=== PATIENT | male | born 1985 | race Caucasian/White ===

== ENCOUNTER 2018-12-04 15:42 | Emergency (ER) | payer SELFPAY ==
[2018-12-04] MEDS ORDERED: HYDROCODONE/APAP 10/325 TAB ONE (16:33)
[2018-12-04] MEDS ORDERED: IBUPROFEN 400 MG TAB ONE (16:33)
[2018-12-04] MEDS ORDERED: cloNIDine HCl 0.1 MG TAB ONE (17:12)
--- NOTE | 2018-12-04 17:20 | EDPHYS ---
Physician Documentation [facility] Name: Justino Barr Age: 33 yrs Sex: Male : 1985 Arrival Date: 12/04/2018 Time: 15:46 Bed 28 Private MD: ED Physician Rajesh Gallego HPI: 12/04 16:16 This 33 yrs old Male presents to ER via Ambulatory with complaints of rn Toothache, Chest Pain. 16:16 The patient presents with pain. Onset: The symptoms/episode began/occurred at an rn unknown time. Duration: The symptoms are intermittent. Associated signs and symptoms: Pertinent positives: pain. Severity of symptoms: At their worst the symptoms were mild, in the emergency department the symptoms are unchanged. The patient has experienced a previous episode. REports began recently with tooth pain, progressed to cause headache and chest pain, chest pain feels "burning", intermittent, concerned because father and other family had "heart problems", but at an older age. Denies chronic hypertension. Denies drug use.. Historical: - Allergies: 15:54 No Known Allergies; jl7 - Home Meds: 15:54 None [Active]; jl7 - PMHx: 15:54 None; jl7 - PSHx: 15:54 None; jl7 - Immunization history:: Adult Immunizations up to date. - Social history:: Smoking status: Patient uses tobacco products, smokes one pack cigarettes per day. Patient uses street drugs, marijuana. - Ebola Screening: : No symptoms or risks identified at this time. - Family history:: not pertinent. - Hospitalizations: : No recent hospitalization is reported. ROS: 16:16 Constitutional: Negative for fever, chills, and weight loss, Eyes: Negative for injury, rn pain, redness, and discharge, Neck: Negative for injury, pain, and swelling, Cardiovascular: Negative for palpitations, and edema, Respiratory: Negative for shortness of breath, cough, wheezing, and pleuritic chest pain, Abdomen/GI: Negative for abdominal pain, nausea, vomiting, diarrhea, and constipation, MS/Extremity: Negative for injury and deformity, Skin: Negative for injury, rash, and discoloration, Neuro: Negative for weakness, numbness, tingling, and seizure. Exam: 16:21 Constitutional: This is a well developed, well nourished patient who is awake, alert, rn and in no acute distress. Walked to room on own. Head/Face: Normocephalic, atraumatic. Eyes: Pupils equal round and reactive to light, extra-ocular motions intact. Lids and lashes normal. Conjunctiva and sclera are non-icteric and not injected. Cornea within normal limits. Periorbital areas with no swelling, redness, or edema. ENT: Poor dentition, no abscess Cardiovascular: tachycardic, regular, no murmur Respiratory: Lungs have equal breath sounds bilaterally, clear to auscultation, No increased work of breathing, no retractions or nasal flaring. Skin: Warm, dry with normal turgor. Normal color with no rashes, no lesions, and no evidence of cellulitis. MS/ Extremity: Pulses equal, no cyanosis. Neurovascular intact. Full, normal range of motion. Equal circumference. Neuro: Awake and alert, GCS 15, oriented to person, place, time, and situation. Cranial nerves II-XII grossly intact. Motor strength 5/5 in all extremities. Sensory grossly intact. Cerebellar exam normal. Normal gait. Vital Signs: 15:54 BP 224 / 154; Pulse 119; Resp 16 S; Temp 100(O); Pulse Ox 100% on R/A; Weight 73.48 kg jl7 (R); Height 5 ft. 11 in. (180.34 cm) (R); Pain 9/10; 17:20 BP 228 / 146; Pulse 96; Resp 18; Pulse Ox 98% on R/A; Pain 5/10; mg2 17:28 BP 218 / 150; Pulse 95; Resp 18; Pulse Ox 98% on R/A; mg2 18:02 BP 223 / 161; Pulse 94; Resp 18; Pulse Ox 98% on R/A; Pain 4/10; mg2 18:19 BP 220 / 150; Pulse 93; Resp 18; Pulse Ox 100% on R/A; Pain 4/10; mg2 15:54 Body Mass Index 22.59 (73.48 kg, 180.34 cm) jl7 MDM: 15:59 Patient medically screened. rn 17:11 Differential diagnosis: dental caries, hypertension. Data reviewed: vital signs, nurses rn notes, EKG, and as a result, I will discharge patient. Counseling: I had a detailed discussion with the patient and/or guardian regarding: the historical points, exam findings, and any diagnostic results supporting the discharge/admit diagnosis, the need for outpatient follow up, to return to the emergency department if symptoms worsen or persist or if there are any questions or concerns that arise at home. Counseling: I had a detailed discussion with the patient and/or guardian regarding: the presence of at least one elevated blood pressure reading (>120/80) during this emergency department visit. Response to treatment: the patient's symptoms have mildly improved after treatment, and as a result, I will discharge patient. Special discussion: I have referred the patient to see his PCP for further evaluation of high blood pressure. I discussed with the patient/guardian in detail that at this point there is no indication for admission to the hospital. It is understood, however, that if the symptoms persist or worsen the patient needs to return immediately for re-evaluation. ED course: ECG without acute ischemia, + high BP, will start on antihypertensive given strong family history and 2 visits with extremely high BP. Normal neuro exam, no indication for emergent neuro imaging.. 12/04 16:13 Order name: EKG; Complete Time: 16:14 rn 12/04 16:13 Order name: EKG - Nurse/Tech; Complete Time: 16:15 rn Administered Medications: 16:25 Drug: [place] 10 mg-325 mg 1 tabs Route: PO; mg2 17:32 Follow up: Response: No adverse reaction; Marked relief of symptoms mg2 16:25 Drug: Motrin 800 mg Route: PO; mg2 17:32 Follow up: Response: No adverse reaction; Marked relief of symptoms mg2 17:05 Drug: cloNIDine 0.2 mg Route: PO; mg2 17:39 Follow up: Response: No adverse reaction; Blood pressure is unchanged mg2 17:39 Drug: Lisinopril 20 mg Route: PO; mg2 18:17 Follow up: Response: No adverse reaction; Blood pressure is unchanged mg2 Disposition: 12/04/18 17:20 Discharged to Home. Impression: Dental caries, Hypertension, Chest pain, unspecified. - Condition is Stable. - Discharge Instructions: Nonspecific Chest Pain, Dental Pain, Hypertension. - Prescriptions for Clindamycin HCl 300 mg Oral Capsule - take 1 capsule by ORAL route every 6 hours for 10 days; 40 capsule. Lisinopril 10 mg Oral Tablet - take 1 tablet by ORAL route once daily; 60 tablet. - Medication Reconciliation Form, Thank You Letter, Antibiotic Education, Prescription Opioid Use form. - Follow up: Private Physician; When: As needed; Reason: Recheck today's complaints, Re-evaluation by your physician. - Problem is new. - Symptoms have improved. Signatures: Rajesh Gallego MD MD rn Atif Galaviz RN RN jl7 Max Beverly RN RN mg2 Corrections: (The following items were deleted from the chart) 18:20 17:20 12/04/2018 17:20 Discharged to Home. Impression: Dental caries; Hypertension; mg2 Chest pain, unspecified. Condition is Stable. Forms are Medication Reconciliation Form, Thank You Letter, Antibiotic Education, Prescription Opioid Use. Follow up: Private Physician; When: As needed; Reason: Recheck today's complaints, Re-evaluation by your physician. Problem is new. Symptoms have improved. rn
--- NOTE | 2018-12-04 17:20 | ER ---
Nurse's Notes [facility] Name: Justino Barr Age: 33 yrs Sex: Male : 1985 Arrival Date: 12/04/2018 Time: 15:46 Bed 28 Private MD: Diagnosis: Dental caries;Hypertension;Chest pain, unspecified Presentation: 12/04 15:51 Presenting complaint: Patient states: "I got a toothache 2 days ago in the bottom right jl7 and it progressed to a CHOWDHURY and now my chest started hurting today." Left sided chest pain radiates to the back, rated 5/10. Toothache rated 9/10. CHOWDHURY rated 6/10. Transition of care: patient was not received from another setting of care. Onset of symptoms was December 02, 2018. Risk Assessment: Do you want to hurt yourself or someone else? Patient reports no desire to harm self or others. Initial Sepsis Screen: Does the patient meet any 2 criteria? No. Patient's initial sepsis screen is negative. Does the patient have a suspected source of infection? No. Patient's initial sepsis screen is negative. Care prior to arrival: None. 15:51 Method Of Arrival: Ambulatory [facility] 15:51 Acuity: VAHID 2 jl7 Triage Assessment: 15:54 General: Appears in no apparent distress. uncomfortable, Behavior is calm, cooperative. jl7 Pain: Complains of pain in CHOWDHURY, toothache, chest pain. EENT: Reports pain in lower right second bicuspid. Neuro: Level of Consciousness is awake, alert, obeys commands, Oriented to person, place, time, situation. Cardiovascular: Patient's skin is warm and dry. Respiratory: Airway is patent Respiratory effort is even, unlabored, Respiratory pattern is regular, symmetrical, Denies shortness of breath. GI: Reports nausea, Patient currently denies diarrhea, vomiting. Derm: Skin is pink, warm \\T\\ dry. Historical: - Allergies: 15:54 No Known Allergies; jl7 - Home Meds: 15:54 None [Active]; jl7 - PMHx: 15:54 None; jl7 - PSHx: 15:54 None; jl7 - Immunization history:: Adult Immunizations up to date. - Social history:: Smoking status: Patient uses tobacco products, smokes one pack cigarettes per day. Patient uses street drugs, marijuana. - Ebola Screening: : No symptoms or risks identified at this time. - Family history:: not pertinent. - Hospitalizations: : No recent hospitalization is reported. Screenin:43 Abuse screen: Denies threats or abuse. Denies injuries from another. Nutritional mg2 screening: No deficits noted. Tuberculosis screening: No symptoms or risk factors identified. Fall Risk None identified. Assessment: 16:39 General: Appears in no apparent distress. comfortable, Behavior is calm, cooperative. mg2 Pain: Complains of pain in tooth, head, left sided-chest Pain does not radiate. Pain currently is 9 out of 10 on a pain scale. Quality of pain is described as aching, Pain began gradually, Is intermittent. Neuro: Level of Consciousness is awake, alert, obeys commands, Oriented to person, place, time, situation. Cardiovascular: Capillary refill < 3 seconds Patient's skin is warm and dry. Cardiovascular: Chest pain quality is sharp, is located in left. Respiratory: Airway is patent Respiratory effort is even, unlabored, Respiratory pattern is regular, symmetrical. GI: No signs and/or symptoms were reported involving the gastrointestinal system. : No signs and/or symptoms were reported regarding the genitourinary system. EENT: Poor dentition noted. Derm: Skin is intact, is healthy with good turgor, Skin is pink, warm \\T\\ dry. normal. Musculoskeletal: No signs and/or symptoms reported regarding the musculoskeletal system. 16:39 Neuro: Reports headache. mg2 17:20 Reassessment: Patient appears in no apparent distress at this time. Patient and/or mg2 family updated on plan of care and expected duration. Pain level reassessed. Patient is alert, oriented x 3, equal unlabored respirations, skin warm/dry/pink. 17:40 Reassessment: blood pressure still high. for discharge once blood pressure lowered down.mg2 18:18 Reassessment: dr gallego advised to discharge the patient and let him rest at home. mg2 Vital Signs: 15:54 BP 224 / 154; Pulse 119; Resp 16 S; Temp 100(O); Pulse Ox 100% on R/A; Weight 73.48 kg jl7 (R); Height 5 ft. 11 in. (180.34 cm) (R); Pain 9/10; 17:20 BP 228 / 146; Pulse 96; Resp 18; Pulse Ox 98% on R/A; Pain 5/10; mg2 17:28 BP 218 / 150; Pulse 95; Resp 18; Pulse Ox 98% on R/A; mg2 18:02 BP 223 / 161; Pulse 94; Resp 18; Pulse Ox 98% on R/A; Pain 4/10; mg2 18:19 BP 220 / 150; Pulse 93; Resp 18; Pulse Ox 100% on R/A; Pain 4/10; mg2 15:54 Body Mass Index 22.59 (73.48 kg, 180.34 cm) 7 ED Course: 15:46 Patient arrived in ED. mr 15:54 Triage completed. jl7 15:54 Arm band placed on right wrist. jl7 15:59 Rajesh Gallego MD is Attending Physician. rn 16:05 Max Beverly, MANSOOR is Primary Nurse. mg2 16:20 EKG done, by biomedical repair technician. reviewed by Rajesh Gallego MD. 3 16:43 Call light in reach. Pulse ox on. NIBP on. mg2 16:43 No provider procedures requiring assistance completed. mg2 18:19 IV discontinued, intact, bleeding controlled, No redness/swelling at site. Pressure mg2 dressing applied. Administered Medications: 16:25 Drug: [place] 10 mg-325 mg 1 tabs Route: PO; mg2 17:32 Follow up: Response: No adverse reaction; Marked relief of symptoms mg2 16:25 Drug: Motrin 800 mg Route: PO; mg2 17:32 Follow up: Response: No adverse reaction; Marked relief of symptoms mg2 17:05 Drug: cloNIDine 0.2 mg Route: PO; mg2 17:39 Follow up: Response: No adverse reaction; Blood pressure is unchanged mg2 17:39 Drug: Lisinopril 20 mg Route: PO; mg2 18:17 Follow up: Response: No adverse reaction; Blood pressure is unchanged mg2 Outcome: 17:20 Discharge ordered by . rn 18:19 Discharged to home ambulatory. mg2 18:19 Condition: stable 18:19 Discharge instructions given to patient, Instructed on discharge instructions, follow up and referral plans. medication usage, Demonstrated understanding of instructions, follow-up care, medications, Prescriptions given X 2. 18:20 Patient left the ED. mg2 Signatures: Marilynn Calderon mr Rajesh Gallego MD MD rn Leal, Jahala, RN RN [facility] Max Beverly RN RN [facility] Sarai Cardenas 3 Corrections: (The following items were deleted from the chart) 15:58 15:51 Acuity: VAHID 3 jl7 jl7
[2018-12-04] MEDS ORDERED: LISINOPRIL 10 MG TAB ONE (17:47)
--- NOTE | 2018-12-05 06:59 | EKG ---
Test Date: 2018-12-04 Test Time: 16:09:20 Factory Supervisor: MARQUISE MEASUREMENT RESULTS: Intervals: Rate: 96 IL: 140 QRSD: 78 QT: 338 QTc: 427 [place]: P: 80 IL: 140 QRS: 80 T: 61 INTERPRETIVE STATEMENTS: Normal sinus rhythm Minimal voltage criteria for LVH, may be normal variant cannot rule out septal infarct, age undetermined Abnormal ECG Compared to ECG 05/17/2016 04:25:02 Left ventricular hypertrophy now present questionable myocardial infarct finding still present Electronically Signed On 12-05-18 06:59:09 PROGRAMMER ANALYST by Feliz Rivas
== END 2018-12-04 18:20 | disposition home or self-care (01) ==
LOC: ER 15:42
DX: I10 Essential (primary) hypertension (principal); K02.9 Dental caries, unspecified; F17.210 Nicotine dependence, cigarettes, uncomplicated
CPT/HCPCS: 93005; 99284

== ENCOUNTER 2022-04-03 06:18 | Inpatient (IN) | payer SELFPAY ==
[2022-04-03] MEDS ORDERED: FAMOTIDINE 20 MG/2 ML VIAL IV ONE (07:27)
[2022-04-03] MEDS ORDERED: ONDANSETRON 4 MG/2 ML VIAL ONE (07:27)
[2022-04-03] MEDS ORDERED: NA CHLORIDE 0.9% 1,000 ML ONE ×2 (07:27→08:12)
[2022-04-03 07:44] LABS: Absolute Lymphocytes (CBC) 1.9 K/uL (0.7-4.9); Hematocrit 38.4 % (39.6-49.0); Lymphocytes % 15.5 % (15.3-44.8); MPV 8.2 fL (7.6-11.3); RBC Red Blood Cell Count 4.46 M/uL (4.33-5.43)
[2022-04-03 08:11] LABS: Albumin 2.7 g/dL (3.4-5.0); Protein, Total 6.8 g/dL (6.4-8.2)
[2022-04-03] MEDS ORDERED: NA CHLORIDE 0.9% 500 ML ONE (08:12)
[2022-04-03 08:14] LABS: Potassium 2.7 mmol/L (3.5-5.1)
[2022-04-03] MEDS ORDERED: KCL 20 MEQ/100 mL IVPB 100 ML IV ONE ×2 (08:42→08:59)
--- NOTE | 2022-04-03 08:47 | RAD REPORT ---
EXAM DESCRIPTION: CTAbdomen Pelvis Wo Contrast - 04/03/2022 8:32 am CLINICAL HISTORY: Abdominal pain, acute, nonlocalized COMPARISON: <Comparisons> TECHNIQUE: CT of the abdomen and pelvis was performed. All CT scans are performed using dose optimization technique as appropriate and may include automated exposure control or mA/KV adjustment according to patient size. FINDINGS: Lower chest: Interlobular septal thickening at the right lung base. Small pleural effusion s. Cardiomegaly suspected. Liver: Low-density lesion along segment 4 is almost certainly benign. Biliary: No biliary ductal dilatation. Contracted gallbladder. Stomach: No significant focal abnormality. Duodenum: No significant focal abnormality. Pancreas: No significant abnormality. Spleen: No significant abnormality. Adrenal: No suspicious lesions. Kidney/ureter: No hydronephrosis. No renal calculi. Retroperitoneum: No retroperitoneal adenopathy. Vascular: No aneurysm. Bowel: No significant focal abnormality. Normal appendix. Peritoneum: No ascites or free air. Bladder: Grossly unremarkable. Reproductive: No adnexal masses. Bones: No acute fracture. Sclerotic lesion in the posterior half of the L2 vertebral body is unchange d and chronic. Disc bulges present at L4-5 and L5-S1. Other: n/a IMPRESSION: No acute intra-abdominal or pelvic finding. Normal appendix. No urinary tract calculi. Small pleural effusions with interlobular septal thickening could reflect edema.
[2022-04-03] MEDS ORDERED: MORPHINE 4 MG/ML SYR ONE (08:59)
--- NOTE | 2022-04-03 09:01 | EDPHYS ---
Physician Documentation [facility] Name: Justino Barr Age: 36 yrs Sex: Male : 1985 Arrival Date: 04/03/2022 Time: 06:22 Bed 6 Private MD: STEPHEN Physician Keo John HPI: 04/03 08:52 This 36 yrs old Male presents to ER via Ambulatory with complaints of ciera Nausea/Vomiting, Abdominal Pain. 08:52 The patient presents to the emergency department with nausea, vomiting, that is ciera continuous. Onset: The symptoms/episode began/occurred 5 day(s) ago. Possible causes: unknown. The symptoms are aggravated by nothing. The symptoms are alleviated by nothing. Associated signs and symptoms: Pertinent positives: abdominal pain, vomiting. Severity of symptoms: At their worst the symptoms were moderate severe in the emergency department the symptoms are unchanged. The patient has not experienced similar symptoms in the past. Historical: - Allergies: 06:42 No Known Allergies; bb - Home Meds: 06:42 None [Active]; bb - PMHx: 06:42 None; bb - PSHx: 06:42 None; bb - Immunization history:: Client reports having NOT received the Covid vaccine. - Social history:: Smoking status: Patient reports the use of cigarette tobacco products, Patient/guardian denies using street drugs, but used to use street drugs. ROS: 08:54 Eyes: Negative for injury, pain, redness, and discharge, ENT: Negative for injury, ciera pain, and discharge, Neck: Negative for injury, pain, and swelling, Cardiovascular: Negative for chest pain, palpitations, and edema, Back: Negative for injury and pain, : Negative for injury, bleeding, discharge, and swelling, MS/Extremity: Negative for injury and deformity, Neuro: Negative for headache, weakness, numbness, tingling, and seizure, Psych: Negative for depression, anxiety, suicide ideation, homicidal ideation, and hallucinations, Allergy/Immunology: Negative for hives, rash, and allergies, Endocrine: Negative for neck swelling, polydipsia, polyuria, polyphagia, and marked weight changes, Hematologic/Lymphatic: Negative for swollen nodes, abnormal bleeding, and unusual bruising. 08:54 Respiratory: Positive for shortness of breath. 08:54 Abdomen/GI: Positive for nausea and vomiting. Exam: 08:54 Constitutional: This is a well developed, well nourished patient who is awake, alert, ciera and in no acute distress. Head/Face: Normocephalic, atraumatic. Eyes: Pupils equal round and reactive to light, extra-ocular motions intact. Lids and lashes normal. Conjunctiva and sclera are non-icteric and not injected. Cornea within normal limits. Periorbital areas with no swelling, redness, or edema. ENT: Nares patent. No nasal discharge, no septal abnormalities noted. Tympanic membranes are normal and external auditory canals are clear. Oropharynx with no redness, swelling, or masses, exudates, or evidence of obstruction, uvula midline. Mucous membranes moist. Neck: Trachea midline, no thyromegaly or masses palpated, and no cervical lymphadenopathy. Supple, full range of motion without nuchal rigidity, or vertebral point tenderness. No Meningismus. Chest/axilla: Normal chest wall appearance and motion. Nontender with no deformity. No lesions are appreciated. Cardiovascular: Regular rate and rhythm with a normal S1 and S2. No gallops, murmurs, or rubs. Normal PMI, no JVD. No pulse deficits. Respiratory: Lungs have equal breath sounds bilaterally, clear to auscultation and percussion. No rales, rhonchi or wheezes noted. No increased work of breathing, no retractions or nasal flaring. Back: No spinal tenderness. No costovertebral tenderness. Full range of motion. Male : Normal genitalia with no discharge or lesions. MS/ Extremity: Pulses equal, no cyanosis. Neurovascular intact. Full, normal range of motion. Neuro: Awake and alert, GCS 15, oriented to person, place, time, and situation. Cranial nerves II-XII grossly intact. Motor strength 5/5 in all extremities. Sensory grossly intact. Cerebellar exam normal. Normal gait. Psych: Awake, alert, with orientation to person, place and time. Behavior, mood, and affect are within normal limits. 08:54 Abdomen/GI: Inspection: distension, that is mild, Bowel sounds: active, Palpation: mild abdominal tenderness, in all quadrants, Liver: no appreciated palpable abnormalities, Hernia: not appreciated. 11:04 ECG was reviewed by the Attending Physician. [facility] Vital Signs: 06:41 BP 218 / 159; Pulse 108; Resp 18 S; Temp 97.4(O); Pulse Ox 98% on R/A; Weight 74.84 kg bb (R); Height 5 ft. 11 in. (180.34 cm) (R); Pain 6/10; 09:31 BP 204 / 158; Pulse 101; Resp 22; Pulse Ox 96% on 2 lpm NC; guillen 10:58 BP 196 / 147; Pulse 102; Resp 20; Pulse Ox 96% on 2 lpm NC; guillen 11:10 BP 172 / 120; Pulse 105; Resp 20; Pulse Ox 97% on 2 lpm NC; guillen 11:19 BP 158 / 107; Pulse 105; Resp 19; Pulse Ox 94% on 2 lpm NC; guillen 11:24 BP 137 / 101; Pulse 104; Resp 19; Pulse Ox 92% on 2 lpm NC; guillen 12:05 BP 139 / 90; Pulse 101; Resp 19; Pulse Ox 100% on 4 lpm NC; guillen 13:00 BP 137 / 84; Pulse 102; Resp 17; Pulse Ox 99% on 2 lpm NC; guillen 13:41 BP 137 / 93; Pulse 99; Resp 19; Pulse Ox 99% on 2 lpm NC; guillen 16:04 BP 149 / 92; Pulse 101; Resp 17; Pulse Ox 96% on 4 lpm NC; guillen 17:00 BP 138 / 86; Pulse 101; Resp 17; Pulse Ox 100% on 4 lpm NC; guillen 18:00 BP 127 / 75; Pulse 102; Resp 17; Pulse Ox 90% on 4 lpm NC; guillen 06:41 Body Mass Index 23.01 (74.84 kg, 180.34 cm) bb MDM: 07:11 Patient medically screened. ciera 09:03 Differential diagnosis: Nonspecific abd pain, gastritis, cholecystitis, pancreatitis, ciera diverticulitis, viral gastroenteritis, gastroenteritis, bowel obstruction. Data reviewed: vital signs, nurses notes, lab test result(s), EKG, radiologic studies, CT scan, plain films. 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 Test interpretation: by ED physician or midlevel provider: ECG, plain radiologic studies. Counseling: I had a detailed discussion with the patient and/or guardian regarding: the historical points, exam findings, and any diagnostic results supporting the discharge/admit diagnosis, lab results, radiology results, the need for further work-up and treatment in the hospital. 04/03 07:02 Order name: CBC with Diff; Complete Time: 08:40 7 04/03 07:02 Order name: CMP; Complete Time: 08:40 [facility] 04/03 07:02 Order name: Lipase; Complete Time: 08:40 [facility] 04/03 08:14 Order name: Phosphorus; Complete Time: 10:52 [facility] 04/03 08:43 Order name: SARS-COV-2 RT PCR (Document "Date of Onset" if Symptomatic); Complete Time: [facility] 10:52 04/03 08:57 Order name: Basic Metabolic Panel; Complete Time: 10:52 [facility] 04/03 08:57 Order name: Magnesium; Complete Time: 10:52 [facility] 04/03 08:57 Order name: NT PRO-BNP; Complete Time: 10:52 [facility] 04/03 08:57 Order name: PT-INR; Complete Time: 10:52 [facility] 04/03 08:57 Order name: Troponin HS; Complete Time: 10:52 [facility] 04/03 10:41 Order name: Urine Dipstick-Ancillary; Complete Time: 10:52 [facility] 04/04 00:36 Order name: Urine Drug Screen EDMS 04/04 03:51 Order name: Comprehensive Metabolic Panel EDUT 04/04 03:51 Order name: Phosphorus EDUT 04/03 08:18 Order name: Abdomen ; Complete Time: 08:51 [facility] 04/03 08:43 Order name: US Abdomen Limited; Complete Time: 10:52 [facility] 04/03 08:57 Order name: XRAY Chest (1 view); Complete Time: 10:52 [facility] 04/03 11:32 Order name: Cholangiogram; Complete Time: 20:14 EDMS 04/04 03:51 Order name: Magnesium EDMS 04/04 14:56 Order name: Potassium EDMS 04/04 14:56 Order name: Troponin High Sensitivity EDMS 04/03 07:02 Order name: IV Saline Lock; Complete Time: 07:33 7 04/03 07:02 Order name: Labs collected and sent; Complete Time: 07:33 [facility] 04/03 07:02 Order name: Urine Dipstick-Ancillary (obtain specimen); Complete Time: 11:59 [facility] 04/03 08:43 Order name: Cortez; Complete Time: 09:29 [facility] 04/03 08:57 Order name: EKG; Complete Time: 08:58 [facility] 04/03 08:57 Order name: Cardiac monitoring; Complete Time: 09:28 [facility] 04/03 08:57 Order name: EKG - Nurse/Tech; Complete Time: 10:58 [facility] 04/03 08:57 Order name: O2 Per Protocol; Complete Time: 09: [facility] 04/03 08:57 Order name: O2 Sat Monitoring; Complete Time: 09: [facility] 04/03 10:12 Order name: CONS Physician Consult EDMS 04/03 10:28 Order name: NPO; Complete Time: 10:58 EDMS EC:04 Rate is 103 beats/min. Rhythm is regular. QRS [place] is Normal. IN interval is normal. ciera QRS interval is normal. QT interval is normal. No Q waves. T waves are Normal. No ST changes noted. Clinical impression: Sinus tachycardia and No evidence of ischemia. Interpreted by me. Reviewed by me. Administered Medications: 07:32 Drug: NS 0.9% 1000 ml Route: IV; Rate: 1 bolus; Site: right antecubital; guillen 07:32 Drug: Pepcid (famotidine) 20 mg Route: IVP; Site: right antecubital; guillen 07:33 Follow up: Response: No adverse reaction guillen 07:33 Drug: Zofran (Ondansetron) 4 mg Route: IVP; Site: right antecubital; guillen 07:43 Follow up: Response: No adverse reaction guillen 08:49 Drug: Potassium Chloride 20 mEq Route: IV; Rate: per protocol; Site: right antecubital; guillen 11:58 Follow up: Response: No adverse reaction; IV Status: Completed infusion guillen 09:28 Drug: morphine 4 mg Route: IVP; Site: right antecubital; guillen 09:28 Follow up: Response: No adverse reaction guillen 09:29 Drug: NS 0.9% 1000 ml Route: IV; Rate: 125 ml/hr; Site: right antecubital; guillen 09:29 Drug: Potassium Chloride 20 mEq Route: IV; Rate: per protocol; Site: left antecubital; guillen 11:59 Follow up: Response: No adverse reaction; IV Status: Completed infusion guillen 09:56 Drug: niCARdipine 5 mg/hr Route: IV; Rate: per protocol; Site: left antecubital; guillen 13:05 Follow up: IV Status: Completed infusion guillen 11:59 Drug: NS 0.9% 500 ml Route: IV; Rate: bolus; Site: right antecubital; guillen 11:59 Follow up: Response: No adverse reaction; IV Status: Completed infusion guillen Disposition Summary: 04/03/22 09:01 Hospitalization Ordered Hospitalization Status: Inpatient Admission ciera Provider: Moiz Quintana cha Condition: Serious ciera Problem: new ciera Symptoms: have improved ciera Bed/Room Type: Standard ciera Location: Intensive Care Unit(04/05/22 02:32) Room Assignment: 7-(04/05/22 02:32) Diagnosis - Acute kidney failure, unspecified ciera - Vomiting ciera - Abdominal pain, Generalized ciera - Hypertensive emergency ciera - Hypokalemia ciera Forms: - Medication Reconciliation Form ciera - SBAR form ciera Signatures: Dispatcher [employer] EDMS Vijaya Hernandez RN RN mw Woody, Diana, RN RN dw Anderson, Corey, MD MD cha Ballard, Brenda, RN RN Anupam Chapman, CLINICAL INFORMATICS MANAGER-C CLINICAL INFORMATICS MANAGER-Cla1 Bello Patel MD MD [id number] Iona Guerin RN RN guileln Corrections: (The following items were deleted from the chart) 07:33 07:02 LIPASE+C.LAB.BRZ ordered. EDMS EDMS 08:18 07:20 Abdomen Pelvis W Con+CT.RAD.BRZ ordered. EDMS EDMS 19:38 09:01 Intensive Care Unit counts include 234 beds at the [facility] 19:38 09:01 counts include 234 beds at the [facility] 04/05 02:32 09 19:38 BR ER HOLD [facility] 04/05 02:32 04/03 19:38 ERHOLD- [facility]
--- NOTE | 2022-04-03 09:01 | ER ---
Nurse's Notes [facility] Name: Justino Barr Age: 36 yrs Sex: Male : 1985 Arrival Date: 04/03/2022 Time: 06:22 Bed 6 Private MD: Diagnosis: Acute kidney failure, unspecified;Vomiting;Abdominal pain, Generalized;Hypertensive emergency;Hypokalemia Presentation: 04/03 06:41 Chief complaint: Patient states: he has been having abdominal pain x 5 days, started bb vomiting yesterday and the pain is getting worse denies diarrhea, fever. Coronavirus screen: At this time, the client does not indicate any symptoms associated with coronavirus-19. Ebola Screen: No symptoms or risks identified at this time. Initial Sepsis Screen: Does the patient meet any 2 criteria? No. Patient's initial sepsis screen is negative. Does the patient have a suspected source of infection? No. Patient's initial sepsis screen is negative. Risk Assessment: Do you want to hurt yourself or someone else? Patient reports no desire to harm self or others. Onset of symptoms was March 29, 2022. 06:41 Method Of Arrival: Ambulatory bb 06:41 Acuity: VAHID 2 bb Triage Assessment: 06:42 General: Appears uncomfortable, ill, Behavior is cooperative. Pain: Complains of pain bb in abdomen Pain currently is 6 out of 10 on a pain scale. Neuro: Level of Consciousness is awake, alert, obeys commands, Oriented to person, place, time, situation. Cardiovascular: Capillary refill < 3 seconds Patient's skin is warm and dry. Respiratory: Respiratory effort is unlabored, Respiratory pattern is tachypnea. GI: Reports lower abdominal pain, vomiting. Derm: Skin is pink, warm \\T\\ dry. Musculoskeletal: Circulation, motion, and sensation intact. Historical: - Allergies: 06:42 No Known Allergies; bb - Home Meds: 06:42 None [Active]; bb - PMHx: 06:42 None; bb - PSHx: 06:42 None; bb - Immunization history:: Client reports having NOT received the Covid vaccine. - Social history:: Smoking status: Patient reports the use of cigarette tobacco products, Patient/guardian denies using street drugs, but used to use street drugs. Screenin:00 Abuse screen: Denies threats or abuse. Denies injuries from another. Nutritional kd3 screening: No deficits noted. Tuberculosis screening: No symptoms or risk factors identified. Fall Risk None identified. Assessment: 07:19 General: Appears in no apparent distress. Behavior is calm, cooperative. Pain: guillen Complains of pain in abdomen. GI: Abd is soft and non tender Reports nausea, Pain is 8 out of 10 on a pain scale. vomiting. Vital Signs: 06:41 BP 218 / 159; Pulse 108; Resp 18 S; Temp 97.4(O); Pulse Ox 98% on R/A; Weight 74.84 kg bb (R); Height 5 ft. 11 in. (180.34 cm) (R); Pain 6/10; 09:31 BP 204 / 158; Pulse 101; Resp 22; Pulse Ox 96% on 2 lpm NC; guillen 10:58 BP 196 / 147; Pulse 102; Resp 20; Pulse Ox 96% on 2 lpm NC; guillen 11:10 BP 172 / 120; Pulse 105; Resp 20; Pulse Ox 97% on 2 lpm NC; guillen 11:19 BP 158 / 107; Pulse 105; Resp 19; Pulse Ox 94% on 2 lpm NC; guillen 11:24 BP 137 / 101; Pulse 104; Resp 19; Pulse Ox 92% on 2 lpm NC; guillen 12:05 BP 139 / 90; Pulse 101; Resp 19; Pulse Ox 100% on 4 lpm NC; guillen 13:00 BP 137 / 84; Pulse 102; Resp 17; Pulse Ox 99% on 2 lpm NC; guillen 13:41 BP 137 / 93; Pulse 99; Resp 19; Pulse Ox 99% on 2 lpm NC; guillen 16:04 BP 149 / 92; Pulse 101; Resp 17; Pulse Ox 96% on 4 lpm NC; guillen 17:00 BP 138 / 86; Pulse 101; Resp 17; Pulse Ox 100% on 4 lpm NC; guillen 18:00 BP 127 / 75; Pulse 102; Resp 17; Pulse Ox 90% on 4 lpm NC; guillen 06:41 Body Mass Index 23.01 (74.84 kg, 180.34 cm) arthur ED Course: 06:22 Patient arrived in ED. lele 06:42 Triage completed. bb 06:42 Arm band placed on Patient placed in waiting room, Patient notified of wait time. bb 07:00 Emelia Smith RN is Primary Nurse. kd3 07:00 Patient has correct armband on for positive identification. kd3 07:11 Keo John MD is Attending Physician. ciera 07:19 No provider procedures requiring assistance completed. guillen 07:33 CBC with Diff Sent. guillen 07:43 Primary Nurse role handed off by Emelia Smith RN bd 08:34 Abdomen In Process Unspecified. EDMS 08:34 Iona Guerin, MANSOOR is Primary Nurse. guillen 08:58 Moiz Quintana MD is Hospitalizing Provider. ciera 09:10 US Abdomen Limited In Process Unspecified. EDMS 09:28 SARS-COV-2 RT PCR (Document "Date of Onset" if Symptomatic) Sent. guillen 10:12 XRAY Chest (1 view) In Process Unspecified. EDMS 15:40 Cholangiogram In Process Unspecified. EDMS 05 03:08 Patient admitted, IV remains in place. ll3 Administered Medications: 04/03 07:32 Drug: NS 0.9% 1000 ml Route: IV; Rate: 1 bolus; Site: right antecubital; guillen 07:32 Drug: Pepcid (famotidine) 20 mg Route: IVP; Site: right antecubital; guillen 07:33 Follow up: Response: No adverse reaction guillen 07:33 Drug: Zofran (Ondansetron) 4 mg Route: IVP; Site: right antecubital; guillen 07:43 Follow up: Response: No adverse reaction guillen 08:49 Drug: Potassium Chloride 20 mEq Route: IV; Rate: per protocol; Site: right antecubital; guillen 11:58 Follow up: Response: No adverse reaction; IV Status: Completed infusion guillen 09:28 Drug: morphine 4 mg Route: IVP; Site: right antecubital; guillen 09:28 Follow up: Response: No adverse reaction guillen 09:29 Drug: NS 0.9% 1000 ml Route: IV; Rate: 125 ml/hr; Site: right antecubital; guillen 09:29 Drug: Potassium Chloride 20 mEq Route: IV; Rate: per protocol; Site: left antecubital; guillen 11:59 Follow up: Response: No adverse reaction; IV Status: Completed infusion guillen 09:56 Drug: niCARdipine 5 mg/hr Route: IV; Rate: per protocol; Site: left antecubital; guillen 13:05 Follow up: IV Status: Completed infusion 11:59 Drug: NS 0.9% 500 ml Route: IV; Rate: bolus; Site: right antecubital; 11:59 Follow up: Response: No adverse reaction; IV Status: Completed infusion Outcome: 09:01 Decision to Hospitalize by Provider. [facility] 04/05 03:08 Admitted to ICU accompanied by nurse, accompanied by tech, via stretcher, room 7, on ll3 monitor, with chart, Report called to Receiving RN Condition: stable Instructed on the need for admit, Demonstrated understanding of instructions. 03:13 Patient left the ED. ll3 Signatures: Dispatcher [employer] EDMS Amara Michael Corey, MD MD cha Ballard, Brenda, RN RN Marie Quintana RN RN [facility] Emelia Smith RN RN 3 Iona Guerin RN RN ha Zapata, Kelly kz Corrections: (The following items were deleted from the chart) 04/03 07:33 07:33 LIPASE+C.LAB.RAFAL drawn and sent. EDRI
[2022-04-03] MEDS ORDERED: LIDOCAINE VISCOUS 2% SOLN 15 ML UDC ONE (09:02)
--- NOTE | 2022-04-03 09:17 | RAD REPORT ---
EXAM DESCRIPTION: US - Abdomen Exam Limited - 04/03/2022 9:08 am CLINICAL HISTORY: ABD PAIN COMPARISON: Abdomen Pelvis Wo Contrast dated 04/03/2022 FINDINGS: The gallbladder wall is thickened. Gallstones are present. The common bile duct is normal in caliber. Gallbladder is severely contracted. No sonographic Antonio's sign was reported. Probable h emangioma along the gallbladder fossa. IMPRESSION: Cholelithiasis with gallbladder wall thickening but no reported sonographic Antonio's sig n. The exam is equivocal for acute cholecystitis.
[2022-04-03 09:40] LABS: Protime INR 1.22
[2022-04-03] MEDS: Ringers Lactate 1,000 ML IV SCH ×2 (10:00→20:00)
[2022-04-03] MEDS ORDERED: KCL 20 MEQ/100 mL IVPB 20 MEQ/100 ML BAG IV ONE (10:00)
[2022-04-03 10:15] LABS: Magnesium 2.2 mg/dL (1.8-2.4)
[2022-04-03 10:19] LABS: Potassium 2.7 mmol/L (3.5-5.1); Troponin High Sensitivity 530.2 pg/mL (<58.9)
[2022-04-03] MEDS ORDERED: ACETAMINOPHEN 500 MG TAB PO PRN (10:23)
[2022-04-03] MEDS ORDERED: ONDANSETRON 4 MG/2 ML VIAL IV PRN (10:23)
[2022-04-03] MEDS ORDERED: HYDROMORPHONE HCL 0.5 MG/0.5 ML INJ IV PRN (10:30)
[2022-04-03 10:40] LABS: Urine Blood 2+ (Negative); Urine Glucose Trace (Negative); Urine Protein 3+ (Negative); Urine Specific Gravity 1.025 (1.005-1.030); Urine pH 6.5 (5.0-7.0)
--- NOTE | 2022-04-03 10:45 | RAD REPORT ---
EXAM DESCRIPTION: RAD - Chest Single View - 04/03/2022 10:10 am CLINICAL HISTORY: Cough COMPARISON: Chest Single View dated 05/17/2016 FINDINGS: Lines: None. Lungs: No evidence of edema or pneumonia. Pleural: No significant pleural effusions or pneumothorax. Cardiac: The heart size is within normal limits. Bones: No acute fractures. Other: IMPRESSION: No acute cardiopulmonary disease.
--- NOTE | 2022-04-03 11:43 | P.HP ---
Certification for Inpatient Patient admitted to: Inpatient With expected LOS: >2 Midnights Patient will require the following post-hospital care: None Practitioner: I am a practitioner with admitting privileges, knowledge of patient current condition, hospital course, and medical plan of care. Services: Services provided to patient in accordance with Admission requirements found in Title 42 Section 412.3 of the Code of Federal Regulations Patient History Date of Service: 04/03/22 Reason for admission: Sepsis, mart, cholelithiasis/cholecystitis. History of Present Illness: 36-year-old male patient with coming to the ER with complaint of abdominal pain with associated nausea and vomiting. This has been happening a couple of days prior to evaluation in the ER. He was worked up and found to have significant abnormality which include cholecystitis with gallstones and ultrasound imaging of the gallbladder. He also had significant kidney function abnormality with low sodium of 131, low potassium of 2.7 and creatinine of 4. He was admitted for inpatient care after IV therapy was started. He did have significant blood pressure elevation with systolic over 200 and he was deemed to be having hypertensive urgency. IV nicardipine drip was started for blood pressure management. At the time of encounter he denied any episodes of chest pain, shortness of breath, cough episode. Allergies No Known Allergies Allergy (Unverified 05/17/16 08:03) Review of Systems General: Unremarkable Eyes: Unremarkable ENT: Unremarkable Respiratory: Unremarkable Cardiovascular: Unremarkable Gastrointestinal: Abdominal Pain Genitourinary: Unremarkable Musculoskeletal: Unremarkable Integumentary: Unremarkable Neurological: Unremarkable Physical Examination - Physical Exam General: Alert, Oriented x3 HEENT: Atraumatic, Normocephalic Neck: Supple Respiratory: Normal air movement Cardiovascular: Regular rate/rhythm, Normal S1 S2 Gastrointestinal: Soft and benign Musculoskeletal: No swelling Neurological: Normal speech, Normal strength at 5/5 x4 extr - Studies Laboratory Data (last 24 hrs) 04/03/22 09:15: PT 13.5 H, INR 1.22 04/03/22 09:15: Sodium 131 L, Potassium 2.7 L*, BUN 30 H, Creatinine 3.94 H, Glucose 139 H, Magnesium 2.2 04/03/22 08:14: Phosphorus 4.5 04/03/22 07:31: Sodium 131 L, Potassium 2.7 L*, BUN 32 H, Creatinine 4.09 H, Glucose 134 H, Total Bilirubin 1.0, AST 133 H, ALT 229 H, Alkaline Phosphatase 168 H, Lipase 186 04/03/22 07:31: WBC 12.4 H, Hgb 12.7 L, Hct 38.4 L, Plt Count 367 Assessment and Plan - Plan 1. Sepsis: Present on admission. Significant elevation of white cell and acute kidney injury with suspicion for gallbladder as a source of pathology. Empiric antibiotic with cefepime started. Will follow closely. Will monitor lactic acid reflexively and follow vitals closely. 2. Cholecystitis/cholelithiasis: Elevated liver enzymes noted. MRCP ordered for evaluation of possibility dislodged gallstones. Surgeon to be reconsulted for management recommendation. 3. Hypertensive urgency: Systolic blood pressure over 200 noted on routine vital sign monitoring. IV nicardipine drip started for management. Will follow closely. 4. Hypokalemia: Very low potassium of 2.7 noted on lab. Repletion started. Will follow closely. Deemed secondary to volume loss from vomiting episodes. Prophylaxis: Heparin for DVT prophylaxis. CODE STATUS: Full code. Disposition: Pending surgeon evaluation - Advance Directives Does patient have a Living Will: No Does patient have a Durable POA for Healthcare: No
[2022-04-03] MEDS: CEFEPIME 1 GM in NA CHLORIDE 0.9% 100 ML IV SCH (14:00)
[2022-04-03] MEDS ORDERED: Ringers Lactate 1,000 ML IV ONE ×2 (14:26→23:57)
--- NOTE | 2022-04-03 15:55 | RAD REPORT ---
EXAM DESCRIPTION: MRI - Cholangiogram - 04/03/2022 3:38 pm CLINICAL HISTORY: pt with cholelithiasis and suspected duct stones Abdominal pain COMPARISON: Abdomen Pelvis Wo Contrast dated 04/03/2022; Abdomen Exam Limited dated 04/03/2022 FINDINGS: Three-dimensional MRCP was performed using maximum intensity projection reconstruction on the same work station. No intrahepatic biliary tree dilatation is seen. The common bile duct is normal caliber without evide nce of retained stone, stricture or mass. The pancreatic duct is not pathologically dilated. Pericholecystic fluid/gallbladder wall thickening is present. Small bilateral pleural effusions are suspected. IMPRESSION: There is evidence of pericholecystic fluid/gallbladder wall thickening. No common bile duct dilatation is seen.
[2022-04-03] MEDS: HEPARIN 5000 UNIT/ML 1 ML VIAL SQ SCH (17:00)
[2022-04-03] MEDS: NICARDIPINE HCL 25 MG in NA CHLORIDE 0.9% 240 ML IV PRN (18:28)
[2022-04-03] MEDS ORDERED: HEPARIN 5000 UNIT/ML 1 ML VIAL ONE (18:38)
[2022-04-03] MEDS ORDERED: CEFEPIME 1 GM/VIAL ONE (18:38)
[2022-04-03] MEDS ORDERED: NA CHLORIDE 0.9% 100 ML IV ONE (18:38)
[2022-04-03] MEDS ORDERED: Nicardipine/NS 25 MG/250 ML KIT IV ONE ×2 (19:25→23:57)
[2022-04-04 00:36] LABS: Barbiturates NEGATIVE (NEGATIVE); Benzodiazepines NEGATIVE (NEGATIVE); Cocaine NEGATIVE (NEGATIVE); METHAMPHETAM POSITIVE (NEGATIVE); Methadone NEGATIVE (NEGATIVE); Opiates NEGATIVE (NEGATIVE); Phencyclidine NEGATIVE (NEGATIVE); THC Cannibis NEGATIVE (NEGATIVE)
[2022-04-04] MEDS: HEPARIN 5000 UNIT/ML 1 ML VIAL SQ SCH ×3 (00:51→17:00)
[2022-04-04] MEDS ORDERED: HEPARIN 5000 UNIT/ML 1 ML VIAL ONE ×2 (00:58→09:17)
[2022-04-04 03:51] LABS: Albumin 2.4 g/dL (3.4-5.0); Bilirubin Total 0.9 mg/dL (0.2-1.0); Magnesium 1.8 mg/dL (1.8-2.4); Protein, Total 6.1 g/dL (6.4-8.2)
[2022-04-04] MEDS ORDERED: Nicardipine/NS 25 MG/250 ML KIT IV ONE ×2 (04:28→21:35)
[2022-04-04] MEDS: KCL 20 MEQ/100 mL IVPB 20 MEQ/100 ML BAG IV SCH ×2 (04:48→06:23)
[2022-04-04] MEDS ORDERED: KCL 20 MEQ/100 mL IVPB 100 ML IV ONE ×2 (04:54→05:25)
[2022-04-04] MEDS: NICARDIPINE HCL 25 MG in NA CHLORIDE 0.9% 240 ML IV PRN ×4 (05:06→11:55)
[2022-04-04] MEDS: Ringers Lactate 1,000 ML IV SCH ×2 (06:00→15:22)
[2022-04-04] MEDS ORDERED: Ringers Lactate 1,000 ML IV ONE ×2 (09:17→19:30)
--- NOTE | 2022-04-04 10:21 | EKG ---
Test Date: 2022-04-03 Test Time: 10:51:20 [employer] Clerk: ANTONIO MEASUREMENT RESULTS: Intervals: Rate: 103 CO: 162 QRSD: 88 QT: 390 QTc: 510 [place]: P: 63 CO: 162 QRS: -8 T: 15 INTERPRETIVE STATEMENTS: Sinus tachycardia Possible Left atrial enlargement Anteroseptal infarct, age undetermined Abnormal ECG Compared to ECG 12/04/2018 16:09:20 Sinus rhythm no longer present Left ventricular hypertrophy no longer present Myocardial infarct finding still present Electronically Signed On 04-04-22 10:17:45 CDT by Sanchez Rea
[2022-04-04] MEDS ORDERED: HYDROMORPHONE HCL 0.5 MG/0.5 ML INJ ONE (12:44)
[2022-04-04] MEDS ORDERED: ONDANSETRON 4 MG/2 ML VIAL ONE (12:44)
--- NOTE | 2022-04-04 13:15 | P.PN ---
Subjective Date of Service: 04/04/22 Chief Complaint: Sepsis, mart, cholelithiasis/cholecystitis. Subjective: No new changes Physical Examination - Vital Signs Temperature: 98.0 F Blood Pressure: 138/73 Pulse: 106 Respirations: 17 Pulse Ox (%): 97 - Physical Exam General: Delirious HEENT: Atraumatic, Normocephalic Neck: Supple Respiratory: Normal air movement Cardiovascular: Normal pulses, Regular rate/rhythm Gastrointestinal: Soft and benign Assessment And Plan - Plan 1. Sepsis: Present on admission. Deemed due to cholecystitis episode. Empiric antibiotic with cefepime to be continued. Will follow closely. surgeon following for cholecystectomy. 2. Cholecystitis/cholelithiasis: Elevated liver enzymes noted. MRCP revealed no stones in duct or enlarged ducts/masses. Surgeon consulted for management recommendation. 3. Hypertensive urgency: Blood pressure control is better. We will continue to monitor vitals closely. Will follow closely. 4. Hypokalemia: Very low potassium of 3.0 noted again on lab. Repletion to be continued. Will follow closely. Prophylaxis: Heparin for DVT prophylaxis. CODE STATUS: Full code. Disposition: Pending surgeon evaluation
[2022-04-04] MEDS: CEFEPIME 1 GM in NA CHLORIDE 0.9% 100 ML IV SCH (14:00)
[2022-04-04 14:43] LABS: Potassium 3.5 mmol/L (3.5-5.1)
[2022-04-04 14:56] LABS: Troponin High Sensitivity 911.2 pg/mL (<58.9)
[2022-04-04] MEDS ORDERED: NA CHLORIDE 0.9% 100 ML IV ONE (15:21)
[2022-04-04] MEDS ORDERED: CEFEPIME 1 GM/VIAL ONE (15:21)
[2022-04-05] MEDS ORDERED: LORazepam 2 MG/ML VIAL IV ONE (00:04)
[2022-04-05] MEDS ORDERED: LORazepam 2 MG/ML VIAL ONE (00:20)
[2022-04-05] MEDS ORDERED: NICOTINE 21 MG/PAT TD ONE (00:20)
[2022-04-05] MEDS: NICOTINE 21 MG/PAT TD SCH ×2 (00:23→09:25)
[2022-04-05] MEDS: HEPARIN 5000 UNIT/ML 1 ML VIAL SQ SCH ×3 (01:00→16:37)
[2022-04-05] MEDS: Ringers Lactate 1,000 ML IV SCH ×3 (02:00→17:10)
[2022-04-05 03:47] LABS: Absolute Lymphocytes (CBC) 1.3 K/uL (0.7-4.9); Hematocrit 32.7 % (39.6-49.0); MPV 8.2 fL (7.6-11.3); RBC Red Blood Cell Count 3.71 M/uL (4.33-5.43)
[2022-04-05 04:02] LABS: Potassium 3.2 mmol/L (3.5-5.1)
[2022-04-05 06:01] VITALS: O2SAT 97; BMI 28.8
[2022-04-05] MEDS: HYDRALAZINE HCL 20 MG/ML VIAL IV PRN ×2 (06:09→12:22)
[2022-04-05] MEDS ORDERED: LABETALOL 20 MG/4ML SYRINGE IV PRN (07:57)
[2022-04-05] MEDS ORDERED: NICOTINE 21 MG/PAT TD SCH (09:00)
[2022-04-05] MEDS ORDERED: AMLODIPINE 5 MG TAB PO SCH (09:00)
[2022-04-05] MEDS ORDERED: KCL 20 MEQ/100 mL IVPB 20 MEQ/100 ML BAG IV ONE (09:00)
[2022-04-05 10:12] LABS: CKMB Creatine Kinase MB 4.7 ng/mL (1.0-3.6); Thyroid Stimulating Hormone 1.18 uIU/mL (0.360-3.740)
--- NOTE | 2022-04-05 10:12 | RAD REPORT ---
EXAM DESCRIPTION: US - Abdomen Pelvis Scan US - 04/05/2022 9:43 am CLINICAL HISTORY: High blood pressure OZZY COMPARISON: No comparisons FINDINGS: Both kidneys have an echogenic appearance. The right kidney measures 11.7 x 5.9 x 3.2 cm. The left kidney measures 9.8 x 5.8 x 5.4 cm. No hydronephrosis. Aortic velocity: 79 cm/second Right proximal renal artery: 154 cm/second Right mid renal artery: 130 cm/second Right distal renal artery: 107 cm/second Right renal arcuate artery resistive index: 0.7 Right renal artery / aorta ratio: 2.0 Left proximal renal artery: 285 cm/second Left mid renal artery: 69 cm/second Left distal renal artery: 52 cm/second Left renal arcuate artery resistive index: 0.7 Left renal artery/aorta ratio: 3.6 IMPRESSION: Left proximal renal artery demonstrates finding compatible with renal artery stenosis.
[2022-04-05] MEDS ORDERED: AMLODIPINE 5 MG TAB PO ONE (10:24)
[2022-04-05] MEDS: carvediloL 12.5 MG TAB PO SCH ×2 (10:53→16:59)
[2022-04-05] MEDS: CEFEPIME 1 GM in NA CHLORIDE 0.9% 100 ML IV SCH (13:41)
--- NOTE | 2022-04-05 13:56 | P.PN ---
Date of Service: 04/05/22 S: Patient has no specific complaints. Says his abdomen is not hurting him at the current time. O: Abdomen soft no guarding rebound no Antonio sign A: His biliary symptoms appear to have resolved somewhat with antibiotics P: In view of the patient's elevated troponins, and altered renal function, will defer his surgery. The patient at the current time appears to have resolved his acute cholecystitis issues. He can follow-up with me on discharge and we can try and reschedule this as outpatient however I do not want to do his surgery during this hospitalization. I have explained this to the patient and his . The risks involved of doing this surgery versus waiting. They appear to be content with this plan.
--- NOTE | 2022-04-05 15:02 | CON ---
Date of Consultation: 04/05/2022 Reason For Consultation: Elevated BUN and creatinine, hypertension, electrolyte imbalance. History Of Present Illness: This is an unfortunate young gentleman, 36, with significant past medica l history of hypertension, drug use. The patient was in his regular state of health, came to the [facility] complaining from abdominal pain, found to have cholecystitis with multiple gallstones. Also fo und to have severe hyponatremia, hypokalemia, and elevation in creatinine up to 4 with uncontrolled b lood pressure above 200. For that reason, we have been consulted. The patient admits that he has be en taking drug use including amphetamine, according to him last use 2 weeks ago. The patient denied using any cracks or cocaine. The patient also admits using ibuprofen 2 tablets every other days. No current exposure to contrast. Allergies: NO KNOWN DRUGS ALLERGY. Past Medical History: Includes hypertension. Social History: Drug use, alcohol use, and smoker. Family History: Positive for hypertension. Review of Systems: Head and Neck: No red eye. No ear pain. GI: Has abdominal pain. Has nausea. : No polyuria. No dysuria. No hematuria. Sterilization Technician: Not applicable. Respiratory: No shortness of breath. Cardiovascular: No chest pain. Endocrine: No polydipsia. Skin: No rash. Neuro: Mild headache. Physical Examination: Vital Signs: When I saw the patient; blood pressure 162/92, pulse of 101. Chest: Clear to auscultation. Heart: S1, S2. Regular. Abdomen: Soft. Tenderness on the right upper quadrant. No guarding or rebound. Extremities: No edema. Neurological: Alert, oriented x3. No focal. Laboratory Data: Upon presentation to the hospital; WBC 12.4, H and H 12.7/38.4. Sodium 131, potass ium 2.7, bicarb 27, BUN 30, creatinine 3.9, GFR of 19, calcium 8.6. BNP 47,000. Latest lab data; so dium 135, potassium 3.2, bicarb 23, BUN 42, creatinine 4.6, GFR of 16, calcium 9.1. Troponin continu ed to rise at 805. Albumin 2.4, corrected calcium is 10.3. Urinalysis; specific gravity 1.025, +3 p rotein. Urine drug screen positive for amphetamine. The patient had CT abdomen and pelvis on the 9t h without contrast, did not show any obstruction, no hydronephrosis, normal size kidney. Ultrasound shows cholelithiasis, no Antonio sign, positive cholecystitis. Reviewing the record for the patient back in 2015; creatinine 1.3, GFR above 60. Current Medications: The patient on cefepime, nicotine, labetalol p.r.n., LR. Assessment And Plan: Acute kidney injury normal-sized kidney with significant proteinuria. Our diff erential diagnosis is; 1.Urgent hypertension, drug-induced FSGS supported with significant proteinuria. 2.ATN secondary to infection. The patient is nonoliguric. Obstructive uropathy has been ruled out. No hyperkalemia. No significant acidosis or uremic symptoms. If kidney function continued to decl ine, the patient may need to initiate renal replacement therapy. I discussed that option with the brielle de dios. The patient on agreement if needed. I am going to go ahead and send for full serology with t he patient. We will send with ultrasound and we will do Doppler to rule out any renal artery stenosi s. The patient not stable enough to do any MRA currently. We will try to control the blood pressure in a better way. We will start the patient on Norvasc and carvedilol and we will follow up. 3.Hypertension with emergent hypertension. We will send for secondary hypertension workup and we wi ll follow up with the patient. The patient not for surgery anymore. We will start the patient on am lodipine and carvedilol. We will continue p.r.n. medication as by primary. We will follow up. We w ill avoid any GREGORY inhibitor and ARB given the presence of acute kidney injury. 4.Hypokalemia with marginal low magnesium. I am going to repeat the magnesium and we will follow up the patient. We will supplement cautiously. The patient was started on LR and started on supplemen t. 5.Secondary hypertension/drug-induced as above. We will send for full workup. 6.Possible chronic kidney disease secondary to drug use with nephrotic range of proteinuria. We deborah l evaluate the chronicity of the disease with PTH and the renal ultrasound. 7.Cholecystitis as by Surgery. The patient was started on antibiotic. We will follow up with Fernandez ry. 8.Hyponatremia, depletional/renal failure, corrected. Continue hydration. Time spent examining the patient [id number], reviewing the data lab and radiology, discussing the c ase with the patient, discussing the case with team staff of the ICU, and discussing the case with te am member including hospitalist 65 minutes. ABRIL Voice ID: [id number] Report ID: [id number]
--- NOTE | 2022-04-05 17:14 | P.PN ---
Subjective Date of Service: 04/05/22 Chief Complaint: Sepsis, mart, cholelithiasis/cholecystitis. Subjective: No new changes, Improving Physical Examination - Vital Signs Temperature: 97.7 F Blood Pressure: 137/90 Pulse: 84 Respirations: 16 Pulse Ox (%): 90 - Physical Exam General: Alert HEENT: Atraumatic, Normocephalic Neck: Supple Respiratory: Normal air movement Cardiovascular: Regular rate/rhythm, Normal S1 S2 Gastrointestinal: Soft and benign Musculoskeletal: No swelling Neurological: Normal speech, Normal strength at 5/5 x4 extr Assessment And Plan - Plan 1. Sepsis: Present on admission. Deemed due to cholecystitis episode. Empiric antibiotic with cefepime to be continued. Will follow closely. surgeon following for possible cholecystectomy. 2. Cholecystitis/cholelithiasis: Surgical service following. Recommendations noted. 3. Hypertensive urgency: Blood pressure control is better. We will continue to monitor vitals closely. Will follow closely. 4. Hypokalemia: Serum potassium is within normal limit. We will follow daily labs. 5. Acute kidney injury versus CKD stage IV: Creatinine continues to worsen. So also is his BUN. Nephrology consulted for management recommendation. Prophylaxis: Heparin for DVT prophylaxis. CODE STATUS: Full code. Disposition: Pending surgeon evaluation
[2022-04-06] MEDS: HEPARIN 5000 UNIT/ML 1 ML VIAL SQ SCH ×3 (01:56→16:02)
[2022-04-06] MEDS: HYDRALAZINE HCL 20 MG/ML VIAL IV PRN (04:30)
[2022-04-06] MEDS: Ringers Lactate 1,000 ML IV SCH (04:30)
[2022-04-06 06:28] LABS: RBC Red Blood Cell Count 3.67 M/uL (4.33-5.43)
[2022-04-06] MEDS: carvediloL 12.5 MG TAB PO SCH (06:39)
[2022-04-06 07:11] LABS: Albumin 2.2 g/dL (3.4-5.0); Ferritin 74.5 ng/mL (26-388); Folic Acid, (Folate) 6.6 ng/mL (3.1-17.5); Magnesium 2.1 mg/dL (1.8-2.4); Phosphorus 2.9 mg/dL (2.5-4.9)
[2022-04-06] MEDS: NICOTINE 21 MG/PAT TD SCH (08:34)
[2022-04-06 08:43] LABS: Rheumatoid Factor NEG (NEG)
[2022-04-06] MEDS ORDERED: AMLODIPINE 10 MG TAB PO SCH (09:00)
[2022-04-06] MEDS ORDERED: CALCITROL 0.25 MCG CAP PO SCH (12:00)
[2022-04-06 13:27] LABS: UR PROTEIN 234.1 mg/dL (<11.9); UR SODIUM < 15 mmol/L (27-287); Urine Protein/Creatinine Ratio 1.05 ratio (<0.15)
[2022-04-06] MEDS ORDERED: FERROUS SULFATE 325 MG TAB PO SCH (14:00)
[2022-04-06] MEDS: CEFEPIME 1 GM in NA CHLORIDE 0.9% 100 ML IV SCH (14:07)
[2022-04-06] MEDS ORDERED: POTASSIUM CL SA 10 MEQ TAB PO ONE (14:15)
[2022-04-06 14:39] LABS: Urine Appearance Clear (Clear); Urine Bilirubin Negative (Negative); Urine Blood Negative (Negative); Urine Color Yellow (Yellow); Urine Glucose Negative (Negative); Urine Protein 3+ (Negative); Urine Specific Gravity 1.025 (1.005-1.030)
[2022-04-06 15:03] LABS: Urine Microscopic Reflex ORDER UMIC
[2022-04-06 15:18] LABS: Urine RBC NONE SEEN /HPF (NONE SEEN)
[2022-04-06 15:19] LABS: Urine Bacteria <20 /HPF (NONE SEEN)
[2022-04-06] MEDS ORDERED: LABETALOL HCL 100 MG/20 ML IV PRN (16:00)
[2022-04-06 16:26] VITALS: TEMP 97.8
--- NOTE | 2022-04-06 16:49 | P.PN ---
Subjective Date of Service: 04/06/22 Chief Complaint: Sepsis, mart, cholelithiasis/cholecystitis. Subjective: No new changes, Improving Physical Examination - Vital Signs Temperature: 97.8 F Blood Pressure: 176/111 Pulse: 93 Respirations: 18 Pulse Ox (%): 99 - Physical Exam General: Alert, Oriented x3 HEENT: Atraumatic, Normocephalic Neck: Supple Respiratory: Normal air movement Cardiovascular: Regular rate/rhythm, Normal S1 S2 Gastrointestinal: Soft and benign Musculoskeletal: No swelling Assessment And Plan - Plan 1. Sepsis: Present on admission. Mostly resolved symptoms however surgeon has opted for outpatient management of gallbladder pathology. Will continue empiric antibiotic pending for review. 2. Cholecystitis/cholelithiasis: Surgical service following. Recommendations noted. No urgent indication for surgical intervention at this time. 3. Hypertensive urgency: Resolved on present antihypertensive regimen. Nephrology following for recommendations and medication adjustment. We will continue to monitor vitals closely. Will follow closely. 4. Hypokalemia: Serum potassium is within normal limit presently. Nephrology following We will follow daily labs. 5. Acute kidney injury versus CKD stage IV: Creatinine is trending down. Work-up as per nephrology recommendations noted Nephrology following for further management. Prophylaxis: Heparin for DVT prophylaxis.
--- NOTE | 2022-04-06 17:21 | PN ---
Date of Progress Note: 04/06/2022 Subjective: The patient was admitted with acute kidney injury, urgent hypertension. The patient was started on IV hydration. Kidney function has been improved. Workup is still pending. Physical Examination: Vital Signs: Blood pressure 152/93, pulse of 83, afebrile. The patient had good urine output of 1500. Chest: Clear to auscultation. Heart: S1, S2. Regular. Abdomen: Soft, nontender. Extremities: +2 edema. Neurologic: Alert. No focality. Laboratory Data: WBC 10.8, H and H 10.8/32.7. Sodium 134, potassium 3, bicarb 26, BUN 37, creatinine 3.8, GFR of 20. Iron saturation 5, ferritin 74, albumin 2.2. Serum protein electrophoresis is still pending. PTH 244. Cortisol 31. Current Medications: The patient on include; 1. Cefepime. 2. Nicotine patch. 3. Amlodipine 10 mg daily. 4. Carvedilol 12.5. 5. Hydralazine p.r.n. 6. LR. Assessment And Plan: 1. Acute kidney injury, obstructive uropathy was ruled out secondary to his hypertension nephrosclerosis on advanced chronic kidney disease, supported with elevation in the PTH, proteinuric, close to nephrotic. Our differential diagnosis secondary to FSGS secondary to drug use, hypertension nephroscleroses. I am going to discontinue LR. We will continue to monitor the patient. We will follow up serum protein electrophoresis and the rest of the serology. I am going to send for quantification for the proteinuria. We will monitor the patient. 2. Hypertension with emergency hypertension, currently blood pressure better controlled. I am going to go ahead and increase carvedilol to 25 mg and we will monitor the patient. After stabilized the kidney function, we will consider starting the patient on GREGORY inhibitor or ARB and we will follow up. 3. Secondary hyperparathyroidism. We will start the patient on calcitriol. 4. Edema. We will resume diuresis as outpatient. 5. Cholecystitis as by primary. 6. Hyponatremia secondary to depletion/nephrotic, improved. 7. Hypokalemia, status supplement. We will follow up with the primary. 8. Iron deficiency anemia. H and H are stable. We will start the patient on oral iron. time spend exam the patient face to face , reviewing the data of lab and radiology , placing the order , discussing with the patient and the nursing staff , discussing with other steam drier operator including hospitalist 35 min ABRIL Voice ID: [id number] Report ID: [id number] MTDD
[2022-04-06 17:33] VITALS: BP 174/100
[2022-04-06] MEDS ORDERED: carvediloL 25 MG TAB PO SCH (18:00)
--- NOTE | 2022-04-07 01:15 | P.DS ---
Admission Date: 04/03/22 Discharge Date: 04/07/22 Disposition: AMA-LEFT AGAINST MEDICAL ADVIC Discharge Condition: FAIR Reason for Admission: Sepsis, mart, cholelithiasis/cholecystitis. Hospital Course: pt was not in exam room when nurses went to round, apparently eloped sometime earlier in the day. Vital Signs/Physical Exam: Temp Pulse Resp BP Pulse Ox 97.8 F 91 H 18 174/100 H 99 04/06/22 16:49 04/06/22 17:27 04/06/22 16:49 04/06/22 17:27 04/06/22 16:49 Laboratory Data at Discharge: WBC 10.8 K/uL (4.3-10.9) 04/05/22 02:58 Hgb 10.8 g/dL (13.6-17.9) L 04/05/22 02:58 Hct 32.7 % (39.6-49.0) L 04/05/22 02:58 Plt Count 361 K/uL (152-406) 04/05/22 02:58 PT 13.5 SECONDS (9.5-12.5) H 04/03/22 09:15 INR 1.22 04/03/22 09:15 Sodium 134 mmol/L (136-145) L 04/06/22 06:08 Potassium Cancelled 04/06/22 20:00 BUN 37 mg/dL (7-18) H 04/06/22 06:08 Creatinine 3.89 mg/dL (0.55-1.3) H 04/06/22 06:08 Glucose 141 mg/dL (74-106) H 04/06/22 06:08 Uric Acid 11.0 mg/dL (3.5-7.2) H 04/05/22 09:25 Phosphorus 2.9 mg/dL (2.5-4.9) 04/06/22 06:08 Magnesium 2.1 mg/dL (1.8-2.4) 04/06/22 06:08 Total Bilirubin 0.9 mg/dL (0.2-1.0) 04/04/22 03:04 AST 69 U/L (15-37) H 04/04/22 03:04 ALT 180 U/L (12-78) H 04/04/22 03:04 Alkaline Phosphatase 136 U/L (45-117) H 04/04/22 03:04 Lipase 186 U/L (73-393) 04/03/22 07:31 Home Medications: NK [No Home Meds] 04/03/22 Followup: NONE,NONE [Primary Care Provider] - Time spent managing pt's care (in minutes): 5
[2022-04-10 09:01] LABS: HIV AG/AB 4TH GEN Non-reactive (Non-reactive)
[2022-04-10 16:14] LABS: Albumin, (SPE) 2.6 g/dL (3.8-4.8); Alpha-1-Globulins 0.7 g/dL (0.2-0.3); Alpha-2-Globulins 0.9 g/dL (0.5-0.9); Gamma Globulins 0.6 g/dL (0.8-1.7); INTERPRETATION REPORT
[2022-04-11 12:44] LABS: Vitamin D 1,25-Dihydroxy Total 14 pg/mL (18-72); Vitamin D,1,25-OH2, D2 <8 pg/mL
== END 2022-04-06 18:00 | disposition left against medical advice (07) | DRG 871 ==
LOC: ER 06:18 → ERHOLD 16:14 → 3RD-ICU 04-05 02:42 → 2ND 04-05 14:25
PROVIDERS: ADMIT Internal Medicine Nephrology; ATTEND Internal Medicine Nephrology
DX: A41.9 Sepsis, unspecified organism (principal); N17.0 Acute kidney failure with tubular necrosis; K80.00 Calculus of gallbladder with acute cholecystitis without obstruction; N25.81 Secondary hyperparathyroidism of renal origin; E87.1 Hypo-osmolality and hyponatremia; N18.4 Chronic kidney disease, stage 4 (severe); I16.0 Hypertensive urgency; R65.20 Severe sepsis without septic shock; I12.9 Hypertensive chronic kidney disease with stage 1 through stage 4 chronic kidney disease, or unspecified chronic kidney disease; E87.6 Hypokalemia; F15.90 Other stimulant use, unspecified, uncomplicated; Z20.822 Contact with and (suspected) exposure to COVID-19
CPT/HCPCS: 36415; 71045; 74176; 74181; 76705; 80048; 80053; 80069; 80307; 81003; 81015; 82088; 82435; 82533; 82553; 82565; 82570; 82607; 82652; 82728; 82746; 82947; 83519; 83520; 83540; 83690; 83735; 83880; 83970; 84100; 84132; 84156; 84165; 84244; 84300; 84443; 84466; 84484; 84550; 85025; 85044; 85302; 85610; 86021; 86038; 86160; 86225; 86430; 86704; 86706; 86803; 87340; 87389; 87522; 88377; 93005; 93975; 99285; J0360; J0692; J1170; J1644; J2405; J3480; J3490; J7030; J7040; J7050; J7120; U0003

== ENCOUNTER 2022-04-13 00:35 | Inpatient (IN) | payer SELFPAY ==
[2022-04-13] MEDS ORDERED: ONDANSETRON 4 MG/2 ML VIAL ONE ×3 (01:25→20:10)
[2022-04-13] MEDS ORDERED: FAMOTIDINE 20 MG/2 ML VIAL IV ONE (01:26)
[2022-04-13 01:50] LABS: Absolute Lymphocytes (CBC) 2.1 K/uL (0.7-4.9); Hematocrit 37.6 % (39.6-49.0); Lymphocytes % 18.4 % (15.3-44.8); MPV 8.2 fL (7.6-11.3); RBC Red Blood Cell Count 4.34 M/uL (4.33-5.43)
[2022-04-13] MEDS ORDERED: HYDRALAZINE HCL 20 MG/ML VIAL ONE ×2 (02:06→03:02)
[2022-04-13 02:21] LABS: Albumin 2.5 g/dL (3.4-5.0); Bilirubin Total 0.5 mg/dL (0.2-1.0); Potassium 3.5 mmol/L (3.5-5.1); Protein, Total 6.8 g/dL (6.4-8.2)
[2022-04-13] MEDS ORDERED: MORPHINE 4 MG/ML SYR ONE (03:02)
[2022-04-13] MEDS ORDERED: PIPERACIL/TAZO 3.375 GM VIAL IV ONE ×3 (03:02→18:21)
[2022-04-13] MEDS ORDERED: NA CHLORIDE 0.9% 100 ML ONE (03:05)
--- NOTE | 2022-04-13 04:01 | ER ---
Nurse's Notes [facility] Name: Justino Barr Age: 36 yrs Sex: Male : 1985 Arrival Date: 04/13/2022 Time: 00:38 Bed 14 Private MD: Diagnosis: Other acute pancreatitis without necrosis or infection;Acute kidney failure, unspecified;Pleural effusion, not elsewhere classified;Edema, unspecified;Malignant Hypertension Presentation: 04/13 00:46 Chief complaint: Patient states: "I am having really bad abdominal pain and both of my vc1 legs are swollen.". Coronavirus screen: Vaccine status: Patient reports being unvaccinated. Ebola Screen: No symptoms or risks identified at this time. Initial Sepsis Screen: Does the patient meet any 2 criteria? RR > 20 per min. HR > 90 bpm. Yes Does the patient have a suspected source of infection? Yes: Acute abdominal pain. Risk Assessment: Do you want to hurt yourself or someone else? Patient reports no desire to harm self or others. Onset of symptoms was April 12, 2022 at 08:30. 00:46 Method Of Arrival: Ambulatory vc1 00:46 Acuity: VAHID 3 vc1 Triage Assessment: 00:52 General: Appears in no apparent distress. uncomfortable, ill, Behavior is calm, vc1 cooperative, appropriate for age. Pain: Complains of pain in abdomen Pain radiates to chest Pain currently is 8 out of 10 on a pain scale. at worst was 10 out of 10 on a pain scale. Quality of pain is described as burning, sharp, Alleviated by nothing. Aggravated by eating, drinking. Neuro: No deficits noted. Cardiovascular: Reports chest pain. Respiratory: Airway is patent Respiratory effort is even, unlabored, Respiratory pattern is regular, symmetrical. GI: Abdomen is round non-distended, Reports lower abdominal pain, upper abdominal pain, constipation, epigastric pain, nausea, vomiting. : No deficits noted. Derm: No deficits noted. Musculoskeletal: No deficits noted. Historical: - Allergies: 00:52 No Known Allergies; vc1 - Home Meds: 00:52 None [Active]; vc1 - PMHx: 00:52 Hypertensive disorder; vc1 - PSHx: 00:52 None; vc1 - Immunization history:: Adult Immunizations up to date, Client reports having NOT received the Covid vaccine. Flu vaccine is not up to date. It has been more than one year since last vaccine. - Social history:: Smoking status: Patient reports the use of cigarette tobacco products, smokes one-half pack cigarettes per day. - Family history:: not pertinent. - Hospitalizations: : The patient was recently seen at [facility]. Screenin:55 Abuse screen: Denies threats or abuse. Nutritional screening: No deficits noted. vc1 Tuberculosis screening: No symptoms or risk factors identified. Fall Risk None identified. Assessment: 00:55 GI: Abd is soft Abdomen is tender to palpation. vc1 02:06 General: Appears uncomfortable, Behavior is cooperative. Pain: Complains of pain in sm5 abdomen. Neuro: No deficits noted. Youssef Agitation-Sedation Scale (RASS): +1 Restless Level of Consciousness is awake, alert, obeys commands, Oriented to person, place, time, situation. Cardiovascular: No deficits noted. Capillary refill < 3 seconds Patient's skin is warm and dry. Edema is 3+ to left midcalf, left ankle, left foot, right midcalf, right ankle and right foot bilateral lower extremities. Respiratory: Airway is patent Trachea midline Respiratory effort is even, labored. GI: Abdomen is flat, non-distended, Bowel sounds present X 4 quads. Abd is soft Abdomen is tender to palpation. 03:14 Reassessment: No changes from previously documented assessment. sm5 04:35 Reassessment: pt asleep in bed. sm5 19:00 Reassessment: No changes from previously documented assessment. Patient and/or family ag7 updated on plan of care and expected duration. Pain level reassessed. Patient is alert, oriented x 3, equal unlabored respirations, skin warm/dry/pink. Vital Signs: 00:46 BP 198 / 144; Pulse 94; Resp 35; Temp 98.6; Pulse Ox 100% ; Weight 74.84 kg; Height 5 vc1 ft. 11 in. (180.34 cm); Pain 8/10; 02:05 BP 196 / 168; Pulse 92; Resp 32; Pulse Ox 100% ; sm5 02:50 BP 206 / 154; Pulse 94; Resp 27; Pulse Ox 100% on R/A; sm5 03:15 BP 176 / 124; Pulse 91; Resp 21; Pulse Ox 96% on R/A; sm5 04:05 BP 191 / 125; Pulse 95; Resp 20; Pulse Ox 97% on R/A; sm5 00:46 Body Mass Index 23.01 (74.84 kg, 180.34 cm) vc1 ED Course: 00:38 Patient arrived in ED. bp1 00:38 Rajesh Gallego MD is Attending Physician. rn 00:51 Triage completed. vc1 00:55 Patient has correct armband on for positive identification. vc1 00:55 Arm band placed on right wrist. vc1 01:06 Glendy Ríos, RN is Primary Nurse. sm5 01:13 Inserted saline lock: 20 gauge in right antecubital area, using aseptic technique. sm5 Blood collected. 01:14 XRAY Chest (1 view) In Process Unspecified. EDMS 01:28 Blood Culture Adult (2) Sent. sm5 01:28 CK Sent. sm5 01:28 BNP Sent. sm5 01:29 Lactate Sent. sm5 01:29 CBC with Diff Sent. sm5 01:29 CMP Sent. sm5 01:29 Lipase Sent. sm5 03:05 Abdomen In Process Unspecified. EDMS 04:00 Chris Campbell MD is Hospitalizing Provider. rn 04:35 COVID-19 SARS RT PCR (Document "Date of Onset" if Symptomatic) Sent. sm5 07:00 Primary Nurse role handed off by Glendy Ríos, MANSOOR bp 07:00 Ruperto Rubio, MANSOOR is Primary Nurse. bp 19:23 Initiated call for transfer, talked to Shellsia Friend. 04/14 00:35 Pt accepted at [facility]. The Dr. accepting is Dr. German Heredia. -[id number]. 02:19 No provider procedures requiring assistance completed. Patient transferred, IV remains ag7 in place. Administered Medications: 04/13 01:28 Drug: Pepcid (famotidine) 20 mg Route: IVP; Site: right antecubital; sm5 02:50 Follow up: Response: No adverse reaction sm5 01:28 Drug: Zofran (Ondansetron) 4 mg Route: IVP; Site: right antecubital; sm5 02:50 Follow up: Response: No adverse reaction 5 02:05 Drug: hydrALAZINE 10 mg Route: IVP; Site: right antecubital; sm5 03:01 Follow up: Response: Blood pressure is elevated sm5 03:12 Drug: hydrALAZINE 10 mg Route: IVP; Site: right antecubital; sm5 04:07 Follow up: Response: No adverse reaction sm5 03:13 Drug: Zosyn (piperacillin-tazobactam) 3.375 grams Route: IVPB; Infused Over: 60 mins; 5 Site: right antecubital; 03:13 Drug: morphine 4 mg Route: IVP; Site: right antecubital; sm5 04:07 Follow up: Response: Pain is decreased sm5 04:18 Drug: Lasix (furosemide) 40 mg Route: IVP; Site: right antecubital; sm5 05:34 Follow up: Response: No adverse reaction 5 Medication: 02:06 VIS not applicable for this client. 5 Outcome: 04:01 Decision to Hospitalize by Provider. mansoor 04/14 02:19 Admitted to ICU via stretcher, room 206, with oxygen, with chart. ag7 Condition: stable 02:21 Patient left the ED. ag7 Signatures: Dispatcher [employer] EDMS Rajesh Gallego MD MD rn Peltier, Brian, RN RN Angella Lovell [facility] Ashlee Hobson Glendy Ríos RN RN 5 Corina Beck RN RN 1 Kourtney Henao RN RN ag7 Corrections: (The following items were deleted from the chart) 04/13 00:53 00:52 Allergies: Aspirin; vc1 vc1 00:56 00:46 Chief complaint: Patient states: "I am having really bad abdominal pain and both vc1 of my legs are swollen." vc1 02:08 02:06 Cardiovascular: No deficits noted. Capillary refill < 3 seconds Patient's skin is sm5 warm and dry. sm5 02:09 02:06 Cardiovascular: No deficits noted. Capillary refill < 3 seconds Patient's skin is sm5 warm and dry. Edema bilateral lower extremities sm5 04/14 06:04 06:00 Initiated call for transfer, talked to Shellsia Friend [facility]
--- NOTE | 2022-04-13 04:02 | EDPHYS ---
Physician Documentation [facility] Name: Justino Barr Age: 36 yrs Sex: Male : 1985 Arrival Date: 04/13/2022 Time: 00:38 Bed 14 Private MD: ED Physician Rajesh Gallego HPI: 04/13 00:59 This 36 yrs old Unknown Male presents to ER via Ambulatory with complaints of Abdominal rn Pain, swelling. 01:00 The patient presents with abdominal pain that is diffuse. Onset: The symptoms/episode rn began/occurred 1 week(s) ago. The symptoms do not radiate. Associated signs and symptoms: Pertinent positives: nausea, Pertinent negatives: blood in stools, chest pain, constipation, diarrhea, dysuria, fever, testicular pain. The symptoms are described as achy, crampy. Modifying factors: The symptoms are alleviated by nothing, the symptoms are aggravated by touching the area. Severity of pain: At its worst the pain was moderate in the emergency department the pain is unchanged. The patient has experienced a previous episode. The patient has been recently seen at the [facility] Emergency Department. Pt reports abd pain, diffuse, for 1 week, was admitted for this abd pain after presenting to ER last week, found to be in acute renal failure, given a lot of fluids. States initially told needed gallbladder removed but then told didn't need it removed. No fever. No chills. + nausea. . Historical: - Allergies: 00:52 No Known Allergies; vc1 - Home Meds: 00:52 None [Active]; vc1 - PMHx: 00:52 Hypertensive disorder; vc1 - PSHx: 00:52 None; vc1 - Immunization history:: Adult Immunizations up to date, Client reports having NOT received the Covid vaccine. Flu vaccine is not up to date. It has been more than one year since last vaccine. - Social history:: Smoking status: Patient reports the use of cigarette tobacco products, smokes one-half pack cigarettes per day. - Family history:: not pertinent. - Hospitalizations: : The patient was recently seen at [facility]. ROS: 01:00 Constitutional: Negative for fever, chills, and weight loss, Eyes: Negative for injury, rn pain, redness, and discharge, Neck: Negative for injury, pain, and swelling, Cardiovascular: Negative for chest pain, palpitations, and edema, Respiratory: Negative for shortness of breath, cough, wheezing, and pleuritic chest pain, Abdomen/GI: + abd pain Back: Negative for injury and pain, : Negative for injury, bleeding, discharge, and swelling, MS/Extremity: + swelling bilateral lower ext Skin: Negative for injury, rash, and discoloration, Neuro: Negative for headache, numbness, tingling, and seizure. Exam: 01:00 Constitutional: This is a well developed, well nourished patient who is awake, alert rn Head/Face: Normocephalic, atraumatic. Eyes: Periorbital areas with no swelling, redness, or edema. Cardiovascular: Regular rate and rhythm. No pulse deficits. Respiratory: + tachypnea, no retractions Abdomen/GI: soft, + mild tenderness in all 4 quadrants, no masses Skin: Warm, dry with normal turgor. Normal color with no rashes, no lesions, and no evidence of cellulitis. MS/ Extremity: Pulses equal, no cyanosis. 3+ pitting edema bilateral lower ext Neuro: Awake and alert, GCS 15 Vital Signs: 00:46 BP 198 / 144; Pulse 94; Resp 35; Temp 98.6; Pulse Ox 100% ; Weight 74.84 kg; Height 5 vc1 ft. 11 in. (180.34 cm); Pain 8/10; 02:05 BP 196 / 168; Pulse 92; Resp 32; Pulse Ox 100% ; sm5 02:50 BP 206 / 154; Pulse 94; Resp 27; Pulse Ox 100% on R/A; sm5 03:15 BP 176 / 124; Pulse 91; Resp 21; Pulse Ox 96% on R/A; sm5 04:05 BP 191 / 125; Pulse 95; Resp 20; Pulse Ox 97% on R/A; sm5 00:46 Body Mass Index 23.01 (74.84 kg, 180.34 cm) vc1 MDM: 00:38 Patient medically screened. rn 02:54 ED course: Lactate normal, given abx for possible abdominal infection. Pending Ct rn abdomen. No fluids given at this point given clinically volume overloaded, extreme HTN, and acute kidney failure similar to recent admission during which he eloped prior to discharge. . 03:59 Differential diagnosis: cholecystitis, Cholelithiasis, gastritis, gastroesophageal rn reflux disease, non-specific abd pain, pancreatitis, Peptic Ulcer Disease, acute kidney failure, volume overload, pancreatitis. Data reviewed: vital signs, nurses notes, lab test result(s), radiologic studies, CT scan, and as a result, I will admit patient. Counseling: I had a detailed discussion with the patient and/or guardian regarding: the historical points, exam findings, and any diagnostic results supporting the discharge/admit diagnosis, lab results, radiology results, the need for further work-up and treatment in the hospital. Response to treatment: the patient's symptoms have mildly improved after treatment, and as a result, I will admit patient. Admission orders: after a detailed discussion of the patient's condition and case, the admit orders are written by me. 04:05 ED course: Pt recently admitted here for basically same thing, nothing done at that rn time about gallbladder, no stones visualized today, LFTs with slight improvement, now with pancreatitis. Abx given, BP improving, admitted to hospitalist service for further care. . 04/13 00:58 Order name: CBC with Diff; Complete Time: 02:07 rn 04/13 00:58 Order name: CMP; Complete Time: 02:28 rn 04/13 00:58 Order name: Lipase; Complete Time: 02:28 04/13 00:58 Order name: CK; Complete Time: 02:28 rn 04/13 00:58 Order name: Blood Culture Adult (2) rn 04/13 00:58 Order name: Lactate; Complete Time: 02:28 04/13 00:58 Order name: BNP; Complete Time: 02:28 04/13 04:05 Order name: COVID-19 SARS RT PCR (Document "Date of Onset" if Symptomatic); Complete sm5 Time: 05:04/13 04:46 Order name: Glucose, Ancillary Testing; Complete Time: 05:23 EDOH 04/13 06:33 Order name: Urinalysis; Complete Time: 18:54 EDOH 04/13 09:03 Order name: Troponin High Sensitivity; Complete Time: 18:54 EDOH 04/13 09:03 Order name: Triglycerides Level; Complete Time: 18:54 EDOH 04/14 02:15 Order name: CBC with Automated Diff EDOH 04/13 00:58 Order name: IV Saline Lock; Complete Time: 01:28 rn 04/13 00:58 Order name: Labs collected and sent; Complete Time: 01:59 rn 04/13 00:58 Order name: XRAY Chest (1 view); Complete Time: 18:54 rn 04/13 00:58 Order name: Cardiac monitoring; Complete Time: 01:28 rn 04/13 00:58 Order name: O2 Sat Monitoring; Complete Time: 01:28 rn 04/13 02:37 Order name: Abdomen ; Complete Time: 18:54 EDMS Administered Medications: 01:28 Drug: Pepcid (famotidine) 20 mg Route: IVP; Site: right antecubital; sm5 02:50 Follow up: Response: No adverse reaction sm5 01:28 Drug: Zofran (Ondansetron) 4 mg Route: IVP; Site: right antecubital; sm5 02:50 Follow up: Response: No adverse reaction sm5 02:05 Drug: hydrALAZINE 10 mg Route: IVP; Site: right antecubital; sm5 03:01 Follow up: Response: Blood pressure is elevated sm5 03:12 Drug: hydrALAZINE 10 mg Route: IVP; Site: right antecubital; sm5 04:07 Follow up: Response: No adverse reaction sm5 03:13 Drug: Zosyn (piperacillin-tazobactam) 3.375 grams Route: IVPB; Infused Over: 60 mins; sm5 Site: right antecubital; 03:13 Drug: morphine 4 mg Route: IVP; Site: right antecubital; sm5 04:07 Follow up: Response: Pain is decreased sm5 04:18 Drug: Lasix (furosemide) 40 mg Route: IVP; Site: right antecubital; sm5 05:34 Follow up: Response: No adverse reaction sm5 Disposition Summary: 04/13/22 04:01 Hospitalization Ordered Hospitalization Status: Inpatient Admission rn Provider: Chris Capmbell rn Condition: Stable rn Problem: an ongoing problem rn Symptoms: have improved rn Bed/Room Type: Standard rn Location: [facility] ER HOLD(04/13/22 04:02) cg Room Assignment: ERHOLD-(04/13/22 04:02) cg Diagnosis - Other acute pancreatitis without necrosis or infection rn - Acute kidney failure, unspecified rn - Pleural effusion, not elsewhere classified rn - Edema, unspecified rn - Malignant Hypertension rn Forms: - Medication Reconciliation Form rn - SBAR form rn Signatures: Dispatcher [employer] EDMS Rajesh Gallego MD MD rn Garcia, Cindy, RN RN cg Mazur, Sarah, RN RN [email or web address] Corina Beck, RN RN vc1 Zhane Dodge, KATHRIN PA sb3 Corrections: (The following items were deleted from the chart) 00:53 00:52 Allergies: Aspirin; vc1 vc1 02:37 00:59 Abdomen Pelvis W Con+CT.RAD.BRZ ordered. EDOH EDMS 04:02 04:01 Telemetry/MedSurg (Inpatient) jai rodriguez 04:02 04:01 jai rodriguez
[2022-04-13] MEDS ORDERED: FUROSEMIDE 40 MG/4 ML VIAL ONE ×2 (04:18→10:23)
--- NOTE | 2022-04-13 04:36 | P.HP ---
Certification for Inpatient Patient admitted to: Inpatient With expected LOS: >2 Midnights Patient will require the following post-hospital care: None Practitioner: I am a practitioner with admitting privileges, knowledge of patient current condition, hospital course, and medical plan of care. Services: Services provided to patient in accordance with Admission requirements found in Title 42 Section 412.3 of the Code of Federal Regulations Patient History Date of Service: 04/13/22 Reason for admission: Pancreatitis, ARF, HTN Urgency History of Present Illness: Patient is a 36-year-old male who presented to the ED with complaints of abdominal pain and bilateral lower extremity swelling. Patient was admitted here about a week and a half ago for acute renal failure, cholecystitis, and malignant hypertension but eloped 4 days later. He returns to the ED today with worsening of symptoms. Labs significant for WBC 11.6, platelets 545, creatinine 3.31, BUN 36, AST 48, ALT 111, alk phos 163, BNP 54,000, lipase 1210. CT showed acute pancreatitis, cholecystitis, small amount of free fluid in the abdomen, and a small right pleural effusion. He was also severely hypertensive sustaining 190s systolic despite several doses of IV hydralazine. During last admission, patient's cholecystitis was worked up with ultrasound and MRCP and showed cholelithiasis with cholecystitis without bile duct dilation. General surgery, Dr. Alba, decided he would prefer to operate on an outpatient basis. Patient also had full renal work-up and required nicardipine drip for hypertension. Upon my assessment, patient is sleepy but arousable. He is uncooperative and not wanting to answer many questions (had just received morphine). He reports that he eloped during last visit because he was not going to be getting surgery. He reports abdominal pain and 3+ pitting edema is noted on bilateral extremities. Will admit patient for further evaluation and treatment with nephrology consulting. Allergies No Known Allergies Allergy (Verified 04/03/22 21:58) Home Medications: NK [No Home Meds] 04/03/22 - Past Medical/Surgical History Diabetic: No -: HTN -: drug abuse Past Surgical History: Patient denies surgical history Psychosocial/ Personal History: Patient lives at home with his brother. - Family History Father Notes: brother states there are heart problems and kidney problems in their family - Social History Smoking Status: Current every day smoker Alcohol use: No CD- Drugs: Yes Caffeine use: No Place of Residence: Home Review of Systems is unable to be obtained Physical Examination - Physical Exam General: In no apparent distress, Other (sleepy, uncooperative) HEENT: Atraumatic, PERRLA, EOMI, Sclerae nonicteric Neck: Supple, 2+ carotid pulse no bruit, No LAD, Without JVD or thyroid abnormal ity Respiratory: Normal air movement Cardiovascular: Regular rate/rhythm, Normal S1 S2, Edema (3+ pitting edema BLE) Gastrointestinal: Normal bowel sounds, Soft and benign, Non-distended, No guarding, Tenderness Musculoskeletal: No tenderness Integumentary: No rashes Neurological: Normal speech, Normal strength at 5/5 x4 extr, Normal tone, Sensation intact - Studies Laboratory Data (last 24 hrs) 04/13/22 01:14: Lactic Acid 1.3 04/13/22 01:14: Sodium 136, Potassium 3.5, Chloride 100, Carbon Dioxide 27, Anion Gap 12.5, BUN 36 H, Creatinine 3.31 H, Est GFR (CKD-EPI) 24 L, Glucose 120 H, Calcium 8.7, Total Bilirubin 0.5, AST 48 H, ALT 111 H, Alkaline Phosphatase 163 H, Creatine Kinase 44, NT-Pro-B Natriuret Pep 45574 H, Serum Total Protein 6.8, Albumin 2.5 L, Globulin 4.3 H, Albumin/Globulin Ratio 0.6 L, Lipase 1210 H 04/13/22 01:14: WBC 11.6 H, Hgb 11.8 L, Hct 37.6 L, Plt Count 545 H D Assessment and Plan - Problems (Diagnosis) (1) Acute pancreatitis Current Visit: Yes Status: Acute Qualifiers: Pancreatitis type: biliary Acute pancreatitis complication: no infection or necrosis Qualified Code(s): K85.10 - Biliary acute pancreatitis without necrosis or infection (2) Cholecystitis Current Visit: Yes Status: Acute (3) Acute renal failure Current Visit: Yes Status: Acute Qualifiers: Acute renal failure type: unspecified Qualified Code(s): N17.9 - Acute ki dney failure, unspecified (4) Hypertensive urgency Current Visit: Yes Status: Acute (5) Methamphetamine abuse Current Visit: Yes Status: Acute - Plan Pancreatitis: Likely biliary related. Liver enzymes elevated. Triglycerides ordered. NPO. Cont IVF, pain control, and antiemetics. Lipase daily. Cholecystitis: work up during previous visit revealed cholelithiasis with cholecystitis without bile duct dilation. Continue zosyn and manage medically as Dr. Alba did not wish to operate with patient's renal failure. Lactic acid WNL. WBC 11.6. Acute renal failure: Secondary to infection and/or methamphetamine abuse. Cr elevated at 3.3. BNP 61122. Nephrology consulted. Monitor kidney function. Hold nephrotoxic drugs. Hypertensive Urgency: patient required nicardipine during previous visit. Will initiate as patient did not respond to several doses of IV hydralazine in ED. Renal US on previous admission did not reveal renal artery stenosis. Monitor and replete electrolytes as necessary Troponin, UDS pending Heparin for VTE ppx Discharge Plan: Home Plan to discharge in: Greater than 2 days - Advance Directives Does patient have a Living Will: No Does patient have a Durable POA for Healthcare: No - Code Status/Comfort Care Code Status Assessed: Yes (Full) Critical Care: No Time Spent Managing Pts Care (In Minutes): 70
[2022-04-13] MEDS ORDERED: NA CHLORIDE 0.9% 1,000 ML IV SCH (05:24)
[2022-04-13] MEDS ORDERED: Nicardipine in Saline, Iso-Osm 20 MG/200 ML IV.SOLN. IV SCH (05:24)
[2022-04-13] MEDS ORDERED: Nicardipine/NS 25 MG/250 ML KIT IV ONE ×5 (05:34→23:33)
[2022-04-13] MEDS ORDERED: HEPARIN 5000 UNIT/ML 1 ML VIAL ONE ×2 (05:34→18:20)
[2022-04-13] MEDS: HEPARIN 5000 UNIT/ML 1 ML VIAL SQ SCH ×2 (05:40→17:00)
[2022-04-13 05:49] VITALS: BMI 23.0
[2022-04-13 06:32] LABS: Urine Appearance Clear (Clear); Urine Bilirubin Negative (Negative); Urine Blood Negative (Negative); Urine Color Yellow (Yellow); Urine Glucose Negative (Negative); Urine Protein 2+ (Negative); Urine Specific Gravity 1.015 (1.005-1.030); Urine Urobilinogen 0.2 mg/dL (0.2-1.0)
[2022-04-13 06:46] LABS: Urine Microscopic Reflex ORDER UMIC
[2022-04-13 06:47] LABS: Urine Bacteria NONE SEEN /HPF (NONE SEEN); Urine RBC NONE SEEN /HPF (NONE SEEN)
[2022-04-13] MEDS ORDERED: NICOTINE 14 MG/PAT TD SCH (09:00)
[2022-04-13] MEDS: PIPER TAZO 3.375 GM in NA CHLORIDE 0.9% 100 ML IV SCH ×2 (09:00→17:00)
[2022-04-13] MEDS ORDERED: FUROSEMIDE 20 MG/ 2ML VIAL IV SCH (09:00)
[2022-04-13 09:02] LABS: Troponin High Sensitivity 91.4 pg/mL (<58.9)
[2022-04-13] MEDS ORDERED: AMLODIPINE 10 MG TAB PO SCH (09:07)
[2022-04-13] MEDS ORDERED: NA CHLORIDE 0.9% 100 ML IV ONE ×2 (09:29→18:21)
[2022-04-13] MEDS ORDERED: FUROSEMIDE 20 MG/ 2ML VIAL ONE (09:29)
[2022-04-13] MEDS ORDERED: NA CHLORIDE 0.9% 1,000 ML ONE (09:29)
[2022-04-13] MEDS ORDERED: NICOTINE 21 MG/PAT TD ONE (09:29)
[2022-04-13] MEDS: MORPHINE 2 MG/ML SYR IV PRN ×3 (10:30→20:13)
[2022-04-13] MEDS ORDERED: AMLODIPINE 10 MG TAB ONE (10:47)
[2022-04-13] MEDS ORDERED: MORPHINE 2 MG/ML SYR ONE ×3 (10:47→20:10)
[2022-04-13] MEDS ORDERED: carvediloL 6.25 MG TAB PO SCH (11:00)
--- NOTE | 2022-04-13 11:17 | RAD REPORT ---
EXAM DESCRIPTION: RAD - Chest Single View - 04/13/2022 1:12 am CLINICAL HISTORY: The patient is 36 years old and is Male; DYSPNEA TECHNIQUE: Frontal view of the chest. COMPARISON: No relevant prior studies available. FINDINGS: Lungs: Unremarkable. No consolidation. Pleural space: Unremarkable. No pneumothorax. Heart: Unremarkable. Mediastinum: Unremarkable. Bones/joints: Unremarkable. IMPRESSION: No acute findings in the chest. Electronically signed by: Igor Schwartz MD 04/13/2022 1:25 AM CDT Due to temporary technical issues with the PACS/Fluency reporting system, reports are being signed by the in house radiologist without review as a courtesy to ensure prompt reporting. The interpreting r adiologist is fully responsible for the content of the report.
--- NOTE | 2022-04-13 11:19 | RAD REPORT ---
EXAM DESCRIPTION: CT - Abdomen Pelvis Wo Contrast - 04/13/2022 4:22 am CLINICAL HISTORY: Abdominal pain, acute, nonlocalized COMPARISON: 04/03/2022 TECHNIQUE: CT of the abdomen and pelvis without IV contrast. Evaluation of the solid organs and vasc ulature is suboptimal due to lack of IV contrast. This exam was performed according to our department al dose-optimization program, which includes automated exposure control, adjustment of the mA and/or kV according to patient size and/or use of iterative reconstruction technique. FINDINGS: Lung Bases: Small right pleural effusion. Bones: No destructive bone lesions identified. Abdomen: Liver: The liver has normal size and density. Gallbladder: Gallbladder wall thickening of the gallbladder without calcified gallstone identified. Spleen, Pancreas, and Adrenal Glands: Peripancreatic fat stranding. No well-circumscribed fluid col lection identified. Kidneys: The kidneys have normal size without evidence of hydronephrosis. No obstructing ureteral harjit culi. Vasculature: The aorta and IVC have normal caliber and position. Stomach: The stomach and duodenum have normal course. Other: No free intraperitoneal air. Small amount of free fluid. Mild body wall anasarca. Pelvis: Bladder: Urinary bladder is unremarkable. Bowel: No dilated loops of large or small bowel. Appendix: Normal appendix. Pelvis: Prostate is not enlarged. IMPRESSION: 1. Peripancreatic fat stranding. These findings could be seen with acute pancreatitis. Correlation with serum lipase recommended. 2. Gallbladder wall thickening without calcified gallstone identified. This could be seen with chol ecystitis. Right upper quadrant ultrasound may provide additional characterization. 3. Small amount of free fluid in the abdomen. 4. Small right pleural effusion. Electronically signed by: Adalberto Friedman 04/13/2022 3:33 AM CDT Due to temporary technical issues with the PACS/Fluency reporting system, reports are being signed by the in house radiologist without review as a courtesy to ensure prompt reporting. The interpreting r adiologist is fully responsible for the content of the report.
[2022-04-13] MEDS ORDERED: CALCITROL 0.25 MCG CAP PO SCH (12:00)
[2022-04-13] MEDS: ONDANSETRON 4 MG/2 ML VIAL IV PRN ×2 (14:30→20:13)
--- NOTE | 2022-04-13 14:52 | CON ---
Date of Consultation: 04/13/2022 Reason For Consultation: Anasarca, elevated BUN and creatinine. History Of Present Illness: This is a pleasant 36-year-old gentleman with significant past medical h istory of hypertension, chronic kidney disease status post acute kidney injury, recently admitted to the hospital, discharged on the . 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 Normal size kidney, complicat ed with secondary hyperparathyroidism and anasarca. The patient had previous admission, had difficul ty with blood pressure. The patient was started on diuresis and carvedilol, did not start any GREGORY in hibitor or ARB with the presence of acute kidney injury. Apparently, the patient went home. The pat ient did not take any diuresis. Came back to the hospital complaining from increased leg swelling an d abdominal pain, nausea without any vomiting with severe elevation in the blood pressure. When we w ere questioning the patient, the patient did not start any of the medications that he was started in the hospital. The patient complaining again from increase in leg swelling. Past Medical History: Includes; 1.Hypertension. 2.Chronic kidney disease, stage IV, normal size kidney, proteinuric, nonnephrotic with disproportion in proteinuria and dipstick. Social History: Drug use, active alcohol use, and smoking. Family History: Positive for hypertension. Allergies: NO KNOWN DRUG ALLERGIES. Past Surgical History: Negative. Review of Systems: Head and Neck: No red eye. No ear pain. GI: Has nausea. Has abdominal pain. : No polyuria. No dysuria. No hematuria. Lunchroom Monitor: Not applicable. Respiratory: Has shortness of breath. Cardiovascular: Has leg swelling. Endocrine: No polydipsia. Skin: No rash. Neuro: Has neuropathy, mild headache. Musculoskeletal: No joint pain. Physical Examination: Vital Signs: When I saw the patient; blood pressure was 207/143, currently 169/112, pulse of 95, afe brile. Chest: Crackles bilateral. Heart: S1, S2. Systolic murmur. Abdomen: Positive for ascites. Tenderness on the right upper quadrant. Extremities: +3 edema. Neuro: Alert. No focality. No tremor with congestion bilaterally. Laboratory Data: Urinalysis negative for infection. Sodium 136, potassium 3.5, bicarb 27, BUN 36, c reatinine 3.3, GFR of 24, calcium 8.7. Troponin 91. WBC 11.6, H and H 11.8/37.6, platelet 545. Rev iewing the lab data from the previous admission; H and H 10.8/32.7. Sodium 134, potassium 3, bicarb 26, BUN 37, creatinine 3.8, GFR of 20. Iron saturation of 5, ferritin of 74. Serum protein electrop horesis, acute inflammation. Serology was negative. Current Medications: The patient on include Zosyn, nicotine, heparin, amlodipine, Nicardipine, Lasix . Assessment And Plan: 1.Chronic kidney disease, over volume. I am going to go ahead and increase the Lasix to 40 mg b.i.d . and I am going to start the patient on GREGORY inhibitor given the presence of the proteinuria and bloo d pressure and the improvement in the kidney function. I agree with calcium channel lacy. We deborah l add also carvedilol as nonselective beta-lacy and we will follow up. 2.Hypertension with emergent hypertension. As above, I will start beta-lacy, continue amlodipine , and we will start GREGORY inhibitor. We will increase Lasix. 3.Anasarca. Full workup has been done before it is secondary to renal failure. We will try to opti juan diuresis. 4.Secondary hyperparathyroidism. We will start on calcitriol. 5.Anemia of chronic kidney disease, hemoglobin with iron deficiency anemia. Hemoglobin on the right level. No need for CHLOE or IV iron. 6.Cholecystitis as by primary. Dose appropriate. 7.Hyponatremia, dilutional. We will diurese the patient. 8.Hypokalemia. We will supplement. We will start later on spironolactone. Thank you, Dr. Chong for allowing us to participate in the care of your patient. XENA/ARDEN Voice ID: [id number] Report ID: [id number]
[2022-04-13] MEDS ORDERED: 9 IV SCH (17:00)
--- NOTE | 2022-04-13 18:49 | P.PN ---
Date of Service: 04/13/22 Patient seen and examined. Blood pressure is still elevated on the nicardipine drip. Patient also complaining of epigastric pain. Troponin is elevated. Diagnosis Malignant hypertension Elevated troponin Acute pancreatitis. Plan: Patient started on amlodipine. Wean off nicardipine drip as tolerated Supportive measures for acute pancreatitis with IV fluid, antiemetics and pain management. Monitor and optimize electrolytes. Elevated troponin likely secondary to demand ischemia from malignant hypertension. Continue to trend troponin. Continue management in the ICU.
[2022-04-13 23:00] VITALS: BP 159/104
[2022-04-14] MEDS ORDERED: ONDANSETRON 4 MG/2 ML VIAL ONE (02:13)
[2022-04-14] MEDS ORDERED: MORPHINE 2 MG/ML SYR ONE (02:13)
[2022-04-14 02:14] LABS: Absolute Lymphocytes (CBC) 1.1 K/uL (0.7-4.9); Hematocrit 37.1 % (39.6-49.0); Lymphocytes % 7.2 % (15.3-44.8); MPV 7.5 fL (7.6-11.3); RBC Red Blood Cell Count 4.36 M/uL (4.33-5.43)
[2022-04-14] MEDS: MORPHINE 2 MG/ML SYR IV PRN (02:19)
[2022-04-14] MEDS: ONDANSETRON 4 MG/2 ML VIAL IV PRN (02:20)
[2022-04-14 02:32] LABS: Albumin 2.5 g/dL (3.4-5.0); Bilirubin Total 0.7 mg/dL (0.2-1.0); Magnesium 1.8 mg/dL (1.8-2.4); Phosphorus 3.8 mg/dL (2.5-4.9); Protein, Total 6.8 g/dL (6.4-8.2)
[2022-04-14 02:36] LABS: Potassium 2.9 mmol/L (3.5-5.1)
[2022-04-14 02:41] VITALS: TEMP 98.6
[2022-04-14 02:46] VITALS: O2SAT 97
[2022-04-14] MEDS ORDERED: lisinopriL 10 MG TAB PO SCH (09:00)
[2022-04-14] MEDS ORDERED: POTASSIUM 25 MEQ EFFERV TAB PO SCH (09:00)
--- NOTE | 2022-04-14 19:37 | P.DS ---
Admission Date: 04/13/22 Discharge Date: 04/13/22 Disposition: TRANSFER TO [facility] Discharge Condition: FAIR Reason for Admission: Pancreatitis, ARF, HTN Urgency - Problems (1) Acute pancreatitis Status: Acute Qualifiers: Pancreatitis type: biliary Acute pancreatitis complication: no infection or necrosis Qualified Code(s): K85.10 - Biliary acute pancreatitis without necrosis or infection (2) Acute renal failure Status: Acute Qualifiers: Acute renal failure type: unspecified Qualified Code(s): N17.9 - Acute kidney failure, unspecified (3) Malignant hypertension Status: Acute Brief History of Present Illness: Patient is a 36-year-old male who presented to the ED with complaints of abdominal pain and bilateral lower extremity swelling. Patient was admitted here about a week and a half ago for acute renal failure, cholecystitis, and malignant hypertension but eloped 4 days later. He returns to the ED today with worsening of symptoms. Labs significant for WBC 11.6, platelets 545, creatinine 3.31, BUN 36, AST 48, ALT 111, alk phos 163, BNP 54,000, lipase 1210. CT showed acute pancreatitis, small amount of free fluid in the abdomen, and a small right pleural effusion. He was also severely hypertensive sustaining 190s systolic despite several doses of IV hydralazine. During last admission, patient's cholecystitis was worked up with ultrasound and MRCP and showed cholelithiasis with cholecystitis without bile duct dilation. General surgery, Dr. Alba, decided he would prefer to operate on an outpatient basis. Patient also had full renal work-up and required nicardipine drip for hypertension. Patient admitted for further management. Hospital Course: Patient admitted to the ICU on nicardipine drip. He was also started on oral amlodipine for blood pressure control. Also treated with supportive measures for acute pancreatitis. He tolerated clear liquid diet. His blood pressure was resistant to the nicardipine drip and amlodipine. No ICU bed available patient kept in the ED hold. I was informed ICU bed is available in [facility]. Transfer to [facility] was initiated and patient accepted for transfer. Vitals stable for transfer. Vital Signs/Physical Exam: Temp Pulse Resp BP Pulse Ox 98.6 F 101 H 17 159/104 H 93 04/13/22 00:46 04/13/22 22:59 04/13/22 22:59 04/13/22 22:59 04/13/22 22:59 General: Alert, In no apparent distress, Oriented x3 HEENT: Mucous membr. moist/pink Neck: JVD not distended Respiratory: Clear to auscultation bilaterally, Normal air movement Cardiovascular: Regular rate/rhythm, Normal S1 S2, Edema (Bilateral lower extremities) Gastrointestinal: Soft and benign, Non-distended Integumentary: No rashes Laboratory Data at Discharge: WBC 14.7 K/uL (4.3-10.9) H D 04/14/22 02:00 Hgb 11.8 g/dL (13.6-17.9) L 04/14/22 02:00 Hct 37.1 % (39.6-49.0) L 04/14/22 02:00 Plt Count 531 K/uL (152-406) H 04/14/22 02:00 Sodium 134 mmol/L (136-145) L 04/14/22 02:00 Potassium 2.9 mmol/L (3.5-5.1) L* 04/14/22 02:00 BUN 32 mg/dL (7-18) H 04/14/22 02:00 Creatinine 3.30 mg/dL (0.55-1.3) H 04/14/22 02:00 Glucose 201 mg/dL (74-106) H 04/14/22 02:00 Phosphorus 3.8 mg/dL (2.5-4.9) 04/14/22 02:00 Magnesium 1.8 mg/dL (1.8-2.4) 04/14/22 02:00 Total Bilirubin 0.7 mg/dL (0.2-1.0) 04/14/22 02:00 AST 27 U/L (15-37) 04/14/22 02:00 ALT 86 U/L (12-78) H 04/14/22 02:00 Alkaline Phosphatase 145 U/L (45-117) H 04/14/22 02:00 Triglycerides 143 mg/dL (<150) 04/13/22 08:04 Lipase 1210 U/L (73-393) H 04/13/22 01:14 Home Medications: NK [No Home Meds] 04/03/22 Followup: NONE,NONE [Primary Care Provider] - Time spent managing pt's care (in minutes): 35
== END 2022-04-14 02:20 | disposition short-term general hospital (02) | DRG 439 ==
LOC: ER 00:35 → ERHOLD 04:31
PROVIDERS: ADMIT Internal Medicine; ATTEND Internal Medicine
DX: K85.10 Biliary acute pancreatitis without necrosis or infection (principal); I24.8 Other forms of acute ischemic heart disease; K81.0 Acute cholecystitis; N17.9 Acute kidney failure, unspecified; E87.1 Hypo-osmolality and hyponatremia; N18.4 Chronic kidney disease, stage 4 (severe); R77.8 Other specified abnormalities of plasma proteins; I16.0 Hypertensive urgency; F15.10 Other stimulant abuse, uncomplicated; E87.6 Hypokalemia; I12.9 Hypertensive chronic kidney disease with stage 1 through stage 4 chronic kidney disease, or unspecified chronic kidney disease; F17.210 Nicotine dependence, cigarettes, uncomplicated; Z20.822 Contact with and (suspected) exposure to COVID-19
CPT/HCPCS: 36415; 71045; 74176; 80053; 81003; 81015; 82550; 82947; 83605; 83690; 83735; 83880; 84100; 84478; 84484; 85025; 87040; 96374; 96375; 99285; J0360; J1644; J1940; J2270; J2405; J2543; J3490; J7030; U0003

== ENCOUNTER 2022-04-18 20:46 | Emergency (ER) | payer SELFPAY ==
--- NOTE | 2022-04-18 21:44 | ER ---
Nurse's Notes [facility] Name: Justino Barr Age: 36 yrs Sex: Male : 1985 Arrival Date: 04/18/2022 Time: 20:47 Bed Waiting Private MD: Diagnosis: ED Course: 04/18 20:47 Patient arrived in ED. bp1 21:38 Patient's name was called from ER lobby. No response. Unable to locate patient. Will lp1 disposition as left without being seen by a provider. Administered Medications: No medications were administered Outcome: 21:43 Patient left the ED. lp1 Signatures: Vero Wilson RN RN lp1 Angella Lovell bp1
== END 2022-04-18 21:43 | disposition left against medical advice (07) ==
LOC: ER 20:46
DX: Z02.9 Encounter for administrative examinations, unspecified (principal)

== ENCOUNTER 2022-05-02 06:48 | Emergency (ER) | payer SELFPAY ==
[2022-05-02] MEDS ORDERED: ONDANSETRON 4 MG/2 ML VIAL ONE (07:20)
[2022-05-02] MEDS ORDERED: NA CHLORIDE 0.9% 1,000 ML ONE (07:20)
[2022-05-02] MEDS ORDERED: MEPERIDINE HCL 50 MG/ML ONE ×2 (07:20→09:00)
[2022-05-02] MEDS ORDERED: PANTOPRAZOLE 40 MG INJ ONE (07:21)
[2022-05-02 07:39] LABS: Absolute Lymphocytes (CBC) 1.4 K/uL (0.7-4.9); Hematocrit 30.8 % (39.6-49.0); Lymphocytes % 14.3 % (15.3-44.8); MPV 8.2 fL (7.6-11.3); RBC Red Blood Cell Count 3.85 M/uL (4.33-5.43)
[2022-05-02 08:04] LABS: Albumin 2.4 g/dL (3.4-5.0); Bilirubin Total 1.2 mg/dL (0.2-1.0); Potassium 3.6 mmol/L (3.5-5.1); Protein, Total 6.8 g/dL (6.4-8.2)
--- NOTE | 2022-05-02 08:24 | RAD REPORT ---
EXAM DESCRIPTION: US - Abdomen Exam Limited - 05/02/2022 7:50 am CLINICAL HISTORY: ABD PAIN COMPARISON: Abdomen Pelvis Wo Contrast dated 04/13/2022 FINDINGS: No sludge or stones identified and normal size gallbladder. Gallbladder wall is slightly t hickened and there is a small amount of pericholecystic fluid present. The CT study demonstrated a mi nimal to mild ascites pattern. The pericholecystic fluid may not be specific to the gallbladder. No common duct stone or biliary tree dilatation identified. IMPRESSION: Gallbladder wall is slightly thickened but there are no stones or sludge identifiable. Small amount of pericholecystic fluid is present in the patient that has a mild overall ascites patte rn. Gallbladder changes are likely secondary to a more systemic process. Acalculous cholecystitis is not excluded if there are supporting clinical findings.
--- NOTE | 2022-05-02 08:38 | RAD REPORT ---
EXAM DESCRIPTION: CT - Abdomen Pelvis Wo Contrast - 05/02/2022 8:24 am CLINICAL HISTORY: Abdominal pain, acute, nonlocalized COMPARISON: Abdomen Pelvis Wo Contrast dated 04/13/2022; Abdomen Pelvis Wo Contrast dated 2; Abdomen Exam Limited dated 05/02/2022 TECHNIQUE: Axial [address] imaging of the abdomen and pelvis was performed without IV contrast. No IV contrast was given because of allergy, abnormal renal function, patient refusal or physician re quest. No oral contrast administered. All CT scans are performed using dose optimization technique as appropriate and may include automated exposure control or mA/KV adjustment according to patient size. FINDINGS: Minimal right pleural effusion. Heart size is upper normal without pericardial thickening or effusion. The liver and spleen show no suspicious findings. Gallbladder size is normal. Gallbladder wall appear s slightly thickened and there is a small amount of pericholecystic fluid. No biliary tree dilatation . Stones and sludge can be occult on CT imaging. Pancreas is grossly abnormal. The uncinate process and head of the pancreas are grossly normal. In th e body and tail portions the pancreas is thickened and edematous. Peripancreatic fluid and fat strand ing are present. Along the anterior margin of the pancreas there is a 4.8 x 1.7 centimeter low-densit y or fluid collection new from the most recent study. Abscess is possible. This is most likely a deve loping pancreatic pseudocyst. No hydronephrosis or suspicious renal mass. No significant adrenal finding. Isodense renal masses an d pyelonephritis cannot be excluded in the absence of IV contrast. The urinary bladder is without sig nificant finding. Gastric aguilar and duodenum do not appear to be secondarily involved by the pancreatitis. No acute sto mach or small bowel finding. No acute colon process seen. Minimal amount of ascites is present in the peritoneal cavity. No free air or pneumatosis. No other area of edematous/ inflammatory stranding. No hernia, mass or bulky lymphadenopathy. No suspicious bony findings. IMPRESSION: Acute pancreatitis findings are present with pancreatic parenchymal thickening and edema with peripancreatic fat stranding. Chronic pancreatitis changes are likely present as well. A 4.8 x 1.7 low density or fluid collection has developed along the anterior margin of the pancreas. This could be an abscess but is probably a d eveloping pseudocyst. Gallbladder wall thickening with pericholecystic fluid. This is probably a secondary response to the pancreatitis. Gallbladder is further detailed in separate ultrasound report. Full assessment is limited is the absence of IV contrast.
--- NOTE | 2022-05-02 09:12 | ER ---
Nurse's Notes [facility] Name: Justino Barr Age: 36 yrs Sex: Male : 1985 Arrival Date: 05/02/2022 Time: 06:50 Bed 19 Private MD: Diagnosis: Biliary acute pancreatitis without necrosis or infection;Chronic kidney disease, unspecified Presentation: 05/02 07:07 Chief complaint: Patient states: Upper abdominal pain with nausea and vomiting that has ww been going on for a few months but getting worse. Patient states he was admitted here and in [facility] for possible gallbladder issues and pancreatitis. Coronavirus screen: Client denies travel out of the [place] in the last 14 days. Ebola Screen: Patient denies travel to an Ebola-affected area in the 21 days before illness onset. Initial Sepsis Screen: Does the patient meet any 2 criteria? No. Patient's initial sepsis screen is negative. Does the patient have a suspected source of infection? No. Patient's initial sepsis screen is negative. Risk Assessment: Do you want to hurt yourself or someone else? Patient reports no desire to harm self or others. Onset of symptoms is unknown. 07:07 Method Of Arrival: Ambulatory ww 07:07 Acuity: VAHID 3 ww Triage Assessment: 07:09 General: Appears uncomfortable, Behavior is cooperative. Pain: Complains of pain in ww epigastric area, right upper quadrant and left upper quadrant. Neuro: Level of Consciousness is awake, alert, obeys commands, Oriented to person, place, time, situation, Moves all extremities. Speech is normal. Cardiovascular: Capillary refill < 3 seconds Patient's skin is warm and dry. Respiratory: Airway is patent Respiratory effort is even, unlabored, Respiratory pattern is regular, symmetrical. GI: Abdomen is non-distended, Abdomen is tender to palpation in right upper quadrant and left upper quadrant. : Urine is clear. Derm: Skin is intact, is healthy with good turgor. Historical: - Allergies: 07: No Known Allergies; ww - Home Meds: 07: amlodipine 10 mg tab 1 tab once daily [Active]; aspirin 81 mg Oral chew 1 tab once ww daily [Active]; atorvastatin 40 mg oral tab 1 tab once daily [Active]; Coreg 25 mg Oral tab 1 tab 2 times per day [Active]; hydralazine 100 mg Oral tab 1 tab 2 times per day [Active]; - PMHx: 07:09 Hypertensive disorder; ww - Immunization history:: Adult Immunizations not up to date. - Social history:: Smoking status: Patient reports the use of cigarette tobacco products, smokes one-half pack cigarettes per day. - Family history:: not pertinent. - Hospitalizations: : Patient was recently seen at. Screenin:11 Abuse screen: Denies threats or abuse. Denies injuries from another. Nutritional ww screening: No deficits noted. Tuberculosis screening: No symptoms or risk factors identified. Fall Risk None identified. Assessment: 07:11 Reassessment: Patient appears in no apparent distress at this time. No changes from ww previously documented assessment. Patient and/or family updated on plan of care and expected duration. Pain level reassessed. Patient is alert, oriented x 3, equal unlabored respirations, skin warm/dry/pink. see triage assessment. 08:13 Reassessment: Patient appears in no apparent distress at this time. No changes from ww previously documented assessment. Patient and/or family updated on plan of care and expected duration. Pain level reassessed. Patient is alert, oriented x 3, equal unlabored respirations, skin warm/dry/pink. 09:30 Reassessment: Patient appears in no apparent distress at this time. No changes from ww previously documented assessment. Patient and/or family updated on plan of care and expected duration. Pain level reassessed. patient sleeping in bed, respirations even and unlabored. 10:25 Reassessment: Patient appears in no apparent distress at this time. No changes from ww previously documented assessment. Patient and/or family updated on plan of care and expected duration. Pain level reassessed. patient sleeping in bed, respirations even and unlabored in no apparent distress. 11:16 Reassessment: Patient appears in no apparent distress at this time. Patient and/or ww family updated on plan of care and expected duration. Pain level reassessed. Patient is alert, oriented x 3, equal unlabored respirations, skin warm/dry/pink. Patient states feeling better. pain is improving. 12:23 Reassessment: Patient appears in no apparent distress at this time. No changes from ww previously documented assessment. Patient and/or family updated on plan of care and expected duration. Pain level reassessed. Patient is alert, oriented x 3, equal unlabored respirations, skin warm/dry/pink. report given to MANSOOR Lay at [facility]. Transferring to room a-[address]. Patient states feeling better. 13:02 Reassessment: report given to EMS. ww Vital Signs: 07:07 BP 200 / 136; Pulse 87; Resp 18; Temp 97.1; Pulse Ox 100% ; Weight 70.31 kg; Height 5 ww ft. 11 in. (180.34 cm); Pain 9/10; 08:13 BP 161 / 122; Pulse 82; Resp 22; ww 09:15 BP 155 / 118; Pulse 71; Resp 18; ww 10:17 BP 153 / 115; Pulse 81; Resp 18; Pulse Ox 94% on R/A; ww 10:30 BP 161 / 123; Pulse 80; Resp 16; Pulse Ox 94% ; ww 10:45 BP 152 / 113; Pulse 81; Resp 20; Pulse Ox 95% on R/A; ww 11:15 BP 163 / 117; Pulse 82; Resp 18; Pulse Ox 98% on R/A; ww 12:23 BP 144 / 104; Pulse 82; Resp 18; Pulse Ox 95% on R/A; ww 07:07 Body Mass Index 21.62 (70.31 kg, 180.34 cm) ww 08:13 Dr. Gallego aware of blood pressure ww 10:45 Dr. Gallego notified. Clonidine 0.2 PO once ordered ww ED Course: 06:50 Patient arrived in ED. bp1 06:59 Rajesh Gallego MD is Attending Physician. rn 07:07 Ana Osman RN is Primary Nurse. ww 07:09 Triage completed. ww 07:09 Arm band placed on. ww 07:10 Inserted saline lock: 20 gauge in right antecubital area, using aseptic technique. ww Blood collected. 07:11 Patient has correct armband on for positive identification. Placed in gown. Bed in low ww position. Call light in reach. Side rails up X 1. Client placed on continuous cardiac and pulse oximetry monitoring. NIBP monitoring applied. 07:52 Abdomen Limited US In Process Unspecified. EDMS 08:26 Abdomen In Process Unspecified. EDMS 10:24 initiated transfer to [facility]. bd 12:24 No provider procedures requiring assistance completed. Patient transferred, IV remains ww in place. 12:56 pt accepted in transfer to [facility] by dr Hayes, admin approval given by jennifer Haji. Administered Medications: 07:10 Drug: NS 0.9% 1000 ml Route: IV; Rate: 1 bolus; Site: right antecubital; ww 11:18 Follow up: Response: No adverse reaction; IV Status: Completed infusion ww 07:11 Drug: Zofran (Ondansetron) 4 mg Route: IVP; Site: right antecubital; ww 11:18 Follow up: Response: No adverse reaction ww 07:14 Drug: Demerol (meperidine) 50 mg Route: IVP; Site: right antecubital; ww 11:19 Follow up: Response: No adverse reaction ww 07:16 Drug: ProTONIX (pantoprazole) 40 mg Route: IVP; Site: right antecubital; ww 11:18 Follow up: Response: No adverse reaction ww 07:33 Not Given (out of medicationi): Pepcid (famotidine) 20 mg IVP once; dilute with 10 mL ww 0.9% NaCl; give over 2 minutes 09:00 Drug: Demerol (meperidine) 50 mg Route: IVP; Site: right antecubital; ww 11:19 Follow up: Response: No adverse reaction ww 09:27 Drug: Zosyn (piperacillin-tazobactam) 3.375 grams Route: IVPB; Infused Over: 60 mins; ww Site: right antecubital; 11:19 Follow up: Response: No adverse reaction; IV Status: Completed infusion ww 10:38 Drug: hydrALAZINE 10 mg Route: IVP; Site: right antecubital; ww 11:19 Follow up: Response: No adverse reaction ww 11:14 Drug: Coreg (carvedilol) 25 mg Route: PO; ww 13:01 Drug: Dilaudid (HYDROmorphone) 1 mg Route: IVP; Site: right antecubital; ww Medication: 07:11 VIS not applicable for this client. ww Outcome: 09:11 ER care complete, transfer ordered by MD. vergara 12:24 Transferred by ground EMS to [facility], Transfer form completed. ww 12:24 Condition: stable 12:24 Instructed on the need for transfer. 13:02 Patient left the ED. ww Signatures: Dispatcher [employer] EDMS Dirrim, Amara bd Gallego, Rajesh, MD MD rn Paniauga, Angella bp1 Wood, Ana, RN RN ww Corrections: (The following items were deleted from the chart) 10:53 10:45 BP 152 / 113; Pulse 81bpm; Resp 20bpm; Pulse Ox 95% RA; ww ww
--- NOTE | 2022-05-02 09:12 | EDPHYS ---
Physician Documentation [facility] Name: Jutsino Barr Age: 36 yrs Sex: Male : 1985 Arrival Date: 05/02/2022 Time: 06:50 Bed 19 Private MD: ED Physician Rajesh Gallego HPI: 05/02 07:17 This 36 yrs old Unknown Male presents to ER via Ambulatory with complaints of Abdominal rn Pain, Vomiting. 07:17 The patient presents to the emergency department with nausea, vomiting, abdominal pain. rn Onset: The symptoms/episode began/occurred at an unknown time. Possible causes: unknown. The symptoms are aggravated by pressure, The symptoms are alleviated by nothing. Associated signs and symptoms: Pertinent positives: abdominal pain, nausea, vomiting, Pertinent negatives: fever, GI bleeding. Severity of symptoms: At their worst the symptoms were moderate in the emergency department the symptoms are unchanged. The patient has experienced similar episodes in the past. The patient has been recently seen by a physician:. Pt reports upper abd pain with unknown onset, states told either gallbladder or pancreas is the problem, still has gallbladder, plan was to get outpt surgery in next couple of weeks. No fever. No blood in emesis. Reports recent admission at [facility] for pancreatitis. . Historical: - Allergies: 07:09 No Known Allergies; ww - Home Meds: 07:09 amlodipine 10 mg tab 1 tab once daily [Active]; aspirin 81 mg Oral chew 1 tab once ww daily [Active]; atorvastatin 40 mg oral tab 1 tab once daily [Active]; Coreg 25 mg Oral tab 1 tab 2 times per day [Active]; hydralazine 100 mg Oral tab 1 tab 2 times per day [Active]; - PMHx: 07:09 Hypertensive disorder; ww - Immunization history:: Adult Immunizations not up to date. - Social history:: Smoking status: Patient reports the use of cigarette tobacco products, smokes one-half pack cigarettes per day. - Family history:: not pertinent. - Hospitalizations: : Patient was recently seen at. ROS: 07:17 Constitutional: Negative for fever, chills, and weight loss, Eyes: Negative for injury, rn pain, redness, and discharge, Neck: Negative for injury, pain, and swelling, Cardiovascular: Negative for chest pain, palpitations, and edema, Respiratory: Negative for shortness of breath, cough, wheezing, and pleuritic chest pain, Abdomen/GI: + abd pain and nausea/vomiting, neg for GI bleed Back: Negative for injury and pain, : Negative for injury, bleeding, discharge, and swelling, MS/Extremity: Negative for injury and deformity, Skin: Negative for injury, rash, and discoloration, Neuro: Negative for headache, weakness, numbness, tingling, and seizure. Exam: 07:17 Constitutional: Thin male, appears in pain Head/Face: Normocephalic, atraumatic. 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 No pulse deficits. Respiratory: No increased work of breathing, no retractions or nasal flaring. Abdomen/GI: soft, + epigastric tenderness, no rebound, no masses Skin: Warm, dry MS/ Extremity: Pulses equal, no cyanosis. Neuro: Awake and alert, GCS 15 Vital Signs: 07:07 BP 200 / 136; Pulse 87; Resp 18; Temp 97.1; Pulse Ox 100% ; Weight 70.31 kg; Height 5 ww ft. 11 in. (180.34 cm); Pain 9/10; 08:13 BP 161 / 122; Pulse 82; Resp 22; ww 09:15 BP 155 / 118; Pulse 71; Resp 18; ww 10:17 BP 153 / 115; Pulse 81; Resp 18; Pulse Ox 94% on R/A; ww 10:30 BP 161 / 123; Pulse 80; Resp 16; Pulse Ox 94% ; ww 10:45 BP 152 / 113; Pulse 81; Resp 20; Pulse Ox 95% on R/A; ww 11:15 BP 163 / 117; Pulse 82; Resp 18; Pulse Ox 98% on R/A; ww 12:23 BP 144 / 104; Pulse 82; Resp 18; Pulse Ox 95% on R/A; ww 07:07 Body Mass Index 21.62 (70.31 kg, 180.34 cm) ww 08:13 Dr. Gallego aware of blood pressure ww 10:45 Dr. Gallego notified. Clonidine 0.2 PO once ordered ww MDM: 07:00 Patient medically screened. rn 09:08 ED course: Consulted with Dr. Reardon, requests transfer due to elevation of alk phos rn and increase in bilirubin, believes still most likely gallstone pancreatitis. . 09:10 Differential diagnosis: Nonspecific abd pain, cholecystitis, pancreatitis, viral rn gastroenteritis, gastroenteritis. Data reviewed: vital signs, nurses notes, lab test result(s), radiologic studies, CT scan, ultrasound, and as a result, I will admit patient. Counseling: I had a detailed discussion with the patient and/or guardian regarding: the historical points, exam findings, and any diagnostic results supporting the discharge/admit diagnosis, lab results, radiology results, the need to transfer to another facility, for higher level of care. Response to treatment: the patient's symptoms have mildly improved after treatment, and as a result, I will admit patient. 10:14 ED course: Accepted for transfer to [facility]. . rn 05/02 07:07 Order name: CBC with Diff; Complete Time: 08:10 rn 05/02 07:07 Order name: CMP; Complete Time: 08:10 rn 05/02 07:07 Order name: Lipase; Complete Time: 08:10 rn 05/02 07:07 Order name: Abdomen Limited US; Complete Time: 08:39 rn 05/02 08:19 Order name: SARS-COV-2 RT PCR (Document "Date of Onset" if Symptomatic) rn 05/02 08:12 Order name: Abdomen ; Complete Time: 08:39 EDMS 05/02 07:07 Order name: IV Saline Lock; Complete Time: 07:32 rn 05/02 07:07 Order name: Labs collected and sent; Complete Time: 07:32 rn Administered Medications: 07:10 Drug: NS 0.9% 1000 ml Route: IV; Rate: 1 bolus; Site: right antecubital; ww 11:18 Follow up: Response: No adverse reaction; IV Status: Completed infusion ww 07:11 Drug: Zofran (Ondansetron) 4 mg Route: IVP; Site: right antecubital; ww 11:18 Follow up: Response: No adverse reaction ww 07:14 Drug: Demerol (meperidine) 50 mg Route: IVP; Site: right antecubital; ww 11:19 Follow up: Response: No adverse reaction ww 07:16 Drug: ProTONIX (pantoprazole) 40 mg Route: IVP; Site: right antecubital; ww 11:18 Follow up: Response: No adverse reaction ww 07:33 Not Given (out of medicationi): Pepcid (famotidine) 20 mg IVP once; dilute with 10 mL ww 0.9% NaCl; give over 2 minutes 09:00 Drug: Demerol (meperidine) 50 mg Route: IVP; Site: right antecubital; ww 11:19 Follow up: Response: No adverse reaction ww 09:27 Drug: Zosyn (piperacillin-tazobactam) 3.375 grams Route: IVPB; Infused Over: 60 mins; Site: right antecubital; 11:19 Follow up: Response: No adverse reaction; IV Status: Completed infusion ww 10:38 Drug: hydrALAZINE 10 mg Route: IVP; Site: right antecubital; ww 11:19 Follow up: Response: No adverse reaction ww 11:14 Drug: Coreg (carvedilol) 25 mg Route: PO; ww 13:01 Drug: Dilaudid (HYDROmorphone) 1 mg Route: IVP; Site: right antecubital; Disposition Summary: 05/02/22 09:11 Transfer Ordered Transfer Location: Other Acute Care Facility rn Reason: Higher level of care rn Condition: Stable rn Problem: an acute exacerbation rn Symptoms: have improved rn Accepting Physician: (05/02/22 13:02) leslie Diagnosis - Biliary acute pancreatitis without necrosis or infection rn - Chronic kidney disease, unspecified rn Forms: - Medication Reconciliation Form rn - SBAR form rn Signatures: Dispatcher [employer] Rajesh Basurto MD MD rn Wood, Whitney, RN RN ww Corrections: (The following items were deleted from the chart) 08:12 07:07 Abdomen Pelvis W Con+CT.RAD.BRZ ordered. [facility] 13:02 09:11 Dr. jai nelson
[2022-05-02] MEDS ORDERED: NA CHLORIDE 0.9% 100 ML ONE (09:25)
[2022-05-02] MEDS ORDERED: PIPERACIL/TAZO 3.375 GM VIAL IV ONE (09:26)
[2022-05-02] MEDS ORDERED: carvediloL 6.25 MG TAB ONE (11:10)
[2022-05-02] MEDS ORDERED: HYDROMORPHONE HCL 1 MG/ML INJ ONE (13:03)
[2022-05-02 13:22] VITALS: TEMP 97.1
[2022-05-02 13:32] VITALS: BP 144/104; O2SAT 95
== END 2022-05-02 13:02 ==
LOC: ER 06:48
DX: K85.10 Biliary acute pancreatitis without necrosis or infection (principal); I12.9 Hypertensive chronic kidney disease with stage 1 through stage 4 chronic kidney disease, or unspecified chronic kidney disease; N18.9 Chronic kidney disease, unspecified; F17.210 Nicotine dependence, cigarettes, uncomplicated; Z20.822 Contact with and (suspected) exposure to COVID-19; Z79.82 Long term (current) use of aspirin
CPT/HCPCS: 36415; 74176; 76705; 80053; 83690; 85025; 96361; 96365; 96366; 96375; 99285; C9113; J1170; J2175; J2405; J2543; J7030; U0003

== ENCOUNTER 2022-07-22 11:37 | Emergency (ER) | payer SELFPAY ==
[2022-07-22] MEDS ORDERED: NA CHLORIDE 0.9% 1,000 ML ONE ×3 (12:34→15:22)
[2022-07-22] MEDS ORDERED: FAMOTIDINE 20 MG/2 ML VIAL IV ONE (12:34)
[2022-07-22] MEDS ORDERED: ONDANSETRON 4 MG/2 ML VIAL ONE (12:34)
[2022-07-22] MEDS ORDERED: MORPHINE 4 MG/ML SYR ONE (12:34)
[2022-07-22 12:47] LABS: Absolute Lymphocytes (CBC) 1.6 K/uL (0.7-4.9); Hematocrit 39.7 % (39.6-49.0); Lymphocytes % 13.3 % (15.3-44.8); MCV 81.5 fL (80-100); MPV 6.8 fL (7.6-11.3); RBC Red Blood Cell Count 4.87 M/uL (4.33-5.43)
[2022-07-22] MEDS ORDERED: HYDRALAZINE HCL 20 MG/ML VIAL ONE (13:12)
[2022-07-22 13:41] LABS: Albumin 3.7 g/dL (3.4-5.0); Bilirubin Total 0.8 mg/dL (0.2-1.0); Magnesium 2.4 mg/dL (1.8-2.4); Protein, Total 8.9 g/dL (6.4-8.2)
[2022-07-22 13:42] LABS: Potassium 2.8 mmol/L (3.5-5.1)
[2022-07-22] MEDS ORDERED: cloNIDine HCL 0.1 MG TAB ONE (14:25)
--- NOTE | 2022-07-22 14:34 | RAD REPORT ---
EXAM DESCRIPTION: CTChest Abd Pelvis Wo Con - 07/22/2022 2:22 pm CLINICAL HISTORY: abdominal pain COMPARISON: Abdomen Pelvis Wo Contrast dated 05/02/2022 TECHNIQUE: CT of the chest, abdomen, and pelvis was performed. All CT scans are performed using dose optimization technique as appropriate and may include automated exposure control or mA/KV adjustment according to patient size. FINDINGS: Thorax: Chest Wall: No abnormal mass Lungs: No acute abnormality. Pleura: No effusions or pneumothorax. Ramandeep/Mediastinum: No lymphadenopathy. Aorta/Pulmonary Arteries: Unremarkable Heart: Normal size. Abdomen/Pelvis: Liver: No acute abnormality or suspicious lesions. Biliary: No biliary ductal dilatation. Stomach: No significant focal abnormality. Duodenum: No significant focal abnormality. Pancreas: Diffuse peripancreatic edema. At least 2 fluid collections are identified. At the pancreati c body, a collection measuring 6.8 x 5.1 cm is present. At the tail there is a 4 cm by 2.6 cm collect ion. Spleen: No significant abnormality. Adrenal: No suspicious lesions. Kidney/ureter: No hydronephrosis. No renal calculi. Retroperitoneum: No retroperitoneal adenopathy. Vascular: No aneurysm. Bowel: No significant focal abnormality. Peritoneum: No ascites or free air. Bladder: Grossly unremarkable. Reproductive: No adnexal masses. Bones: No acute fracture. Sclerosis in the posterior third of the L2 vertebral body is likely a bone island. Other: n/a IMPRESSION: Findings consistent with acute pancreatitis. Fluid collections at the pancreatic body an d tail likely represent pseudocysts. They have enlarged since 05/02/2022.
[2022-07-22] MEDS ORDERED: KCL 20 MEQ/100 mL IVPB 100 ML IV ONE (15:22)
[2022-07-22] MEDS ORDERED: NA CHLORIDE 0.9% 100 ML ONE (15:22)
[2022-07-22] MEDS ORDERED: PIPERACIL/TAZO 3.375 GM VIAL IV ONE (15:22)
[2022-07-22] MEDS ORDERED: HYDROMORPHONE HCL 1 MG/ML INJ ONE (15:22)
[2022-07-22 15:46] LABS: Anisocytosis 1+; Blood Morphology Comment NOTED (NOT SEEN); Platelet Estimate ADEQ; White Blood Cell Scan OK (OK)
--- NOTE | 2022-07-22 15:51 | EDPHYS ---
Physician Documentation [facility] Name: Justino Barr Age: 36 yrs Sex: Male : 1985 Arrival Date: 07/22/2022 Time: 11:40 Bed 14 Private MD: ED Physician Rajesh Gallego HPI: 07/22 16:07 This 36 yrs old Unknown Male presents to ER via Ambulatory with complaints of Abdominal cp Pain, Vomiting. 16:07 The patient presents with abdominal pain in the epigastric area, in the upper abdomen. cp The symptoms radiate to back. Associated signs and symptoms: Pertinent positives: nausea and vomiting times 5 days, Pertinent negatives: blood in stools, chest pain, constipation, diarrhea, shortness of breath, vomiting blood. Severity of pain: in the emergency department the pain is unchanged despite home interventions. 16:07 The patient has experienced similar episodes in the past, several times, today's cp symptoms are similar, to when the patient was apparently diagnosed with pancreatitis. Historical: - Allergies: 12:04 No Known Allergies; ss - Home Meds: 12:04 amlodipine 10 mg tab 1 tab once daily [Active]; aspirin 81 mg Oral chew 1 tab once ss daily [Active]; atorvastatin 40 mg Oral tab 1 tab once daily [Active]; Coreg 25 mg Oral tab 1 tab 2 times per day [Active]; hydralazine 100 mg Oral tab 1 tab 2 times per day [Active]; - PMHx: 12:04 Hypertensive disorder; ss - Immunization history:: Client reports having NOT received the Covid vaccine. - Social history:: Smoking status: Patient reports the use of cigarette tobacco products, smokes one pack cigarettes per day. ROS: 16:10 Constitutional: Positive for poor PO intake, Negative for body aches, chills, fever. cp 16:10 Eyes: Negative for injury, pain, redness, and discharge. cp 16:10 Cardiovascular: Negative for chest pain. 16:10 Respiratory: Negative for cough, shortness of breath, wheezing. 16:10 Abdomen/GI: Positive for abdominal pain, nausea and vomiting. 16:10 Back: Positive for radiated pain. Exam: 14:35 ECG was reviewed by the Attending Physician. cp 16:15 Constitutional: The patient appears in no acute distress, alert, awake, cp non-diaphoretic, non-toxic, well developed, well nourished, in obvious pain, uncomfortable. 16:15 Head/Face: Normocephalic, atraumatic. cp 16:15 Eyes: Periorbital structures: appear normal, Conjunctiva: normal, no exudate, no cp injection, Sclera: no appreciated abnormality, Lids and lashes: appear normal, bilaterally. 16:15 ENT: External ear(s): are unremarkable, Nose: is normal, Mouth: Lips: moist, Oral mucosa: pink and intact, moist, Posterior pharynx: Airway: no evidence of obstruction, patent. 16:15 Chest/axilla: Inspection: normal, Palpation: is normal, no crepitus, no tenderness. 16:15 Cardiovascular: Rate: tachycardic, Rhythm: regular, Edema: is not appreciated, JVD: is not appreciated. 16:15 Respiratory: the patient does not display signs of respiratory distress, Respirations: normal, no use of accessory muscles, no retractions, labored breathing, is not present, Breath sounds: are clear throughout, no decreased breath sounds, no stridor, no wheezing. 16:15 Abdomen/GI: Inspection: abdomen appears normal, Bowel sounds: active, all quadrants, Palpation: soft, in all quadrants, severe abdominal tenderness, in the epigastric area, right upper quadrant and left upper quadrant, rebound tenderness, is not appreciated, voluntary guarding, is elicited in the epigastric area, right upper quadrant and left upper quadrant. 16:15 Back: CVA tenderness, is absent. 16:15 Neuro: Orientation: to person, place \T\ time. Mentation: is normal, Motor: moves all fours, strength is normal, Sensation: is normal. Vital Signs: 12:02 BP 150 / 107; Pulse 117; Resp 20; Temp 98.7; Pulse Ox 100% on R/A; Weight 74.84 kg; ss Height 5 ft. 11 in. (180.34 cm); Pain 8/10; 12:30 BP 230 / 163; Pulse 108; Resp 18 S; Pulse Ox 98% on R/A; Pain 8/10; jg9 12:45 BP 242 / 164 LA; Pulse 99; Resp 16 S; Pulse Ox 98% on R/A; Pain 8/10; jg9 12:53 BP 235 / 168 LA; Pulse 110; Resp 17 S; Pulse Ox 99% on R/A; Pain 6/10; jg9 13:00 BP 234 / 157; Pulse 100; Resp 18 S; Pulse Ox 96% on R/A; Pain 5/10; jg9 13:15 BP 233 / 158 LA; Pulse 101; Resp 20 S; Pulse Ox 93% on R/A; Pain 5/10; jg9 13:30 BP 227 / 153 LA; Pulse 103; Resp 19 S; Pulse Ox 97% on R/A; Pain 5/10; jg9 13:45 BP 226 / 152 RA; Pulse 103; Resp 16 S; Pulse Ox 97% on R/A; Pain 5/10; jg9 14:30 BP 218 / 158; Pulse 106; Resp 18 S; Pulse Ox 100% on R/A; jg9 14:45 BP 224 / 159; Pulse 103; Resp 19 S; Pulse Ox 100% on R/A; jg9 15:30 BP 181 / 137; Pulse 107; Resp 17 S; Pulse Ox 98% on R/A; jg9 16:30 BP 173 / 129; Pulse 89; Resp 15 S; Pulse Ox 97% on R/A; jg9 17:15 BP 189 / 137; Pulse 87; Resp 17 S; Pulse Ox 98% on R/A; jg9 18:00 BP 188 / 133; Pulse 86; Resp 14 S; Pulse Ox 100% on R/A; jg9 12:02 Body Mass Index 23.01 (74.84 kg, 180.34 cm) ss MDM: 12:10 Patient medically screened. 16:15 Data reviewed: vital signs, nurses notes, lab test result(s), EKG, radiologic studies, cp CT scan, I have discussed the patient's presentation/case with the attending Emergency Department Physician;. 16:15 Test interpretation: by ED physician or midlevel provider: ECG. Response to treatment: cp improved. Physician consultation: was contacted at 16:10, regarding regarding transfer, to [facility]. accepting physician will be DR Jazzy Marcum. 07/22 12:17 Order name: CBC with Diff; Complete Time: 16:04 cp 07/22 12:17 Order name: CMP; Complete Time: 14:04 cp 07/22 14:37 Interpretation: Normal except: NA 129; K 2.8; CL 97; GLUC 131; BUN 31; CRE 3.95; GFR cp 19; ALK 134; TP 8.9; GLOB 5.2; A/G 0.7. 07/22 12:17 Order name: Lipase; Complete Time: 14:04 cp 07/22 12:17 Order name: Urine Microscopic Only; Complete Time: 17:55 cp 07/22 12:19 Order name: Magnesium; Complete Time: 14:04 cp 07/22 12:53 Order name: CBC Smear Scan; Complete Time: 16:04 EDMS 07/22 14:05 Order name: CT Chest Abdomen Pelvis W/O Contrast; Complete Time: 14:35 cp 07/22 14:11 Order name: SARS RAPID; Complete Time: 16:04 eb 07/22 14:50 Order name: UDS; Complete Time: 17:55 cp 07/22 14:50 Order name: CK; Complete Time: 16:04 cp 07/22 16:53 Order name: Urine Dipstick-Ancillary; Complete Time: 17:55 EDMS 07/22 17:55 Interpretation: Normal except: UBLD Trace-intact; UPROT 3+. cp 07/22 12:17 Order name: IV Saline Lock; Complete Time: 12:39 cp 07/22 12:17 Order name: Labs collected and sent; Complete Time: 12:39 cp 07/22 12:17 Order name: Urine Dipstick-Ancillary (obtain specimen); Complete Time: 16:55 cp 07/22 14:05 Order name: EKG; Complete Time: 14:06 cp 07/22 14:05 Order name: EKG - Nurse/Tech; Complete Time: 14:32 cp 07/22 15:04 Order name: NPO; Complete Time: 16:55 cp EC:35 Rate is 103 beats/min. Rhythm is regular. HI interval is normal. QRS interval is cp normal. QT interval is normal. T waves are Inverted in lead aVR. Interpreted by me. Reviewed by me. Administered Medications: 12:35 Drug: NS 0.9% 1000 ml Route: IV; Rate: 1 bolus; Site: right antecubital; jg9 13:30 Follow up: IV Status: Completed infusion; IV Intake: 1000ml jg9 12:36 Drug: Zofran (Ondansetron) 4 mg Route: IVP; Site: right antecubital; jg9 13:00 Follow up: Response: No adverse reaction jg9 12:37 Drug: Pepcid (famotidine) 20 mg Route: IVP; Site: right antecubital; jg9 13:00 Follow up: Response: No adverse reaction jg9 12:39 Drug: morphine 4 mg Route: IVP; Infused Over: 4 mins; Site: right antecubital; jg9 13:00 Follow up: Response: No adverse reaction jg9 13:04 Drug: hydrALAZINE 10 mg Route: IVP; Site: right antecubital; jg9 13:30 Follow up: Response: No adverse reaction; Blood pressure is unchanged j9 14:32 Drug: cloNIDine 0.2 mg Route: PO; jg9 15:00 Follow up: Response: No adverse reaction; Blood pressure is unchanged jg9 15:35 Follow up: Response: No adverse reaction; Blood pressure is lowered j9 14:53 Drug: NS 0.9% 1000 ml Route: IV; Rate: 1 bolus; Site: right antecubital; jg9 15:19 Drug: Potassium Chloride 20 mEq Route: IV; Rate: calculated rate; Site: right j9 antecubital; 18:00 Follow up: IV Status: Completed infusion; IV Intake: 100ml j9 15:35 Drug: Dilaudid (HYDROmorphone) 1 mg {Note: RASS-0 7/10 abdominal pain.} Route: IVP; jg9 Site: right wrist; 16:54 Follow up: Response: No adverse reaction; Pain is decreased j9 15:36 Drug: Zosyn (piperacillin-tazobactam) 3.375 grams Route: IVPB; Infused Over: 60 mins; jg9 Site: right wrist; 16:53 Follow up: IV Status: Completed infusion; IV Intake: 100ml j9 17:29 Drug: NS 0.9% 1000 ml Route: IV; Rate: 125 ml/hr; Site: right antecubital; jg9 Disposition: 18:47 Co-signature as Attending Physician, Rajesh Gallego MD I agree with the assessment and rn plan of care. Attestation: The patient's history, exam findings, diagnostics, and a summary of any interventions or procedures was reviewed in detail with Keo PINON. Disposition Summary: 07/22/22 15:50 Transfer Ordered Transfer Location: [facility] cp Reason: Higher level of care cp Condition: Fair cp Problem: new cp Symptoms: have improved cp Accepting Physician: DR Jazzy Marcum(07/22/22 18:28) jg9 Diagnosis - Acute pancreatitis without necrosis or infection, unspecified cp - Acute kidney failure, unspecified cp - Hypertensive emergency cp - Hypokalemia cp Forms: - Medication Reconciliation Form cp - SBAR form cp Signatures: Dispatcher [employer] EDMS Rajesh Gallego MD MD rn Smirch, Shelby, RN RN ss Page, Corey, PA PA cp Martina Santiago RN RN jg9 Corrections: (The following items were deleted from the chart) 12:19 12:18 UA MICROSCOPIC+U.LAB.BRZ ordered. EDMS EDMS 18:17 15:50 doctor cp cp 18:19 15:50 Other chronic pancreatitis cp cp 18:19 18:17 DR Jazzy Marcum cp cp 18:20 18:19 DR Jazzy Marcum cp cp 18:28 18:20 DR Jazzy Marcum cp jg9
--- NOTE | 2022-07-22 15:51 | ER ---
Nurse's Notes [facility] Name: Justino Barr Age: 36 yrs Sex: Male : 1985 Arrival Date: 07/22/2022 Time: 11:40 Bed 14 Private MD: Diagnosis: Acute pancreatitis without necrosis or infection, unspecified;Acute kidney failure, unspecified;Hypertensive emergency;Hypokalemia Presentation: 07/22 12:02 Chief complaint: RUQ pain and N/V x 3 days. Not tolerating fluids. Coronavirus screen: ss At this time, the client does not indicate any symptoms associated with coronavirus-19. Ebola Screen: No symptoms or risks identified at this time. Initial Sepsis Screen: Does the patient meet any 2 criteria? No. Patient's initial sepsis screen is negative. Does the patient have a suspected source of infection? No. Patient's initial sepsis screen is negative. Risk Assessment: Do you want to hurt yourself or someone else? Patient reports no desire to harm self or others. Onset of symptoms was July 19, 2022. 12:02 Method Of Arrival: Ambulatory ss 12:02 Acuity: VAHID 3 ss Triage Assessment: 12:15 General: Appears uncomfortable, Behavior is calm. Pain: Complains of pain in abdomen. jg9 GI: Abdomen is flat, non-distended, Bowel sounds present X 4 quads. Abd is soft and non tender X 4 quads. Reports lower abdominal pain, upper abdominal pain. Historical: - Allergies: 12:04 No Known Allergies; ss - Home Meds: 12:04 amlodipine 10 mg tab 1 tab once daily [Active]; aspirin 81 mg Oral chew 1 tab once ss daily [Active]; atorvastatin 40 mg Oral tab 1 tab once daily [Active]; Coreg 25 mg Oral tab 1 tab 2 times per day [Active]; hydralazine 100 mg Oral tab 1 tab 2 times per day [Active]; - PMHx: 12:04 Hypertensive disorder; ss - Immunization history:: Client reports having NOT received the Covid vaccine. - Social history:: Smoking status: Patient reports the use of cigarette tobacco products, smokes one pack cigarettes per day. Screenin:15 Abuse screen: Denies threats or abuse. Denies injuries from another. Nutritional jg9 screening: No deficits noted. Tuberculosis screening: No symptoms or risk factors identified. Fall Risk None identified. Assessment: 13:00 Reassessment: Patient blood pressures reading high, patient reports that he is on blood jg9 pressure medication but has not taking any in 4 days because he hasn't been able to eat-provider made aware of elevated BP. 13:43 Reassessment: Patient blood pressure remains elevated, patient reports no distress, jg9 pain in abdomen is improving, patient in bed now with eyes closed resting. 14:00 Reassessment: Patient and/or family updated on plan of care and expected duration. Pain jg9 level reassessed. Patient is alert, oriented x 3, equal unlabored respirations, skin warm/dry/pink. Patient abeominal pain has improved but blood pressure is unchaged-provider notified. Vital Signs: 12:02 BP 150 / 107; Pulse 117; Resp 20; Temp 98.7; Pulse Ox 100% on R/A; Weight 74.84 kg; ss Height 5 ft. 11 in. (180.34 cm); Pain 8/10; 12:30 BP 230 / 163; Pulse 108; Resp 18 S; Pulse Ox 98% on R/A; Pain 8/10; jg9 12:45 BP 242 / 164 LA; Pulse 99; Resp 16 S; Pulse Ox 98% on R/A; Pain 8/10; jg9 12:53 BP 235 / 168 LA; Pulse 110; Resp 17 S; Pulse Ox 99% on R/A; Pain 6/10; jg9 13:00 BP 234 / 157; Pulse 100; Resp 18 S; Pulse Ox 96% on R/A; Pain 5/10; jg9 13:15 BP 233 / 158 LA; Pulse 101; Resp 20 S; Pulse Ox 93% on R/A; Pain 5/10; jg9 13:30 BP 227 / 153 LA; Pulse 103; Resp 19 S; Pulse Ox 97% on R/A; Pain 5/10; jg9 13:45 BP 226 / 152 RA; Pulse 103; Resp 16 S; Pulse Ox 97% on R/A; Pain 5/10; jg9 14:30 BP 218 / 158; Pulse 106; Resp 18 S; Pulse Ox 100% on R/A; jg9 14:45 BP 224 / 159; Pulse 103; Resp 19 S; Pulse Ox 100% on R/A; jg9 15:30 BP 181 / 137; Pulse 107; Resp 17 S; Pulse Ox 98% on R/A; jg9 16:30 BP 173 / 129; Pulse 89; Resp 15 S; Pulse Ox 97% on R/A; jg9 17:15 BP 189 / 137; Pulse 87; Resp 17 S; Pulse Ox 98% on R/A; jg9 18:00 BP 188 / 133; Pulse 86; Resp 14 S; Pulse Ox 100% on R/A; jg9 12:02 Body Mass Index 23.01 (74.84 kg, 180.34 cm) ED Course: 11:40 Patient arrived in ED. rg4 11:42 Keo Armendariz PA is PHCP. cp 11:42 Rajesh Gallego MD is Attending Physician. cp 12:03 Triage completed. ss 12:04 Arm band placed on. ss 12:10 Inserted saline lock: 22 gauge 24 gauge antecubital area, using aseptic technique. jg9 Blood collected. 12:11 Martina Santiago, MANSOOR is Primary Nurse. jg9 12:16 Patient has correct armband on for positive identification. Bed in low position. Call jg9 light in reach. Side rails up X 1. 14:24 CT Chest Abdomen Pelvis W/O Contrast In Process Unspecified. EDMS 15:05 initiated a transfer with Honey Schulte from the [facility]. eb 15:25 Inserted saline lock: 22 gauge in right wrist, using aseptic technique. jg9 15:28 per Honey / GI applications manager at [facility] says the patient needs EUS and they eb don't do those/ so patient was declined due to being at capacity/ she will try [facility]. 15:[address] Garnica the GI applications manager for [facility] with Keo Navas for patient eb transfer consultation. 16:20 administrative approval given by Honey Schulte/ patient has been accepted to [facility] Bed 1646/ Dr. Jazzy Marcum has accepted the patient in transfer/ report to be called to [phone]. 18:27 No provider procedures requiring assistance completed. jg9 18:27 Patient transferred, IV remains in place. jg9 Administered Medications: 12:35 Drug: NS 0.9% 1000 ml Route: IV; Rate: 1 bolus; Site: right antecubital; j9 13:30 Follow up: IV Status: Completed infusion; IV Intake: 1000ml jg9 12:36 Drug: Zofran (Ondansetron) 4 mg Route: IVP; Site: right antecubital; j9 13:00 Follow up: Response: No adverse reaction j9 12:37 Drug: Pepcid (famotidine) 20 mg Route: IVP; Site: right antecubital; jg9 13:00 Follow up: Response: No adverse reaction j9 12:39 Drug: morphine 4 mg Route: IVP; Infused Over: 4 mins; Site: right antecubital; j9 13:00 Follow up: Response: No adverse reaction j9 13:04 Drug: hydrALAZINE 10 mg Route: IVP; Site: right antecubital; j9 13:30 Follow up: Response: No adverse reaction; Blood pressure is unchanged j9 14:32 Drug: cloNIDine 0.2 mg Route: PO; j9 15:00 Follow up: Response: No adverse reaction; Blood pressure is unchanged j9 15:35 Follow up: Response: No adverse reaction; Blood pressure is lowered j9 14:53 Drug: NS 0.9% 1000 ml Route: IV; Rate: 1 bolus; Site: right antecubital; jg9 15:19 Drug: Potassium Chloride 20 mEq Route: IV; Rate: calculated rate; Site: right 9 antecubital; 18:00 Follow up: IV Status: Completed infusion; IV Intake: 100ml j9 15:35 Drug: Dilaudid (HYDROmorphone) 1 mg {Note: RASS-0 7/10 abdominal pain.} Route: IVP; jg9 Site: right wrist; 16:54 Follow up: Response: No adverse reaction; Pain is decreased j9 15:36 Drug: Zosyn (piperacillin-tazobactam) 3.375 grams Route: IVPB; Infused Over: 60 mins; jg9 Site: right wrist; 16:53 Follow up: IV Status: Completed infusion; IV Intake: 100ml jg9 17:29 Drug: NS 0.9% 1000 ml Route: IV; Rate: 125 ml/hr; Site: right antecubital; jg9 Medication: 18:27 VIS not applicable for this client. jg9 Intake: 13:30 IV: 1000ml; Total: 1000ml. jg9 16:53 IV: 100ml; Total: 1100ml. jg9 18:00 IV: 100ml; Total: 1200ml. jg9 Outcome: 15:50 ER care complete, transfer ordered by . elieser 18:27 Transferred by ground EMS to [facility], Transfer form completed. jg9 18:27 Condition: stable 18:28 Patient left the ED. jg9 Signatures: Dispatcher [employer] EDMS Juliet Oneill RN RN Keo Bass PA PA cp Garcia, Rubi rg4 Honey Drake Jennifer, RN RN jg9 Corrections: (The following items were deleted from the chart) 13:00 12:45 BP 242 / 116; Pulse 99bpm; Resp 16bpm; Spontaneous; Pulse Ox 98% RA; Pain 8/10; jg9 jg9 13:49 13:30 BP 227 / 153 L Arm; Pulse 103bpm; Resp 19bpm; Spontaneous; Pulse Ox 97% RA; jg9 jg9
[2022-07-22 15:52] LABS: SARS-CoV-2 Antigen Rapid Res Negative (Negative)
[2022-07-22 16:53] LABS: Urine Blood Trace-intact (Negative); Urine Glucose Trace (Negative); Urine Protein 3+ (Negative)
[2022-07-22 17:27] LABS: Urine Bacteria <20 /HPF (<20); Urine RBC <5 /HPF (None Seen)
[2022-07-22 17:29] LABS: Barbiturates NEGATIVE (NEGATIVE); Benzodiazepines NEGATIVE (NEGATIVE); Cocaine NEGATIVE (NEGATIVE); METHAMPHETAM NEGATIVE (NEGATIVE); Methadone NEGATIVE (NEGATIVE); Opiates NEGATIVE (NEGATIVE); Phencyclidine NEGATIVE (NEGATIVE); THC Cannibis POSITIVE (NEGATIVE)
[2022-07-22 19:43] VITALS: TEMP 98.7
[2022-07-22 20:15] VITALS: BP 188/133; O2SAT 100
--- NOTE | 2022-07-23 12:50 | EKG ---
Test Date: 2022-07-22 Test Time: 14:29:37 Mail Sorter And Delivery: BOYD MEASUREMENT RESULTS: Intervals: Rate: 103 LA: 168 QRSD: 98 QT: 410 QTc: 537 Newberg: P: 75 LA: 168 QRS: 54 T: 12 INTERPRETIVE STATEMENTS: Sinus tachycardia Right atrial enlargement Left ventricular hypertrophy with repolarization abnormality Cannot rule out Septal infarct, age undetermined Abnormal ECG Compared to ECG 04/03/2022 10:51:20 Left ventricular hypertrophy now present Early repolarization now present Myocardial infarct finding still present Electronically Signed On 07-23-22 12:49:12 CDT by Juan Mathis
== END 2022-07-22 18:28 | disposition short-term general hospital (02) ==
LOC: ER 11:37
DX: K85.90 Acute pancreatitis without necrosis or infection, unspecified (principal); N17.9 Acute kidney failure, unspecified; I16.1 Hypertensive emergency; E87.6 Hypokalemia; F17.210 Nicotine dependence, cigarettes, uncomplicated; Z20.822 Contact with and (suspected) exposure to COVID-19; Z79.82 Long term (current) use of aspirin
CPT/HCPCS: 36415; 71250; 74176; 80053; 80307; 81003; 81015; 82550; 83690; 83735; 85025; 87811; 93005; 99285; J0360; J1170; J2405; J2543; J3480; J7030

== ENCOUNTER 2022-10-08 21:39 | Emergency (ER) | payer SELFPAY ==
[2022-10-08] MEDS ORDERED: ONDANSETRON 4 MG/2 ML VIAL ONE (22:26)
[2022-10-08] MEDS ORDERED: HYDRALAZINE HCL 20 MG/ML VIAL ONE (22:26)
[2022-10-08] MEDS ORDERED: FAMOTIDINE 20 MG/2 ML VIAL IV ONE (22:26)
[2022-10-08] MEDS ORDERED: NA CHLORIDE 0.9% 1,000 ML ONE (22:26)
[2022-10-08 23:01] LABS: Absolute Lymphocytes (CBC) 1.6 K/uL (0.7-4.9); Hematocrit 30.8 % (39.6-49.0); Lymphocytes % 13.4 % (15.3-44.8); MCV 86.6 fL (80-100); RBC Red Blood Cell Count 3.56 M/uL (4.33-5.43)
[2022-10-08 23:21] LABS: Albumin 2.7 g/dL (3.4-5.0); Bilirubin Total 0.8 mg/dL (0.2-1.0)
[2022-10-08 23:22] LABS: Potassium 2.8 mmol/L (3.5-5.1)
[2022-10-08 23:23] LABS: Troponin High Sensitivity 180.4 pg/mL (<58.9)
--- NOTE | 2022-10-08 23:44 | EDPHYS ---
Physician Documentation [facility] Name: Justino Barr Age: 36 yrs Sex: Male : 1985 Arrival Date: 10/08/2022 Time: 21:41 Bed 2 Private MD: ED Physician Dago Nelson HPI: 10/08 22:04 This 36 yrs old Male presents to ER via Ambulatory with complaints of Chest Pain, ms3 Abdominal Pain, Vomiting. 22:09 The patient or guardian reports chest pain that is located primarily in the epigastric ms3 area. The pain does not radiate. Associated signs and symptoms: Pertinent positives: abdominal pain, Pertinent negatives: nausea, vomiting. The chest pain is described as burning. Duration: The patient or guardian reports a single episode. Modifying factors: The symptoms are alleviated by nothing. the symptoms are aggravated by nothing. Severity of pain: At its worst the pain was severe in the emergency department the pain is unchanged. Historical: - Allergies: 22:01 No Known Allergies; kb3 - Home Meds: 22:01 amlodipine 10 mg tab 1 tab once daily [Active]; aspirin 81 mg Oral chew 1 tab once kb3 daily [Active]; atorvastatin 40 mg Oral tab 1 tab once daily [Active]; Coreg 25 mg Oral tab 1 tab 2 times per day [Active]; hydralazine 100 mg Oral tab 1 tab 2 times per day [Active]; - PMHx: 22:01 Hypertensive disorder; kb3 - PSHx: 22:01 None; kb3 - Immunization history:: Adult Immunizations not immunized, Client reports having NOT received the Covid vaccine. Last tetanus immunization: up to date. - Social history:: Smoking status: Patient reports the use of cigarette tobacco products. ROS: 22:09 Constitutional: Negative for fever, and chills. Neck: Negative for injury, pain, and ms3 swelling. 22:09 Respiratory: Negative for shortness of breath, cough, wheezing, and pleuritic chest pain. 22:09 MS/Extremity: Negative for injury and deformity, Skin: Negative for injury, rash, and discoloration. 22:09 Cardiovascular: Positive for chest pain. 22:09 Abdomen/GI: Positive for abdominal pain. 22:09 All other systems are negative. Exam: 22:09 Constitutional: This is a well developed, well nourished patient who is awake, alert, ms3 and in no acute distress. Head/Face: Normocephalic, atraumatic. Neck: Trachea midline, no cervical lymphadenopathy. Supple, full range of motion without nuchal rigidity, or vertebral point tenderness. No Meningismus. Chest/axilla: Normal chest wall appearance and motion. Nontender with no deformity. Cardiovascular: Regular rate and rhythm with a normal S1 and S2. No gallops, murmurs, or rubs. Normal PMI, no JVD. No pulse deficits. Respiratory: Lungs have equal breath sounds bilaterally, clear to auscultation and percussion. No rales, rhonchi or wheezes noted. No increased work of breathing, no retractions or nasal flaring. 22:09 Skin: Warm, dry with normal turgor. Normal color with no rashes, no lesions, and no evidence of cellulitis. MS/ Extremity: Pulses equal, no cyanosis. Neurovascular intact. Full, normal range of motion. 22:09 Abdomen/GI: Inspection: abdomen appears normal, Bowel sounds: normal, Palpation: moderate abdominal tenderness, in all quadrants. 22:19 ECG was reviewed by the Attending Physician. ms3 Vital Signs: 21:59 BP 244 / 177; Pulse 115; Resp 20; Temp 97.7; Pulse Ox 100% ; Weight 74.84 kg; Height 5 kb3 ft. 11 in. (180.34 cm); Pain 9/10; 23:00 BP 231 / 165; Pulse 106; Resp 12; Pulse Ox 100% ; vc1 23:30 BP 214 / 150; Pulse 105; Resp 14; Pulse Ox 100% ; vc1 23:43 BP 214 / 150; Pulse 105; vc1 11/14 00:30 BP 189 / 128; Pulse 111; Resp 18; Pulse Ox 97% ; pf1 01:00 BP 185 / 119; Pulse 112; Resp 15; Pulse Ox 99% ; pf1 02:15 BP 168 / 113; Pulse 111; Resp 15; Pulse Ox 96% ; pf1 02:30 BP 182 / 110; Pulse 113; Resp 15; Pulse Ox 96% on R/A; kl 03:00 BP 176 / 106; Pulse 113; Resp 16; Pulse Ox 95% on R/A; kl 03:30 BP 168 / 103; Pulse 111; Resp 15; Pulse Ox 97% on R/A; kl 04:00 BP 169 / 100; Pulse 105; Pulse Ox 94% on R/A; kl 04:30 BP 167 / 100; Pulse 110; Resp 18; Pulse Ox 97% ; pf1 07:33 BP 153 / 88; Pulse 107; Resp 18; Pulse Ox 95% on R/A; ph 08:16 BP 149 / 89; Pulse 104; Resp 18; Temp 98.0; Pulse Ox 95% on R/A; ph 10/08 21:59 Body Mass Index 23.01 (74.84 kg, 180.34 cm) kb3 00:30 MAP 145 pf1 01:00 MAP 134 pf1 02:15 MAP 127 pf1 04:30 MAP 117 pf1 MDM: 10/08 22:09 Patient medically screened. ms3 22:09 Differential diagnosis: abnormal EKG, acute myocardial infarction, pancreatitis. ms3 10/09 01:58 ED course: Discussed case with Dr Momin and she accepts patient.. ms3 02:08 ED course: Called by transfer center and since patient has been to [facility] prior ms3 different cardiology will need to admit. Discussed case with Dr Van and he accepts patient to [facility].. 07:40 HEART Score: History: Slightly Suspicious (0), ECG: Non specific repolarization ms3 disturbance / LBTB / PM (1), Age: < or = 45 years (0), Risk Factors: 1 or 2 risk factors (1), Troponin: > 1 and < 3 x normal limit (1), Total Score = 3. Data reviewed: vital signs, nurses notes, lab test result(s), EKG, radiologic studies, and as a result, I will transfer. Data interpreted: monitor technician: rate is 107 beats/min, rhythm is sinus tachycardia, with no ectopy, Interpretation: tachycardia. Counseling: I had a detailed discussion with the patient and/or guardian regarding: the historical points, exam findings, and any diagnostic results supporting the discharge/admit diagnosis, lab results, radiology results, the need to transfer to another facility. 10/08 22:08 Order name: CBC with Diff; Complete Time: 23:26 ms3 10/08 22:08 Order name: CMP; Complete Time: 23:26 ms3 10/08 22:08 Order name: Lipase; Complete Time: 23:26 ms3 10/08 22:48 Order name: Troponin High Sensitivity; Complete Time: 23:26 EDMS 10/09 00:22 Order name: SARS RAPID; Complete Time: 01:42 ds4 10/08 22:11 Order name: XRAY Chest (1 view) ms3 10/09 00:01 Order name: Abdomen EDMS 10/08 22:08 Order name: IV Saline Lock; Complete Time: 22:35 ms3 10/08 22:08 Order name: Labs collected and sent; Complete Time: 22:34 ms3 10/08 22:11 Order name: Cardiac monitoring; Complete Time: 22:33 ms3 10/08 22:11 Order name: EKG - Nurse/Tech; Complete Time: 22:33 ms3 10/08 22:11 Order name: O2 Per Protocol; Complete Time: 22:33 ms3 10/08 22:11 Order name: O2 Sat Monitoring; Complete Time: 22:33 ms3 10/08 23:38 Order name: Misc. Order: Cadene titration goal MAP 145-155; Complete Time: 00:07 ms3 EC/13 22:19 Rate is 109 beats/min. Rhythm is regular. Left axis deviation noted. AK interval is ms3 normal. Clinical impression: NSR w/ Non-specific ST/T Changes. Interpreted by me. Reviewed by me. Administered Medications: 22:25 Drug: hydrALAZINE 10 mg Route: IVP; Site: right antecubital; vc1 23:00 Follow up: BP 231 / 165; Pulse 106 bpm; Resp 12 bpm; Pulse Ox 100% ; Response: No vc1 adverse reaction; No change in condition; Blood pressure is unchanged 22:33 Drug: NS 0.9% 1000 ml Route: IV; Rate: 1 bolus; Site: right antecubital; vc1 22:33 Drug: Pepcid (famotidine) 20 mg Route: IVP; Site: right antecubital; vc1 23:10 Follow up: Response: No adverse reaction vc1 22:33 Drug: Zofran (Ondansetron) 4 mg Route: IVP; Site: right antecubital; vc1 23:10 Follow up: Response: No adverse reaction vc1 23:09 Drug: hydrALAZINE 10 mg Route: IVP; Site: right antecubital; vc1 23:43 Follow up: BP 214 / 150; Pulse 105 bpm; Response: No adverse reaction vc1 23:50 Drug: Potassium Chloride 20 mEq Route: IV; Rate: calculated rate; Site: left pf1 antecubital; 10/09 00:30 Follow up: Response: No adverse reaction pf1 08:16 Follow up: Response: No adverse reaction; IV Status: Completed infusion ph 10/08 23:51 Drug: niCARdipine 5 mg/hr Route: IV; Rate: calculated rate; Site: right antecubital; pf1 10/09 00:30 Follow up: Response: No adverse reaction; Blood pressure is lowered pf1 08:16 Follow up: Response: No adverse reaction; IV Status: Infusion continued upon transfer ph Disposition: 10/08 23:42 Critical Care:. ms3 Disposition Summary: 10/08/22 23:43 Transfer Ordered Transfer Location: [facility] ms3 Reason: Higher level of care ms3 Condition: Stable ms3 Problem: new ms3 Symptoms: are unchanged ms3 Accepting Physician: (10/09/22 08:17) Diagnosis - Hypertensive emergency ms3 - Abdominal pain, unspecified ms3 - Acute Renal Failure ms3 - Transaminitis ms3 Forms: - Medication Reconciliation Form ms3 - SBAR form ms3 Critical care time excluding procedures: 23:42 Critical care time: Bedside Care: 35 minutes, Consultation: 10 minutes. Total time: 45 ms3 minutes Signatures: Dispatcher [employer] EDPeyton Acevedo RN RN Dago Alicea DO DO ms3 Corina Beck RN RN vc1 Luly Kapoor RN RN kb3 Sasha obregon RN RN pf1 Corrections: (The following items were deleted from the chart) 22:48 22:12 Troponin High Sensitivity+C.LAB.BRZ ordered. EDMT EDMS 10/09 00:01 10/08 22:09 Abdomen Pelvis W Con+CT.RAD.BRZ ordered. EDMT EDMS 10/09 08:17 10/08 23:43 ms3 ph
--- NOTE | 2022-10-08 23:44 | ER ---
Nurse's Notes [facility] Name: Justino Barr Age: 36 yrs Sex: Male : 1985 Arrival Date: 10/08/2022 Time: 21:41 Bed 2 Private MD: Diagnosis: Hypertensive emergency;Abdominal pain, unspecified;Acute Renal Failure;Transaminitis Presentation: 10/08 21:59 Chief complaint: Patient states: Pt reports RUQ pain x1 week, vomiting x1 week, kb3 substernal CP since 0700 today. Coronavirus screen: Vaccine status: Patient reports being unvaccinated. Client denies travel out of the [place] in the last 14 days. Ebola Screen: Patient negative for fever greater than or equal to 101.5 degrees Fahrenheit, and additional compatible Ebola Virus Disease symptoms Patient denies exposure to infectious person. Patient denies travel to an Ebola-affected area in the 21 days before illness onset. Initial Sepsis Screen: Does the patient meet any 2 criteria? No. Patient's initial sepsis screen is negative. Does the patient have a suspected source of infection? No. Patient's initial sepsis screen is negative. Risk Assessment: Do you want to hurt yourself or someone else? Patient reports no desire to harm self or others. Onset of symptoms was October 01, 2022. 21:59 Method Of Arrival: Ambulatory 3 21:59 Acuity: VAHID 3 kb3 10/09 00:08 Note 2345 Cardene drip at 2.5/hr BP 214/150 MAP 166 pulse 131 0001 BP 211/153 MAP 169 kl Pulse 112 Cardene increase to 5mg/hr. 00:34 Note BP 189/128 MAP 145 Cardene remains at 5mg/hr. kl Triage Assessment: 10/08 22:01 General: Appears in no apparent distress. Behavior is calm, cooperative. Pain: kb3 Complains of pain in right upper quadrant Pain does not radiate. Pain currently is 9 out of 10 on a pain scale. Quality of pain is described as aching. Historical: - Allergies: 22: No Known Allergies; kb3 - Home Meds: 22:01 amlodipine 10 mg tab 1 tab once daily [Active]; aspirin 81 mg Oral chew 1 tab once kb3 daily [Active]; atorvastatin 40 mg Oral tab 1 tab once daily [Active]; Coreg 25 mg Oral tab 1 tab 2 times per day [Active]; hydralazine 100 mg Oral tab 1 tab 2 times per day [Active]; - PMHx: 22:01 Hypertensive disorder; kb3 - PSHx: 22:01 None; kb3 - Immunization history:: Adult Immunizations not immunized, Client reports having NOT received the Covid vaccine. Last tetanus immunization: up to date. - Social history:: Smoking status: Patient reports the use of cigarette tobacco products. Screenin:10 Abuse screen: Denies threats or abuse. Nutritional screening: No deficits noted. vc1 Tuberculosis screening: No symptoms or risk factors identified. Fall Risk None identified. Assessment: 22:49 Pain: Pain began suddenly. Cardiovascular: Reports chest pain, vomiting. vc1 23:43 Reassessment: No changes from previously documented assessment. Patient and/or family vc1 updated on plan of care and expected duration. Pain level reassessed. 10/09 03:00 Reassessment: Patient appears in no apparent distress at this time. Patient and/or pf1 family updated on plan of care and expected duration. Pain level reassessed. Patient is alert, oriented x 3, equal unlabored respirations, skin warm/dry/pink. Patient states feeling better. Provided patient with some ice chips. Continue monitoring patient. . 04:00 Cardiovascular: Cardiovascular: Denies chest pain, Patient C/O RUQ pain of 3 at this pf1 time. Continue monitoring patient. 05:00 Reassessment: Patient and/or family updated on plan of care and expected duration. Pain pf1 level reassessed. Patient is alert, oriented x 3, equal unlabored respirations, skin warm/dry/pink. Patient states symptoms have improved. Patient sleeping at this time. Patient pending transfer, awaiting for EMS transport at 0700. Patient connected to cardiac monitoring.. 08:14 Reassessment: Patient appears in no apparent distress at this time. Patient and/or ph family updated on plan of care and expected duration. Pain level reassessed. Pt asleep w/ equal and unlabored respirations, [facility] at bedside, report given to COMBAT SYSTEMS OPERATOR, pt transferred w/ cardene drip infusing at 5mg/hr, BP w/in ordered parameters. Vital Signs: 10/08 21:59 BP 244 / 177; Pulse 115; Resp 20; Temp 97.7; Pulse Ox 100% ; Weight 74.84 kg; Height 5 kb3 ft. 11 in. (180.34 cm); Pain 9/10; 23:00 BP 231 / 165; Pulse 106; Resp 12; Pulse Ox 100% ; vc1 23:30 BP 214 / 150; Pulse 105; Resp 14; Pulse Ox 100% ; vc1 23:43 BP 214 / 150; Pulse 105; vc1 11/14 00:30 BP 189 / 128; Pulse 111; Resp 18; Pulse Ox 97% ; pf1 01:00 BP 185 / 119; Pulse 112; Resp 15; Pulse Ox 99% ; pf1 02:15 BP 168 / 113; Pulse 111; Resp 15; Pulse Ox 96% ; pf1 02:30 BP 182 / 110; Pulse 113; Resp 15; Pulse Ox 96% on R/A; kl 03:00 BP 176 / 106; Pulse 113; Resp 16; Pulse Ox 95% on R/A; kl 03:30 BP 168 / 103; Pulse 111; Resp 15; Pulse Ox 97% on R/A; kl 04:00 BP 169 / 100; Pulse 105; Pulse Ox 94% on R/A; kl 04:30 BP 167 / 100; Pulse 110; Resp 18; Pulse Ox 97% ; pf1 07:33 BP 153 / 88; Pulse 107; Resp 18; Pulse Ox 95% on R/A; ph 08:16 BP 149 / 89; Pulse 104; Resp 18; Temp 98.0; Pulse Ox 95% on R/A; ph 11/13 21:59 Body Mass Index 23.01 (74.84 kg, 180.34 cm) kb3 00:30 MAP 145 pf1 01:00 MAP 134 pf1 02:15 MAP 127 pf1 04:30 MAP 117 pf1 ED Course: 10/08 21:41 Patient arrived in ED. bp1 21:42 Dago Nelson DO is Attending Physician. ms3 22:01 Triage completed. kb3 22:01 Arm band placed on right wrist. kb3 22:10 Patient has correct armband on for positive identification. Placed in gown. Bed in low vc1 position. Call light in reach. Side rails up X2. Client placed on continuous cardiac and pulse oximetry monitoring. NIBP monitoring applied. 22:10 Inserted saline lock: 20 gauge in right antecubital area, using aseptic technique. vc1 Blood collected. Patient maintains SpO2 saturation greater than 95% on room air. 22:48 XRAY Chest (1 view) In Process Unspecified. EDMS 10/09 00:01 Abdomen In Process Unspecified. EDMS 00:15 Inserted saline lock: 18 gauge in left antecubital area, using aseptic technique. pf1 00:16 Sasha obregon, RN is Primary Nurse. pf1 04:34 No provider procedures requiring assistance completed. pf1 04:34 Patient transferred, IV remains in place. pf1 04:57 transfer transportation to receiving facility. pf1 Administered Medications: 10/08 22:25 Drug: hydrALAZINE 10 mg Route: IVP; Site: right antecubital; vc1 23:00 Follow up: BP 231 / 165; Pulse 106 bpm; Resp 12 bpm; Pulse Ox 100% ; Response: No vc1 adverse reaction; No change in condition; Blood pressure is unchanged 22:33 Drug: NS 0.9% 1000 ml Route: IV; Rate: 1 bolus; Site: right antecubital; vc1 22:33 Drug: Pepcid (famotidine) 20 mg Route: IVP; Site: right antecubital; vc1 23:10 Follow up: Response: No adverse reaction vc1 22:33 Drug: Zofran (Ondansetron) 4 mg Route: IVP; Site: right antecubital; vc1 23:10 Follow up: Response: No adverse reaction vc1 23:09 Drug: hydrALAZINE 10 mg Route: IVP; Site: right antecubital; vc1 23:43 Follow up: BP 214 / 150; Pulse 105 bpm; Response: No adverse reaction vc1 23:50 Drug: Potassium Chloride 20 mEq Route: IV; Rate: calculated rate; Site: left pf1 antecubital; 10/09 00:30 Follow up: Response: No adverse reaction pf1 08:16 Follow up: Response: No adverse reaction; IV Status: Completed infusion ph 10/08 23:51 Drug: niCARdipine 5 mg/hr Route: IV; Rate: calculated rate; Site: right antecubital; pf1 10/09 00:30 Follow up: Response: No adverse reaction; Blood pressure is lowered pf1 08:16 Follow up: Response: No adverse reaction; IV Status: Infusion continued upon transfer ph Medication: 10/08 22:49 VIS not applicable for this client. vc1 Intake: 10/09 07:22 PO: 180ml; IV: 1350ml; Total: 1530ml. bb Output: 07:22 Urine: 1680ml (Voided); Total: 1680ml. bb Outcome: 10/08 23:43 ER care complete, transfer ordered by . ms3 10/09 04:13 Transferred by ground EMS to [facility]. pf1 04:13 Condition: stable pf1 04:13 Instructed on the need for transfer. 04:13 Transferred Note: Patient report given to Helen Polanco RN at [place] [id number] [facility] 08:17 Patient left the ED. ph Signatures: Dispatcher [employer] EDMS Lanette Hi RN RN kl Ballard, Brenda, RN RN bb Hall, Patricia, RN RN ph Sims, Marcus, DO DO ms3 Angella Lovell Vanessa, RN RN vc1 Luly Kapoor RN RN 3 Sasha obregon RN RN pf1 Corrections: (The following items were deleted from the chart) 10/08 22:44 22:33 hydrALAZINE 10 mg IVP in right antecubital vc1 vc1 10/09 06:08 01:00 BP 185 / 119; Pulse 112bpm; Resp 15bpm; Pulse Ox 99%; pf1 pf1 06:08 04:30 BP 167 / 100; Pulse 110bpm; Resp 18bpm; Pulse Ox 97%; pf1 pf1
[2022-10-08] MEDS ORDERED: Nicardipine/NS 25 MG/250 ML KIT IV ONE (23:45)
[2022-10-09] MEDS ORDERED: KCL 20 MEQ/100 mL IVPB 100 ML IV ONE (00:12)
[2022-10-09] MEDS ORDERED: NA CHLORIDE 0.9% 250 ML ONE (00:18)
[2022-10-09 01:01] LABS: SARS-CoV-2 Antigen Rapid Res Negative (Negative)
[2022-10-09] MEDS ORDERED: Nicardipine/NS 25 MG/250 ML KIT IV ONE (04:48)
--- NOTE | 2022-10-09 08:01 | RAD REPORT ---
EXAM DESCRIPTION: Mindi Single View10/08/2022 10:46 pm CLINICAL HISTORY: Chest pain COMPARISON: March 2022 FINDINGS: The lungs appear clear of acute infiltrate. The heart appears borderline enlarged
[2022-10-09 08:55] VITALS: O2SAT 95
[2022-10-09 08:57] VITALS: BP 149/89; TEMP 98
--- NOTE | 2022-10-09 14:18 | RAD REPORT ---
EXAM DESCRIPTION: CT - Abdomen Pelvis Wo Contrast - 10/09/2022 7:24 am CLINICAL HISTORY: 36 years, Male, upper abdominal pain. Stent in pancreas COMPARISON: 04/13/2022 TECHNIQUE: Multiple transaxial tomograms of the abdomen and pelvis were performed from the lung base s to the symphysis pubis utilizing 5 mm slice thickness at 5 mm interval reconstruction, without admi nistration of IV and oral contrast. Multiplanar reformats in the sagittal and coronal plane were generated and reviewed. This exam was performed according to our departmental dose-optimization protocol, which includes auto mated exposure control, adjustment of the mA and/or kV according to patient size and/or use of iterat freda reconstruction technique. FINDINGS: The lack of IV and oral contrast limits evaluation of solid organs, subtle lesions cannot be excluded. The lung bases demonstrate very minimal dependent atelectatic changes. Grossly the unopacified liver, gallbladder, spleen and adrenal glands demonstrate to be within normal limits, no significant focal lesions were identified. There is a pancreatic stent in place. There has been resolution previous visualized inflammatory stevenson ges within the pancreas. The kidneys demonstrate grossly unremarkable. There is no evidence for nephrolithiasis and/or hydro nephrosis. No focal masses were demonstrated. Grossly the unopacified stomach, small bowel and large bowel demonstrate to be within normal limits. There is no evidence for bowel dilatation/or free air. The appendix is normal. There is mild fecal st asis. The urinary bladder demonstrate to be within normal limits. The prostate gland is unremarkable. The a maira demonstrate to be within normal limits. There is no retroperitoneal lymphadenopathy. There i s no evidence for ascites. The rest of the soft tissue demonstrate to be grossly unremarkable. IMPRESSION: No evidence for nephrolithiasis and/or hydronephrosis. Pancreatic stent in good position with resolution previous visualized inflammatory changes within the pancreas. Mild fecal stasis. Electronically signed by: Nishant Valle MD 10/09/2022 12:14 AM TECHNOLOGY APPLICATIONS CONSULTANT Due to temporary technical issues with the PACS/Fluency reporting system, reports are being signed by the in house radiologists without review as a courtesy to insure prompt reporting. The interpreting radiologist is fully responsible for the content of the report.
--- NOTE | 2022-10-10 08:26 | EKG ---
Test Date: 2022-10-08 Test Time: 22:19:28 Ladle Liner Helper: GERMAN MEASUREMENT RESULTS: Intervals: Rate: 109 AZ: 164 QRSD: 96 QT: 374 QTc: 503 Oral: P: 79 AZ: 164 QRS: -5 T: 67 INTERPRETIVE STATEMENTS: Sinus tachycardia Possible Left atrial enlargement Left ventricular hypertrophy Anteroseptal infarct, age undetermined Abnormal ECG Compared to ECG 07/22/2022 14:29:37 Early repolarization no longer present Myocardial infarct finding still present Electronically Signed On 10-10-22 08:20:36 DIE MECHANIC by Sanchez Rea
== END 2022-10-09 08:17 | disposition short-term general hospital (02) ==
LOC: ER 21:39
DX: I16.1 Hypertensive emergency (principal); R74.01 Elevation of levels of liver transaminase levels; N17.9 Acute kidney failure, unspecified; I10 Essential (primary) hypertension; F17.210 Nicotine dependence, cigarettes, uncomplicated
CPT/HCPCS: 36415; 71045; 74176; 80053; 83690; 84484; 85025; 87811; 93005; 99285; J0360; J2405; J3480; J7030; J7050

== ENCOUNTER 2022-11-02 15:58 | Emergency (ER) | payer SELFPAY ==
[2022-11-02] MEDS ORDERED: MORPHINE 4 MG/ML SYR ONE ×2 (16:51→18:22)
[2022-11-02] MEDS ORDERED: ONDANSETRON 4 MG/2 ML VIAL ONE ×2 (16:51→18:23)
[2022-11-02] MEDS ORDERED: NA CHLORIDE 0.9% 1,000 ML ONE (16:51)
[2022-11-02] MEDS ORDERED: FAMOTIDINE 20 MG/2 ML VIAL IV ONE (16:51)
[2022-11-02 17:13] LABS: Absolute Lymphocytes (CBC) 1.8 K/uL (0.7-4.9); Hematocrit 37.4 % (39.6-49.0); Lymphocytes % 9.7 % (15.3-44.8); MCV 86.5 fL (80-100); MPV 7.3 fL (7.6-11.3); RBC Red Blood Cell Count 4.33 M/uL (4.33-5.43)
--- NOTE | 2022-11-02 17:15 | RAD REPORT ---
EXAM DESCRIPTION: RAD - Chest Single View - 11/02/2022 4:59 pm CLINICAL HISTORY: CHEST PAIN Chest pain. COMPARISON: Chest Single View dated 10/08/2022; Chest Single View dated 04/13/2022; Chest Single View dated 04/03/2022; Chest Single View dated 05/17/2016 FINDINGS: Portable technique limits examination quality. The lungs are grossly clear. The heart is normal in size. No displaced fractures. IMPRESSION: No acute intrathoracic process suspected.
[2022-11-02 17:30] LABS: Albumin 2.8 g/dL (3.4-5.0); Bilirubin Total 0.3 mg/dL (0.2-1.0); Potassium 3.9 mmol/L (3.5-5.1); Protein, Total 6.8 g/dL (6.4-8.2); Troponin High Sensitivity 44.9 pg/mL (<58.9)
[2022-11-02 17:51] LABS: SARS-COV-2 RT PCR NEGATIVE (NEGATIVE)
--- NOTE | 2022-11-02 18:06 | RAD REPORT ---
EXAM DESCRIPTION: CT - Abdomen Pelvis Wo Contrast - 11/02/2022 5:56 pm CLINICAL HISTORY: Abdominal pain. Abdominal pain, acute, nonlocalized COMPARISON: Abdomen Pelvis Wo Contrast dated 10/09/2022; Chest Single View dated 11/02/2022 TECHNIQUE: CT imaging of the abdomen and pelvis was performed without contrast. Solid organ and vasc ular assessment is limited due to lack of IV contrast. All CT scans are performed using dose optimization technique as appropriate and may include automated exposure control or mA/KV adjustment according to patient size. FINDINGS: Mild linear atelectasis is present in the right lung base. Mild free fluid is seen in the upper abdomen and pelvis.There is evidence of a pancreatic stent prese nt. Gallbladder is mildly distended. The liver, spleen, adrenal glands and kidneys are within normal limi ts. There is quite significant thickening of the cecum of as well as the terminal ileum and several additional ileal loops in the abdomen present. No free air or abscess. No lytic or blastic bone lesion. IMPRESSION: Significant thickening is seen of numerous small bowel loops as well as the cecum. This could be infectious or inflammatory enteritis. Inflammatory bowel disease is also possible. Mild free fluid in the upper abdomen noted. Pancreatic stent is in place. A limited non-contrast examination was performed as detailed.
[2022-11-02] MEDS ORDERED: NA CHLORIDE 0.9% 100 ML IV ONE (18:23)
[2022-11-02] MEDS ORDERED: PIPERACIL/TAZO 3.375 GM VIAL IV ONE (18:23)
[2022-11-02] MEDS ORDERED: HYDRALAZINE HCL 20 MG/ML VIAL ONE (18:24)
[2022-11-02] MEDS ORDERED: AMLODIPINE 10 MG TAB ONE (19:54)
[2022-11-02] MEDS ORDERED: LABETALOL 20 MG/4ML SYRINGE IV ONE ×2 (19:54→23:01)
--- NOTE | 2022-11-02 19:59 | RAD REPORT ---
EXAM DESCRIPTION: US - Abdomen Exam Complete - 11/02/2022 7:34 pm CLINICAL HISTORY: Abdominal pain. Abd pain COMPARISON: Abdomen Exam Limited dated 05/02/2022 FINDINGS: The liver is normal in size, shape and echotexture. No focal liver lesions or intrahepatic biliary dilatation is seen. Mild free fluid is seen surrounding the liver. Small gallbladder stones or a small gallbladder polyp is likely present. Common bile duct is mildly prominent measuring 7 mm. Both kidneys are highly echogenic compatible with underlying medical renal disease. No hydronephrosis . The spleen is normal in size measuring 11 cm. The pancreas and aorta are obscured by bowel gas. The visualized aspects of the IVC are grossly normal. IMPRESSION: Echogenic kidneys are noted bilaterally compatible with underlying medical renal disease . Small gallbladder stones or polyp suspected. Common bile duct is mildly prominent. Mild free fluid is seen surrounding the liver edge.
--- NOTE | 2022-11-02 21:07 | EDPHYS ---
Physician Documentation [facility] Name: Justino Barr Age: 36 yrs Sex: Male : 1985 Arrival Date: 11/02/2022 Time: 15:59 Bed 7 Private MD: ED Physician Keo John HPI: 11/02 16:46 This 36 yrs old Male presents to ER via Ambulatory with complaints of sb4 Vomiting/Diarrhea, Body Aches. 16:47 Patient reports that he started experiencing generalized abdominal pain, nausea, sb4 vomiting, and diarrhea last night. He has not been able to hold anything down. He does not know what brought this on. He has had several visits with hypertensive emergencies and pancreatitis. States he has a stent in his pancreas. Denies alcohol use.. Historical: - Allergies: 16:34 No Known Allergies; ap3 - PMHx: 16:34 Hypertensive disorder; ap3 - Immunization history:: Client reports having NOT received the Covid vaccine. Flu vaccine is not up to date. - Social history:: Smoking status: Patient reports the use of cigarette tobacco products, Patient uses street drugs, marijuana. ROS: 16:47 Constitutional: Negative for fever, chills, and weight loss. sb4 16:47 Eyes: Negative for injury, pain, redness, and discharge, ENT: Negative for injury, pain, and discharge, Respiratory: Negative for shortness of breath, cough, wheezing, and pleuritic chest pain, MS/Extremity: Negative for injury and deformity, Skin: Negative for injury, rash, and discoloration. 16:47 Cardiovascular: Negative for chest pain, palpitations, and edema. 16:47 Abdomen/GI: Positive for abdominal pain, nausea, vomiting, and diarrhea. Exam: 16:47 Head/Face: Normocephalic, atraumatic. Respiratory: Lungs have equal breath sounds sb4 bilaterally, clear to auscultation and percussion. No rales, rhonchi or wheezes noted. No increased work of breathing, no retractions or nasal flaring. Skin: Warm, dry with normal turgor. Normal color with no rashes, no lesions, and no evidence of cellulitis. MS/ Extremity: Pulses equal, no cyanosis. Neurovascular intact. Full, normal range of motion. 16:47 Constitutional: The patient appears in obvious distress, moderately distressed, uncomfortable. 16:47 Cardiovascular: Rate: tachycardic. 16:47 Abdomen/GI: Exam negative for discomfort, guarding, Inspection: abdomen appears normal, Bowel sounds: normal, Palpation: moderate abdominal tenderness. 18:45 ECG was reviewed by the Attending Physician. sb4 Vital Signs: 16:31 Pulse 110; Resp 19; Temp 97.9(O); Pulse Ox 100% ; Weight 74.84 kg; Height 5 ft. 11 in. ap3 (180.34 cm); 16:37 BP 193 / 151; ap3 17:10 BP 214 / 140; Pulse 103; Resp 14; Pulse Ox 100% on R/A; ph 18:15 BP 212 / 141; Pulse 101; Resp 18; Pulse Ox 99% on R/A; ph 18:56 BP 205 / 134; Pulse 109; ph 19:27 BP 197 / 130; Pulse 111; Resp 16 S; Pulse Ox 97% on R/A; as6 20:30 BP 155 / 101; Pulse 93; Resp 13 S; Pulse Ox 96% on R/A; as6 21:44 BP 198 / 131; Pulse 98; Resp 15 S; Pulse Ox 100% on R/A; as6 22:55 BP 172 / 124; Pulse 97; Resp 12 S; Pulse Ox 97% on R/A; as6 23:38 BP 155 / 111; Pulse 87; Resp 12 S; Pulse Ox 96% on R/A; as6 11/03 00:09 BP 150 / 109; Pulse 90; Resp 12 S; Temp 98.0(O); Pulse Ox 97% on R/A; as6 01:19 BP 148 / 102; Pulse 83; Resp 11 S; Pulse Ox 96% on R/A; as6 01:43 BP 121 / 86; Pulse 89; Resp 13 S; Pulse Ox 97% on R/A; as6 11/02 16:31 Body Mass Index 23.01 (74.84 kg, 180.34 cm) ap3 MDM: 11/02 16:41 Patient medically screened. sb4 11/03 00:30 Differential diagnosis: Nonspecific abd pain, gastritis, cholecystitis, pancreatitis, ciera diverticulitis, viral gastroenteritis, gastroenteritis. Data reviewed: vital signs, nurses notes, lab test result(s), EKG, radiologic studies, CT scan. 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 Test interpretation: by ED physician or midlevel provider: ECG, plain radiologic studies. Counseling: I had a detailed discussion with the patient and/or guardian regarding: the historical points, exam findings, and any diagnostic results supporting the discharge/admit diagnosis, lab results, radiology results, the need to transfer to another facility, for higher level of care, [facility] does not immediately have the required specialist. 11/02 16:44 Order name: CBC with Diff; Complete Time: 17:22 sb4 11/02 16:44 Order name: CMP; Complete Time: 17:33 sb4 11/02 16:44 Order name: Lipase; Complete Time: 17:33 sb4 11/02 16:44 Order name: Troponin HS; Complete Time: 17:33 sb4 11/02 16:46 Order name: COVID-19/FLU A+B; Complete Time: 17:52 sb4 11/02 21:28 Order name: Lactate w/ 2H reflex if indic.; Complete Time: 00:04 sb4 11/02 16:44 Order name: XRAY Chest (1 view); Complete Time: 17:22 sb4 11/02 17:36 Order name: CT Abd/Pelvis - Without Contrast; Complete Time: 18:08 sb4 11/02 17:36 Order name: US Abdomen Complete; Complete Time: 20:21 sb4 11/02 21:28 Order name: Blood Culture Adult (2) sb4 11/02 21:28 Order name: AMMONIA; Complete Time: 00:04 sb4 11/02 16:44 Order name: IV Saline Lock; Complete Time: 17:07 sb4 11/02 16:44 Order name: Labs collected and sent; Complete Time: 17:07 sb4 11/02 16:44 Order name: EKG; Complete Time: 16:45 sb4 11/02 16:44 Order name: Cardiac monitoring; Complete Time: 17:07 sb4 11/02 16:44 Order name: EKG - Nurse/Tech; Complete Time: 17:07 sb4 11/02 16:44 Order name: O2 Per Protocol; Complete Time: 17:07 sb4 11/02 16:44 Order name: O2 Sat Monitoring; Complete Time: 17:07 sb4 EC 18:45 Rate is 106 beats/min. Rhythm is regular, Sinus tachycardia. QRS interval is normal at sb4 92 msec. QT interval is normal at [address] changes noted. Administered Medications: 17:00 Drug: Zofran (Ondansetron) 4 mg Route: IVP; Site: left antecubital; ph 19:27 Follow up: Response: No adverse reaction ph 17:02 Drug: morphine 4 mg Route: IVP; Infused Over: 4 mins; Site: left antecubital; ph 17:15 Follow up: Response: No adverse reaction; Pain is decreased; RASS: Drowsy (-1) ph 17:07 Drug: NS 0.9% 1000 ml Route: IV; Rate: 1 bolus; Site: left antecubital; ph 18:15 Follow up: Response: No adverse reaction; IV Status: Completed infusion; IV Intake: ph 1000ml 17:08 Drug: Pepcid (famotidine) 20 mg Route: IVP; Site: left antecubital; ph 19:27 Follow up: Response: No adverse reaction ph 18:46 Drug: Zofran (Ondansetron) 4 mg Route: IVP; Site: left forearm; ph 19:28 Follow up: Response: No adverse reaction ph 18:48 Drug: morphine 4 mg Route: IVP; Infused Over: 4 mins; Site: left forearm; ph 19:27 Follow up: Response: No adverse reaction; Pain is decreased; RASS: Drowsy (-1) ph 18:49 Drug: hydrALAZINE 10 mg Route: IVP; Site: left forearm; ph 19:27 Follow up: Response: No adverse reaction; Blood pressure is unchanged ph 18:51 Drug: Zosyn (piperacillin-tazobactam) 3.375 grams Route: IVPB; Infused Over: 60 mins; ph Site: left forearm; 19:27 Follow up: Response: No adverse reaction; IV Status: Completed infusion ph 18:52 Not Given (Other Intervention Used): hydrALAZINE 10 mg PO once ph 19:58 Drug: Labetalol 20 mg Route: IV; Rate: bolus; Infused Over: 2 mins; Site: right forearm;as6 11/03 01:48 Follow up: Response: No adverse reaction; IV Status: Completed infusion; IV Intake: 4ml 11/02 19:58 Drug: Norvasc (amlodipine) 10 mg Route: PO; 11/03 01:48 Follow up: Response: No adverse reaction 11/02 22:17 Drug: Dilaudid (HYDROmorphone) 1 mg Route: IVP; Site: left forearm; 11/03 01:48 Follow up: Response: No adverse reaction 11/02 22:17 Drug: Reglan (metoCLOPramide) 10 mg Route: IVP; Site: left forearm; 11/03 01:48 Follow up: Response: No adverse reaction 11/02 23:06 Drug: Labetalol 20 mg Route: IV; Rate: bolus; Infused Over: 2 mins; Site: left forearm; 11/03 01:48 Follow up: Response: No adverse reaction; IV Status: Completed infusion; IV Intake: 4ml 00:29 Not Given (Physician Discretion): HydrALAZINE 50 mg PO once 00:29 Not Given (Physician Discretion): hydrALAZINE 10 mg IVP once as 01:00 Drug: Labetalol 20 mg Route: IV; Rate: bolus; Infused Over: 2 mins; Site: right as6 antecubital; 01:49 Follow up: Response: No adverse reaction; IV Status: Completed infusion; IV Intake: 4ml 6 01:00 Drug: hydrALAZINE 20 mg Route: IVP; Site: right antecubital; as6 01:49 Follow up: Response: No adverse reaction as6 01:53 Drug: Dilaudid (HYDROmorphone) 1 mg Route: IVP; Site: right antecubital; as6 01:53 Follow up: Response: No adverse reaction as6 01:53 Drug: Zofran (Ondansetron) 4 mg Route: IVP; Site: right antecubital; as6 01:53 Follow up: Response: No adverse reaction Disposition: 00:30 Co-signature as Attending Physician, Keo John MD I agree with the assessment and ciera plan of care. Disposition Summary: 11/02/22 21:06 Transfer Ordered Transfer Location: [facility] sb4 Reason: Higher level of care sb4 Condition: Serious sb4 Problem: an ongoing problem sb4 Symptoms: have worsened sb4 Accepting Physician: Dr. Thompson(11/03/22 01:55) as6 Diagnosis - Acute kidney failure, unspecified sb4 - Hypertensive heart disease without heart failure sb4 - Abdominal pain, Generalized sb4 - Elevated white blood cell count sb4 Forms: - Medication Reconciliation Form sb4 - SBAR form sb4 Signatures: Dispatcher [employer] EDCO Keo John MD MD cha Hall, Patricia RN RN Patti Monge RN RN ap3 Malick Franco RN RN as6 Zhane Dodge PAIrmaC PA-C sb4 Corrections: (The following items were deleted from the chart) 11/02 16:55 16:47 Patient reports that he started experiencing abdominal pain, nausea, vomiting, sb4 diarrhea last night. He has not been able to hold anything down. He does not know what brought this on. He has had several visits with hypertensive emergencies and pancreatitis. States he has a stent in his pancreas. Denies alcohol use.. sb4 17:48 16:45 Abdomen Pelvis W Con+CT.RAD.BRZ ordered. [facility] EDCO 11/03 01:29 11/02 21:06 . Mason Doc sb4 sb4 11/03 01:55 01:29 Dr. Thompson sb4 as6
--- NOTE | 2022-11-02 21:07 | ER ---
Nurse's Notes [facility] Name: Justino Barr Age: 36 yrs Sex: Male : 1985 Arrival Date: 11/02/2022 Time: 15:59 Bed 7 Private MD: Diagnosis: Acute kidney failure, unspecified;Hypertensive heart disease without heart failure;Abdominal pain, Generalized;Elevated white blood cell count Presentation: 11/02 16:31 Chief complaint: Patient states: he has had severe abdominal pain, nausea and vomiting ap3 since last night. patient reports pain is all over his abdomen not just in one area. Ebola Screen: Client presents with at least one sign or symptom that may indicate coronavirus-19. No symptoms or risks identified at this time. Risk Assessment: Do you want to hurt yourself or someone else? Patient reports no desire to harm self or others. Onset of symptoms was November 01, 2022. 16:31 Method Of Arrival: Ambulatory ap3 16:37 Coronavirus screen: Vaccine status: Patient reports being unvaccinated. Client presents ap3 with at least one sign or symptom that may indicate coronavirus-19. Initial Sepsis Screen: Does the patient meet any 2 criteria? HR > 90 bpm. Does the patient have a suspected source of infection? No. Patient's initial sepsis screen is negative. 16:37 Acuity: VAHID 2 ap3 Triage Assessment: 16:36 General: Appears uncomfortable, Behavior is anxious. Pain: Complains of pain in abdomen ap3 Pain currently is 10 out of 10 on a pain scale. Neuro: Level of Consciousness is awake, alert, obeys commands, Oriented to person, place, time, situation, Speech is normal. Cardiovascular: Patient's skin is warm and dry. Respiratory: Airway is patent Respiratory effort is even, unlabored, Respiratory pattern is regular, symmetrical. GI: Reports lower abdominal pain, upper abdominal pain, nausea, vomiting. Historical: - Allergies: 16:34 No Known Allergies; ap3 - PMHx: 16:34 Hypertensive disorder; ap3 - Immunization history:: Client reports having NOT received the Covid vaccine. Flu vaccine is not up to date. - Social history:: Smoking status: Patient reports the use of cigarette tobacco products, Patient uses street drugs, marijuana. Screenin:36 Abuse screen: Denies threats or abuse. Nutritional screening: No deficits noted. ap3 Tuberculosis screening: No symptoms or risk factors identified. 16:42 Fall Risk None identified. ph Assessment: 17:09 General: Appears in no apparent distress. uncomfortable, Behavior is calm, cooperative, ph appropriate for age, Denies fever. Pain: Complains of pain in epigastric area and left upper quadrant. Neuro: Level of Consciousness is awake, alert, obeys commands, Oriented to person, place, time, situation. Cardiovascular: Capillary refill < 3 seconds in bilateral fingers Patient's skin is warm and dry. Edema is 1+ to left ankle and right ankle. Respiratory: Airway is patent Respiratory effort is even, unlabored, Respiratory pattern is regular, symmetrical. GI: Abdomen is non-distended, Reports upper abdominal pain, nausea, vomiting. Derm: Skin is healthy with good turgor, Skin is pink, warm \T\ dry. Musculoskeletal: Circulation, motion, and sensation intact. Range of motion: intact in all extremities. 18:00 Reassessment: Patient appears in no apparent distress at this time. Patient and/or ph family updated on plan of care and expected duration. Pain level reassessed. Patient is alert, oriented x 3, equal unlabored respirations, skin warm/dry/pink. 18:52 Reassessment: Patient appears in no apparent distress at this time. Patient and/or ph family updated on plan of care and expected duration. Pain level reassessed. Patient is alert, oriented x 3, equal unlabored respirations, skin warm/dry/pink. 19:27 General: pt receiving ultrasound at this time . as6 11/03 01:21 General: attempted to called report x2. as6 01:21 Cardiovascular: Edema is 2+ to right upper arm, right elbow, right forearm, right as6 wrist, right hand, right fingers, left upper arm, left elbow, left forearm, left wrist, left hand and left fingers and right ankle and left ankle and left upper quadrant and epigastric area and abdomen. Vital Signs: 11/02 16:31 Pulse 110; Resp 19; Temp 97.9(O); Pulse Ox 100% ; Weight 74.84 kg; Height 5 ft. 11 in. ap3 (180.34 cm); 16:37 BP 193 / 151; ap3 17:10 BP 214 / 140; Pulse 103; Resp 14; Pulse Ox 100% on R/A; ph 18:15 BP 212 / 141; Pulse 101; Resp 18; Pulse Ox 99% on R/A; ph 18:56 BP 205 / 134; Pulse 109; ph 19:27 BP 197 / 130; Pulse 111; Resp 16 S; Pulse Ox 97% on R/A; as6 20:30 BP 155 / 101; Pulse 93; Resp 13 S; Pulse Ox 96% on R/A; as6 21:44 BP 198 / 131; Pulse 98; Resp 15 S; Pulse Ox 100% on R/A; as6 22:55 BP 172 / 124; Pulse 97; Resp 12 S; Pulse Ox 97% on R/A; as6 23:38 BP 155 / 111; Pulse 87; Resp 12 S; Pulse Ox 96% on R/A; as6 11/03 00:09 BP 150 / 109; Pulse 90; Resp 12 S; Temp 98.0(O); Pulse Ox 97% on R/A; as6 01:19 BP 148 / 102; Pulse 83; Resp 11 S; Pulse Ox 96% on R/A; as6 01:43 BP 121 / 86; Pulse 89; Resp 13 S; Pulse Ox 97% on R/A; as6 11/02 16:31 Body Mass Index 23.01 (74.84 kg, 180.34 cm) ap3 ED Course: 11/02 15:59 Patient arrived in ED. rg4 16:33 Zhane Dodge PA-C is PHCP. sb4 16:33 Rajesh Gallego MD is Attending Physician. sb4 16:36 Arm band placed on left wrist. ap3 16:37 Triage completed. ap3 16:42 Peyton Brock, RN is Primary Nurse. ph 16:42 Patient has correct armband on for positive identification. Bed in low position. Call ph light in reach. Side rails up X 1. Client placed on continuous cardiac and pulse oximetry monitoring. NIBP monitoring applied. 17:00 Inserted saline lock: 22 gauge in left forearm, using aseptic technique. Blood ph collected. 17:01 XRAY Chest (1 view) In Process Unspecified. EDMS 17:58 CT Abd/Pelvis - Without Contrast In Process Unspecified. EDMS 18:56 No provider procedures requiring assistance completed. ph 19:36 US Abdomen Complete In Process Unspecified. EDMS 20:57 Attending Physician role handed off by Rajesh Gallego MD ciera 20:57 Keo John MD is Attending Physician. ciera 23:39 Inserted saline lock: 18 gauge in right antecubital area, using aseptic technique. as6 Blood collected. 11/03 01:47 Patient transferred, IV remains in place. as6 Administered Medications: 11/02 17:00 Drug: Zofran (Ondansetron) 4 mg Route: IVP; Site: left antecubital; ph 19:27 Follow up: Response: No adverse reaction ph 17:02 Drug: morphine 4 mg Route: IVP; Infused Over: 4 mins; Site: left antecubital; ph 17:15 Follow up: Response: No adverse reaction; Pain is decreased; RASS: Drowsy (-1) ph 17:07 Drug: NS 0.9% 1000 ml Route: IV; Rate: 1 bolus; Site: left antecubital; ph 18:15 Follow up: Response: No adverse reaction; IV Status: Completed infusion; IV Intake: ph 1000ml 17:08 Drug: Pepcid (famotidine) 20 mg Route: IVP; Site: left antecubital; ph 19:27 Follow up: Response: No adverse reaction ph 18:46 Drug: Zofran (Ondansetron) 4 mg Route: IVP; Site: left forearm; ph 19:28 Follow up: Response: No adverse reaction ph 18:48 Drug: morphine 4 mg Route: IVP; Infused Over: 4 mins; Site: left forearm; ph 19:27 Follow up: Response: No adverse reaction; Pain is decreased; RASS: Drowsy (-1) ph 18:49 Drug: hydrALAZINE 10 mg Route: IVP; Site: left forearm; ph 19:27 Follow up: Response: No adverse reaction; Blood pressure is unchanged ph 18:51 Drug: Zosyn (piperacillin-tazobactam) 3.375 grams Route: IVPB; Infused Over: 60 mins; ph Site: left forearm; 19:27 Follow up: Response: No adverse reaction; IV Status: Completed infusion ph 18:52 Not Given (Other Intervention Used): hydrALAZINE 10 mg PO once ph 19:58 Drug: Labetalol 20 mg Route: IV; Rate: bolus; Infused Over: 2 mins; Site: right forearm;as6 11/03 01:48 Follow up: Response: No adverse reaction; IV Status: Completed infusion; IV Intake: 4ml 11/02 19:58 Drug: Norvasc (amlodipine) 10 mg Route: PO; 11/03 01:48 Follow up: Response: No adverse reaction 11/02 22:17 Drug: Dilaudid (HYDROmorphone) 1 mg Route: IVP; Site: left forearm; 11/03 01:48 Follow up: Response: No adverse reaction 11/02 22:17 Drug: Reglan (metoCLOPramide) 10 mg Route: IVP; Site: left forearm; 11/03 01:48 Follow up: Response: No adverse reaction 11/02 23:06 Drug: Labetalol 20 mg Route: IV; Rate: bolus; Infused Over: 2 mins; Site: left forearm; 11/03 01:48 Follow up: Response: No adverse reaction; IV Status: Completed infusion; IV Intake: 4ml 00:29 Not Given (Physician Discretion): HydrALAZINE 50 mg PO once 00:29 Not Given (Physician Discretion): hydrALAZINE 10 mg IVP once as6 01:00 Drug: Labetalol 20 mg Route: IV; Rate: bolus; Infused Over: 2 mins; Site: right as6 antecubital; 01:49 Follow up: Response: No adverse reaction; IV Status: Completed infusion; IV Intake: 4ml 01:00 Drug: hydrALAZINE 20 mg Route: IVP; Site: right antecubital; 6 01:49 Follow up: Response: No adverse reaction as 01:53 Drug: Dilaudid (HYDROmorphone) 1 mg Route: IVP; Site: right antecubital; as6 01:53 Follow up: Response: No adverse reaction as 01:53 Drug: Zofran (Ondansetron) 4 mg Route: IVP; Site: right antecubital; 01:53 Follow up: Response: No adverse reaction Medication: 11/02 16:42 VIS not applicable for this client. ph Intake: 18:15 IV: 1000ml; Total: 1000ml. ph 11/03 01:48 IV: 4ml; Total: 1004ml. as6 01:48 IV: 4ml; Total: 1008ml. as6 01:49 IV: 4ml; Total: 1012ml. as6 Outcome: 11/02 21:06 ER care complete, transfer ordered by MD. walker 11/03 01:22 Condition: stable as6 Instructed on the need for transfer. 01:47 Transferred by ground EMS to [facility], Transfer form completed. as6 X-rays sent w/ patient. 01:55 Patient left the ED. as6 Signatures: Dispatcher [employer] EDMS Keo John MD MD cha Hall, Patricia, RN RN Jenn Jones rg4 Patti Monge RN RN [id number] Malick Franco RN RN as6 Zhane Dodge, PAJose PAJose [email or web address]
[2022-11-02] MEDS ORDERED: METOCLOPRAMIDE 10 MG/2mL INJ ONE (21:55)
[2022-11-02] MEDS ORDERED: HYDROMORPHONE HCL 1 MG/ML INJ ONE (21:55)
[2022-11-03] MEDS ORDERED: HYDRALAZINE HCL 20 MG/ML VIAL ONE ×2 (00:02→00:54)
[2022-11-03] MEDS ORDERED: HYDRALAZINE HCL 25 MG TABLET ONE (00:03)
[2022-11-03] MEDS ORDERED: LABETALOL 20 MG/4ML SYRINGE IV ONE (00:54)
[2022-11-03] MEDS ORDERED: ONDANSETRON 4 MG/2 ML VIAL ONE (01:52)
[2022-11-03] MEDS ORDERED: HYDROMORPHONE HCL 1 MG/ML INJ ONE (01:52)
[2022-11-03 03:30] VITALS: TEMP 98
[2022-11-03 03:33] VITALS: BP 121/86; O2SAT 97
--- NOTE | 2022-11-03 17:39 | EKG ---
Test Date: 2022-11-02 Test Time: 17:03:01 Second Baker: HB MEASUREMENT RESULTS: Intervals: Rate: 109 MD: 198 QRSD: 90 QT: 386 QTc: 519 [place]: P: -22 MD: 198 QRS: 25 T: -16 INTERPRETIVE STATEMENTS: Sinus tachycardia with premature atrial complexes Voltage criteria for left ventricular hypertrophy Anteroseptal infarct, age undetermined ST & T wave abnormality, consider inferior ischemia Abnormal ECG Compared to ECG 10/08/2022 22:19:28 Atrial premature complex(es) now present ST (T wave) deviation now present Possible ischemia now present Myocardial infarct finding still present Electronically Signed On 11-03-22 17:37:27 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
== END 2022-11-03 01:55 | disposition short-term general hospital (02) ==
LOC: ER 15:58
DX: N17.9 Acute kidney failure, unspecified (principal); I11.9 Hypertensive heart disease without heart failure; D72.829 Elevated white blood cell count, unspecified; I10 Essential (primary) hypertension; F17.210 Nicotine dependence, cigarettes, uncomplicated; Z20.822 Contact with and (suspected) exposure to COVID-19
CPT/HCPCS: 0240U; 36415; 71045; 74176; 76700; 80053; 82140; 83605; 83690; 84484; 85025; 87040; 93005; 99285; J0360; J1170; J2405; J2543; J2765; J7030

== ENCOUNTER 2022-11-16 10:31 | Emergency (ER) | payer SELFPAY ==
[2022-11-16 10:58] LABS: Absolute Lymphocytes (CBC) 1.6 K/uL (0.7-4.9); Hematocrit 23.2 % (39.6-49.0); Lymphocytes % 17.3 % (15.3-44.8); MCV 88.6 fL (80-100); MPV 6.9 fL (7.6-11.3); RBC Red Blood Cell Count 2.62 M/uL (4.33-5.43)
[2022-11-16 11:14] LABS: Potassium 4.1 mmol/L (3.5-5.1)
--- NOTE | 2022-11-16 11:33 | RAD REPORT ---
EXAM DESCRIPTION: RAD - Chest Single View - 11/16/2022 11:19 am CLINICAL HISTORY: SOB Chest pain. COMPARISON: Chest Single View dated 11/02/2022; Chest Single View dated 10/08/2022; Chest Single View dated 04/13/2022; Chest Single View dated 04/03/2022 FINDINGS: Portable technique limits examination quality. The lungs are grossly clear. The heart is mildly prominent in size. No displaced fractures.Right-side d venous catheter has tip in the SVC. IMPRESSION: No acute intrathoracic process suspected.
--- NOTE | 2022-11-16 12:04 | ER ---
Nurse's Notes [facility] Name: Justino Barr Age: 37 yrs Sex: Male : 1985 Arrival Date: 11/16/2022 Time: 10:34 Bed 20 Private MD: Diagnosis: End Stage Renal Disease Presentation: 11/16 10:44 Chief complaint: Patient states: Pt reports that he was discharged 4 days ago from [facility] in the Medical center and was supposed to have dialysis set up in [place], but reports that nobody ever set anything up and he was told by their doctor to come to any ED. Coronavirus screen: Client denies travel out of the [place] in the last 14 days. Ebola Screen: Patient denies exposure to infectious person. Patient denies travel to an Ebola-affected area in the 21 days before illness onset. Initial Sepsis Screen: Does the patient meet any 2 criteria? No. Patient's initial sepsis screen is negative. Does the patient have a suspected source of infection? No. Patient's initial sepsis screen is negative. Risk Assessment: Do you want to hurt yourself or someone else? Patient reports no desire to harm self or others. 10:44 Method Of Arrival: Ambulatory 10:44 Acuity: VAHDI 2 10:56 Onset of symptoms was November 14, 2022. ll1 Historical: - Allergies: 10:37 No Known Allergies; ll1 - PMHx: 10:37 Hypertensive disorder; ll1 - Immunization history:: Client reports having NOT received the Covid vaccine. - Social history:: Smoking status: Patient reports the use of cigarette tobacco products, smokes one-half pack cigarettes per day. Screenin:54 [facility] ED Fall Risk Assessment (Adult) Impaired Gait Yes (1 pt) Mobility Assist ll1 Device Used Yes (1 pt) Score/Fall Risk Level 0 - 2 = Low Risk Oriented to surroundings, Maintained a safe environment, Educated pt \T\ family on fall prevention, incl call for assistance when getting out of bed, Hourly rounding (assess needs \T\ fall precautionary measures) done. Abuse screen: Denies threats or abuse. Nutritional screening: No deficits noted. Tuberculosis screening: No symptoms or risk factors identified. Assessment: 10:45 General: Appears in no apparent distress. Behavior is calm, cooperative, appropriate ll1 for age. Pain: Denies pain. : Reports needs dialysis. Last dialysis Sunday. Musculoskeletal: Circulation, motion, and sensation intact. Capillary refill < 3 seconds, Swelling present in right leg and left leg. 11:45 Reassessment: No changes from previously documented assessment. Patient and/or family ll1 updated on plan of care and expected duration. Pain level reassessed. Patient is alert, oriented x 3, equal unlabored respirations, skin warm/dry/pink. 12:13 Reassessment: Patient appears in no apparent distress at this time. No changes from ll1 previously documented assessment. Patient and/or family updated on plan of care and expected duration. Pain level reassessed. Patient is alert, oriented x 3, equal unlabored respirations, skin warm/dry/pink. Vital Signs: 10:44 BP 221 / 139; Pulse 112; Resp 20; Temp 98.6(O); Pulse Ox 97% on R/A; Weight 80.29 kg; ss Height 5 ft. 11 in. (180.34 cm); Pain 0/10; 10:56 BP 181 / 125; Pulse 106; Pulse Ox 100% on R/A; ll1 11:12 BP 177 / 119; Pulse 97; Pulse Ox 100% on R/A; ll1 12:13 BP 146 / 100; Pulse 88; Resp 18; Pulse Ox 100% on R/A; ll1 10:44 Body Mass Index 24.69 (80.29 kg, 180.34 cm) ED Course: 10:34 Patient arrived in ED. mr 10:36 Joni Tellez PA is PHCP. jmm 10:36 Roberto Lucio MD is Attending Physician. jmm 10:37 Emily Hi RN is Primary Nurse. ll1 10:37 Arm band placed on Patient placed in an exam room, on a stretcher. ll1 10:47 Triage completed. ss 10:48 Inserted saline lock: 22 gauge in right antecubital area, using aseptic technique. ll1 Blood collected. 10:54 Patient has correct armband on for positive identification. Bed in low position. Call ll1 light in reach. Side rails up X2. Client placed on continuous cardiac and pulse oximetry monitoring. NIBP monitoring applied. desk monitor on. 11:20 Notified Nurse Practitioner and/or Physician Director Oncology of a critical lab result(s), ll1 creatinine 10.50. 11:20 No provider procedures requiring assistance completed. ll1 11:21 Chest Single View XRAY In Process Unspecified. EDMS 12:13 IV discontinued, intact, bleeding controlled, No redness/swelling at site. Pressure ll1 dressing applied. Administered Medications: No medications were administered Medication: 10:54 VIS not applicable for this client. ll1 Outcome: 12:03 Discharge ordered by . mnidy 12:13 Patient left the ED. ll1 12:13 Discharged to home ambulatory. ll1 12:13 Condition: stable 12:13 Discharge instructions given to patient, Instructed on discharge instructions, follow up and referral plans. Demonstrated understanding of instructions, follow-up care. Signatures: Dispatcher [employer] EDMS Joni Tellez PA PA jmm Rivera, Mary mr Juliet Oneill, RN RN Emily Woodall RN RN ll1
--- NOTE | 2022-11-16 12:04 | EDPHYS ---
Physician Documentation [facility] Name: Justino Barr Age: 37 yrs Sex: Male : 1985 Arrival Date: 11/16/2022 Time: 10:34 Bed 20 Private MD: ED Physician Roberto Lucio HPI: 11/16 10:41 This 37 yrs old Male presents to ER via Unassigned with complaints of Dialysis. jmm 10:41 The patient has shortness of breath at rest. This is a 37 year old male with a history jmm of htn that presents to the ED with no complaints. Was told to go to the ER for dialysis. Denies vomiting, fever, chest pain. . Historical: - Allergies: 10:37 No Known Allergies; ll1 - PMHx: 10:37 Hypertensive disorder; ll1 - Immunization history:: Client reports having NOT received the Covid vaccine. - Social history:: Smoking status: Patient reports the use of cigarette tobacco products, smokes one-half pack cigarettes per day. ROS: 10:41 Constitutional: Negative for fever, chills, and weight loss, Cardiovascular: Negative jmm for chest pain, palpitations, and edema, Respiratory: Negative for shortness of breath, cough, wheezing, and pleuritic chest pain, Abdomen/GI: Negative for abdominal pain, nausea, vomiting, diarrhea, and constipation, Back: Negative for injury and pain. 10:41 All other systems are negative. Exam: 10:41 Constitutional: This is a well developed, well nourished patient who is awake, alert, jmm and in no acute distress. Head/Face: atraumatic. Eyes: EOMI, no conjunctival erythema appreciated ENT: Moist Mucus Membranes Neck: Trachea midline, Supple Chest/axilla: Normal chest wall appearance and motion. Cardiovascular: Regular rate and rhythm. No edema appreciated Respiratory: Normal respirations, no respiratory distress appreciated Abdomen/GI: Non distended Back: Normal ROM Skin: General appearance color normal 10:41 Musculoskeletal/extremity: ROM: intact in all extremities. 10:41 Skin: Appearance: Color: normal in color. 10:41 Neuro: Orientation: is normal, Mentation: is normal, Memory: is normal. 10:41 Psych: Behavior/mood is pleasant, cooperative. Vital Signs: 10:44 BP 221 / 139; Pulse 112; Resp 20; Temp 98.6(O); Pulse Ox 97% on R/A; Weight 80.29 kg; ss Height 5 ft. 11 in. (180.34 cm); Pain 0/10; 10:56 BP 181 / 125; Pulse 106; Pulse Ox 100% on R/A; ll1 11:12 BP 177 / 119; Pulse 97; Pulse Ox 100% on R/A; ll1 12:13 BP 146 / 100; Pulse 88; Resp 18; Pulse Ox 100% on R/A; ll1 10:44 Body Mass Index 24.69 (80.29 kg, 180.34 cm) ss MDM: 10:41 Patient medically screened. [facility] 12:01 Data reviewed: vital signs, nurses notes. [facility] 17:47 ED course: I discussed the patient with nephrology. Will follow up with the patient for [facility] dialysis tomorrow. Patient otherwise given strict return precautions. patient understood and agrees with the plan of care. . 11/16 10:42 Order name: CBC with Diff; Complete Time: 11:01 [facility] 11/16 10:42 Order name: BMP; Complete Time: 11:20 [facility] 11/16 10:42 Order name: Chest Single View XRAY; Complete Time: 11:37 [facility] Administered Medications: No medications were administered Disposition Summary: 11/16/22 12:03 Discharge Ordered Location: Home [facility] Condition: Stable [facility] Diagnosis - End Stage Renal Disease [facility] Followup: [facility] - With: Private Physician - When: 2 - 3 days - Reason: Recheck today's complaints, Continuance of care, Re-evaluation by your physician Discharge Instructions: - Discharge Summary Sheet [facility] - Dialysis [facility] Forms: - Medication Reconciliation Form [facility] - Thank You Letter [facility] - Antibiotic Education [facility] - Prescription Opioid Use [facility] Signatures: Dispatcher [employer] EDMS Joni Tellez PA PA jmm Smirch, Shelby, RN RN Emily Hi RN RN ll1
[2022-11-16 12:19] VITALS: TEMP 98.6
[2022-11-16 12:20] VITALS: O2SAT 100
[2022-11-16 12:21] VITALS: BP 177/119
== END 2022-11-16 12:13 | disposition home or self-care (01) ==
LOC: ER 10:31
DX: I12.0 Hypertensive chronic kidney disease with stage 5 chronic kidney disease or end stage renal disease (principal); N18.6 End stage renal disease
CPT/HCPCS: 36415; 71045; 80048; 85025; 99284

== ENCOUNTER 2022-12-03 16:40 | Emergency (ER) | payer SELFPAY ==
[2022-12-03 17:15] LABS: Absolute Lymphocytes (CBC) 1.2 K/uL (0.7-4.9); Hematocrit 20.1 % (39.6-49.0); Lymphocytes % 14.6 % (15.3-44.8); MCV 87.7 fL (80-100); MPV 6.9 fL (7.6-11.3); RBC Red Blood Cell Count 2.29 M/uL (4.33-5.43)
[2022-12-03 17:22] LABS: Protime INR 1.04
[2022-12-03 17:45] LABS: Albumin 3.2 g/dL (3.4-5.0); Bilirubin Direct 0.1 mg/dL (0-0.2); Bilirubin Total 0.3 mg/dL (0.2-1.0); Magnesium 2.4 mg/dL (1.6-2.4); Protein, Total 7.2 g/dL (6.4-8.2); Troponin High Sensitivity 20.8 pg/mL (<58.9)
--- NOTE | 2022-12-03 18:02 | RAD REPORT ---
EXAM DESCRIPTION: US - Extrem Venous W Compress Doron - 12/03/2022 5:52 pm CLINICAL HISTORY: SWELLING Bilateral leg edema and swelling. COMPARISON: No comparisons TECHNIQUE: Real-time sonographic interrogation of the left and right lower extremity deep venous sys tems was performed. FINDINGS: Normal compressibility, flow augmentation, phasic flow and spontaneous flow is identified in both the left and right lower extremity deep venous systems. IMPRESSION: No sonographic evidence of left or right lower extremity deep venous thrombosis.
--- NOTE | 2022-12-03 18:09 | RAD REPORT ---
EXAM DESCRIPTION: RAD - Chest Single View - 12/03/2022 6:01 pm CLINICAL HISTORY: SOB Chest pain. COMPARISON: Chest Single View dated 11/16/2022; Chest Single View dated 11/02/2022; Chest Single View dated 10/08/2022; Chest Single View dated 04/13/2022 FINDINGS: Portable technique limits examination quality. The lungs are grossly clear. The heart is mildly enlarged in size. No displaced fractures.Right-sided venous catheter its tip in the SVC. IMPRESSION: No acute intrathoracic process suspected.
--- NOTE | 2022-12-03 19:46 | EDPHYS ---
Physician Documentation [facility] Name: Justino Barr Age: 37 yrs Sex: Male : 1985 Arrival Date: 12/03/2022 Time: 16:41 Bed 20 Private MD: ED Physician Rajesh Gallego HPI: 12/03 16:54 This 37 yrs old Male presents to ER via Ambulatory with complaints of Leg Swelling, jmm change dialysis port. 16:54 Is a 37-year-old male with history of hypertension and end-stage renal disease the jmm presents emerged part with requesting a dressing change for his dialysis port. Patient also complains of swelling to both legs. Denies any shortness of breath or chest pain. Patient states he last received dialysis on November 16, 2022. Patient states he has been unable to establish himself at a dialysis clinic.. Historical: - Allergies: 16:50 No Known Allergies; hb - Home Meds: 16:50 amlodipine 10 mg tab 1 tab once daily [Active]; aspirin 81 mg Oral chew 1 tab once hb daily [Active]; atorvastatin 40 mg Oral tab 1 tab once daily [Active]; Coreg 25 mg Oral tab 1 tab 2 times per day [Active]; hydralazine 100 mg Oral tab 1 tab 2 times per day [Active]; - PMHx: 16:50 Hypertensive disorder; hb - Immunization history:: Adult Immunizations up to date. - Social history:: Smoking status: Patient reports the use of cigarette tobacco products. ROS: 16:54 Constitutional: Negative for fever, chills, and weight loss, Cardiovascular: Negative jmm for chest pain, palpitations, and edema, Respiratory: Negative for shortness of breath, cough, wheezing, and pleuritic chest pain. 16:54 MS/extremity: Positive for swelling. 16:54 All other systems are negative. Exam: 16:54 Constitutional: This is a well developed, well nourished patient who is awake, alert, jmm and in no acute distress. Head/Face: atraumatic. Eyes: EOMI, no conjunctival erythema appreciated ENT: Moist Mucus Membranes Neck: Trachea midline, Supple Chest/axilla: Normal chest wall appearance and motion. Cardiovascular: Regular rate and rhythm. No edema appreciated Respiratory: Normal respirations, no respiratory distress appreciated Abdomen/GI: Non distended Back: Normal ROM Skin: General appearance color normal 16:54 Musculoskeletal/extremity: Edema noted bilaterally, compartments are soft, full dorsalis pedis pulse bilaterally, neurovascular intact. 16:54 Skin: Appearance: Color: normal in color. 16:54 Neuro: Orientation: is normal, Mentation: is normal, Memory: is normal. 16:54 Psych: Behavior/mood is pleasant, cooperative. Vital Signs: 16:49 BP 158 / 100; Pulse 83; Resp 16; Temp 98.5; Pulse Ox 100% on R/A; Weight 80.29 kg; hb Height 5 ft. 11 in. (180.34 cm); Pain 8/10; 18:39 BP 149 / 102; Pulse 87; Resp 18; Pulse Ox 99% on R/A; kr3 19:40 BP 149 / 102; Pulse 94; Resp 20; Pulse Ox 100% on R/A; ha1 20:26 BP 151 / 108; Pulse 95; Resp 20; Pulse Ox 100% on R/A; ha1 16:49 Body Mass Index 24.69 (80.29 kg, 180.34 cm) hb MDM: 16:54 Patient medically screened. [facility] 19:40 Data reviewed: vital signs, nurses notes. Counseling: I had a detailed discussion with [facility] the patient and/or guardian regarding: the historical points, exam findings, and any diagnostic results supporting the discharge/admit diagnosis. 19:43 ED course: I discussed the patient with who recommended outpatient therapy [facility] which consists of Lasix and iron supplementation due to the patient's anemia. Patient has no complaints of dark stools or bleeding of any type. Patient is advised to return to the ED in 2 to 3 days if he develops shortness of breath or any worsening symptoms.. 12/03 16:55 Order name: Basic Metabolic Panel; Complete Time: 17:47 [facility] 12/03 16:55 Order name: CBC with Diff; Complete Time: 17:28 [facility] 12/03 16:55 Order name: LFT's; Complete Time: 17:47 [facility] 12/03 16:55 Order name: Magnesium; Complete Time: 17:47 [facility] 12/03 16:55 Order name: NT PRO-BNP; Complete Time: 17:47 [facility] 12/03 16:55 Order name: PT-INR; Complete Time: 17:28 [facility] 12/03 16:55 Order name: Troponin HS; Complete Time: 17:47 [facility] 12/03 16:55 Order name: XRAY Chest (1 view); Complete Time: 18:12 [facility] 12/03 16:55 Order name: EKG; Complete Time: 16:56 [facility] 12/03 16:55 Order name: Cardiac monitoring; Complete Time: 17:25 [facility] 12/03 16:55 Order name: EKG - Nurse/Tech; Complete Time: 17:25 [facility] 12/03 16:55 Order name: US Extremity Venous W Compression Doron; Complete Time: 18:04 [facility] 12/03 17:29 Order name: Type And Screen; Complete Time: 18:58 [facility] 12/03 16:55 Order name: IV Saline Lock; Complete Time: 17:10 [facility] 12/03 16:55 Order name: Labs collected and sent; Complete Time: 17:10 [facility] 12/03 16:55 Order name: O2 Per Protocol; Complete Time: 17:10 [facility] 12/03 16:55 Order name: O2 Sat Monitoring; Complete Time: 17:10 [facility] Administered Medications: 19:58 Drug: HYDROcodone-acetaminophen 5 mg-325 mg 1 tabs Route: PO; ha1 20:22 Follow up: Response: No adverse reaction; Pain is decreased; RASS: Alert and Calm (0) ha1 Disposition Summary: 12/03/22 19:45 Discharge Ordered Location: Home [facility] Condition: Stable [facility] Diagnosis - Peripheral edema [facility] - End-stage renal disease [facility] Followup: [facility] - With: Private Physician - When: 2 - 3 days - Reason: Recheck today's complaints, Continuance of care, Re-evaluation by your physician Discharge Instructions: - Discharge Summary Sheet [facility] - Peripheral Edema [facility] Forms: - Medication Reconciliation Form [facility] - Thank You Letter [facility] - Antibiotic Education [facility] - Prescription Opioid Use [facility] Prescriptions: - Ferrous Sulfate 325 mg (65 mg Iron) Oral Tablet - take 1 tablet by ORAL route every 8 hours; 90 tablet; Refills: 0, Product [facility] Selection Permitted - Lasix 20 mg Oral Tablet - take 1 tablet by ORAL route once daily; 20 tablet; Refills: 0, Product [facility] Selection Permitted Addendum: 12/06/2022 19:54 Co-signature as Attending Physician, Rajesh STOCK I reviewed the patient's care r n provided by the Advanced Practice Provider and agree with the diagnosis and treatment plan. Signatures: Dispatcher [employer] Joni Castillo PA PA jmm Nieto, Roman, MD MD rn Baxter, Heather, RN RN Chelly Dumont RN RN ha1
--- NOTE | 2022-12-03 19:46 | ER ---
Nurse's Notes [facility] Name: Justino Barr Age: 37 yrs Sex: Male : 1985 Arrival Date: 12/03/2022 Time: 16:41 Bed 20 Private MD: Diagnosis: Peripheral edema;End-stage renal disease Presentation: 12/03 16:49 Chief complaint: BLE swelling x 1 week, last HD was 11/16. Coronavirus screen: At this hb time, the client does not indicate any symptoms associated with coronavirus-19. Ebola Screen: No symptoms or risks identified at this time. Initial Sepsis Screen: Does the patient meet any 2 criteria? No. Patient's initial sepsis screen is negative. Does the patient have a suspected source of infection? No. Patient's initial sepsis screen is negative. Risk Assessment: Do you want to hurt yourself or someone else? Patient reports no desire to harm self or others. Onset of symptoms was November 26, 2022. 16:49 Method Of Arrival: Ambulatory hb 16:49 Acuity: VAHID 3 hb Historical: - Allergies: 16:50 No Known Allergies; hb - Home Meds: 16:50 amlodipine 10 mg tab 1 tab once daily [Active]; aspirin 81 mg Oral chew 1 tab once hb daily [Active]; atorvastatin 40 mg Oral tab 1 tab once daily [Active]; Coreg 25 mg Oral tab 1 tab 2 times per day [Active]; hydralazine 100 mg Oral tab 1 tab 2 times per day [Active]; - PMHx: 16:50 Hypertensive disorder; hb - Immunization history:: Adult Immunizations up to date. - Social history:: Smoking status: Patient reports the use of cigarette tobacco products. Screenin:40 Abuse screen: Denies threats or abuse. Denies injuries from another. ha1 19:40 Nutritional screening: No deficits noted. Tuberculosis screening: No symptoms or risk ha1 factors identified. Assessment: 18:35 Reassessment: Patient appears in no apparent distress at this time. Patient and/or kr3 family updated on plan of care and expected duration. Pain level reassessed. Patient is alert, oriented x 3, equal unlabored respirations, skin warm/dry/pink. Patient had dialysis shunt placed on 11-09-22 and has not had the dressing changed since. The current dressing was reinforced with a lot of tape. Replaced dressing using aseptic technic, insertion site had small amount of dried red crust. No redness noted at this time. 19:40 General: Appears uncomfortable, Behavior is calm, cooperative. Pain: Complains of pain ha1 in legs Pain does not radiate. Pain currently is 8 out of 10 on a pain scale. Quality of pain is described as pressure, tender. 19:40 Neuro: Level of Consciousness is awake, alert, obeys commands, Oriented to person, ha1 place, time, situation. Cardiovascular: Patient's skin is warm and dry. Cardiovascular: Respiratory: Airway is patent Respiratory effort is even, unlabored, Respiratory pattern is regular, symmetrical. GI: Abdomen is flat, non-distended. EENT: No deficits noted. No signs and/or symptoms were reported regarding the EENT system. Derm: Skin is pink, warm \T\ dry. Musculoskeletal: Circulation, motion, and sensation intact. Range of motion: intact in all extremities, Swelling present in right leg and left leg. 20:27 Reassessment: Patient and/or family updated on plan of care and expected duration. Pain ha1 level reassessed. Patient is alert, oriented x 3, equal unlabored respirations, skin warm/dry/pink. care provider notified of lab results. Vital Signs: 16:49 BP 158 / 100; Pulse 83; Resp 16; Temp 98.5; Pulse Ox 100% on R/A; Weight 80.29 kg; hb Height 5 ft. 11 in. (180.34 cm); Pain 8/10; 18:39 BP 149 / 102; Pulse 87; Resp 18; Pulse Ox 99% on R/A; kr3 19:40 BP 149 / 102; Pulse 94; Resp 20; Pulse Ox 100% on R/A; ha1 20:26 BP 151 / 108; Pulse 95; Resp 20; Pulse Ox 100% on R/A; ha1 16:49 Body Mass Index 24.69 (80.29 kg, 180.34 cm) ED Course: 16:41 Patient arrived in ED. am2 16:50 Triage completed. 16:50 Joni Tellez PA is PHCP. [facility] 16:50 Rajesh Gallego MD is Attending Physician. [facility] 16:50 Arm band placed on. 16:53 Leonid, Atiya, RN is Primary Nurse. kr3 17:54 US Extremity Venous W Compression Doron In Process Unspecified. EDMS 18:03 XRAY Chest (1 view) In Process Unspecified. EDMS 19:40 Patient has correct armband on for positive identification. Placed in gown. Bed in low ha1 position. Call light in reach. Side rails up X 1. 19:40 No provider procedures requiring assistance completed. ha1 20:30 IV discontinued, intact, bleeding controlled, No redness/swelling at site. Pressure ha1 dressing applied. Administered Medications: 19:58 Drug: HYDROcodone-acetaminophen 5 mg-325 mg 1 tabs Route: PO; ha1 20:22 Follow up: Response: No adverse reaction; Pain is decreased; RASS: Alert and Calm (0) ha1 Medication: 20:30 VIS not applicable for this client. ha1 Outcome: 19:45 Discharge ordered by . mindy 20:29 Discharged to home ambulatory. ha1 20:29 Condition: stable 20:29 Discharge instructions given to patient, Instructed on discharge instructions, follow up and referral plans. medication usage, Demonstrated understanding of instructions, follow-up care, medications, Prescriptions given X 2. 20:30 Patient left the ED. ha1 Signatures: Dispatcher [employer] EDMS Joni Tellez PA PA jmm Baxter, Heather, MANSOOR RN Patti Messina am2 Chelly Dumont, RN RN ha1 Atiya Jaquez, RN RN kr3
[2022-12-03] MEDS ORDERED: HYDROCODONE/APAP 5/325 MG TAB ONE (20:07)
[2022-12-03 20:52] VITALS: TEMP 98.5
[2022-12-03 20:54] VITALS: O2SAT 100
[2022-12-03 20:55] VITALS: BP 151/108
--- NOTE | 2022-12-04 16:27 | EKG ---
Test Date: 2022-12-03 Test Time: 17:19:12 [place] Registered Nurse Rn: JEREMIAH MEASUREMENT RESULTS: Intervals: Rate: 89 NM: 178 QRSD: 90 QT: 406 QTc: 493 [place]: P: 89 NM: 178 QRS: 28 T: 72 INTERPRETIVE STATEMENTS: Normal sinus rhythm Possible Left atrial enlargement Anterior infarct, age undetermined Abnormal ECG Compared to ECG 11/02/2022 17:03:01 Sinus tachycardia no longer present Atrial premature complex(es) no longer present Left ventricular hypertrophy no longer present ST (T wave) deviation no longer present Possible ischemia no longer present Myocardial infarct finding still present Electronically Signed On 12-04-22 16:26:37 DIRECTOR OF INTELLIGENCE by Juan Mathis
== END 2022-12-03 20:30 | disposition home or self-care (01) ==
LOC: ER 16:40
DX: R60.9 Edema, unspecified (principal); I12.0 Hypertensive chronic kidney disease with stage 5 chronic kidney disease or end stage renal disease; N18.6 End stage renal disease; Z99.2 Dependence on renal dialysis; Z72.0 Tobacco use; Z79.82 Long term (current) use of aspirin
CPT/HCPCS: 36415; 71045; 80048; 80076; 83735; 83880; 84484; 85025; 85610; 86850; 86900; 86901; 93005; 93970; 99283

== ENCOUNTER 2023-01-08 17:30 | Emergency (ER) | payer OTHER, SELFPAY ==
[2023-01-08 18:59] LABS: Absolute Lymphocytes (CBC) 0.9 K/uL (0.7-4.9); Lymphocytes % 6.9 % (15.3-44.8); MCV 88.8 fL (80-100); MPV 7.7 fL (7.6-11.3)
[2023-01-08] MEDS ORDERED: ONDANSETRON 4 MG/2 ML VIAL ONE ×2 (19:17→22:10)
[2023-01-08] MEDS ORDERED: FAMOTIDINE 20 MG/2 ML VIAL IV ONE (19:18)
[2023-01-08 19:55] LABS: Albumin 3.9 g/dL (3.4-5.0); Bilirubin Total 1.2 mg/dL (0.2-1.0); Protein, Total 8.4 g/dL (6.4-8.2)
[2023-01-08 19:58] LABS: SARS-COV-2 RT PCR NEGATIVE (NEGATIVE)
--- NOTE | 2023-01-08 20:00 | RAD REPORT ---
EXAM DESCRIPTION: [facility]01/08/2023 7:34 pm CLINICAL HISTORY: vomiting COMPARISON: Chest Single View dated 12/03/2022; Chest Single View dated 11/16/2022; Chest Single View dated 11/02/2022; Chest Single View dated 10/08/2022 TECHNIQUE: Portable AP views of the chest. FINDINGS: Right IJ dialysis catheter is unchanged in position. The lungs are clear. No pneumothorax or effusion. Stable mild cardiomegaly. Mediastinal contours are unchanged. IMPRESSION: No acute pulmonary process. Stable mild cardiomegaly.
[2023-01-08] MEDS ORDERED: HYDRALAZINE HCL 20 MG/ML VIAL ONE ×2 (20:37→23:16)
[2023-01-08] MEDS ORDERED: CALCIUM GLUCONATE 1 GM IVPB 1 GM/50 ML BAG IV ONE (20:59)
[2023-01-08] MEDS ORDERED: ALBUTEROL 2.5 MG/3 ML NEB SOL ONE (20:59)
[2023-01-08] MEDS ORDERED: NA CHLORIDE 0.9% 250 ML ONE (21:00)
[2023-01-08] MEDS ORDERED: D10W 250 ML IV ONE (21:04)
--- NOTE | 2023-01-08 21:04 | RAD REPORT ---
EXAM DESCRIPTION: US - Abdomen Exam Limited - 01/08/2023 8:52 pm CLINICAL HISTORY: Nausea/vomiting COMPARISON: 11/02/2022 FINDINGS: No gallstones, sludge, or other abnormalities identified within the gallbladder lumen. The re is no wall thickening or pericholecystic fluid. Common bile duct is dilated measuring up to 1.2 centimeter in diameter approximately. No echogenic co mmon bile duct stones are identified in the visualized segment. IMPRESSION: Common bile duct is dilated up to 1.2 centimeter in caliber. No choledocholithiasis is v isualized. Normal gallbladder ultrasound.
[2023-01-08] MEDS ORDERED: INSULIN -REGULAR HUMAN 50 UNIT/0.5 ML ML ONE ×2 (21:06→22:00)
--- NOTE | 2023-01-08 21:38 | RAD REPORT ---
EXAM DESCRIPTION: CT - Abdomen Pelvis Wo Contrast - 01/08/2023 9:07 pm CLINICAL HISTORY: Upper abdominal pain, vomiting. COMPARISON: 11/02/2022 CT abdomen pelvis. Right upper quadrant ultrasound of the same day TECHNIQUE: CT imaging of the abdomen and pelvis was performed without IV contrast. Sagittal and david nal reformats were generated and reviewed. All CT scans are performed using dose optimization technique as appropriate and may include automated exposure control or mA/KV adjustment according to patient size. FINDINGS: No suspicious findings in the lung bases. The liver, spleen, and pancreas show no suspicious findings. Subcapsular calcification near the hepat ic dome is stable, and likely chronic. Stent along the main pancreatic duct is stable in position. Ga llbladder and biliary tree are also without suspicious finding. No hydronephrosis or suspicious renal mass, within limits of noncontrast CT. Mild atrophy changes of the left kidney are stable. No significant adrenal finding. No dilated bowel loops or bowel wall thickening. No free air, free fluid or inflammatory stranding. N o hernia, mass or bulky lymphadenopathy. The urinary bladder is without significant finding. Trace free fluid is seen in the pelvis, nonspecific, improved since the prior CT. Sclerotic lesion within the posterior body of L2 is stable, nonspecific. No new suspicious bony findi ngs. IMPRESSION: Small volume layering free fluid in the pelvis, decreased in volume since the prior CT o f October 2022. No other acute findings in the abdomen and pelvis. Pancreatic stent again noted. Stable nonspecific s clerotic lesion along the posterior aspect of L2 vertebral body.
[2023-01-08] MEDS ORDERED: PIPERACIL/TAZO 3.375 GM VIAL IV ONE (21:41)
[2023-01-08] MEDS ORDERED: D5W 1,000 ML IV ONE (21:41)
[2023-01-08] MEDS ORDERED: NA CHLORIDE 0.9% 50 ML ONE (21:41)
[2023-01-08] MEDS ORDERED: FUROSEMIDE 100 MG/10 ML VIAL IV ONE (22:01)
--- NOTE | 2023-01-08 22:04 | ER ---
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 My blood pressure is real high, i took my medicine but i threw it up. Coronavirus screen: Vaccine status: Patient reports being unvaccinated. Client denies travel out of the [place] in the last 14 days. Ebola Screen: Patient negative for fever greater than or equal to 101.5 degrees Fahrenheit, and additional compatible Ebola Virus Disease symptoms Patient denies exposure to infectious person. Patient denies travel to an Ebola-affected area in the 21 days before illness onset. Initial Sepsis Screen: Does the patient meet any 2 criteria? No. Patient's initial sepsis screen is negative. Does the patient have a suspected source of infection? No. Patient's initial sepsis screen is negative. Risk Assessment: Do you want to hurt yourself or someone else? Patient reports no desire to harm self or others. Onset of symptoms was January 05, 2023. 18:10 Method Of Arrival: Wheelchair jh5 18:10 Acuity: VAHID 3 jh5 Triage Assessment: 18:13 General: Appears in no apparent distress. uncomfortable, unkempt, Behavior is calm, jh5 cooperative, appropriate for age. Pain: Complains of pain in abdomen. GI: Reports upper abdominal pain, nausea, vomiting. Historical: - PMHx: 18:13 Hypertensive disorder; jh5 - Immunization history:: Adult Immunizations up to date. - Social history:: Smoking status: Patient reports the use of cigarette tobacco products, smokes one pack cigarettes per day. Screenin:20 [facility] ED Fall Risk Assessment (Adult) History of falling in the last 3 months, lg3 including since admission No falls in past 3 months (0 pts). Abuse screen: Denies threats or abuse. Denies injuries from another. Nutritional screening: No deficits noted. Tuberculosis screening: No symptoms or risk factors identified. Assessment: 20:20 General: Appears in no apparent distress. comfortable, Behavior is calm, cooperative. lg3 Pain: Complains of pain in abdomen. Neuro: No deficits noted. Youssef Agitation-Sedation Scale (RASS): 0 - Alert and Calm Level of Consciousness is awake, alert, obeys commands, Oriented to person, place, time, situation. Cardiovascular: No deficits noted. Denies chest pain, shortness of breath, Capillary refill < 3 seconds Clubbing of nail beds is absent JVD is absent Patient's skin is warm and dry. Respiratory: No deficits noted. Airway is patent Trachea midline Respiratory effort is even, unlabored, Respiratory pattern is regular, symmetrical. GI: Abdomen is flat, non-distended, Bowel sounds present X 4 quads. Abd is soft X 4 quads Abd is non tender. : No deficits noted. No signs and/or symptoms were reported regarding the genitourinary system. EENT: No deficits noted. No signs and/or symptoms were reported regarding the EENT system. Derm: No deficits noted. No signs and/or symptoms reported regarding the dermatologic system. Skin is intact, is healthy with good turgor, Skin is dry, Skin is normal, Skin temperature is warm. Musculoskeletal: No deficits noted. Circulation, motion, and sensation intact. Range of motion: intact in all extremities. 21:26 Reassessment: Patient appears in no apparent distress at this time. No changes from lg3 previously documented assessment. Patient and/or family updated on plan of care and expected duration. Pain level reassessed. Patient is alert, oriented x 3, equal unlabored respirations, skin warm/dry/pink. 22:10 Pain: Complains of pain in abdomen Pain currently is 10 out of 10 on a pain scale. lg3 Noted to be grimacing, guarding, moaning, resistant to movement, Also complains of nausea. 01/09 00:35 Reassessment: Patient appears in no apparent distress at this time. No changes from lg3 previously documented assessment. Patient and/or family updated on plan of care and expected duration. Pain level reassessed. Patient is alert, oriented x 3, equal unlabored respirations, skin warm/dry/pink. Pain: Complains of pain in abdomen Pain currently is 5 out of 10 on a pain scale. 01:26 General: Appears in no apparent distress. comfortable, Behavior is calm, cooperative. lg3 Pain: Complains of pain in abdomen Pain currently is 8 out of 10 on a pain scale. Neuro: No deficits noted. Youssef Agitation-Sedation Scale (RASS): 0 - Alert and Calm Level of Consciousness is awake, alert, obeys commands, Oriented to person, place, time, situation. Respiratory: No deficits noted. Airway is patent Respiratory effort is even, unlabored, Respiratory pattern is regular, symmetrical. GI: Reports lower abdominal pain, upper abdominal pain, cramping, nausea. Vital Signs: 01/08 18:10 BP 208 / 152; Pulse 114; Resp 18; Temp 97.3; Pulse Ox 100% ; Weight 80.74 kg; Height 5 [facility] ft. 11 in. (180.34 cm); Pain 8/10; 20:20 BP 203 / 154; Pulse 109; Resp 17 S; Pulse Ox 100% on R/A; lg3 21:28 BP 216 / 153; Pulse 110; Resp 16; Pulse Ox 100% on R/A; lg3 22:11 BP 221 / 145; Pulse 118; Resp 17 S; Pulse Ox 100% on R/A; lg3 22:52 BP 205 / 147; Pulse 117; Resp 16 S; Pulse Ox 100% on R/A; lg3 01/09 00:35 BP 178 / 130; Pulse 116; Resp 17 S; Pulse Ox 100% on R/A; lg3 01:35 BP 177 / 127; Pulse 114; Resp 17; Pulse Ox 100% on R/A; lg3 01/08 18:10 Body Mass Index 24.83 (80.74 kg, 180.34 cm) [facility] ED Course: 01/08 17:35 Patient arrived in ED. am2 18:12 Triage completed. [facility] 18:13 Arm band placed on right wrist. [facility] 18:41 Keo Armendariz PA is PHCP. cp 18:41 Rajesh Gallego MD is Attending Physician. cp 18:53 Inserted saline lock: 22 gauge in right antecubital area, using aseptic technique. iw 19:13 COVID-19/FLU A+B Sent. iw 20:17 Halina Olivera, RN is Primary Nurse. lg3 20:20 Patient has correct armband on for positive identification. Placed in gown. Bed in low lg3 position. Call light in reach. Side rails up X 1. Client placed on continuous cardiac and pulse oximetry monitoring. NIBP monitoring applied. secured entrance monitor on. Door closed. Noise minimized. Warm blanket given. 20:20 CBC with Diff Sent. lg3 20:20 CMP Sent. lg3 20:20 Lipase Sent. lg3 21:10 Inserted saline lock: 20 gauge in left antecubital area, using aseptic technique. Blood rv1 collected. 21:11 Lactate w/ 2H reflex if indic. Sent. rv1 21:11 Procalcitonin Sent. rv1 22:08 initiated a transfer with Maureen Mauricio from [facility]. mw2 22:12 Blood Culture Adult (2) Sent. lg3 23:10 connected Keo PINON with Dr. Cobos from [facility]. mw2 23:18 administrative approval given by Maureen Mauricio/ patient has been accepted to [facility] mw2 to [address] [id number] bed 10/ Dr. Cobos accepted the patient in transfer/report to be called to [phone]. 23:33 Keo John MD is Attending Physician. cp 01/09 00:37 Ptt, Activated Sent. lg3 00:37 PT-INR Sent. lg3 00:37 Troponin High Sensitivity Sent. lg3 01:35 No provider procedures requiring assistance completed. Patient transferred, IV remains lg3 in place. intact, No redness/swelling at site. Administered Medications: 01/08 19:17 Drug: Zofran (Ondansetron) 4 mg Route: IVP; Site: right antecubital; iw 20:20 Follow up: Response: No adverse reaction; Marked relief of symptoms lg3 19:17 Drug: Pepcid (famotidine) 20 mg Route: IVP; Site: right antecubital; iw 20:20 Follow up: Response: No adverse reaction lg3 20:28 CANCELLED (Physician Discretion): hydrALAZINE 10 mg IVP once cp 20:40 CANCELLED (Physician Discretion): Lasix (furosemide) 60 mg IVP once; give over 2 minutescp 20:42 CANCELLED (Duplicate Order): hydrALAZINE 10 mg IVP once lg3 20:42 Drug: hydrALAZINE 10 mg Route: IVP; Site: left antecubital; 3 21:30 Follow up: Response: No change in condition; Blood pressure is unchanged lg3 21:23 Drug: Calcium Gluconate 1 grams Route: IVPB; Infused Over: 60 mins; Site: left [facility] antecubital; 01/09 01:37 Follow up: Response: No adverse reaction; IV Status: Completed infusion; IV Intake: lg3 100ml 01/08 21:23 Drug: Sodium Bicarbonate 1 amp Route: IVP; Site: left antecubital; 3 21:31 Follow up: Response: No adverse reaction lg3 21:24 Drug: Albuterol 2.5 mg Route: Inhalation; 3 21:24 Drug: D50W 50 ml Route: IVP; Site: left antecubital; 3 21:31 Follow up: Response: No adverse reaction lg3 21:25 Drug: Albuterol 2.5 mg Route: Inhalation; 3 21:25 Drug: Albuterol 2.5 mg Route: Inhalation; 3 21:26 Drug: NS 0.9% 250 ml Route: IV; Rate: bolus; Site: left antecubital; 3 01/09 01:37 Follow up: Response: No adverse reaction; IV Status: Completed infusion; IV Intake: lg3 250ml 01/08 21:30 Drug: Insulin Regular Human 5 units {Co-Signature: [email or web address] (Kyrie Oconnor RN).} Route: IVP; 3 Site: left antecubital; 21:31 Follow up: Response: No adverse reaction 3 21:48 Drug: D5W 1000 ml, Sodium Bicarbonate 150 mEq Route: IV; Rate: 50 ml/hr; Site: left [facility] antecubital; 01/09 01:37 Follow up: Response: No adverse reaction; IV Status: Infusion continued upon transfer [facility] 01/08 21:48 Drug: Zosyn (piperacillin-tazobactam) 3.375 grams Route: IVPB; Infused Over: 60 mins; 3 Site: left antecubital; 01/09 01:36 Follow up: Response: No adverse reaction; IV Status: Completed infusion; IV Intake: lg3 100ml 01/08 22:04 Drug: Insulin Regular Human 5 units {Co-Signature: [email or web address] (Marilynn Purdy RN).} Route: lg3 IVP; Site: left antecubital; 23:17 Follow up: Response: No adverse reaction lg3 22:04 Drug: Lasix (furosemide) 100 mg Route: IVP; Site: left antecubital; lg3 23:16 Follow up: Response: No adverse reaction lg3 22:10 Drug: Dilaudid (HYDROmorphone) 1 mg Route: IVP; Site: left antecubital; lg3 23:16 Follow up: Response: No adverse reaction; Pain is decreased lg3 22:10 Drug: Zofran (Ondansetron) 4 mg Route: IVP; Site: left antecubital; lg3 23:17 Follow up: Response: No adverse reaction; Marked relief of symptoms; Nausea is decreasedlg3 23:09 CANCELLED (Physician Discretion): HydrALAZINE 50 mg PO once cp 23:16 Drug: hydrALAZINE 10 mg Route: IVP; Site: left antecubital; lg3 01/09 00:37 Follow up: Response: No adverse reaction; No change in condition; Blood pressure is lg3 unchanged 00:36 Drug: hydrALAZINE 20 mg Route: IVP; Site: left antecubital; lg3 01:30 Follow up: Response: No adverse reaction; Blood pressure is lowered lg3 01:30 Drug: Dilaudid (HYDROmorphone) 1 mg Route: IVP; Site: left antecubital; lg3 01:30 Follow up: Response: No adverse reaction; Anxiety decreased; RASS: Alert and Calm (0) lg3 01:30 Drug: Zofran (Ondansetron) 4 mg Route: IVP; Site: left antecubital; lg3 01:31 Follow up: Response: No adverse reaction; Nausea is decreased lg3 Medication: 01:36 VIS not applicable for this client. lg3 Intake: 01:36 IV: 100ml; Total: 100ml. lg3 01:37 IV: 100ml; Total: 200ml. lg3 01:37 IV: 250ml; Total: 450ml. lg3 Outcome: 01/08 22:03 ER care complete, transfer ordered by MD. mon 01/09 01:35 Transferred by [facility] to [facility], Transfer form completed. lg3 Condition: stable Instructed on the need for transfer, Demonstrated understanding of instructions. 01:38 Patient left the ED. lg3 Signatures: Hedy Oconnell, RN RN iw Keo Armendariz PA PA cp Moreno, Amanda am2 Coleen Orellana mw2 Halina Olivera, RN RN lg3 Caitlin Goetz RN RN jh5 Rhonda Pierson rv1 Kyrie Oconnor RN jb4 Marilynn Purdy RN mb9
--- NOTE | 2023-01-08 22:04 | EDPHYS ---
Physician Documentation [facility] Name: Justino Barr Age: 37 yrs Sex: Male : 1985 Arrival Date: 01/08/2023 Time: 17:35 Bed 20 Private MD: ED Physician Keo John HPI: 01/08 18:20 This 37 yrs old Male presents to ER via Wheelchair with complaints of Abdominal Pain, cp Nausea/Vomiting. 18:20 The patient presents with abdominal pain in the upper abdomen. cp 18:20 Onset: The symptoms/episode began/occurred 2 day(s) ago. cp 18:20 The symptoms radiate to Associated signs and symptoms: Pertinent positives: nausea and cp vomiting, Pertinent negatives: constipation, diarrhea, vomiting blood. The symptoms are described as constant. 18:20 Patient reports missing dialysis this past Sunday and was last dialyzed last week on cp Sunday. Historical: - PMHx: 18:13 Hypertensive disorder; jh5 - Immunization history:: Adult Immunizations up to date. - Social history:: Smoking status: Patient reports the use of cigarette tobacco products, smokes one pack cigarettes per day. ROS: 18:25 Constitutional: Positive for poor PO intake, Negative for body aches, chills, fever. cp 18:25 Eyes: Negative for injury, pain, redness, and discharge. cp 18:25 Cardiovascular: Negative for chest pain, edema, palpitations. 18:25 Respiratory: Negative for cough, shortness of breath, wheezing. 18:25 Abdomen/GI: Positive for abdominal pain, nausea and vomiting, anorexia, Negative for hematemesis. 18:25 Neuro: Negative for altered mental status, headache, syncope. 18:25 All other systems are negative. Exam: 18:30 Constitutional: The patient appears in no acute distress, alert, awake, cp non-diaphoretic, non-toxic, well developed, well nourished, uncomfortable. 18:30 Head/Face: Normocephalic, atraumatic. cp 18:30 Eyes: Periorbital structures: appear normal, Conjunctiva: normal, no exudate, no injection, Sclera: no appreciated abnormality, Lids and lashes: appear normal, bilaterally. 18:30 ENT: External ear(s): are unremarkable, Nose: is normal, Mouth: Lips: moist, Oral mucosa: pink and intact, moist, Posterior pharynx: Airway: no evidence of obstruction, patent. 18:30 Chest/axilla: Inspection: normal, Palpation: is normal, no crepitus, no tenderness. 18:30 Cardiovascular: Rate: tachycardic, Rhythm: regular. 18:30 Respiratory: the patient does not display signs of respiratory distress, Respirations: normal, no use of accessory muscles, no retractions, labored breathing, is not present, Breath sounds: bronchial sounds, that are mild, are heard diffusely. 18:30 Abdomen/GI: Inspection: abdomen appears normal, Bowel sounds: active, all quadrants, Palpation: soft, in all quadrants, moderate abdominal tenderness, in the right upper quadrant and left upper quadrant, rebound tenderness, is not appreciated, involuntary guarding, is not appreciated. 18:30 Back: ROM is normal. 18:30 Neuro: Orientation: to person, place \T\ time. Mentation: is normal, Motor: moves all fours, strength is normal, Sensation: is normal. 19:40 ECG was reviewed by the Attending Physician. cp Vital Signs: 18:10 BP 208 / 152; Pulse 114; Resp 18; Temp 97.3; Pulse Ox 100% ; Weight 80.74 kg; Height 5 jh5 ft. 11 in. (180.34 cm); Pain 8/10; 20:20 BP 203 / 154; Pulse 109; Resp 17 S; Pulse Ox 100% on R/A; lg3 21:28 BP 216 / 153; Pulse 110; Resp 16; Pulse Ox 100% on R/A; lg3 22:11 BP 221 / 145; Pulse 118; Resp 17 S; Pulse Ox 100% on R/A; lg3 22:52 BP 205 / 147; Pulse 117; Resp 16 S; Pulse Ox 100% on R/A; lg3 01/09 00:35 BP 178 / 130; Pulse 116; Resp 17 S; Pulse Ox 100% on R/A; lg3 01:35 BP 177 / 127; Pulse 114; Resp 17; Pulse Ox 100% on R/A; lg3 01/08 18:10 Body Mass Index 24.83 (80.74 kg, 180.34 cm) [facility] MDM: 01/08 18:41 Patient medically screened. cp 21:50 ED course: patient qualifies for severe sepsis shock. A) source of infection is biliary cp pancreatitis. B) SIRS criteria: HR >90, WBC >12. C) lactate >4. 22:05 Data reviewed: vital signs, nurses notes, lab test result(s), EKG, radiologic studies, cp CT scan, plain films. 22:05 Consideration of Admission/Observation transfer for GI services. I considered the cp following discharge prescriptions or medication management in the emergency department Medications were administered in the Emergency Department. See MAR. Care significantly affected by the following chronic conditions: Hypertension, Chronic Kidney Disease. Counseling: I had a detailed discussion with the patient and/or guardian regarding: the historical points, exam findings, and any diagnostic results supporting the discharge/admit diagnosis, lab results, radiology results. Response to treatment: the patient's symptoms have mildly improved after treatment. 01/08 18:13 Order name: CBC with Diff rn 01/08 18:13 Order name: CMP rn 01/08 18:13 Order name: Lipase rn 01/08 18:13 Order name: COVID-19/FLU A+B rn 01/08 19:01 Order name: CBC with Automated Diff; Complete Time: 20:02 EDIN 01/08 20:03 Interpretation: Normal except: WBC 13.00; RBC 2.70; HGB 7.9; HCT 24.0; RDW 16.9; PRESLEY% cp 86.0; LYM% 6.9; NEUT A 11.2. 01/08 19:58 Order name: COVID-19/FLU A+B; Complete Time: 20:02 EDMS 01/08 19:59 Order name: Comprehensive Metabolic Panel; Complete Time: 20:02 EDIN 01/08 20:03 Interpretation: Normal except: NA 127; K 6.0; CL 94; CO2 13; ANION GAP 26.0; GLUC 126; cp BUN 104; CRE 14.70; GFR 4; AST 1449; ALT 848; BILIT 1.2; TP 8.4; GLOB 4.5; A/G 0.9. 01/08 19:59 Order name: Lipase; Complete Time: 20:02 EDMS 01/08 20:04 Interpretation: Abnormal: LIP 716. cp 01/08 20:26 Order name: Procalcitonin cp 01/08 20:26 Order name: Lactate w/ 2H reflex if indic. cp 01/08 20:26 Order name: Blood Culture Adult (2) cp 01/08 21:40 Order name: Lactate w/ 2H reflex if indic.; Complete Time: 21:44 EDMS 01/08 21:45 Interpretation: Abnormal: LAC 4.6. cp 01/08 21:48 Order name: Procalcitonin; Complete Time: 22:01 EDMS 01/08 22:02 Interpretation: Reviewed. cp 01/08 23:15 Order name: Troponin High Sensitivity cp 01/08 18:55 Order name: XRAY Chest (1 view) cp 01/08 20:01 Order name: RAD; Complete Time: 20:02 EDMS 01/08 20:05 Order name: US Abdomen Limited: gallbladder cp 01/08 20:10 Order name: CT Abd/Pelvis - Without Contrast cp 01/08 21:05 Order name: US; Complete Time: 21:26 EDMS 01/08 21:38 Order name: CT; Complete Time: 21:40 EDMS 01/08 23:15 Order name: PT-INR cp 01/08 23:15 Order name: Ptt, Activated cp 01/08 23:48 Order name: Troponin High Sensitivity; Complete Time: 01:26 EDMS 01/09 00:37 Order name: Protime (+INR); Complete Time: 01:26 EDMS 01/09 00:37 Order name: PTT, Activated Partial Thromb; Complete Time: 01:26 EDMS 01/09 00:45 Order name: Lactate Sepsis 2 HR Follow-up; Complete Time: 01:26 EDMS 01/09 01:26 Interpretation: Abnormal: LACTATE SEPSIS 3.1. cp 01/08 18:13 Order name: IV Saline Lock; Complete Time: 18:53 rn 01/08 18:13 Order name: Labs collected and sent; Complete Time: 18:53 rn 01/08 18:55 Order name: EKG; Complete Time: 18:55 cp 01/08 18:55 Order name: EKG - Nurse/Tech; Complete Time: 19:50 cp EC:40 Rate is 111 beats/min. Rhythm is regular. TX interval is normal. QRS interval is cp prolonged at 102 msec. QT interval is normal. T waves are Inverted in leads aVL, aVR. Interpreted by me. Reviewed by me. Administered Medications: 19:17 Drug: Zofran (Ondansetron) 4 mg Route: IVP; Site: right antecubital; iw 20:20 Follow up: Response: No adverse reaction; Marked relief of symptoms lg3 19:17 Drug: Pepcid (famotidine) 20 mg Route: IVP; Site: right antecubital; iw 20:20 Follow up: Response: No adverse reaction lg3 20:28 CANCELLED (Physician Discretion): hydrALAZINE 10 mg IVP once cp 20:40 CANCELLED (Physician Discretion): Lasix (furosemide) 60 mg IVP once; give over 2 minutescp 20:42 CANCELLED (Duplicate Order): hydrALAZINE 10 mg IVP once lg3 20:42 Drug: hydrALAZINE 10 mg Route: IVP; Site: left antecubital; lg3 21:30 Follow up: Response: No change in condition; Blood pressure is unchanged lg3 21:23 Drug: Calcium Gluconate 1 grams Route: IVPB; Infused Over: 60 mins; Site: left lg3 antecubital; 01/09 01:37 Follow up: Response: No adverse reaction; IV Status: Completed infusion; IV Intake: lg3 100ml 01/08 21:23 Drug: Sodium Bicarbonate 1 amp Route: IVP; Site: left antecubital; lg3 21:31 Follow up: Response: No adverse reaction lg3 21:24 Drug: Albuterol 2.5 mg Route: Inhalation; lg3 21:24 Drug: D50W 50 ml Route: IVP; Site: left antecubital; lg3 21:31 Follow up: Response: No adverse reaction lg3 21:25 Drug: Albuterol 2.5 mg Route: Inhalation; lg3 21:25 Drug: Albuterol 2.5 mg Route: Inhalation; lg3 21:26 Drug: NS 0.9% 250 ml Route: IV; Rate: bolus; Site: left antecubital; lg3 01/09 01:37 Follow up: Response: No adverse reaction; IV Status: Completed infusion; IV Intake: lg3 250ml 01/08 21:30 Drug: Insulin Regular Human 5 units {Co-Signature: [email or web address] (Kyrie Oconnor RN).} Route: IVP; lg3 Site: left antecubital; 21:31 Follow up: Response: No adverse reaction lg3 21:48 Drug: D5W 1000 ml, Sodium Bicarbonate 150 mEq Route: IV; Rate: 50 ml/hr; Site: left lg3 antecubital; 01/09 01:37 Follow up: Response: No adverse reaction; IV Status: Infusion continued upon transfer lg3 01/08 21:48 Drug: Zosyn (piperacillin-tazobactam) 3.375 grams Route: IVPB; Infused Over: 60 mins; lg3 Site: left antecubital; 01/09 01:36 Follow up: Response: No adverse reaction; IV Status: Completed infusion; IV Intake: lg3 100ml 01/08 22:04 Drug: Insulin Regular Human 5 units {Co-Signature: [email or web address] (Marilynn Purdy RN).} Route: lg3 IVP; Site: left antecubital; 23:17 Follow up: Response: No adverse reaction lg3 22:04 Drug: Lasix (furosemide) 100 mg Route: IVP; Site: left antecubital; lg3 23:16 Follow up: Response: No adverse reaction lg3 22:10 Drug: Dilaudid (HYDROmorphone) 1 mg Route: IVP; Site: left antecubital; lg3 23:16 Follow up: Response: No adverse reaction; Pain is decreased lg3 22:10 Drug: Zofran (Ondansetron) 4 mg Route: IVP; Site: left antecubital; lg3 23:17 Follow up: Response: No adverse reaction; Marked relief of symptoms; Nausea is decreasedlg3 23:09 CANCELLED (Physician Discretion): HydrALAZINE 50 mg PO once cp 23:16 Drug: hydrALAZINE 10 mg Route: IVP; Site: left antecubital; lg3 01/09 00:37 Follow up: Response: No adverse reaction; No change in condition; Blood pressure is lg3 unchanged 00:36 Drug: hydrALAZINE 20 mg Route: IVP; Site: left antecubital; lg3 01:30 Follow up: Response: No adverse reaction; Blood pressure is lowered lg3 01:30 Drug: Dilaudid (HYDROmorphone) 1 mg Route: IVP; Site: left antecubital; lg3 01:30 Follow up: Response: No adverse reaction; Anxiety decreased; RASS: Alert and Calm (0) lg3 01:30 Drug: Zofran (Ondansetron) 4 mg Route: IVP; Site: left antecubital; lg3 01:31 Follow up: Response: No adverse reaction; Nausea is decreased lg3 Disposition Summary: 01/08/23 22:03 Transfer Ordered Transfer Location: [facility] cp Reason: Higher level of care cp Condition: Stable cp Problem: new cp Symptoms: are unchanged cp Accepting Physician: DR Chaitanya Cobos(01/09/23 01:38) lg3 Diagnosis - Severe sepsis with septic shock cp - Biliary acute pancreatitis cp - Hyperkalemia cp - 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 cp cp 20:40 20:30 Lasix (furosemide) 60 mg IVP once; give over 2 minutes ordered. cp cp 20:42 20:39 hydrALAZINE 10 mg IVP once ordered. cp lg3 22:04 22:03 Doctor cp cp 23:09 23:09 HydrALAZINE 50 mg PO once ordered. cp cp 23:34 22:04 Doctor cp cp 23:34 23:34 DR Chaitanya Cobos cp cp 01/09 01:38 01/08 23:34 DR Chaitanya Cobos cp lg3
[2023-01-08] MEDS ORDERED: HYDROMORPHONE HCL 1 MG/ML INJ ONE (22:10)
[2023-01-09] MEDS ORDERED: HYDRALAZINE HCL 20 MG/ML VIAL ONE (00:34)
[2023-01-09 00:37] LABS: Protime INR 1.41
[2023-01-09] MEDS ORDERED: ONDANSETRON 4 MG/2 ML VIAL ONE (01:30)
[2023-01-09] MEDS ORDERED: HYDROMORPHONE HCL 1 MG/ML INJ ONE (01:30)
[2023-01-09 02:31] VITALS: TEMP 97.3; O2SAT 100
[2023-01-09 02:42] VITALS: BP 177/127
--- NOTE | 2023-01-09 17:11 | EKG ---
Test Date: 2023-01-08 Test Time: 19:37:21 Director Selection And Administration: CAREN MEASUREMENT RESULTS: Intervals: Rate: 111 SD: 152 QRSD: 102 QT: 376 QTc: 511 Browning: P: 80 SD: 152 QRS: 58 T: 73 INTERPRETIVE STATEMENTS: Sinus tachycardia Possible Left atrial enlargement Left ventricular hypertrophy Anteroseptal infarct, age undetermined Abnormal ECG Compared to ECG 12/03/2022 17:19:12 Left ventricular hypertrophy now present Sinus rhythm no longer present Myocardial infarct finding still present Electronically Signed On 01-09-23 17:08:51 CALL CENTER COORDINATOR by Juan Mathis
== END 2023-01-09 01:38 | disposition short-term general hospital (02) ==
LOC: ER 17:30
DX: A41.9 Sepsis, unspecified organism (principal); K85.10 Biliary acute pancreatitis without necrosis or infection; R65.21 Severe sepsis with septic shock; E87.5 Hyperkalemia; E11.22 Type 2 diabetes mellitus with diabetic chronic kidney disease; I13.2 Hypertensive heart and chronic kidney disease with heart failure and with stage 5 chronic kidney disease, or end stage renal disease; I50.9 Heart failure, unspecified; N18.6 End stage renal disease; Z99.2 Dependence on renal dialysis; Z20.822 Contact with and (suspected) exposure to COVID-19; F17.210 Nicotine dependence, cigarettes, uncomplicated
CPT/HCPCS: 93005; 87040 ×2; 85025; 36415; 85610; 83605 ×2; 85730; 84484; 83690; 80053; 84145; 0240U; 74176; 71045; 76705; J0360 ×3; J1815 ×2; J2543; J7613; J1170 ×2; J0610; J7050; J2405 ×3

== ENCOUNTER 2023-01-15 07:12 | Inpatient (IN) | payer OTHER ==
--- NOTE | 2023-01-15 08:20 | RAD REPORT ---
EXAM DESCRIPTION: Mindi Single View01/15/2023 8:03 am CLINICAL HISTORY: Congestion COMPARISON: January 08, 2023 FINDINGS: The lungs appear clear of acute infiltrate. The heart is mildly enlarged. Central venous catheter in place Upper lobe vessels prominent indicative of pulmonary venous hypertension
[2023-01-15 08:36] LABS: Absolute Lymphocytes (CBC) 1.3 K/uL (0.7-4.9); Hematocrit 28.9 % (39.6-49.0); Lymphocytes % 9.9 % (15.3-44.8); MCV 90.8 fL (80-100); MPV 7.8 fL (7.6-11.3); RBC Red Blood Cell Count 3.19 M/uL (4.33-5.43)
[2023-01-15 08:41] LABS: Protime INR 1.04
[2023-01-15] MEDS ORDERED: Nicardipine/NS 25 MG/250 ML KIT IV ONE (08:50)
[2023-01-15 08:58] LABS: Urine Blood Trace-intact (Negative); Urine Glucose Trace (Negative); Urine Protein 3+ (Negative)
[2023-01-15 09:14] LABS: Albumin 3.9 g/dL (3.4-5.0); Bilirubin Direct 0.3 mg/dL (0-0.2); Bilirubin Total 0.9 mg/dL (0.2-1.0); Magnesium 2.6 mg/dL (1.6-2.4); Protein, Total 8.2 g/dL (6.4-8.2); Troponin High Sensitivity 47.3 pg/mL (<58.9)
[2023-01-15 09:48] LABS: SARS-COV-2 RT PCR NEGATIVE (NEGATIVE)
--- NOTE | 2023-01-15 11:19 | ER ---
Nurse's Notes [facility] Name: Justino Barr Age: 37 yrs Sex: Male : 1985 Arrival Date: 01/15/2023 Time: 07:24 Bed 4 Private MD: Diagnosis: Hypertensive emergency;Dyspnea;Anemia in chronic kidney disease;End stage renal disease-on hd t,th, sat Presentation: 01/15 07:32 Chief complaint: Patient states: difficulty breathing that began last night. ss Coronavirus screen: Client denies travel out of the [place] in the last 14 days. Client presents with at least one sign or symptom that may indicate coronavirus-19. Ebola Screen: Patient denies exposure to infectious person. Patient denies travel to an Ebola-affected area in the 21 days before illness onset. Initial Sepsis Screen:. Risk Assessment: Do you want to hurt yourself or someone else? Patient reports no desire to harm self or others. Onset of symptoms was January 14, 2023. 07:32 Method Of Arrival: Ambulatory ss 07:32 Acuity: VAHID 2 ss Historical: - Allergies: 07:33 No Known Allergies; ss - Home Meds: 07:33 hydralazine 50 mg Oral tab 1 tab three times a day [Active]; ss - PMHx: 07:33 Hypertensive disorder; HD T Sat; ss - PSHx: 07:33 pancreatic stent; ss - Immunization history:: Adult Immunizations unknown. - Social history:: Smoking status: Patient reports the use of cigarette tobacco products, smokes one-half pack cigarettes per day. Screenin:10 [facility] ED Fall Risk Assessment (Adult) History of falling in the last 3 months, ld1 including since admission No falls in past 3 months (0 pts). Abuse screen: Denies threats or abuse. Denies injuries from another. Nutritional screening: No deficits noted. Tuberculosis screening: No symptoms or risk factors identified. Assessment: 08:10 General: Appears in no apparent distress. uncomfortable, Behavior is cooperative, ld1 anxious. Pain: Complains of pain in chest Pain does not radiate. Pain currently is 8 out of 10 on a pain scale. Quality of pain is described as throbbing, Pain began 1 day ago. Neuro: Level of Consciousness is awake, alert, obeys commands, Oriented to person, place, time, situation. Cardiovascular: Capillary refill < 3 seconds Patient's skin is warm and dry. Rhythm is sinus tachycardia. Cardiovascular: Reports chest pain. Respiratory: Airway is patent Respiratory effort is even, labored, Respiratory pattern is hyperventilation Breath sounds are clear bilaterally. Onset: The symptoms/episode began/occurred gradually, the patient has moderate shortness of breath. GI: Abdomen is flat, non-distended. : No signs and/or symptoms were reported regarding the genitourinary system. EENT: No signs and/or symptoms were reported regarding the EENT system. Derm: No signs and/or symptoms reported regarding the dermatologic system. Musculoskeletal: No signs and/or symptoms reported regarding the musculoskeletal system. 09:43 Reassessment: Patient appears in no apparent distress at this time. Patient and/or ld1 family updated on plan of care and expected duration. Pain level reassessed. Patient is alert, oriented x 3, equal unlabored respirations, skin warm/dry/pink. 10:16 Reassessment: Patient appears in no apparent distress at this time. No changes from ld1 previously documented assessment. Patient and/or family updated on plan of care and expected duration. Pain level reassessed. 11:30 Reassessment: Patient appears in no apparent distress at this time. No changes from ld1 previously documented assessment. Patient and/or family updated on plan of care and expected duration. Pain level reassessed. Patient is alert/active/playful, equal unlabored respirations, skin warm/dry/pink. 11:45 Reassessment: Patient appears in no apparent distress at this time. Patient and/or ld1 family updated on plan of care and expected duration. Pain level reassessed. RT at bedside. Pt placed on BIPAP at this time. Denies pain. RR 26. 12:36 Reassessment: No changes from previously documented assessment. Patient and/or family ld1 updated on plan of care and expected duration. Pain level reassessed. 13:16 Reassessment: Pt found to be walking towards [facility]. Pt states, "I gotta go home." ss Educated patient on need to stay in hospital. Pt states, "I gotta poop." Brought patient back to room and then to restroom. 13:37 Reassessment: PT SIGNED OUT AMA. ADVISED TO WAIT FOR MD BUT REFUSED. PT COUNSELED TO bp RETURN IF S/S RETURN OR WORSEN. LAST SEEN IN STABLE CONDITION. Vital Signs: 07:32 BP 250 / 144; Pulse 107; Resp 27; Temp 97.9(O); Pulse Ox 98% on R/A; Weight 84.37 kg; ss Height 5 ft. 11 in. (180.34 cm); 08:10 BP 249 / 148; Pulse 111; Resp 28; Pulse Ox 99% on R/A; Pain 8/10; ld1 08:50 BP 245 / 147; Pulse 108; Resp 20; Pulse Ox 100% ; bp 08:59 BP 233 / 129; Pulse 112; Resp 22; Pulse Ox 100% on 2 lpm NC; ld1 09:06 BP 190 / 118; Pulse 105; Resp 26; Pulse Ox 100% on 2 lpm NC; ld1 09:43 BP 176 / 105; Pulse 111; Resp 26; Pulse Ox 98% on 2 lpm NC; ld1 09:44 BP 176 / 105; Pulse 115; Resp 26; Pulse Ox 98% on 2 lpm NC; ld1 10:14 BP 194 / 115; Pulse 116; Resp 25; Pulse Ox 96% on 2 lpm NC; ld1 10:14 BP 194 / 115; Pulse 115; Resp 25; Pulse Ox 97% on 2 lpm NC; ld1 10:40 BP 165 / 85; Pulse 116; Resp 27; Pulse Ox 97% on 2 lpm NC; ld1 11:00 BP 181 / 101; Pulse 115; Resp 23; Pulse Ox 99% on 2 lpm NC; ld1 12:22 BP 199 / 130; Pulse 117; Resp 18; Pulse Ox 98% on BiPAP; ld1 12:35 BP 181 / 123; Pulse 121; Resp 23; Pulse Ox 96% on Mask: BiPAP; ld1 12:36 BP 172 / 114; Pulse 121; Resp 24; Pulse Ox 100% on BiPAP; ld1 13:14 BP 152 / 78; Pulse 85; Resp 25; Pulse Ox 99% on Mask: BiPAP; ld1 07:32 Body Mass Index 25.94 (84.37 kg, 180.34 cm) ED Course: 07:24 Patient arrived in ED. mr 07:31 Keo John MD is Attending Physician. [facility] 07:33 Triage completed. ss 07:33 Arm band placed on left wrist. ss 08:00 Tessy Paiz, RN is Primary Nurse. ld1 08:10 Patient has correct armband on for positive identification. Placed in gown. Bed in low ld1 position. Call light in reach. Side rails up X2. monitoring engineer on. Pulse ox on. NIBP on. Door closed. Noise minimized. Warm blanket given. 08:10 Missed attempt(s): 20 gauge in left antecubital area. ld1 08:10 No provider procedures requiring assistance completed. ld1 08:19 Inserted saline lock: 22 gauge in left forearm, using aseptic technique. Blood bp collected. 08:29 COVID-19/FLU A+B Sent. rv1 08:29 Blood Culture Adult (2) Sent. rv1 11:17 Rajesh Gallego MD is Hospitalizing Provider. ciera 11:17 Hospitalizing Provider role handed off by Rajesh Gallego MD ciera 11:17 Will Gallego MD is Hospitalizing Provider. ciera 13:39 IV discontinued, intact, bleeding controlled, No redness/swelling at site. Pressure bp dressing applied. Administered Medications: 08:50 Drug: niCARdipine 5 mg/hr Route: IV; Rate: per protocol; Site: left forearm; bp 09:06 Follow up: BP 190 / 118; Pulse 105 bpm; Resp 26 bpm; Pulse Ox 100% 2 lpm Nasal Cannula; ld1 Response: Blood pressure is lowered; IV Status: Infusion continued 09:44 Follow up: BP 176 / 105; Pulse 115 bpm; Resp 26 bpm; Pulse Ox 98% 2 lpm Nasal Cannula; ld1 Response: Blood pressure is lowered; IV Status: Infusion continued 10:14 Follow up: BP 194 / 115; Pulse 115 bpm; Resp 25 bpm; Pulse Ox 97% 2 lpm Nasal Cannula; ld1 Response: Blood pressure is elevated; RASS: Alert and Calm (0); Rate change 7.5 mg/hr; IV Status: Infusion continued 10:40 Follow up: BP 165 / 85; Pulse 116 bpm; Resp 27 bpm; Pulse Ox 97% 2 lpm Nasal Cannula; ld1 Response: Blood pressure is lowered; IV Status: Infusion continued 12:35 Follow up: BP 181 / 123; Pulse 121 bpm; Resp 23 bpm; Pulse Ox 96% Mask: BiPAP; IV ld1 Status: Infusion continued 12:35 Follow up: Response: Blood pressure is elevated; Rate change 10 mg/hr ld1 13:14 Follow up: BP 152 / 78; Pulse 85 bpm; Resp 25 bpm; Pulse Ox 99% Mask: BiPAP; Response: ld1 No adverse reaction; Blood pressure is lowered; IV Status: Infusion continued 13:38 Not Given (Patient Refused): Zosyn (piperacillin-tazobactam) 3.375 grams IVPB once over bp 60 mins; (mix in NS 100 mL) 13:39 Not Given (Patient Refused): Pepcid (famotidine) 20 mg IVP once; dilute with 10 mL 0.9% bp NaCl; give over 2 minutes Medication: 08:10 VIS not applicable for this client. ld1 Outcome: 11:19 Decision to Hospitalize by Provider. [facility] 13:37 AMA AMA form signed bp 13:37 Condition: stable 13:53 Patient left the ED. bp Signatures: Keo John MD MD cha Rivera, Marilynn mr Juliet Oneill RN RN ss Ruperto Rubio RN RN bp Tessy Paiz RN RN ld1 Rhonda Pierson rv1 Corrections: (The following items were deleted from the chart) 07:41 07:32 BP 250 / 144; Pulse 107bpm; Resp 23bpm; Pulse Ox 98% RA; Temp 97.9F Oral; 84.37 ss kg; Height 5 ft. 11 in.; BMI: 25.9; ss
--- NOTE | 2023-01-15 11:19 | EDPHYS ---
Physician Documentation [facility] Name: Justino Barr Age: 37 yrs Sex: Male : 1985 Arrival Date: 01/15/2023 Time: 07:24 Bed 4 Private MD: ED Physician Keo John HPI: 01/15 11:08 This 37 yrs old Male presents to ER via Ambulatory with complaints of ciera Breathing Difficulty, Cough, Congestion. Historical: - Allergies: :33 No Known Allergies; ss - Home Meds: : hydralazine 50 mg Oral tab 1 tab three times a day [Active]; ss - PMHx: : Hypertensive disorder; HD T TH Sat; ss - PSHx: : pancreatic stent; ss - Immunization history:: Adult Immunizations unknown. - Social history:: Smoking status: Patient reports the use of cigarette tobacco products, smokes one-half pack cigarettes per day. ROS: 11:13 Constitutional: Negative for fever, chills, and weight loss, Eyes: Negative for injury, ciera pain, redness, and discharge, ENT: Negative for injury, pain, and discharge, Neck: Negative for injury, pain, and swelling, Back: Negative for injury and pain, : Negative for injury, bleeding, discharge, and swelling, MS/Extremity: Negative for injury and deformity, Skin: Negative for injury, rash, and discoloration, Neuro: Negative for headache, weakness, numbness, tingling, and seizure. 11:13 Cardiovascular: Positive for chest pain, orthopnea, palpitations, paroxysmal nocturnal dyspnea. 11:13 Respiratory: Positive for cough, shortness of breath, at rest. 11:13 Respiratory: Positive for orthopnea. 11:13 Abdomen/GI: Positive for abdominal pain, of the right upper quadrant and left upper quadrant. Exam: 11:14 Head/Face: Normocephalic, atraumatic. Eyes: Pupils equal round and reactive to light, ciera extra-ocular motions intact. Lids and lashes normal. Conjunctiva and sclera are non-icteric and not injected. Cornea within normal limits. Periorbital areas with no swelling, redness, or edema. Cardiovascular: Regular rate and rhythm with a normal S1 and S2. No gallops, murmurs, or rubs. Normal PMI, no JVD. No pulse deficits. Back: No spinal tenderness. No costovertebral tenderness. Full range of motion. Male : Normal genitalia with no discharge or lesions. Skin: Warm, dry with normal turgor. Normal color with no rashes, no lesions, and no evidence of cellulitis. MS/ Extremity: Pulses equal, no cyanosis. Neurovascular intact. Full, normal range of motion. Neuro: Awake and alert, GCS 15, oriented to person, place, time, and situation. Cranial nerves II-XII grossly intact. Motor strength 5/5 in all extremities. Sensory grossly intact. Cerebellar exam normal. Normal gait. Psych: Awake, alert, with orientation to person, place and time. Behavior, mood, and affect are within normal limits. 11:14 Constitutional: The patient appears in obvious distress, moderately distressed. 11:14 ECG was reviewed by the Attending Physician. Vital Signs: 07:32 BP 250 / 144; Pulse 107; Resp 27; Temp 97.9(O); Pulse Ox 98% on R/A; Weight 84.37 kg; ss Height 5 ft. 11 in. (180.34 cm); 08:10 BP 249 / 148; Pulse 111; Resp 28; Pulse Ox 99% on R/A; Pain 8/10; ld1 08:50 BP 245 / 147; Pulse 108; Resp 20; Pulse Ox 100% ; bp 08:59 BP 233 / 129; Pulse 112; Resp 22; Pulse Ox 100% on 2 lpm NC; ld1 09:06 BP 190 / 118; Pulse 105; Resp 26; Pulse Ox 100% on 2 lpm NC; ld1 09:43 BP 176 / 105; Pulse 111; Resp 26; Pulse Ox 98% on 2 lpm NC; ld1 09:44 BP 176 / 105; Pulse 115; Resp 26; Pulse Ox 98% on 2 lpm NC; ld1 10:14 BP 194 / 115; Pulse 116; Resp 25; Pulse Ox 96% on 2 lpm NC; ld1 10:14 BP 194 / 115; Pulse 115; Resp 25; Pulse Ox 97% on 2 lpm NC; ld1 10:40 BP 165 / 85; Pulse 116; Resp 27; Pulse Ox 97% on 2 lpm NC; ld1 11:00 BP 181 / 101; Pulse 115; Resp 23; Pulse Ox 99% on 2 lpm NC; ld1 12:22 BP 199 / 130; Pulse 117; Resp 18; Pulse Ox 98% on BiPAP; ld1 12:35 BP 181 / 123; Pulse 121; Resp 23; Pulse Ox 96% on Mask: BiPAP; ld1 12:36 BP 172 / 114; Pulse 121; Resp 24; Pulse Ox 100% on BiPAP; ld1 13:14 BP 152 / 78; Pulse 85; Resp 25; Pulse Ox 99% on Mask: BiPAP; ld1 07:32 Body Mass Index 25.94 (84.37 kg, 180.34 cm) ss MDM: 07:31 Patient medically screened. [facility] 11:15 Differential diagnosis: Anemia Bronchitis CHF exacerbation, Chronic Obstructive ciera Pulmonary Disease pneumonia, Pneumothorax pulmonary edema. Antibiotic administration: zosyn. Immunization status:. Data reviewed: vital signs, nurses notes, EMS record, lab test result(s), EKG, radiologic studies, CT scan, plain films. Consideration of Admission/Observation Patient was admitted/placed on observation. Escalation of care including admission/observation considered. 01/15 07:34 Order name: Basic Metabolic Panel [facility] 01/15 07:34 Order name: CBC with Diff [facility] 01/15 07:34 Order name: LFT's ciera 01/15 07:34 Order name: Magnesium [facility] 01/15 07:34 Order name: NT PRO-BNP [facility] 01/15 07:34 Order name: PT-INR [facility] 01/15 07:34 Order name: Troponin HS [facility] 01/15 07:34 Order name: Lipase [facility] 01/15 07:34 Order name: COVID-19/FLU A+B [facility] 01/15 07:34 Order name: Blood Culture Adult (2) [facility] 01/15 07:34 Order name: Lactate w/ 2H reflex if indic. [facility] 01/15 08:38 Order name: CBC with Automated Diff; Complete Time: 11:06 EDCT 01/15 08:41 Order name: Protime (+INR); Complete Time: 11:06 EDCT 01/15 08:57 Order name: Lactate w/ 2H reflex if indic.; Complete Time: 11:06 EDCT 01/15 07:34 Order name: XRAY Chest (1 view) [facility] 01/15 08:21 Order name: RAD; Complete Time: 11:06 EDCT 01/15 08:58 Order name: Urine Dipstick-Ancillary; Complete Time: 11:06 [facility] 01/15 09:16 Order name: Basic Metabolic Panel; Complete Time: 11:06 [facility] 01/15 09:16 Order name: Liver (Hepatic) Function; Complete Time: 11:06 [facility] 01/15 09:16 Order name: Troponin High Sensitivity; Complete Time: 11:06 [facility] 01/15 09:16 Order name: NT PRO-BNP; Complete Time: 11:06 [facility] 01/15 09:16 Order name: Magnesium; Complete Time: 11:06 [facility] 01/15 09:16 Order name: Lipase; Complete Time: 11:06 [facility] 01/15 09:48 Order name: COVID-19/FLU A+B; Complete Time: 11:06 [facility] 01/15 11:08 Order name: CT Chest Abdomen Pelvis W/O Contrast [facility] 01/15 11:08 Order name: US Abdomen Limited [facility] 01/15 11:21 Order name: BIPAP [facility] 01/15 12:12 Order name: US [facility] 01/15 12:21 Order name: CT [facility] 01/15 07:34 Order name: EKG; Complete Time: 07:35 [facility] 01/15 07:34 Order name: Cardiac monitoring; Complete Time: 08:00 [facility] 01/15 07:34 Order name: EKG - Nurse/Tech; Complete Time: 10:14 [facility] 01/15 07:34 Order name: IV Saline Lock; Complete Time: 08:21 [facility] 01/15 07:34 Order name: Labs collected and sent; Complete Time: 08:21 [facility] 01/15 07:34 Order name: O2 Per Protocol; Complete Time: 08:00 [facility] 01/15 07:34 Order name: O2 Sat Monitoring; Complete Time: 08:00 [facility] 01/15 07:34 Order name: Urine Dipstick-Ancillary (obtain specimen); Complete Time: 08:59 [facility] EC:14 Rate is 119 beats/min. Rhythm is regular. QRS [place] is Normal. [place] interval is normal. [facility] QRS interval is normal. No Q waves. T waves are Normal. No ST changes noted. Clinical impression: Sinus tachycardia. Interpreted by me. Reviewed by me. Administered Medications: 08:50 Drug: niCARdipine 5 mg/hr Route: IV; Rate: per protocol; Site: left forearm; bp 09:06 Follow up: BP 190 / 118; Pulse 105 bpm; Resp 26 bpm; Pulse Ox 100% 2 lpm Nasal Cannula; ld1 Response: Blood pressure is lowered; IV Status: Infusion continued 09:44 Follow up: BP 176 / 105; Pulse 115 bpm; Resp 26 bpm; Pulse Ox 98% 2 lpm Nasal Cannula; ld1 Response: Blood pressure is lowered; IV Status: Infusion continued 10:14 Follow up: BP 194 / 115; Pulse 115 bpm; Resp 25 bpm; Pulse Ox 97% 2 lpm Nasal Cannula; ld1 Response: Blood pressure is elevated; RASS: Alert and Calm (0); Rate change 7.5 mg/hr; IV Status: Infusion continued 10:40 Follow up: BP 165 / 85; Pulse 116 bpm; Resp 27 bpm; Pulse Ox 97% 2 lpm Nasal Cannula; ld1 Response: Blood pressure is lowered; IV Status: Infusion continued 12:35 Follow up: BP 181 / 123; Pulse 121 bpm; Resp 23 bpm; Pulse Ox 96% Mask: BiPAP; IV ld1 Status: Infusion continued 12:35 Follow up: Response: Blood pressure is elevated; Rate change 10 mg/hr ld1 13:14 Follow up: BP 152 / 78; Pulse 85 bpm; Resp 25 bpm; Pulse Ox 99% Mask: BiPAP; Response: ld1 No adverse reaction; Blood pressure is lowered; IV Status: Infusion continued 13:38 Not Given (Patient Refused): Zosyn (piperacillin-tazobactam) 3.375 grams IVPB once over bp 60 mins; (mix in NS 100 mL) 13:39 Not Given (Patient Refused): Pepcid (famotidine) 20 mg IVP once; dilute with 10 mL 0.9% bp NaCl; give over 2 minutes Disposition Summary: 01/15/23 11:19 Hospitalization Ordered Hospitalization Status: Inpatient Admission ciera Provider: Will Gallego ciera Condition: Fair ciera Problem: new ciera Symptoms: have improved ciera Bed/Room Type: Standard ciera Location: [facility] ER HOLD(01/15/23 12:48) ja1 Room Assignment: ERHOLD-(01/15/23 12:48) ja1 Diagnosis - Hypertensive emergency ciera - Dyspnea ciera - Anemia in chronic kidney disease ciera - End stage renal disease - on hd t,, sat ciera Forms: - Medication Reconciliation Form ciera - SBAR form ciera Signatures: Dispatcher [employer] Keo Barros MD MD cha Smirch, Shelby, RN RN ss Roberto Hernandez RN RN ja1 Ruperto Rubio RN RN Tessy Zamudio RN ld1 Corrections: (The following items were deleted from the chart) :48 11:19 Intensive Care Unit [place] [id number]: ciera walker
--- NOTE | 2023-01-15 12:12 | RAD REPORT ---
EXAM DESCRIPTION: US - Abdomen Exam Limited - 01/15/2023 11:52 am CLINICAL HISTORY: Abdominal pain. COMPARISON: None. FINDINGS: A gallstone is not seen. Gallbladder wall measures 4 millimeters. The biliary tree is normal caliber. IMPRESSION: Mild gallbladder wall thickening. This may be secondary to hypoalbuminemia or chronic ch olecystitis.
--- NOTE | 2023-01-15 12:20 | RAD REPORT ---
EXAM DESCRIPTION: CT - Chest Abd Pelvis Wo Con - 01/15/2023 11:43 am CLINICAL HISTORY: Shortness of breath. Abdominal pain COMPARISON: January 08, 2023 CT abdomen TECHNIQUE: Computed axial tomography of the chest, abdomen and pelvis was obtained. Oral contrast wa s given. IV contrast was not requested. All CT scans are performed using dose optimization technique as appropriate and may include automated exposure control or mA/KV adjustment according to patient size. FINDINGS: The evaluation of mediastinum, bhaskar, vessels and solid organs is limited secondary to the lack of IV contrast administration Mild scattered ground-glass opacities probably right lung No mediastinal or hilar lymphadenopathy is seen. Small left and tiny right pleural effusions. Pancreatic stent has partially migrated into the duodenum. About half of the stent still lies within the pancreas. 2.3 centimeter pancreatic pseudocyst slightly diminished in size. Mild peripancreatic s tranding. Liver, spleen, adrenals and kidneys grossly normal. No evidence of diverticulitis. Stable sclerotic lumbar vertebra lesion. IMPRESSION: Pancreatic stent has migrated more into the duodenum. About half of the stent still lies within the pancreatic duct. 2.3 centimeter pancreatic pseudocyst slightly diminished in size Mild peripancreatic stranding. Mild prominently right lung ground-glass opacities indicative of a mild alveolitis
[2023-01-15] MEDS ORDERED: HYDROCODONE/APAP 10/325 TAB PO PRN (12:57)
[2023-01-15] MEDS ORDERED: ACETAMINOPHEN 325 MG TABLET PO PRN (12:58)
[2023-01-15] MEDS ORDERED: ONDANSETRON 4 MG/2 ML VIAL IV PRN (13:02)
[2023-01-15] MEDS ORDERED: LABETALOL 20 MG/4ML SYRINGE IV PRN (13:05)
[2023-01-15 14:18] VITALS: TEMP 97.9
[2023-01-15 14:55] VITALS: BP 152/78; O2SAT 99
--- NOTE | 2023-01-15 16:19 | P.HP ---
Certification for Inpatient Patient admitted to: Inpatient With expected LOS: >2 Midnights Patient will require the following post-hospital care: None Practitioner: I am a practitioner with admitting privileges, knowledge of patient current condition, hospital course, and medical plan of care. Services: Services provided to patient in accordance with Admission requirements found in Title 42 Section 412.3 of the Code of Federal Regulations Patient History Date of Service: 01/15/23 Reason for admission: Generalized edema and shortness of breath History of Present Illness: Patient is a 37-year-old male with a past medical history significant for ESRD, hypertension, nicotine dependence who presents with complaint of shortness of breath and generalized edema onset yesterday. Patient reported that he is on TTHSAT dialysis schedule but indicated that his last dialysis was on Sunday. Patient also reported generalized abdominal pain rated as 5/10 in severity and described as aching in quality. Patient reported associated signs and symptoms of cough, headache, dizziness and chest tightness. Patient reported that edema is worse on the lower extremities. Patient denies any other signs and symptoms. Symptoms are aggravated or relieved by nothing. Patient decided to present to the hospital due to worsening symptoms. Allergies No Known Allergies Allergy (Verified 04/03/22 21:58) Home Medications: NK [No Home Meds] 04/03/22 - Past Medical/Surgical History Diabetic: No -: HTN -: drug abuse Past Surgical History: Reviewed- Non-Contributory Psychosocial/ Personal History: Patient lives at home with his brother. - Family History Father Notes: brother states there are heart problems and kidney problems in their family - Social History Smoking Status: Current every day smoker Counseled patient to stop smoking for: less than 10 minutes Smoking therapy provided: Yes Patient receptive to therapy: Yes Alcohol use: No CD- Drugs: Yes Caffeine use: No Place of Residence: Home Review of Systems General: Unremarkable Eyes: Unremarkable ENT: Unremarkable Respiratory: Cough, Shortness of Breath Cardiovascular: Other (Chest tighness ) Gastrointestinal: Abdominal Pain Genitourinary: Unremarkable Musculoskeletal: Pedal edema, Other (Generalized edema) Integumentary: Unremarkable Neurological: Other (headache, dizziness) Lymphatics: Unremarkable Physical Examination - Vital Signs Temperature: 97.9 F Blood Pressure: 152/78 Pulse: 85 Respirations: 25 - Physical Exam General: Alert, In no apparent distress, Oriented x3, Cooperative HEENT: Atraumatic, PERRLA, Mucous membr. moist/pink, EOMI, Sclerae nonicteric Neck: Supple, 2+ carotid pulse no bruit, No LAD, Without JVD or thyroid abnormality Respiratory: Clear to auscultation bilaterally, Normal air movement Cardiovascular: Regular rate/rhythm, Normal S1 S2, Edema Capillary refill: <2 Seconds Gastrointestinal: Normal bowel sounds, Soft and benign, No tenderness Musculoskeletal: No clubbing, No tenderness, Swelling Integumentary: No rashes, No breakdown, No significant lesion Neurological: Normal gait, Normal speech, Normal strength at 5/5 x4 extr, Normal tone, Normal affect Lymphatics: No axilla or inguinal lymphadenopathy - Studies Laboratory Data (last 24 hrs) 01/15/23 08:12: PT 11.4, INR 1.04 01/15/23 08:12: WBC 13.20 H, Hgb 9.4 L, Hct 28.9 L, Plt Count 162 01/15/23 08:12: Sodium 135 L, Potassium 4.0, BUN 39 H, Creatinine 10.60 H*, Glucose 111 H, Magnesium 2.6 H, Total Bilirubin 0.9, AST 154 H, ALT 1248 H*, Alkaline Phosphatase 134 H, Lipase 721 H Assessment and Plan - Plan --Volume overload. Nephrology consulted. Patient's last dialysis was on Sunday per patient report. Patient currently on BiPAP therapy due to difficulty breathing and hypoxia. Will await further recommendation from tapper supervisor. -- ESRD. Dialysis schedule per tapper supervisor. --Hypertensive urgency. Patient placed on Cardene drip in the ER. We will continue to monitor blood pressure levels. --Nicotine dependence. Patient counseled on tobacco cessation. Patient placed on nicotine patch. --Elevated LFTs. Elevated liver functions noted on previous admission. Patient to follow-up with an outpatient GI MD. Continue supportive care. --Anemia of chronic disease. H&H stable. We will continue to monitor hemoglobin and transfuse if less than 7.0. -- Abdominal pain. Patient has history of cholecystitis and acute pancreatitis. Patient was seen in the last admission for cholecystitis by his surgeon. Patient was supposed to follow-up with an outpatient surgeon and rn family practice for management of his disease processes. Continue supportive care. --DVT prophylaxis with SCDs. Discharge Plan: Home Plan to discharge in: Greater than 2 days - Advance Directives Does patient have a Living Will: No Does patient have a Durable POA for Healthcare: No - Code Status/Comfort Care Code Status Assessed: Yes Physician Review: Patient Assessed, Agree with Above Assessment and Plan Critical Care: No
--- NOTE | 2023-01-15 16:37 | EKG ---
Test Date: 2023-01-15 Test Time: 10:11:40 Manager Storage: LISA MEASUREMENT RESULTS: Intervals: Rate: 121 ND: 128 QRSD: 84 QT: 350 QTc: 497 [place]: P: 86 ND: 128 QRS: 70 T: 92 INTERPRETIVE STATEMENTS: Sinus tachycardia Nonspecific ST and T wave abnormality Abnormal ECG Compared to ECG 01/08/2023 19:37:21 ST (T wave) deviation now present Left ventricular hypertrophy no longer present Myocardial infarct finding no longer present Electronically Signed On 01-15-23 16:36:16 RIPSAW GRADER by Juan Mathis
[2023-01-15] MEDS ORDERED: HEPARIN 5000 UNIT/ML 1 ML VIAL SQ SCH (21:00)
[2023-01-16] MEDS ORDERED: ASPIRIN 81 MG CHEWABLE TABLET PO SCH (09:00)
== END 2023-01-15 13:53 | disposition left against medical advice (07) | DRG 640 ==
LOC: ER 07:12 → ERHOLD 12:53
PROVIDERS: ADMIT Hospitalist; ATTEND Hospitalist
PROC: 5A09357 Assistance with Respiratory Ventilation, Less than 24 Consecutive Hours, Continuous Positive Airway Pressure (ICD-10-PCS; principal; 2023-01-15)
DX: E87.70 Fluid overload, unspecified (principal); N18.6 End stage renal disease; I12.0 Hypertensive chronic kidney disease with stage 5 chronic kidney disease or end stage renal disease; Z53.29 Procedure and treatment not carried out because of patient's decision for other reasons; Z99.2 Dependence on renal dialysis; I16.0 Hypertensive urgency; R09.02 Hypoxemia; K81.9 Cholecystitis, unspecified; D63.1 Anemia in chronic kidney disease; R05.9 Cough, unspecified; R79.89 Other specified abnormal findings of blood chemistry; F17.210 Nicotine dependence, cigarettes, uncomplicated; Z71.6 Tobacco abuse counseling; Z20.822 Contact with and (suspected) exposure to COVID-19
CPT/HCPCS: 0240U; 36415; 71045; 71250; 74176; 76705; 80048; 80076; 81003; 83605; 83690; 83735; 83880; 84484; 85025; 85610; 87040; 93005; 94660; 96365; 99284

== ENCOUNTER 2023-01-15 16:53 | Emergency (ER) | payer OTHER ==
--- NOTE | 2023-01-15 17:38 | RAD REPORT ---
EXAM DESCRIPTION: RAD - Chest Single View - 01/15/2023 5:16 pm CLINICAL HISTORY: Abdominal distention Chest pain. COMPARISON: Chest Single View dated 01/15/2023; Chest Single View dated 01/08/2023; Chest Single View dated 12/03/2022; Chest Single View dated 11/16/2022; Chest Abd Pelvis Wo Con dated 01/15/2023 FINDINGS: Portable technique limits examination quality. Mild interstitial pulmonary edema. The heart is mildly prominent. No displaced fractures. IMPRESSION: Mild volume overload may be present.
[2023-01-15] MEDS ORDERED: FUROSEMIDE 100 MG/10 ML VIAL IV ONE (17:45)
[2023-01-15] MEDS ORDERED: HYDRALAZINE HCL 25 MG TABLET ONE (17:46)
[2023-01-15] MEDS ORDERED: FENTANYL CITR 100 MCG/2 ML ONE ×2 (17:46→22:01)
[2023-01-15] MEDS ORDERED: HYDRALAZINE HCL 20 MG/ML VIAL ONE (17:46)
[2023-01-15] MEDS ORDERED: ONDANSETRON 4 MG/2 ML VIAL ONE (17:47)
[2023-01-15] MEDS ORDERED: AMLODIPINE 10 MG TAB ONE (17:47)
[2023-01-15] MEDS ORDERED: FAMOTIDINE 20 MG/2 ML VIAL IV ONE (17:47)
[2023-01-15] MEDS ORDERED: LABETALOL HCL 100 MG TAB ONE (18:15)
[2023-01-15] MEDS ORDERED: LABETALOL 20 MG/4ML SYRINGE IV ONE ×2 (18:15→19:34)
--- NOTE | 2023-01-15 18:19 | EDPHYS ---
Physician Documentation [facility] Name: Justino Barr Age: 37 yrs Sex: Male : 1985 Arrival Date: 01/15/2023 Time: 16:55 Bed 3 Private MD: STEPHEN Physician Keo John HPI: 01/15 18:04 This 37 yrs old Male presents to ER via Ambulatory with complaints of Problem ciera with Stent. 18:04 The patient has shortness of breath at rest, with light activity. Onset: The ciera symptoms/episode began/occurred 2 day(s) ago. Duration: The symptoms are continuous, and are steadily getting worse. The patient's shortness of breath has no apparent modifying factors. The patient presents with abdominal pain in the upper abdomen, abdominal distention in the upper abdomen. Onset: The symptoms/episode began/occurred 2 day(s) ago. The patient has elevated blood pressure and discovered this at home. Modifying factors: The symptoms are aggravated by activity, The symptoms are alleviated by remaining still. Historical: - Allergies: 17:32 No Known Allergies; ss - Home Meds: 17:32 hydralazine 50 mg Oral tab 1 tab three times a day [Active]; ss - PMHx: 17:32 HD T Sat; Hypertensive disorder; ss - PSHx: 17:32 pancreatic stent; ss - Immunization history:: Adult Immunizations not up to date. - Social history:: Smoking status: Patient reports the use of cigarette tobacco products. - Family history:: not pertinent. - Hospitalizations: : No recent hospitalization is reported. ROS: 18:04 Constitutional: Negative for fever, chills, and weight loss, Eyes: Negative for injury, ciera pain, redness, and discharge, ENT: Negative for injury, pain, and discharge, Neck: Negative for injury, pain, and swelling, Cardiovascular: Negative for chest pain, palpitations, and edema, Back: Negative for injury and pain, : Negative for injury, bleeding, discharge, and swelling, MS/Extremity: Negative for injury and deformity, Skin: Negative for injury, rash, and discoloration, Neuro: Negative for headache, weakness, numbness, tingling, and seizure, Psych: Negative for depression, anxiety, suicide ideation, homicidal ideation, and hallucinations, Allergy/Immunology: Negative for hives, rash, and allergies, Endocrine: Negative for neck swelling, polydipsia, polyuria, polyphagia, and marked weight changes, Hematologic/Lymphatic: Negative for swollen nodes, abnormal bleeding, and unusual bruising. 18:04 Cardiovascular: Positive for orthopnea, palpitations. 18:04 Respiratory: Positive for cough, dyspnea on exertion, orthopnea, shortness of breath, at rest. 18:04 Abdomen/GI: Positive for abdominal pain, nausea and vomiting, of the epigastric area, right upper quadrant and left upper quadrant. Exam: 18:04 Constitutional: This is a well developed, well nourished patient who is awake, alert, ciera and in no acute distress. Head/Face: Normocephalic, atraumatic. Eyes: Pupils equal round and reactive to light, extra-ocular motions intact. Lids and lashes normal. Conjunctiva and sclera are non-icteric and not injected. Cornea within normal limits. Periorbital areas with no swelling, redness, or edema. ENT: Nares patent. No nasal discharge, no septal abnormalities noted. Tympanic membranes are normal and external auditory canals are clear. Oropharynx with no redness, swelling, or masses, exudates, or evidence of obstruction, uvula midline. Mucous membranes moist. Neck: Trachea midline, no thyromegaly or masses palpated, and no cervical lymphadenopathy. Supple, full range of motion without nuchal rigidity, or vertebral point tenderness. No Meningismus. Chest/axilla: Normal chest wall appearance and motion. Nontender with no deformity. No lesions are appreciated. Abdomen/GI: Soft, non-tender, with normal bowel sounds. No distension or tympany. No guarding or rebound. No evidence of tenderness throughout. Back: No spinal tenderness. No costovertebral tenderness. Full range of motion. Male : Normal genitalia with no discharge or lesions. Skin: Warm, dry with normal turgor. Normal color with no rashes, no lesions, and no evidence of cellulitis. MS/ Extremity: Pulses equal, no cyanosis. Neurovascular intact. Full, normal range of motion. Neuro: Awake and alert, GCS 15, oriented to person, place, time, and situation. Cranial nerves II-XII grossly intact. Motor strength 5/5 in all extremities. Sensory grossly intact. Cerebellar exam normal. Normal gait. Psych: Awake, alert, with orientation to person, place and time. Behavior, mood, and affect are within normal limits. 18:04 Cardiovascular: Rate: tachycardic, actual rate is 107 bpm, Rhythm: regular, Pulses: Pulses are 4+ in bilateral radial, brachial, femoral, popliteal, posterior tibial and and dorsalis pedis arteries.. Heart sounds: normal, Edema: 1+ edema to level of left midcalf and right midcalf, JVD: is noted bilaterally, to 2 cm. 18:04 ECG was reviewed by the Attending Physician. Vital Signs: 17:31 Pulse 111; Resp 24; Temp 98.5(O); Pulse Ox 99% on R/A; Weight 84.82 kg; Height 5 ft. 11 ss in. (180.34 cm); 17:32 BP 213 / 136; ss 17:33 BP 213 / 136; Pulse 105; Resp 26; Pulse Ox 100% on R/A; ld1 17:37 BP 205 / 133; Pulse 105; Resp 23; Pulse Ox 100% on R/A; ss 18:05 BP 194 / 124; Pulse 107; Resp 20; Pulse Ox 98% on R/A; Pain 0/10; ld1 18:17 BP 183 / 112; Pulse 94; Resp 14; Pulse Ox 98% on R/A; ld1 18:27 BP 183 / 112; Pulse 94; Resp 20; Temp 98.6(O); Pulse Ox 98% on R/A; Pain 0/10; ld1 20:00 BP 154 / 97; Pulse 90; Resp 16; Pulse Ox 91% on R/A; kl 20:28 BP 154 / 97; Pulse 89 LA; kl 17:31 Body Mass Index 26.08 (84.82 kg, 180.34 cm) MDM: 16:58 Patient medically screened. ciera 18:11 Differential diagnosis: CHF exacerbation, hypertensive crisis, Malignant HTN, ciera Myocardial Infarction pulmonary edema, reactive airway disease, Unstable Angina cholecystitis, Cholelithiasis, diverticulitis, gastritis, gastroesophageal reflux disease, Hepatitis, non-specific abd pain, pancreatitis, Peptic Ulcer Disease, Ureterolithiasis, urinary tract infection. Antibiotic administration: zosyn. Immunization status:. Data reviewed: vital signs, nurses notes, lab test result(s), EKG, radiologic studies, CT scan, plain films. Consideration of Admission/Observation Patient was admitted/placed on observation. Escalation of care including admission/observation considered. Management of patient was discussed with the following: Hospitalist: bernard. I considered the following discharge prescriptions or medication management in the emergency department Medications were administered in the Emergency Department. See MAR. Independent interpretation of the following test(s) in the Emergency Department CT Scan: My interpretation is cbd dilated, stent disloged. Historians other than the Patient: Parent: mom. 01/15 16:59 Order name: Basic Metabolic Panel [facility] 01/15 16:59 Order name: CBC with Diff [facility] 01/15 16:59 Order name: LFT's [facility] 01/15 16:59 Order name: Magnesium [facility] 01/15 16:59 Order name: NT PRO-BNP [facility] 01/15 16:59 Order name: PT-INR [facility] 01/15 16:59 Order name: Troponin HS [facility] 01/15 16:59 Order name: Lipase [facility] 01/15 18:34 Order name: Protime (+INR); Complete Time: 19:37 EDAR 01/15 18:37 Order name: Basic Metabolic Panel; Complete Time: 19:37 EDAR 01/15 18:37 Order name: Liver (Hepatic) Function; Complete Time: 19:37 EDAR 01/15 18:37 Order name: Troponin High Sensitivity; Complete Time: 19:37 EDAR 01/15 18:37 Order name: Magnesium; Complete Time: 19:37 EDAR 01/15 18:37 Order name: Lipase; Complete Time: 19:37 EDAR 01/15 16:59 Order name: XRAY Chest (1 view) [facility] 01/15 17:39 Order name: RAD; Complete Time: 18:02 EDAR 01/15 18:38 Order name: CBC with Automated Diff; Complete Time: 19:37 EDAR 01/15 18:54 Order name: NT PRO-BNP; Complete Time: 19:37 EDAR 01/15 16:59 Order name: EKG; Complete Time: 16:59 [facility] 01/15 16:59 Order name: Cardiac monitoring; Complete Time: 18:05 [facility] 01/15 16:59 Order name: EKG - Nurse/Tech; Complete Time: 18:05 [facility] 01/15 16:59 Order name: IV Saline Lock; Complete Time: 18:04 [facility] 01/15 16:59 Order name: Labs collected and sent; Complete Time: 18:04 [facility] 01/15 16:59 Order name: O2 Per Protocol; Complete Time: 17:35 [facility] 01/15 16:59 Order name: O2 Sat Monitoring; Complete Time: 17:35 [facility] EC: Rate is 102 beats/min. Rhythm is regular. QRS [place] is Normal. QRS interval is normal. ciera QT interval is normal. No Q waves. T waves are Normal. No ST changes noted. Clinical impression: Sinus tachycardia. Administered Medications: 18:04 Drug: Pepcid (famotidine) 20 mg Route: IVP; Site: left forearm; ld1 18:14 Follow up: Response: No adverse reaction ld1 18:04 Drug: fentaNYL (PF) 50 mcg Route: IVP; Site: left forearm; ld1 18:14 Follow up: Response: No adverse reaction ld1 18:04 Drug: Zofran (Ondansetron) 4 mg Route: IVP; Site: left forearm; ld1 18:14 Follow up: Response: No adverse reaction ld1 18:04 Drug: HydrALAZINE 50 mg Route: PO; ld1 18:16 Follow up: Response: No adverse reaction; Blood pressure is lowered ld1 18:04 Drug: Lasix (furosemide) 100 mg Route: IVP; Site: left forearm; ld1 18:14 Follow up: Response: No adverse reaction ld1 18:04 Drug: hydrALAZINE 20 mg Route: IVP; Site: left forearm; ld1 18:16 Follow up: Response: No adverse reaction; Blood pressure is lowered ld1 18:04 Drug: Norvasc (amlodipine) 10 mg Route: PO; ld1 18:16 Follow up: Response: No adverse reaction; Blood pressure is lowered ld1 18:14 Drug: Labetalol 100 mg Route: PO; ld1 18:29 Follow up: Response: No adverse reaction ld1 18:14 Drug: Labetalol 10 mg Route: IV; Rate: per protocol; Site: left forearm; ld1 18:29 Follow up: Response: No adverse reaction ld1 19:33 Drug: Labetalol 20 mg {Note: BP 175/118.} Route: IV; Rate: per protocol; Site: left kl forearm; 20:28 Follow up: BP 154 / 97; Pulse 89 bpm Left Arm kl 20:27 Not Given (Hemodynamic Parameters): hydrALAZINE 20 mg IVP once kl 21:54 Not Given (Duplicate Order): Labetalol 40 mg IV at per protocol once over 2 mins jb4 22:00 Drug: fentaNYL (PF) 50 mcg Route: IVP; Site: left forearm; jb4 Disposition Summary: 01/15/23 18:19 Transfer Ordered Transfer Location: [facility] ciera Reason: Higher level of care ciera Condition: Fair ciera Problem: new ciera Symptoms: have improved ciera Accepting Physician: to [facility](01/15/23 22:00) mw2 Diagnosis - Disease of biliary tract, unspecified ciera - Abnormal findings on diagnostic imaging of liver and biliary tract ciera - Biliary acute pancreatitis - CBD STENT , DISLODGED , PARTIALLY ciera - Essential (primary) hypertension ciera - End stage renal disease - ON T,, SUN ciera - Systolic (congestive) heart failure - VOLUME OVERLOAD ciera - Anemia, unspecified ciera Forms: - Medication Reconciliation Form ciera - SBAR form ciera Signatures: Dispatcher [employer] EDLanette Lea RN RN kl Anderson, Corey, MD MD cha Smirch, Shelby, RN RN ss Bryson, James, RN RN jb4 Coleen Orellana mw2 Tessy Paiz RN RN ld1 Zac Roland MD MD rt Corrections: (The following items were deleted from the chart) 19:38 18:19 to [facility] 22:00 19:38 to [facility] mw2
--- NOTE | 2023-01-15 18:19 | ER ---
Nurse's Notes [facility] Name: Justino Barr Age: 37 yrs Sex: Male : 1985 Arrival Date: 01/15/2023 Time: 16:55 Bed 3 Private MD: Diagnosis: Disease of biliary tract, unspecified;Abnormal findings on diagnostic imaging of liver and biliary tract;Biliary acute pancreatitis-CBD STENT , DISLODGED , PARTIALLY;Essential (primary) hypertension;End stage renal disease-ON T,TH, SAT;Systolic (congestive) heart failure-VOLUME OVERLOAD;Anemia, unspecified Presentation: 01/15 17:31 Chief complaint: Patient states: Left AMA today shortly after being admitted. Pt c/o ss abd pain and shortness of breath that has been ongoing since last night. Coronavirus screen: Client denies travel out of the [place] in the last 14 days. Ebola Screen: Patient denies exposure to infectious person. Patient denies travel to an Ebola-affected area in the 21 days before illness onset. Initial Sepsis Screen: Does the patient meet any 2 criteria? No. Patient's initial sepsis screen is negative. Does the patient have a suspected source of infection? No. Patient's initial sepsis screen is negative. Risk Assessment: Do you want to hurt yourself or someone else? Patient reports no desire to harm self or others. Onset of symptoms was January 14, 2023. 17:31 Method Of Arrival: Ambulatory ss 17:31 Acuity: VAHID 2 ss Historical: - Allergies: 17:32 No Known Allergies; ss - Home Meds: 17:32 hydralazine 50 mg Oral tab 1 tab three times a day [Active]; ss - PMHx: 17:32 HD T TH Sat; Hypertensive disorder; ss - PSHx: 17:32 pancreatic stent; ss - Immunization history:: Adult Immunizations not up to date. - Social history:: Smoking status: Patient reports the use of cigarette tobacco products. - Family history:: not pertinent. - Hospitalizations: : No recent hospitalization is reported. Screenin:[facility] ED Fall Risk Assessment (Adult) History of falling in the last 3 months, ld1 including since admission No falls in past 3 months (0 pts). Abuse screen: Denies threats or abuse. Denies injuries from another. Nutritional screening: No deficits noted. Tuberculosis screening: No symptoms or risk factors identified. Assessment: 18:05 General: Appears in no apparent distress. comfortable, Behavior is calm, cooperative, ld1 appropriate for age. Pain: Denies pain. Neuro: Level of Consciousness is awake, alert, obeys commands, Oriented to person, place, time, situation. Cardiovascular: Capillary refill < 3 seconds Patient's skin is warm and dry. Rhythm is sinus tachycardia. Respiratory: Airway is patent Respiratory effort is even, labored. Respiratory: Reports shortness of breath at rest on exertion. GI: Abdomen is flat, non-distended. : No signs and/or symptoms were reported regarding the genitourinary system. EENT: No signs and/or symptoms were reported regarding the EENT system. Derm: No signs and/or symptoms reported regarding the dermatologic system. Musculoskeletal: No signs and/or symptoms reported regarding the musculoskeletal system. 18:27 Reassessment: Patient appears in no apparent distress at this time. Patient and/or ld1 family updated on plan of care and expected duration. Pain level reassessed. Pt resting in bed with mother at bedside. RR 19 Patient denies pain at this time. 19:30 Reassessment: Patient appears in no apparent distress at this time. Patient and/or kl family updated on plan of care and expected duration. Pain level reassessed. Patient denies pain at this time. Patient states symptoms have improved. 21:21 Reassessment: report called to Rosa MAX at receiving facility. bb Vital Signs: 17:31 Pulse 111; Resp 24; Temp 98.5(O); Pulse Ox 99% on R/A; Weight 84.82 kg; Height 5 ft. 11 ss in. (180.34 cm); 17:32 BP 213 / 136; ss 17:33 BP 213 / 136; Pulse 105; Resp 26; Pulse Ox 100% on R/A; ld1 17:37 BP 205 / 133; Pulse 105; Resp 23; Pulse Ox 100% on R/A; ss 18:05 BP 194 / 124; Pulse 107; Resp 20; Pulse Ox 98% on R/A; Pain 0/10; ld1 18:17 BP 183 / 112; Pulse 94; Resp 14; Pulse Ox 98% on R/A; ld1 18:27 BP 183 / 112; Pulse 94; Resp 20; Temp 98.6(O); Pulse Ox 98% on R/A; Pain 0/10; ld1 20:00 BP 154 / 97; Pulse 90; Resp 16; Pulse Ox 91% on R/A; kl 20:28 BP 154 / 97; Pulse 89 LA; kl 17:31 Body Mass Index 26.08 (84.82 kg, 180.34 cm) ED Course: 16:55 Patient arrived in ED. rg4 16:58 Keo John MD is Attending Physician. ciera 17:32 Triage completed. ss 17:32 Arm band placed on right wrist. ss 18:04 Tessy Paiz, MANSOOR is Primary Nurse. ld1 18:05 Patient has correct armband on for positive identification. Placed in gown. Bed in low ld1 position. Call light in reach. Side rails up X2. traffic monitor specialist on. Pulse ox on. NIBP on. Door closed. Noise minimized. Warm blanket given. 18:05 No provider procedures requiring assistance completed. Inserted saline lock: 20 gauge ld1 in left forearm, using aseptic technique. Blood collected. Administered Medications: 18:04 Drug: Pepcid (famotidine) 20 mg Route: IVP; Site: left forearm; ld1 18:14 Follow up: Response: No adverse reaction ld1 18:04 Drug: fentaNYL (PF) 50 mcg Route: IVP; Site: left forearm; ld1 18:14 Follow up: Response: No adverse reaction ld1 18:04 Drug: Zofran (Ondansetron) 4 mg Route: IVP; Site: left forearm; ld1 18:14 Follow up: Response: No adverse reaction ld1 18:04 Drug: HydrALAZINE 50 mg Route: PO; ld1 18:16 Follow up: Response: No adverse reaction; Blood pressure is lowered ld1 18:04 Drug: Lasix (furosemide) 100 mg Route: IVP; Site: left forearm; ld1 18:14 Follow up: Response: No adverse reaction ld1 18:04 Drug: hydrALAZINE 20 mg Route: IVP; Site: left forearm; ld1 18:16 Follow up: Response: No adverse reaction; Blood pressure is lowered ld1 18:04 Drug: Norvasc (amlodipine) 10 mg Route: PO; ld1 18:16 Follow up: Response: No adverse reaction; Blood pressure is lowered ld1 18:14 Drug: Labetalol 100 mg Route: PO; ld1 18:29 Follow up: Response: No adverse reaction ld1 18:14 Drug: Labetalol 10 mg Route: IV; Rate: per protocol; Site: left forearm; ld1 18:29 Follow up: Response: No adverse reaction ld1 19:33 Drug: Labetalol 20 mg {Note: BP 175/118.} Route: IV; Rate: per protocol; Site: left kl forearm; 20:28 Follow up: BP 154 / 97; Pulse 89 bpm Left Arm kl 20:27 Not Given (Hemodynamic Parameters): hydrALAZINE 20 mg IVP once 21:54 Not Given (Duplicate Order): Labetalol 40 mg IV at per protocol once over 2 mins [facility] 22:00 Drug: fentaNYL (PF) 50 mcg Route: IVP; Site: left forearm; jb4 Medication: 18:05 VIS not applicable for this client. ld1 Outcome: 18:19 ER care complete, transfer ordered by . [facility] 22:00 Patient left the ED. mw2 Signatures: Lanette Hi RN Keo Seymour MD MD cha Ballard, Brenda RN RN Juliet Correa RN RN ss Garcia, Rubi Kyrie Jain RN RN jb4 Coleen Orellana mw2 Tessy Paiz RN RN ld1
[2023-01-15 18:33] LABS: Albumin 3.2 g/dL (3.4-5.0); Bilirubin Direct 0.4 mg/dL (0-0.2); Bilirubin Total 1.1 mg/dL (0.2-1.0); Magnesium 2.4 mg/dL (1.6-2.4); Potassium 3.9 mmol/L (3.5-5.1); Protein, Total 7.1 g/dL (6.4-8.2)
[2023-01-15 18:34] LABS: Protime INR 1.1
[2023-01-15 18:37] LABS: Troponin High Sensitivity 73.4 pg/mL (<58.9)
[2023-01-15 18:38] LABS: Absolute Lymphocytes (CBC) 0.8 K/uL (0.7-4.9); Hematocrit 24.3 % (39.6-49.0); Lymphocytes % 7.8 % (15.3-44.8); MCV 89.8 fL (80-100); MPV 7.8 fL (7.6-11.3)
[2023-01-15 22:51] VITALS: TEMP 98.6
[2023-01-15 22:52] VITALS: BP 154/97; O2SAT 91
--- NOTE | 2023-01-16 16:19 | EKG ---
Test Date: 2023-01-15 Test Time: 10:13:03 Entry Analyst: LISA MEASUREMENT RESULTS: Intervals: Rate: 119 ND: 170 QRSD: 86 QT: 354 QTc: 497 [place]: P: 93 ND: 170 QRS: 75 T: 91 INTERPRETIVE STATEMENTS: Sinus tachycardia Septal infarct, age undetermined Abnormal ECG Compared to ECG 01/15/2023 10:11:40 Myocardial infarct finding now present ST (T wave) deviation no longer present Electronically Signed On 01-16-23 16:18:17 CATALYST CONCENTRATION OPERATOR by Juan Mathis
--- NOTE | 2023-01-17 15:25 | EKG ---
Test Date: 2023-01-15 Test Time: 17:45:43 County Director: LISA MEASUREMENT RESULTS: Intervals: Rate: 102 WI: 166 QRSD: 86 QT: 394 QTc: 513 [place]: P: 67 WI: 166 QRS: 78 T: 23 INTERPRETIVE STATEMENTS: Sinus tachycardia Septal infarct, age undetermined Abnormal ECG Compared to ECG 01/15/2023 10:13:03 No significant changes Electronically Signed On 01-17-23 15:21:09 STORE CLERK CHECKER by Juan Mathis
== END 2023-01-15 22:00 | disposition short-term general hospital (02) ==
LOC: ER 16:53
DX: I50.20 Unspecified systolic (congestive) heart failure (principal); K85.10 Biliary acute pancreatitis without necrosis or infection; D64.9 Anemia, unspecified; I13.2 Hypertensive heart and chronic kidney disease with heart failure and with stage 5 chronic kidney disease, or end stage renal disease; N18.6 End stage renal disease; Z99.2 Dependence on renal dialysis; R93.2 Abnormal findings on diagnostic imaging of liver and biliary tract; Z96.89 Presence of other specified functional implants; Z72.0 Tobacco use
CPT/HCPCS: 93005; 85025; 80048; 36415; 83735; 85610; 80076; 84484; 83690; 83880; 71045; 96375; 96374; 99284; J0360; J3010 ×2; J2405

== ENCOUNTER 2023-04-17 07:08 | Inpatient (IN) | payer OTHER ==
[2023-04-17] MEDS ORDERED: HYDRALAZINE HCL 20 MG/ML VIAL ONE (07:26)
[2023-04-17 07:27] LABS: Absolute Lymphocytes (CBC) 1.7 K/uL (0.7-4.9); Hematocrit 38.2 % (39.6-49.0); Lymphocytes % 17.2 % (15.3-44.8); MCV 92.4 fL (80-100); MPV 7.1 fL (7.6-11.3); RBC Red Blood Cell Count 4.14 M/uL (4.33-5.43)
[2023-04-17] MEDS ORDERED: HYDRALAZINE HCL 25 MG TABLET ONE ×2 (07:27→08:20)
[2023-04-17] MEDS ORDERED: LABETALOL HCL 100 MG TAB ONE (07:27)
[2023-04-17] MEDS ORDERED: LABETALOL 20 MG/4ML SYRINGE IV ONE ×2 (07:27→09:02)
[2023-04-17 07:34] LABS: Protime INR 0.91
[2023-04-17] MEDS ORDERED: FENTANYL CITR 100 MCG/2 ML ONE (07:44)
[2023-04-17] MEDS ORDERED: ONDANSETRON 4 MG/2 ML VIAL ONE (07:44)
[2023-04-17 08:00] LABS: Albumin 3.5 g/dL (3.4-5.0); Bilirubin Direct 0.1 mg/dL (0-0.2); Bilirubin Indirect, Calculated 0.3 mg/dL (0.2-0.8); Bilirubin Total 0.4 mg/dL (0.2-1.0); Potassium 4.6 mEq/L (3.5-5.1); Protein, Total 7.2 g/dL (6.4-8.2)
[2023-04-17 08:01] LABS: Troponin High Sensitivity 130.2 pg/mL (<58.9)
--- NOTE | 2023-04-17 08:02 | EDPHYS ---
Physician Documentation [facility] Name: Justino Barr Age: 37 yrs Sex: Male : 1985 Arrival Date: 04/17/2023 Time: 07:08 Bed 8 Private MD: ED Physician Keo John HPI: 04/17 07:54 This 37 yrs old Male presents to ER via EMS with complaints of High Blood ciera Pressure. 07:54 The patient has elevated blood pressure and discovered this at home, at hospital. ciera Onset: The symptoms/episode began/occurred today, yesterday. Modifying factors: The symptoms are aggravated by activity, The symptoms are alleviated by remaining still. Associated signs and symptoms: The patient has no apparent associated signs or symptoms. Severity of symptoms: At its worst the blood pressure was moderate, in the emergency department the blood pressure is unchanged. The patient has experienced similar episodes in the past, several times. Historical: - Allergies: 07:12 No Known Allergies; ll1 - PMHx: 07:12 HD T Sat; Hypertensive disorder; ll1 - PSHx: 07:12 pancreatic stent; ll1 - Immunization history:: Adult Immunizations up to date, Client reports having NOT received the Covid vaccine. - Social history:: Smoking status: Patient reports the use of cigarette tobacco products, smokes one-half pack cigarettes per day. ROS: 07:55 Constitutional: Negative for fever, chills, and weight loss, Eyes: Negative for injury, ciera pain, redness, and discharge, ENT: Negative for injury, pain, and discharge, Neck: Negative for injury, pain, and swelling, Cardiovascular: Negative for chest pain, palpitations, and edema, Abdomen/GI: Negative for abdominal pain, nausea, vomiting, diarrhea, and constipation, Back: Negative for injury and pain, : Negative for injury, bleeding, discharge, and swelling, MS/Extremity: Negative for injury and deformity, Skin: Negative for injury, rash, and discoloration, Neuro: Negative for headache, weakness, numbness, tingling, and seizure, Psych: Negative for depression, anxiety, suicide ideation, homicidal ideation, and hallucinations, Allergy/Immunology: Negative for hives, rash, and allergies, Endocrine: Negative for neck swelling, polydipsia, polyuria, polyphagia, and marked weight changes, Hematologic/Lymphatic: Negative for swollen nodes, abnormal bleeding, and unusual bruising. 07:55 Respiratory: Positive for shortness of breath, at rest. Exam: 07:55 Constitutional: This is a well developed, well nourished patient who is awake, alert, ciera and in no acute distress. Head/Face: Normocephalic, atraumatic. Eyes: Pupils equal round and reactive to light, extra-ocular motions intact. Lids and lashes normal. Conjunctiva and sclera are non-icteric and not injected. Cornea within normal limits. Periorbital areas with no swelling, redness, or edema. ENT: Nares patent. No nasal discharge, no septal abnormalities noted. Tympanic membranes are normal and external auditory canals are clear. Oropharynx with no redness, swelling, or masses, exudates, or evidence of obstruction, uvula midline. Mucous membranes moist. Neck: Trachea midline, no thyromegaly or masses palpated, and no cervical lymphadenopathy. Supple, full range of motion without nuchal rigidity, or vertebral point tenderness. No Meningismus. Chest/axilla: Normal chest wall appearance and motion. Nontender with no deformity. No lesions are appreciated. Cardiovascular: Regular rate and rhythm with a normal S1 and S2. No gallops, murmurs, or rubs. Normal PMI, no JVD. No pulse deficits. Respiratory: Lungs have equal breath sounds bilaterally, clear to auscultation and percussion. No rales, rhonchi or wheezes noted. No increased work of breathing, no retractions or nasal flaring. Abdomen/GI: Soft, non-tender, with normal bowel sounds. No distension or tympany. No guarding or rebound. No evidence of tenderness throughout. Back: No spinal tenderness. No costovertebral tenderness. Full range of motion. Male : Normal genitalia with no discharge or lesions. Skin: Warm, dry with normal turgor. Normal color with no rashes, no lesions, and no evidence of cellulitis. MS/ Extremity: Pulses equal, no cyanosis. Neurovascular intact. Full, normal range of motion. Neuro: Awake and alert, GCS 15, oriented to person, place, time, and situation. Cranial nerves II-XII grossly intact. Motor strength 5/5 in all extremities. Sensory grossly intact. Cerebellar exam normal. Normal gait. Psych: Awake, alert, with orientation to person, place and time. Behavior, mood, and affect are within normal limits. 07:55 ECG was reviewed by the Attending Physician. Vital Signs: 07:10 BP 224 / 145; Pulse 92; Resp 18; Pulse Ox 99% ; Weight 81.65 kg; Height 5 ft. 11 in. ; ll1 Pain 7/10; 07:44 BP 213 / 142; Pulse 100; Resp 16; Temp 97.8; Pulse Ox 98% on R/A; bp 08:16 BP 174 / 122; Pulse 98; Resp 16; Pulse Ox 96% ; bp 08:47 BP 181 / 121; Pulse 95; Resp 16; Pulse Ox 97% ; bp 09:09 BP 152 / 103; Pulse 93; Pulse Ox 97% on R/A; ll1 10:04 BP 156 / 113; Pulse 99; Resp 16; Pulse Ox 95% ; bp 07:10 Body Mass Index 25.10 (81.65 kg, 180.34 cm) ll1 07:10 Pain Scale: Adult ll1 MDM: 07:10 Patient medically screened. [facility] 07:57 Differential diagnosis: hypertensive crisis, Malignant HTN. Data reviewed: vital signs, [facility] nurses notes, lab test result(s), EKG, radiologic studies, plain films. Consideration of Admission/Observation Patient was admitted/placed on observation. Escalation of care including admission/observation considered. I considered the following discharge prescriptions or medication management in the emergency department Medications were administered in the Emergency Department. See MAR. Test considered but Not performed: CT: no ct head. Care significantly affected by the following chronic conditions: Hypertension, Chronic Kidney Disease, on hd T,TH, SAT. 04/17 07:16 Order name: Basic Metabolic Panel; Complete Time: 08:04 [facility] 04/17 07:16 Order name: CBC with Diff 04/17 07:16 Order name: LFT's; Complete Time: 08:04 [facility] 04/17 07:16 Order name: Magnesium; Complete Time: 08:04 04/17 07:16 Order name: NT PRO-BNP; Complete Time: 08:04 04/17 07:16 Order name: PT-INR; Complete Time: 08:04 04/17 07:16 Order name: Troponin HS; Complete Time: 08:04 04/17 07:16 Order name: Urinalysis w/ reflexes 04/17 07:30 Order name: CBC Smear Scan [facility] 04/17 08:38 Order name: Troponin High Sensitivity [facility] 04/17 08:38 Order name: Troponin High Sensitivity [facility] 04/17 08:38 Order name: Troponin High Sensitivity [facility] 04/17 08:40 Order name: Magnesium [facility] 04/17 08:40 Order name: Phosphorus [facility] 04/17 08:41 Order name: T4 Free [facility] 04/17 08:41 Order name: Thyroid Stimulating Hormone [facility] 04/17 08:41 Order name: Urinalysis w/ reflexes [facility] 04/17 08:41 Order name: CBC with Automated Diff [facility] 04/17 08:41 Order name: CBC with Automated Diff [facility] 04/17 08:41 Order name: Comprehensive Metabolic Panel [facility] 04/17 08:42 Order name: Comprehensive Metabolic Panel [facility] 04/17 08:42 Order name: Lipid Profile [facility] 04/17 08:42 Order name: Lipid Profile [facility] 04/17 07:16 Order name: XRAY Chest (1 view) [facility] 04/17 07:22 Order name: CT Chest Abdomen Pelvis W/O Contrast [facility] 04/17 07:16 Order name: EKG; Complete Time: 07:17 [facility] 04/17 08:40 Order name: CONS Physician Consult [facility] 04/17 08:41 Order name: Renal [facility] 04/17 07:16 Order name: Cardiac monitoring; Complete Time: 07:25 [facility] 04/17 07:16 Order name: EKG - Nurse/Tech; Complete Time: 07:25 [facility] 04/17 07:16 Order name: IV Saline Lock; Complete Time: 07:18 [facility] 04/17 07:16 Order name: Labs collected and sent; Complete Time: 07:18 [facility] 04/17 07:16 Order name: O2 Per Protocol; Complete Time: 07:18 [facility] 04/17 07:16 Order name: O2 Sat Monitoring; Complete Time: 07:18 [facility] EC:55 Rate is 88 beats/min. Rhythm is regular. IL interval is normal. QRS interval is normal. [facility] QT interval is normal. No Q waves. T waves are Normal. No ST changes noted. Clinical impression: NSR w/ Non-specific ST/T Changes, LVH, and No evidence of ischemia. Administered Medications: 07:25 Drug: hydrALAZINE IVP 20 mg Route: IVP; Site: right wrist; bp 08:15 Follow up: Response: No adverse reaction bp 07:25 Drug: HydrALAZINE PO 25 mg Route: PO; bp 08:15 Follow up: Response: No adverse reaction bp 07:25 Drug: Labetalol IV 20 mg Route: IV; Rate: per protocol; Infused Over: 2 mins; Site: bp right wrist; 10:06 Follow up: IV Status: Completed infusion bp 07:25 Drug: Labetalol PO 100 mg Route: PO; bp 08:15 Follow up: Response: No adverse reaction bp 07:44 Drug: fentaNYL (PF) IVP 50 mcg Route: IVP; Site: right wrist; ll1 08:15 Follow up: Response: No adverse reaction bp 07:44 Drug: Ondansetron IVP 4 mg Route: IVP; Site: right wrist; ll1 08:15 Follow up: Response: No adverse reaction bp 08:15 Drug: HydrALAZINE PO 25 mg Route: PO; bp 08:15 Follow up: Response: No adverse reaction bp 08:59 Drug: Labetalol IV 20 mg Route: IV; Rate: per protocol; Infused Over: 2 mins; Site: bp right wrist; 10:06 Follow up: IV Status: Completed infusion bp Disposition Summary: 04/17/23 08:02 Hospitalization Ordered Hospitalization Status: Observation ciera [facility] ciera Condition: Fair ciera Problem: new ciera Symptoms: have improved ciera Bed/Room Type: Standard ciera Provider: Will Gallego(04/17/23 08:06) ciera Room Assignment: [facility](04/17/23 09:53) bd Diagnosis - Essential (primary) hypertension ciera - Hypertensive heart disease without heart failure ciera - End stage renal disease - ON HD ciera Forms: - Medication Reconciliation Form ciera - SBAR form ciera Signatures: Dispatcher [employer] EDAmara Layton Corey, MD MD cha Peltier, Brian RN RN bp Emily Hi RN RN ll1 Corrections: (The following items were deleted from the chart) 08:06 08:02 Moiz Quintana ciera ciera 09:53 08:02 ciera bd
--- NOTE | 2023-04-17 08:02 | ER ---
Nurse's Notes [facility] Name: Justino Barr Age: 37 yrs Sex: Male : 1985 Arrival Date: 04/17/2023 Time: 07:08 Bed 8 Private MD: Diagnosis: Essential (primary) hypertension;Hypertensive heart disease without heart failure;End stage renal disease-ON HD Presentation: 04/17 07:10 Chief complaint: Patient states: HTN at dialysis, so they sent him here. Abd. pain and ll1 nausea for a few days. No fever. Coronavirus screen: Vaccine status: Patient reports being unvaccinated. Client denies travel out of the [place] in the last 14 days. At this time, the client does not indicate any symptoms associated with coronavirus-19. Ebola Screen: Patient denies travel to an Ebola-affected area in the 21 days before illness onset. Initial Sepsis Screen: Does the patient meet any 2 criteria? No. Patient's initial sepsis screen is negative. Does the patient have a suspected source of infection? Yes: Acute abdominal pain. Risk Assessment: Do you want to hurt yourself or someone else? Patient reports no desire to harm self or others. Onset of symptoms was April 14, 2023. 07:10 Method Of Arrival: EMS ll1 07:10 Acuity: VAHID 3 ll1 07:11 Chief complaint: EMS states: 20 R wrist. BP 238/155. Given Zofran 4 mg IV. Did not have ll1 dialysis today, only had 1/2 session Sunday. Triage Assessment: 07:13 General: Appears uncomfortable, ill, Behavior is calm, cooperative, appropriate for ll1 age. Pain: Complains of pain in abdomen Pain currently is 7 out of 10 on a pain scale. Quality of pain is described as aching. Neuro: Reports high BP. GI: Reports lower abdominal pain, upper abdominal pain, cramping, nausea. Historical: - Allergies: 07:12 No Known Allergies; ll1 - PMHx: 07:12 HD T Sat; Hypertensive disorder; ll1 - PSHx: 07:12 pancreatic stent; ll1 - Immunization history:: Adult Immunizations up to date, Client reports having NOT received the Covid vaccine. - Social history:: Smoking status: Patient reports the use of cigarette tobacco products, smokes one-half pack cigarettes per day. Screenin:34 [facility] ED Fall Risk Assessment (Adult) Score/Fall Risk Level 0 - 2 = Low Risk ll1 Oriented to surroundings, Maintained a safe environment, Educated pt \T\ family on fall prevention, incl call for assistance when getting out of bed, Hourly rounding (assess needs \T\ fall precautionary measures) done. Abuse screen: Denies threats or abuse. Nutritional screening: No deficits noted. Tuberculosis screening: No symptoms or risk factors identified. Assessment: 07:15 General: SEE TRIAGE NOTE. bp 07:44 Reassessment: No changes from previously documented assessment. Patient and/or family ll1 updated on plan of care and expected duration. Pain level reassessed. Patient is alert, oriented x 3, equal unlabored respirations, skin warm/dry/pink. 08:16 Reassessment: ADMIT INITIATED. bp 09:10 Reassessment: No changes from previously documented assessment. Breakfast tray to BS. ll1 10:05 Reassessment: ADMIT COMPLETE FOR RM 208. bp Vital Signs: 07:10 BP 224 / 145; Pulse 92; Resp 18; Pulse Ox 99% ; Weight 81.65 kg; Height 5 ft. 11 in. ; ll1 Pain 7/10; 07:44 BP 213 / 142; Pulse 100; Resp 16; Temp 97.8; Pulse Ox 98% on R/A; bp 08:16 BP 174 / 122; Pulse 98; Resp 16; Pulse Ox 96% ; bp 08:47 BP 181 / 121; Pulse 95; Resp 16; Pulse Ox 97% ; bp 09:09 BP 152 / 103; Pulse 93; Pulse Ox 97% on R/A; ll1 10:04 BP 156 / 113; Pulse 99; Resp 16; Pulse Ox 95% ; bp 07:10 Body Mass Index 25.10 (81.65 kg, 180.34 cm) ll1 07:10 Pain Scale: Adult ll1 ED Course: 07:10 Patient arrived in ED. ll1 07:10 Keo John MD is Attending Physician. ciera 07:12 Triage completed. ll1 07:12 Arm band placed on Patient placed in an exam room, on a stretcher. ll1 07:12 Maintain EMS IV. Dressing intact. Good blood return noted. Site clean \T\ dry. Gauge \T\ ll 1 site: 20 G R wrist. 07:17 Emily Hi, RN is Primary Nurse. ll1 07:32 CT Chest Abdomen Pelvis W/O Contrast In Process Unspecified. EDMS 07:34 Patient has correct armband on for positive identification. Call light in reach. Side ll1 rails up X 1. Client placed on continuous cardiac and pulse oximetry monitoring. NIBP monitoring applied. poolroom table attendant on. 07:36 XRAY Chest (1 view) In Process Unspecified. EDMS 07:59 Moiz Quintana MD is Hospitalizing Provider. ciera 08:06 Will Gallego MD is Hospitalizing Provider. ciera 10:05 No provider procedures requiring assistance completed. Patient admitted, IV remains in bp place. Administered Medications: 07:25 Drug: hydrALAZINE IVP 20 mg Route: IVP; Site: right wrist; bp 08:15 Follow up: Response: No adverse reaction bp 07:25 Drug: HydrALAZINE PO 25 mg Route: PO; bp 08:15 Follow up: Response: No adverse reaction bp 07:25 Drug: Labetalol IV 20 mg Route: IV; Rate: per protocol; Infused Over: 2 mins; Site: bp right wrist; 10:06 Follow up: IV Status: Completed infusion bp 07:25 Drug: Labetalol PO 100 mg Route: PO; bp 08:15 Follow up: Response: No adverse reaction bp 07:44 Drug: fentaNYL (PF) IVP 50 mcg Route: IVP; Site: right wrist; ll1 08:15 Follow up: Response: No adverse reaction bp 07:44 Drug: Ondansetron IVP 4 mg Route: IVP; Site: right wrist; ll1 08:15 Follow up: Response: No adverse reaction bp 08:15 Drug: HydrALAZINE PO 25 mg Route: PO; bp 08:15 Follow up: Response: No adverse reaction bp 08:59 Drug: Labetalol IV 20 mg Route: IV; Rate: per protocol; Infused Over: 2 mins; Site: bp right wrist; 10:06 Follow up: IV Status: Completed infusion bp Medication: 07:34 VIS not applicable for this client. ll1 Outcome: 08:02 Decision to Hospitalize by Provider. ciera 10:05 Admitted to Med/surg accompanied by tech, via wheelchair, room 208, with chart, Report bp called to GRACIE MAX 10:05 Condition: stable 10:05 Instructed on the need for admit. 10:34 Patient left the ED. aa5 Signatures: Dispatcher [employer] EDKeo Sanchez MD MD cha Calderon, Audri RN RN aa5 Ruperto Rubio RN RN bp Emily Hi RN RN ll1 Corrections: (The following items were deleted from the chart) 08:16 07:44 BP 213 / 142; Pulse 100bpm; Pulse Ox 98% RA; ll1 bp
[2023-04-17 08:12] LABS: White Blood Cell Scan OK (OK)
[2023-04-17 08:13] LABS: Blood Morphology Comment NOT SEEN (NOT SEEN); Platelet Estimate ADEQ
--- NOTE | 2023-04-17 08:23 | RAD REPORT ---
EXAM DESCRIPTION: CT - Chest Abd Pelvis Wo Con - 04/17/2023 7:30 am CLINICAL HISTORY: Chest and abdomen pain. ABDOMINAL DISTENTION COMPARISON: Chest Abd Pelvis Wo Con dated 01/15/2023 TECHNIQUE: Limited noncontrast study was performed. All CT scans are performed using dose optimization technique as appropriate and may include automated exposure control or mA/KV adjustment according to patient size. FINDINGS: The lungs are clear.No pleural or pericardial effusion.No intrathoracic adenopathy. The liver, spleen, pancreas, adrenal glands and kidneys are within normal limits. Pancreatic stent in place. No bowel obstruction, free air, free fluid or abscess. Normal appendix. No pathologic lymphadenopath y in the abdomen or pelvis. No worrisome osseous finding. IMPRESSION: No acute finding evident.
--- NOTE | 2023-04-17 08:29 | RAD REPORT ---
EXAM DESCRIPTION: RAD - Chest Single View - 04/17/2023 7:34 am CLINICAL HISTORY: COUGH Chest pain. COMPARISON: Chest Single View dated 01/15/2023; Chest Single View dated 01/15/2023; Chest Single View dated 01/08/2023; Chest Single View dated 12/03/2022 FINDINGS: Portable technique limits examination quality. The lungs are grossly clear. The heart is normal in size. No displaced fractures.Right-sided venous c atheter tip in the SVC. IMPRESSION: No acute intrathoracic process suspected.
[2023-04-17] MEDS ORDERED: ACETAMINOPHEN 325 MG TABLET PO PRN (08:34)
[2023-04-17] MEDS ORDERED: ONDANSETRON 4 MG/2 ML VIAL IV PRN (08:38)
--- NOTE | 2023-04-17 08:46 | P.HP ---
Certification for Inpatient Patient admitted to: Observation With expected LOS: <2 Midnights Patient will require the following post-hospital care: None Practitioner: I am a practitioner with admitting privileges, knowledge of patient current condition, hospital course, and medical plan of care. Services: Services provided to patient in accordance with Admission requirements found in Title 42 Section 412.3 of the Code of Federal Regulations Patient History Date of Service: 04/17/23 Reason for admission: Hypertensive urgency History of Present Illness: Patient is a 37-year-old male with a past medical history significant for ESRD, hypertension, drug use who presents with complaint of elevated blood pressure. Patient reported that yesterday he started having episodes of headache and dizziness. Patient reported that he has not been monitoring his blood pressure but has been compliant with his home medications. Patient went to dialysis today and his blood pressure was very elevated. Patient is a poor historian and unable to provide accurate history. Patient also reports chronic right upper quadrant pain rated as 7/10 in severity and described as sharp in quality. Patient denies any other signs and symptoms. Symptoms are aggravated or relieved by nothing. Patient decided to present to the hospital for medical evaluation. Allergies No Known Allergies Allergy (Verified 04/03/22 21:58) Home Medications: NK [No Home Meds] 04/03/22 - Past Medical/Surgical History Diabetic: No -: HTN -: drug abuse Psychosocial/ Personal History: Patient lives at home with his brother. - Family History Father Notes: brother states there are heart problems and kidney problems in their family - Social History Smoking Status: Heavy Tobacco smoker (>10 cigarettes/day) Counseled patient to stop smoking for: less than 10 minutes Smoking therapy provided: Yes Patient receptive to therapy: Yes Alcohol use: No CD- Drugs: Yes Caffeine use: No Place of Residence: Home Review of Systems General: Unremarkable Eyes: Unremarkable ENT: Unremarkable Respiratory: Unremarkable Cardiovascular: Unremarkable Gastrointestinal: Abdominal Pain Genitourinary: Unremarkable Musculoskeletal: Unremarkable Integumentary: Unremarkable Neurological: Other (Headache, dizziness) Lymphatics: Unremarkable Physical Examination - Physical Exam General: Alert, In no apparent distress, Oriented x3, Cooperative HEENT: Atraumatic, PERRLA, Mucous membr. moist/pink, EOMI, Sclerae nonicteric Neck: Supple, 2+ carotid pulse no bruit, No LAD, Without JVD or thyroid abnormality Respiratory: Clear to auscultation bilaterally, Normal air movement Cardiovascular: No edema, Regular rate/rhythm, Normal S1 S2 Capillary refill: <2 Seconds Gastrointestinal: Normal bowel sounds, Soft and benign, Non-distended, No tenderness Musculoskeletal: No clubbing, No swelling, No tenderness Integumentary: No rashes, No breakdown, No significant lesion Neurological: Normal gait, Normal speech, Normal strength at 5/5 x4 extr, Normal tone, Normal affect Lymphatics: No axilla or inguinal lymphadenopathy - Studies Laboratory Data (last 24 hrs) 04/17/23 07:15: PT 10.0, INR 0.91 04/17/23 07:15: WBC 9.90, Hgb 12.3 L, Hct 38.2 L, Plt Count 210 04/17/23 07:15: Sodium 135 L, Potassium 4.6, BUN 70 H, Creatinine 11.70 H, Glucose 156 H, Magnesium 3.0 H, Total Bilirubin 0.4, AST 9 L, ALT 15 L, Alkaline Phosphatase 70 Assessment and Plan - Plan -- Hypertensive urgency. Patient placed on amlodipine, clonidine, coreg and labetalol as needed. Cardiology consulted. Echocardiogram pending to assess cardiac structures and function. We will await further recommendations from controls operator molded goods. -- Elevated troponin. Troponin level at 130.2. Metal Hanger on board. Echocardiogram pending to assess LV\valvular function and wall motion. Telemetry to monitor for any malignant arrhythmia. We will await further recommendation from controls operator molded goods. --ESRD. Patient on TThS schedule. Nephrology consulted. Dialysis schedule per officer lieutenant. Continue supportive care. -- Anemia of chronic disease. H&H stable. We will continue to monitor hemoglobin and transfuse if less than 7.0. --Chronic abdominal pain. CT abdomen does not indicate any acute abnormality. Gallbladder done on January 15, 2023 indicates Mild gallbladder wall thickening. This may be secondary to hypoalbuminemia or chronic cholecystitis. We will manage pain with current pain medication regimen. --Headache. Tylenol as needed. --Nicotine dependence. Patient counseled on tobacco cessation. Placed on nicotine patch. --Polysubstance abuse. Patient currently denies any drug use. Patient counseled on drug cessation. Continue supportive care. --DVT prophylaxis with heparin subQ. Discharge Plan: Home Plan to discharge in: 48 Hours - Advance Directives Does patient have a Living Will: No Does patient have a Durable POA for Healthcare: No - Code Status/Comfort Care Code Status Assessed: Yes Physician Review: Patient Assessed, Agree with Above Assessment and Plan Critical Care: No
[2023-04-17] MEDS: HEPARIN 5000 UNIT/ML 1 ML VIAL SQ SCH ×2 (09:00→21:00)
[2023-04-17] MEDS: AMLODIPINE 10 MG TAB PO SCH (09:00)
[2023-04-17] MEDS: ASPIRIN 81 MG CHEWABLE TABLET PO SCH (09:00)
[2023-04-17] MEDS ORDERED: POTASSIUM CL SA 10 MEQ TAB PO ONE (10:46)
[2023-04-17] MEDS ORDERED: CLONIDINE 0.2 MG/PATCH TD SCH (11:00)
--- NOTE | 2023-04-17 11:40 | RAD REPORT ---
EXAM DESCRIPTION: US - Abdomen Exam Complete - 04/17/2023 11:09 am CLINICAL HISTORY: Abdominal pain. Abd pain COMPARISON: Abdomen Exam Limited dated 01/15/2023 FINDINGS: The liver is normal in size, shape and echotexture. No focal liver lesions or intrahepatic biliary dilatation is seen. The gallbladder demonstrates no gallstones, pericholecystic fluid or gallbladder wall thickening. Co mmon bile duct is normal in caliber measuring 4 mm. Both kidneys are echogenic suggesting underlying medical renal disease. Kidney size is also small. No hydronephrosis, focal lesion of concern or perinephric fluid. The spleen is upper limit of normal measuring 12 cm. The pancreas and aorta are obscured by bowel gas. The visualized aspects of the IVC are grossly normal. IMPRESSION: Echogenic appearance of the kidneys is nonspecific but can indicate underlying medical r enal disease.
--- NOTE | 2023-04-17 11:50 | CON ---
Date of Consultation: 04/17/2023 Reason For Consultation: Elevated BUN and creatinine, hypertension. History Of Present Illness: This is a 37-year-old gentleman with significant past medical history of hypertension, drug use, end-stage renal disease, recently started on dialysis. Patient went to dial ysis, found to have elevated blood pressure more than 200. For that reason, patient was directed to the ER. Patient denied taking any steroid. Patient had dialysis on Sunday without any event. Past Medical History: Include: 1.Hypertension. 2.End-stage renal disease. 3.Drug use. Social History: Drug use. Occasional alcohol. Active smoker. Family History: Positive for hypertension. Allergies: NO KNOWN DRUGS ALLERGY. Review of Systems: Head and Neck: No red eye. No ear pain. GI: No nausea, no vomiting. : No polyuria, no dysuria, no hematuria. GRAVEL WHEELER: Not applicable. Respiratory: Has shortness of breath. Cardiovascular: No chest pain. Endocrine: No polydipsia. Skin: No rash. Physical Examination: Vital Signs: When I saw the patient, blood pressure 220/87, pulse of 104, afebrile. Chest: Crackles bilateral. Heart: S1, S2. Systolic murmur. Abdomen: Soft, nontender. Extremities: Trace edema. Neurologic: Alert. No focality. Laboratory Data: Chest x-ray: Cardiomegaly with congestion. PermCath in place. CT abdomen and pel vis: Negative for any dissection or any abnormality. WBC 9.9, H and H 12.3/38.2. Sodium 135, potas sium 4.6, bicarb 20, BUN 70, creatinine 11.7, calcium 8.9. Current Medications: The patient on include aspirin, heparin, amlodipine 10 mg, Tylenol, Zofran. Assessment And Plan: 1.End-stage renal disease, overvolume with uncontrolled blood pressure. I am going to go ahead and take the patient for urgent dialysis. We will dialyze the patient without any heparin given uncontro lled blood pressure and we will challenge the patient. 2.Hypertension, not controlled, secondary to poor compliance, questionable drug use. I am going to send for urine drug screen. 3.Start the patient on hydralazine and clonidine patch. We will follow up blood pressure after dial ysis. 4.Overvolume. We will challenge the patient. Resume Lasix and we will follow up response. 5.Hyponatremia, dilutional, secondary to renal failure, going to be corrected with dialysis. 6.Anemia of chronic kidney disease. No need for CHLOE. 7.Secondary hyperparathyroidism. We will follow up phosphorus. Resume binder. Time spent examining the patient [id number], reviewing data, lab and radiology, placing order, disc ussing the case with the patient, discussing the case with the teamcenter consultant including dialysis nurse, ER nurse, and ER physician more than 75 minutes. ABRIL Voice ID: [id number] Report ID: [id number]
[2023-04-17 11:54] LABS: Magnesium 2.9 mg/dL (1.6-2.4); Thyroid Stimulating Hormone 0.556 uIU/mL (0.358-3.740)
[2023-04-17 11:56] LABS: Phosphorus 9.4 mg/dL (2.5-4.9)
[2023-04-17] MEDS: SEVELAMER CARBONATE 800 MG TABLET PO SCH ×2 (12:00→17:23)
[2023-04-17] MEDS: HYDRALAZINE HCL 25 MG TABLET PO SCH ×2 (14:00→22:09)
[2023-04-17 14:34] LABS: Hepatitis B Core Ab, Total Nonreactive (Nonreactive); Hepatitis B Surface Ab - Quant < 3.10 mIU/mL (<8.0)
[2023-04-17] MEDS: HYDROCODONE/APAP 5/325 MG TAB PO PRN ×2 (15:33→22:07)
[2023-04-17 15:47] VITALS: BMI 25.1
[2023-04-17] MEDS: carvediloL 12.5 MG TAB PO SCH (17:23)
[2023-04-18] MEDS: LABETALOL 20 MG/4ML SYRINGE IV PRN ×3 (00:02→18:14)
[2023-04-18] MEDS ORDERED: LABETALOL 20 MG/4ML SYRINGE IV ONE (00:57)
[2023-04-18 03:29] VITALS: O2SAT 96
[2023-04-18 03:38] LABS: Absolute Lymphocytes (CBC) 1.8 K/uL (0.7-4.9); Hematocrit 39.8 % (39.6-49.0); Lymphocytes % 19.6 % (15.3-44.8); MCV 92.5 fL (80-100); MPV 7.4 fL (7.6-11.3); RBC Red Blood Cell Count 4.31 M/uL (4.33-5.43)
[2023-04-18 04:23] LABS: Albumin 3.6 g/dL (3.4-5.0); Bilirubin Total 0.3 mg/dL (0.2-1.0); Phosphorus 8.9 mg/dL (2.5-4.9); Potassium 4.1 mEq/L (3.5-5.1); Protein, Total 7.5 g/dL (6.4-8.2)
[2023-04-18 04:25] LABS: Troponin High Sensitivity 168.8 pg/mL (<58.9)
--- NOTE | 2023-04-18 04:57 | EKG ---
Test Date: 2023-04-17 Test Time: 07:25:41 Global Director [employer]: LML MEASUREMENT RESULTS: Intervals: Rate: 88 [place]: 170 QRSD: 88 QT: 366 QTc: 442 [place]: P: 83 [place]: 170 QRS: 18 T: 74 INTERPRETIVE STATEMENTS: Normal sinus rhythm Anteroseptal infarct, age undetermined Abnormal ECG Compared to ECG 01/15/2023 17:45:43 Sinus tachycardia no longer present Myocardial infarct finding still present Electronically Signed On 04-18-23 04:54:14 CDT by Sanchez Rea
[2023-04-18] MEDS: carvediloL 12.5 MG TAB PO SCH (05:44)
--- NOTE | 2023-04-18 07:03 | P.PN ---
Date of Service: 04/18/23 Subjective: "doing alright" this morning no headache / numbness / vision changes BP in low 200s today denies chest pain ROS: 10 point ROS as noted above, otherwise negative Physical Exam: GEN: Alert, oriented, NAD HEENT: Normal conjunctiva, sclera anicteric CV: Regular rate and rhythm, no edema Pulm: Nonlabored respirations on room air ABD: Soft, mild epigastric tenderness, nondistended Neuro: Normal speech, normal affect vitals reviewed Problem List: Hypertensive urgency NSTEMI, demand ischemia ESRD Anemia of chronic disease Chronic abdominal pain, h/o pancreatic stent Nicotine dependence Polysubstance abuse Hypertensive urgency NSTEMI Patient placed on amlodipine, clonidine, coreg and PRN labetalol h/o resistant HTN, ?noncompliance / drug use nephrology and cardiology consulted uptitration of meds asymptomatic from BP may need to transfer to ICU for drip Echocardiogram pending to assess cardiac structures and function cardiology suspect demand ischemia, patient denies chest pain/pressure monitor on telemetry CT ordered by Dr. Webster to eval pain, r/o NIKKY ESRD on HD Patient on TThS schedule HD done 04/17 in hospital to be done today after IV contrast f0r CT Nephrology consulted Anemia of chronic disease H&H stable. Chronic abdominal pain CT abd: no acute process Gallbladder U/S: 12/28/22: Mild gallbladder wall thickening. This may be secondary to hypoalbuminemia or chronic cholecystitis. continue current pain medication Tylenol as needed for headache Nicotine dependence Patient counseled on tobacco cessation. Placed on nicotine patch. Polysubstance abuse Patient currently denies any drug use. Patient counseled on drug cessation. Continue supportive care. UDS ordered VTE: Heparin subQ Code: Full Dispo: Home 1-2 days
[2023-04-18] MEDS ORDERED: HYDRALAZINE HCL 25 MG TABLET PO SCH ×2 (09:00→14:00)
[2023-04-18] MEDS: HEPARIN 5000 UNIT/ML 1 ML VIAL SQ SCH (09:00)
[2023-04-18] MEDS: HYDROCODONE/APAP 5/325 MG TAB PO PRN ×2 (09:22→18:46)
[2023-04-18] MEDS: AMLODIPINE 10 MG TAB PO SCH (09:22)
[2023-04-18] MEDS: SEVELAMER CARBONATE 800 MG TABLET PO SCH ×3 (09:22→16:45)
[2023-04-18] MEDS: ASPIRIN 81 MG CHEWABLE TABLET PO SCH (09:23)
--- NOTE | 2023-04-18 11:25 | CON ---
Date of Consultation: 04/17/2023 Reason For Consultation: Hypertensive crisis and elevated troponin. History Of Present Illness: Mr. Barr is 37. He is a patient of Dr. Webster. He has a history of hy pertension, end-stage renal disease. He is on hemodialysis, comes in with severe hypertension. No c ardiac symptoms. Denied chest pain, shortness of breath, nausea, vomiting, diaphoresis. Denied PND or orthopnea. Has had some mild pedal edema. Troponin was elevated. BNP was 97,000, creatinine is 11. Chest x-ray is negative. EKG showed LVH. Patient is asymptomatic, cardiac-bates. Allergies: NONE. Review of Systems: Negative. Social History: Negative. Family History: Negative. Medications: Listed by Dr. Gallego. Physical Examination: Vital Signs: Stable. Afebrile. HEENT: Negative. Neck: Supple with no bruit. Chest: Clear. Cardiac: Revealed a regular rhythm and rate. No murmurs, gallops, or rubs. Abdomen: Benign. Extremities: Revealed no clubbing, cyanosis, or edema. Diagnostic Data: As stated earlier. Impression And Plan: 1.Elevated troponin secondary to renal failure and demand ischemia and hypertension. 2.BNP elevation secondary to probably chronic diastolic congestive heart failure from hypertension a nd end-stage renal disease. Echocardiogram is pending. We will see what that shows. I think patien t needs to have an outpatient MPI down the road. Otherwise, he can go home whenever it is okay with Dr. Gallego. NB/MODL Voice ID: [id number] Report ID: [id number]
[2023-04-18] MEDS ORDERED: CLONIDINE 0.3 MG/PATCH TD SCH (12:00)
--- NOTE | 2023-04-18 12:48 | RAD REPORT ---
EXAM DESCRIPTION: CT - Angio Aorta For Dissection - 04/18/2023 12:05 pm CLINICAL HISTORY: . Chest and abd pain . Severe hypertension COMPARISON: February and March 2023 TECHNIQUE: Computed tomography angiography of the chest, abdomen pelvis were obtained. 100 cc Isovue 370 was administered intravenously. Coronal and sagittal reconstruction were performed. MIP 3D reconstruction was performed All CT scans are performed using dose optimization technique as appropriate and may include automated exposure control or mA/KV adjustment according to patient size. FINDINGS: An aortic dissection is not seen. An aortic aneurysm is not displayed. The celiac, SMA and KALLI are patent . Renal artery is patent A lung consolidation is not present. A pericardial effusion is not seen. A pleural effusion is not [place]. The liver,spleen, pancreas,adrenals and kidneys demonstrate no significant abnormality. Pancreatic stent in place There no evidence diverticulitis. Normal appendix Chronic sclerosis L2 vertebral body IMPRESSION: Negative for an aortic dissection.
--- NOTE | 2023-04-18 13:22 | PN ---
Date of Progress Note: 04/18/2023 Subjective: The patient was admitted with urgent hypertension, missed dialysis. The patient was dialyzed yesterday, tolerated the dialysis, we managed to remove 2800. The patient denied any headache. No chest pain. Physical Examination: Vital Signs: When I saw the patient; blood pressure 122/137, pulse of 75, afebrile. Chest: Clear to auscultation. Heart: S1, S2. Regular. Abdomen: Soft, nontender. Extremity: No edema. Neurologic: Alert. No focality. Laboratory Data: Hemoglobin 12.9. Sodium 136, potassium 4.1, bicarb 22, BUN 51, creatinine 8.7, calcium 8.7, phosphorus 8.9, magnesium 2.9. The patient's chest x-ray did not show any over volume. Current Medications: The patient on include clonidine 0.2, carvedilol 12.5, hydralazine 50 t.i.d., amlodipine 10 mg, Renvela 2400 with each meal, Tylenol, hydrocodone, and KCl. Assessment And Plan: 1. End-stage renal disease with over volume, status post dialysis yesterday, currently the patient on room air. The patient planned for CT angio today. We will arrange for extra session of dialysis today for fluid removal and contrast clearance and we will monitor. 2. Hypertension, not controlled. We will go ahead and increase further clonidine and hydralazine and carvedilol. We will monitor the patient. If the blood pressure continued to be elevated, the patient is going to need to be transferred to the ICU and placed on a drip. We will go ahead and get CT angio to evaluate for renal artery stenosis. We will monitor the patient. 3. Anemia of chronic kidney disease. No need for CHLOE. 4. Secondary hyperparathyroidism. Continue Renvela. 5. Hyponatremia secondary to renal failure, resolved. time spend exam the patient face to face reviewing data lab and radiology placing order , discussing with patient and nursing staff discussing with hospitalisit >35min XENA/ARDEN Voice ID: [id number] Report ID: [id number] PAUL
[2023-04-18 14:57] VITALS: TEMP 98.2
[2023-04-18] MEDS ORDERED: carvediloL 25 MG TAB PO SCH (18:00)
[2023-04-18 18:14] VITALS: BP 189/123
--- NOTE | 2023-04-18 23:26 | P.PN ---
Date of Service: 04/18/23 I was notified that patient eloped, he was unable to be found when nurse went to check on him and he was not in the room. Nursing staff was able to get ahold of patients mother and the patient was at home. He did not plan on coming back. Patient eloped.
--- NOTE | 2023-04-20 08:44 | P.DS ---
Admission Date: 04/17/23 Discharge Date: 04/18/23 Disposition: ELOPED Reason for Admission: Hypertensive urgency Consultations: Cardiology - Dr. Rea Nephrology - Dr. Yuan Brief History of Present Illness: 37yo M, PMH: ESRD, hypertension, drug use Patient presents with complaint of elevated blood pressure. Patient reported that yesterday he started having episodes of headache and dizziness. Patient reported that he has not been monitoring his blood pressure but has been compliant with his home medications. Patient went to dialysis today and his blood pressure was very elevated. Patient is a poor historian and unable to provide accurate history. Patient also reports chronic right upper quadrant pain rated as 7/10 in severity and described as sharp in quality. Patient denies any other signs and symptoms. Symptoms are aggravated or relieved by nothing. Patient decided to present to the hospital for medical evaluation. Hospital Course: Problem List: Hypertensive urgency NSTEMI, demand ischemia ESRD Anemia of chronic disease Chronic abdominal pain, h/o pancreatic stent Nicotine dependence Polysubstance abuse please refer to progress note from same day as discharge. In summary, patient was admitted and treated for HTN urgency. He had slight improvement and underwent dialysis. CT dissection ordered by nephrology, and noted normal flow of renal arteries. Adjustments were being made to his blood pressure medications with nephrology. Patient apparently eloped on the evening of 04/18. He was nowhere to be found. His phone number was dialed and he answered, stating he was at home and not planing to return. Physical Exam: GEN: Alert, oriented, NAD HEENT: Normal conjunctiva, sclera anicteric CV: Regular rate and rhythm, no edema Pulm: Nonlabored respirations on room air ABD: Soft, mild epigastric tenderness, nondistended Neuro: Normal speech, normal affect Vital Signs/Physical Exam: Temp Pulse Resp BP Pulse Ox 98.2 F 122 H 20 189/123 H 96 04/18/23 12:00 04/18/23 18:44 04/18/23 18:46 04/18/23 18:44 04/18/23 18:46 Laboratory Data at Discharge: WBC 9.20 thou/uL (4.3-10.9) 04/18/23 03:09 Hgb 12.9 g/dL (13.6-17.9) L 04/18/23 03:09 Hct 39.8 % (39.6-49.0) 04/18/23 03:09 Plt Count 218 thou/uL (152-406) 04/18/23 03:09 PT 10.0 SECONDS (9.5-12.5) 04/17/23 07:15 INR 0.91 04/17/23 07:15 Sodium Cancelled 04/18/23 21:43 Potassium Cancelled 04/18/23 21:43 BUN Cancelled 04/18/23 21:43 Creatinine Cancelled 04/18/23 21:43 Glucose Cancelled 04/18/23 21:43 Phosphorus 8.9 mg/dL (2.5-4.9) H 04/18/23 03:09 Magnesium 2.9 mg/dL (1.6-2.4) H 04/17/23 10:42 Total Bilirubin 0.3 mg/dL (0.2-1.0) 04/18/23 03:09 AST 10 U/L (15-37) L 04/18/23 03:09 ALT 14 U/L (16-61) L 04/18/23 03:09 Alkaline Phosphatase 68 U/L (45-117) 04/18/23 03:09 Triglycerides 175 mg/dL (<150) H 04/18/23 03:09 Cholesterol 189 mg/dL (<200) 04/18/23 03:09 HDL Cholesterol 35 mg/dL (40-60) L 04/18/23 03:09 Cholesterol/HDL Ratio 5.40 04/18/23 03:09 Home Medications: Amlodipine [Norvasc] 10 mg PO DAILY 04/17/23 Atorvastatin Calcium 40 mg PO DAILY 04/17/23 Bumetanide 2 mg PO DAILY 04/17/23 Buspirone HCl [Buspar] 10 mg PO BID 04/17/23 Carvedilol [Coreg] 25 mg PO BID 04/17/23 Ferric Citrate [Auryxia] 210 mg PO TIDWM 04/17/23 Hydralazine HCl 50 mg PO QID 04/17/23 Losartan Potassium 100 mg PO DAILY 04/17/23 Terazosin HCl 2 mg PO BID 04/17/23 hydrOXYzine HCL [Atarax] 50 mg PO TID 04/17/23 metOLazone [Metolazone] 5 mg PO DAILY 04/17/23 Followup: NONE,NONE [Primary Care Provider] - Time spent managing pt's care (in minutes): 45
--- NOTE | 2023-04-20 15:02 | PN ---
Patient came in with atypical chest pain. WA is ruled out. EKG is normal. Chest x-ray is normal. No further cardiac symptoms. Telemetry showed no arrhythmias. Echocardiogram is normal. No symptom s today. Patient can go home whenever it is okay with Dr. Gallego. He may wait till after the dialysi s before he goes home. His chest pain was atypical. I think it would be reasonable to do an outpati ent stress test on him and I will plan that as an outpatient. LAQUITA/ARDEN Voice ID: [id number] Report ID: [id number]
== END 2023-04-18 22:49 | disposition left against medical advice (07) | DRG 304 ==
LOC: ER 07:08 → ERHOLD 08:34 → 2ND 10:31 → OBSVTOIN 04-18 15:23
PROVIDERS: ADMIT Hospitalist; ATTEND Hospitalist
DX: I16.0 Hypertensive urgency (principal); N18.6 End stage renal disease; E87.1 Hypo-osmolality and hyponatremia; N25.81 Secondary hyperparathyroidism of renal origin; I50.32 Chronic diastolic (congestive) heart failure; I24.8 Other forms of acute ischemic heart disease; I13.2 Hypertensive heart and chronic kidney disease with heart failure and with stage 5 chronic kidney disease, or end stage renal disease; D63.1 Anemia in chronic kidney disease; F19.10 Other psychoactive substance abuse, uncomplicated; F17.210 Nicotine dependence, cigarettes, uncomplicated; R77.8 Other specified abnormalities of plasma proteins; Z71.51 Drug abuse counseling and surveillance of drug abuser; Z71.6 Tobacco abuse counseling; Z99.2 Dependence on renal dialysis; Z53.29 Procedure and treatment not carried out because of patient's decision for other reasons; Z28.310 Unvaccinated for COVID-19; Z91.158 Patient's noncompliance with renal dialysis for other reason
CPT/HCPCS: 36415; 71045; 71250; 71275; 74175; 74176; 76700; 80048; 80053; 80061; 80069; 80076; 83036; 83735; 83880; 84100; 84439; 84443; 84484; 85025; 85610; 86704; 86706; 90935; 93005; 96365; 96366; 96375; 99285; G0378; J0360; J1644; J2405; J3010; Q9967

== ENCOUNTER 2023-08-18 07:08 | Emergency (ER) | payer OTHER ==
[2023-08-18 07:56] LABS: Absolute Lymphocytes (CBC) 1.3 K/uL (0.7-4.9); Hematocrit 33.2 % (39.6-49.0); Lymphocytes % 13.4 % (15.3-44.8); MCV 94.8 fL (80-100); MPV 7.3 fL (7.6-11.3); Platelets 148 thou/uL (152-406)
[2023-08-18 08:15] LABS: Potassium 4.5 mEq/L (3.5-5.1); Troponin High Sensitivity 17.6 pg/mL (<58.9)
--- NOTE | 2023-08-18 09:10 | RAD REPORT ---
EXAM DESCRIPTION: RAD - Chest Single View - 08/18/2023 7:48 am CLINICAL HISTORY: hypotension Chest pain. COMPARISON: <Comparisons> FINDINGS: Portable technique limits examination quality. The lungs are grossly clear. The heart is normal in size. No displaced fractures.Right-sided venous c atheter tip in the SVC. IMPRESSION: No acute intrathoracic process suspected.
--- NOTE | 2023-08-18 10:23 | ER ---
Nurse's Notes [facility] Name: Justino Barr Age: 37 yrs Sex: Male : 1985 Arrival Date: 08/18/2023 Time: 07:08 Bed 7 Private MD: Diagnosis: End stage renal disease;Hypotension due to drugs-Accidental overdose of hypertensive medication Presentation: 08/18 07:16 Chief complaint: EMS states: Was lethargic and dizzy when he went to dialysis this ph morning, systolic BP 71, pt reports that he took 50 mg of hydralazine this morning, states, " My doctor lowered my dose to 10 mg but I haven't picked up that prescription yet.". Coronavirus screen: Vaccine status: Patient reports receiving the 2nd dose of the covid vaccine. Ebola Screen: No symptoms or risks identified at this time. Initial Sepsis Screen: Does the patient meet any 2 criteria? No. Patient's initial sepsis screen is negative. Does the patient have a suspected source of infection? No. Patient's initial sepsis screen is negative. Risk Assessment: Do you want to hurt yourself or someone else? Patient reports no desire to harm self or others. Onset of symptoms was August 18, 2023. 07:16 Method Of Arrival: EMS: [facility] 07:16 Acuity: VAHID 2 ph Triage Assessment: 07:27 General: Appears in no apparent distress. Behavior is calm, cooperative. Pain: Denies ph pain. Neuro: Level of Consciousness is awake, alert, obeys commands, Oriented to person, place, time, situation, Reports dizziness, weakness. Cardiovascular: Capillary refill < 3 seconds in bilateral fingers Patient's skin is warm and dry. Cardiovascular: Dialysis shunt: in the anterior aspect of right upper chest. Respiratory: Airway is patent Respiratory effort is even, unlabored. Musculoskeletal: Circulation, motion, and sensation intact. Range of motion: intact in all extremities. Historical: - Allergies: 07:26 No Known Allergies; ph - PMHx: 07:26 HD T TH Sat; Hypertensive disorder; ph - PSHx: 07:26 pancreatic stent; ph - Immunization history:: Adult Immunizations unknown. - Social history:: Smoking status: Patient reports the use of cigarette tobacco products, smokes one pack cigarettes per day. - Family history:: not pertinent. - Hospitalizations: : No recent hospitalization is reported. Screenin:28 [facility] ED Fall Risk Assessment (Adult) History of falling in the last 3 months, ph including since admission No falls in past 3 months (0 pts) Confusion or Disorientation No (0 pts) Intoxicated or Sedated No (0 pts) Impaired Gait No (0 pts) Mobility Assist Device Used No (0 pt) Altered Elimination No (0 pt) Score/Fall Risk Level 0 - 2 = Low Risk Oriented to surroundings, Maintained a safe environment, Provided non-skid footwear, Hourly rounding (assess needs \\T\\ fall precautionary measures) done. Abuse screen: Denies threats or abuse. Denies injuries from another. Nutritional screening: No deficits noted. Tuberculosis screening: No symptoms or risk factors identified. Assessment: 08:25 General: see triage assessment. ph 09:54 Reassessment: Patient appears in no apparent distress at this time. Patient and/or ph family updated on plan of care and expected duration. Pain level reassessed. Pt asleep w/ equal and unlabored respirations. Vital Signs: 07:16 BP 107 / 59; Pulse 85; Resp 18; Temp 97.8; Pulse Ox 94% on R/A; Weight 82.4 kg; Height ph 5 ft. 11 in. ; 08:25 BP 100 / 60; Pulse 71; Resp 18; Pulse Ox 94% on 3 lpm NC; ph 09:55 BP 99 / 64; Pulse 68; Resp 18; Pulse Ox 95% on 2 lpm NC; ph 10:07 BP 112 / 79; rn 07:16 Body Mass Index 25.34 (82.40 kg, 180.34 cm) ph Vitals: 08:25 Cardiac Rhythm Assessment Sinus rhythm. ph ED Course: 07:12 Patient arrived in ED. eb 07:13 Rajesh Gallego MD is Attending Physician. rn 07:26 Triage completed. ph 07:26 Arm band placed on Patient placed in an exam room, on a stretcher, on quality assurance monitor, ph on pulse oximetry. 07:28 Patient has correct armband on for positive identification. Bed in low position. Call ph light in reach. Side rails up X2. Client placed on continuous cardiac and pulse oximetry monitoring. NIBP monitoring applied. 07:50 XRAY Chest (1 view) In Process Unspecified. EDMS 08:25 Peyton Brock, RN is Primary Nurse. ph 08:26 Blood Culture Adult (2) Sent. ph 10:42 No provider procedures requiring assistance completed. IV discontinued, intact, ld1 bleeding controlled, No redness/swelling at site. Administered Medications: No medications were administered Medication: 07:28 VIS not applicable for this client. ph Outcome: 10:22 Discharge ordered by . rn 10:42 Discharged to home ambulatory, ld1 10:42 Condition: stable 10:42 Discharge instructions given to patient, Instructed on discharge instructions, follow up and referral plans. Demonstrated understanding of instructions, follow-up care, 10:42 Patient left the ED. ld1 Signatures: Dispatcher [employer] EDMS Rajesh Gallego MD MD rn Hall, Patricia, MANSOOR RN Honey Drake Lauren, MANSOOR RN ld1
--- NOTE | 2023-08-18 10:23 | EDPHYS ---
Physician Documentation [facility] Name: Justino Barr Age: 37 yrs Sex: Male : 1985 Arrival Date: 08/18/2023 Time: 07:08 Bed 7 Private MD: ED Physician Rajesh Gallego HPI: 08/18 07:34 This 37 yrs old Male presents to ER via EMS with complaints of hypotension. rn 07:34 Patient reports was feeling okay and went to dialysis today. Noted to be hypotensive in rn the 70s or 80s at dialysis and EMS called. Patient reports feeling tired and lightheaded. States recently has had low blood pressure and his 50 mg hydralazine was changed to 10 mg hydralazine but has not been able to fill it. Instead of not taking his blood pressure medicine today prior to dialysis he took a 50 mg hydralazine once again. Denies any fever or chills. No illness. No chest pain or shortness of breath. No abdominal pain or back pain. No vomiting or diarrhea. Feels better after IV fluids by EMS. Onset: The symptoms/episode began/occurred today. Severity of symptoms: At their worst the symptoms were moderate in the emergency department the symptoms have improved. The patient has experienced similar episodes in the past. The patient has been recently seen by a physician:. Historical: - Allergies: 07:26 No Known Allergies; ph - PMHx: 07:26 HD T Sun; Hypertensive disorder; ph - PSHx: 07:26 pancreatic stent; ph - Immunization history:: Adult Immunizations unknown. - Social history:: Smoking status: Patient reports the use of cigarette tobacco products, smokes one pack cigarettes per day. - Family history:: not pertinent. - Hospitalizations: : No recent hospitalization is reported. ROS: 07:34 Constitutional: Negative for fever, chills, and weight loss, Neck: Negative for injury, rn pain, and swelling, Cardiovascular: Negative for chest pain, palpitations, and edema, Respiratory: Negative for shortness of breath, cough, wheezing, and pleuritic chest pain, Abdomen/GI: Negative for abdominal pain, nausea, vomiting, diarrhea, and constipation, Back: Negative for injury and pain, MS/Extremity: Negative for injury and deformity, Skin: Negative for injury, rash, and discoloration, Neuro: Positive for generalized weakness Exam: 07:34 Constitutional: This is a well developed, well nourished patient who is awake, alert, rn and in no acute distress. Head/Face: Normocephalic, atraumatic. ENT: Dry mucous membranes Cardiovascular: Regular rate and rhythm. No pulse deficits. Respiratory: No increased work of breathing, no retractions or nasal flaring. Abdomen/GI: Soft, non-tender Skin: Warm, dry MS/ Extremity: Pulses equal, no cyanosis. Neuro: Awake and alert, GCS 15, oriented to person, place, time, and situation. Cranial nerves II-XII grossly intact. Motor strength 5/5 in all extremities. Sensory grossly intact. Cerebellar exam normal. 08:07 ECG was reviewed by the Attending Physician. rn Vital Signs: 07:16 BP 107 / 59; Pulse 85; Resp 18; Temp 97.8; Pulse Ox 94% on R/A; Weight 82.4 kg; Height ph 5 ft. 11 in. ; 08:25 BP 100 / 60; Pulse 71; Resp 18; Pulse Ox 94% on 3 lpm NC; ph 09:55 BP 99 / 64; Pulse 68; Resp 18; Pulse Ox 95% on 2 lpm NC; ph 10:07 BP 112 / 79; rn 07:16 Body Mass Index 25.34 (82.40 kg, 180.34 cm) ph MDM: 07:13 Patient medically screened. rn 07:37 ED course: Patient also reports smoke marijuana this morning prior to coming in. rn 10:18 Differential Diagnosis Drug use, accidental overdose of hypertensive medication, rn infection, dehydration. Data reviewed: vital signs, nurses notes, lab test result(s), EKG, radiologic studies, and as a result, I will discharge patient. Counseling: I had a detailed discussion with the patient and/or guardian regarding the historical points, exam findings, and any diagnostic results supporting the discharge/admit diagnosis, lab results, the need for outpatient follow up, to return to the emergency department if symptoms worsen or persist or if there are any questions or concerns that arise at home. 10:18 ED course: Patient sleeping comfortably, still without complaints, now normotensive. rn Likely combination of him taking his old dose of hydralazine which was known to drop his blood pressure and that is why they changed it to 10 mg. No acute findings and work-up today. Stable vital signs. Also decided to smoke marijuana this morning. Likely combination of the two. Will DC back to dialysis.. 08/18 07:15 Order name: Basic Metabolic Panel; Complete Time: 08:16 rn 08/18 07:15 Order name: CBC with Diff; Complete Time: 08:16 rn 08/18 07:15 Order name: NT PRO-BNP; Complete Time: 08:16 rn 08/18 07:15 Order name: Troponin HS; Complete Time: 08: rn 08/18 07:15 Order name: Lactate w/ 2H reflex if indic.; Complete Time: 08:16 rn 08/18 07:15 Order name: Blood Culture Adult (2) rn 08/18 07:15 Order name: XRAY Chest (1 view); Complete Time: : rn 08/18 07:15 Order name: EKG; Complete Time: 07:16 rn 08/18 07:15 Order name: Cardiac monitoring; Complete Time: 08: rn 08/18 07:15 Order name: EKG - Nurse/Tech; Complete Time: 08: rn 08/18 07:15 Order name: IV Saline Lock; Complete Time: 08: rn 08/18 07:15 Order name: Labs collected and sent; Complete Time: 08: rn 08/18 07:15 Order name: O2 Per Protocol; Complete Time: 08: rn 08/18 07:15 Order name: O2 Sat Monitoring; Complete Time: 08: rn EC:07 Rate is 70 beats/min. Rhythm is regular. QRS [place] is Normal. [place] interval is normal. QRS rn interval is normal. QT interval is normal. No Q waves. T waves are Normal. No ST changes noted. Clinical impression: NSR w/ Non-specific ST/T Changes. Interpreted by me. Reviewed by me. Administered Medications: No medications were administered Disposition Summary: 08/18/23 10:22 Discharge Ordered Notes: Location: Home rn Problem: new rn Symptoms: have improved rn Condition: Stable rn Diagnosis - End stage renal disease rn - Hypotension due to drugs - Accidental overdose of hypertensive medication rn Followup: rn - With: Private Physician - When: As needed - Reason: Recheck today's complaints, Re-evaluation by your physician Discharge Instructions: - Discharge Summary Sheet rn - Hypotension rn - network intern Forms: - Medication Reconciliation Form rn - Thank You Letter rn - Antibiotic pattern storage clerk - Prescription Opioid Use rn - Patient Portal Instructions rn - Leadership Thank You Letter rn Signatures: Dispatcher [employer] Rajesh Basurto MD MD rn Hall, Patricia, RN RN ph
[2023-08-18 10:47] VITALS: TEMP 97.8
[2023-08-18 10:50] VITALS: BP 112/79; O2SAT 95
--- NOTE | 2023-08-20 12:35 | EKG ---
Test Date: 2023-08-18 Test Time: 08:02:07 Fur Dry Cleaner Hand: PH MEASUREMENT RESULTS: Intervals: Rate: 70 NE: 188 QRSD: 90 QT: 430 QTc: 464 [place]: P: 70 NE: 188 QRS: 44 T: 51 INTERPRETIVE STATEMENTS: Normal sinus rhythm Anteroseptal infarct, age undetermined Abnormal ECG Compared to ECG 04/17/2023 07:25:41 No significant changes Electronically Signed On 08-20-23 12:31:27 CDT by Juan Mathis
== END 2023-08-18 10:42 | disposition home or self-care (01) ==
LOC: ER 07:08
DX: I95.2 Hypotension due to drugs (principal); T46.5X1A Poisoning by other antihypertensive drugs, accidental (unintentional), initial encounter; I12.0 Hypertensive chronic kidney disease with stage 5 chronic kidney disease or end stage renal disease; N18.6 End stage renal disease; Z99.2 Dependence on renal dialysis; R53.1 Weakness; F17.210 Nicotine dependence, cigarettes, uncomplicated
CPT/HCPCS: 36415; 71045; 80048; 83605; 83880; 84484; 85025; 87040; 93005; 99284

== ENCOUNTER 2024-07-15 06:36 | Emergency (ER) | payer OTHER ==
[2024-07-15] MEDS ORDERED: MORPHINE 4 MG/ML SYR ONE ×2 (06:51→08:31)
[2024-07-15 06:56] LABS: Absolute Basophils 0.1 K/uL (0-0.5); Absolute Eosinophils 0.2 K/uL (0-0.5); Absolute Lymphocytes (CBC) 1.5 K/uL (0.7-4.9); Absolute Monocytes 0.4 K/uL (0.1-1.3); Basophils % 0.7 % (0-1.3); Eosinophils % 2.7 % (0-4.4); Hematocrit 39.6 % (39.6-49.0); Hemoglobin 12.8 g/dL (13.6-17.9); MCHC 32.3 g/dL (32.0-36.0); MCV 95.9 fL (80-100); MPV 7.7 fL (7.6-11.3); Monocytes % 5.4 % (3.3-12.3); Neutrophils % 73.2 % (41.7-73.7); Platelets 130 thou/uL (152-406); RBC Red Blood Cell Count 4.13 M/uL (4.33-5.43); Red Cell Distribution Width 14.9 % (12.1-15.2)
[2024-07-15 07:19] LABS: Albumin 3.7 g/dL (3.4-5.0); Albumin/Globulin Ratio 1.1 (1.1-1.8); Anion Gap 13.8 mEq/L (5.0-15.0); Bilirubin Total 0.5 mg/dL (0.2-1.0); Globulin 3.4 g/dL (2.3-3.5); Potassium 3.8 mEq/L (3.5-5.1); Protein, Total 7.1 g/dL (6.4-8.2)
--- NOTE | 2024-07-15 07:41 | RAD REPORT ---
EXAM DESCRIPTION: CT - Abdomen Pelvis Wo Contrast - 07/15/2024 7:04 am CLINICAL HISTORY: Abdominal pain. ABD PAIN COMPARISON: Abdomen Pelvis Wo Contrast dated 02/24/2023; Angio Aorta For Dissection dated 04/18/2023 TECHNIQUE: CT imaging of the abdomen and pelvis was performed without contrast. Solid organ, bowel a nd vascular assessment is limited due to lack of IV and oral contrast. All CT scans are performed using dose optimization technique as appropriate and may include automated exposure control or mA/KV adjustment according to patient size. FINDINGS: The lower lung hector are clear. The liver, spleen, pancreas, adrenal glands and kidneys are within normal limits for a limited non-co ntrast examination.Pancreatic duct stent noted. No bowel obstruction, free air, free fluid or abscess. Mild fecal retention. The appendix is normal. The osseous structures are within normal limits. IMPRESSION: No acute intra-abdominal or pelvic findings. A limited non-contrast examination was performed as detailed.
--- NOTE | 2024-07-15 09:32 | ER ---
Nurse's Notes [facility] Name: Justino Barr Age: 38 yrs Sex: Male : 1985 Arrival Date: 07/15/2024 Time: 06:36 Bed 6 Private MD: Diagnosis: Other chronic pancreatitis Presentation: 07/15 06:40 Chief complaint: Patient states: abd pain, N/V that began 2 days ago. Worse today. Pt ss showed up at [facility] for HD this am, but was too uncomfortable to start his session. Coronavirus screen: Client denies travel out of the [place] in the last 14 days. Ebola Screen: Patient denies exposure to infectious person. Patient denies travel to an Ebola-affected area in the 21 days before illness onset. Initial Sepsis Screen: Does the patient meet any 2 criteria? No. Patient's initial sepsis screen is negative. Does the patient have a suspected source of infection? No. Patient's initial sepsis screen is negative. Risk Assessment: Do you want to hurt yourself or someone else? Patient reports no desire to harm self or others. Onset of symptoms was July 13, 2024. 06:40 Method Of Arrival: EMS: [facility] ss 06:40 Acuity: VAHID 3 ss Historical: - Allergies: 06:43 No Known Allergies; ss - PMHx: 06:43 HD T TH Sat; Hypertensive disorder; ss - PSHx: 06:43 pancreatic stent; ss - Immunization history:: Client reports having NOT received the Covid vaccine. . - Infectious Disease History:: Denies. - Social history:: Smoking status: Patient reports the use of cigarette tobacco products, smokes one pack cigarettes per day. Patient uses street drugs, marijuana. - Family history:: not pertinent. Screenin:[facility] ED Fall Risk Assessment (Adult) History of falling in the last 3 months, pc2 including since admission No falls in past 3 months (0 pts) Confusion or Disorientation No (0 pts) Intoxicated or Sedated No (0 pts) Impaired Gait No (0 pts) Mobility Assist Device Used No (0 pt) Altered Elimination No (0 pt) Score/Fall Risk Level 0 - 2 = Low Risk Oriented to surroundings, Maintained a safe environment, Hourly rounding (assess needs \T\ fall precautionary measures) done. Abuse screen: Denies threats or abuse. Denies injuries from another. Nutritional screening: No deficits noted. Tuberculosis screening: No symptoms or risk factors identified. Assessment: 06:46 General: Appears in no apparent distress. uncomfortable, Behavior is calm, cooperative, pc2 appropriate for age. Pain: Complains of pain in abdomen Pain does not radiate. Quality of pain is described as squeezing, Pain began 2-3 days ago. Also complains of nausea. Neuro: Level of Consciousness is awake, alert, obeys commands, Oriented to person, place, time, situation, Appropriate for age. Cardiovascular: Capillary refill < 3 seconds Patient's skin is warm and dry. Respiratory: Airway is patent Respiratory effort is even, unlabored, Respiratory pattern is regular, symmetrical. GI: Bowel sounds present X 4 quads. Abdomen is tender to palpation Reports upper abdominal pain, nausea, vomiting, since 2 days. :. Musculoskeletal: No signs and/or symptoms reported regarding the musculoskeletal system. 07:45 Reassessment: Patient appears in no apparent distress at this time. Patient and/or db family updated on plan of care and expected duration. Pain level reassessed. Patient is alert, oriented x 3, equal unlabored respirations, skin warm/dry/pink. General: Appears in no apparent distress. Behavior is calm, cooperative. Neuro: Level of Consciousness is awake, alert, obeys commands, Oriented to person, place, time, situation. Vital Signs: 06:40 BP 168 / 107; Pulse 86; Resp 18; Temp 98.2(O); Pulse Ox 94% ; Weight 92.5 kg; Height 5 ss ft. 11 in. ; Pain 7/10; 06:52 BP 152 / 100; Pulse 90; Resp 17; Pulse Ox 100% on R/A; pc2 08:15 BP 101 / 70; Pulse 90; Resp 18; Pulse Ox 95% ; Pain 8/10; db 09:15 BP 104 / 78; Pulse 60; Resp 16; Pulse Ox 96% ; db 06:40 Body Mass Index 28.44 (92.50 kg, 180.34 cm) ss 06:40 Pain Scale: Adult ss 08:15 Pain Scale: Adult db ED Course: 06:38 Patient arrived in ED. ss 06:39 Zac Roland MD is Attending Physician. rt 06:43 Triage completed. ss 06:43 Maintain EMS IV. Dressing intact. Good blood return noted. Site clean \T\ dry. Gauge \T\ pc 2 site: 20g. Flushed with 10 mL NS. 06:43 Pulse ox on. NIBP on. pc2 06:44 Initial lab(s) drawn, by me, sent to lab. pc2 06:44 Patient has correct armband on for positive identification. Bed in low position. Call pc2 light in reach. Side rails up X2. Provided Education on: POC and time frame. 06:45 Arm band placed on right wrist. pc2 06:48 No provider procedures requiring assistance completed. pc2 06:57 Attending Physician role handed off by Zac Roland MD rn 06:57 Rajesh Gallego MD is Attending Physician. rn 07:06 CT Abd/Pelvis - Without Contrast In Process Unspecified. EDMS 08:41 Lillian Orourke, RN is Primary Nurse. db 09:41 IV discontinued, intact, bleeding controlled, No redness/swelling at site. Pressure ap3 dressing applied. Administered Medications: 06:58 Drug: morphine IVP or IV 4 mg IVP once over 4 mins Route: IVP; Infused Over: 4 mins; pc2 Site: right antecubital; 07:25 Follow up: Response: No adverse reaction db 08:34 Drug: morphine IVP or IV 4 mg IVP once over 4 mins Route: IVP; Infused Over: 4 mins; db Site: right antecubital; 09:41 Follow up: Response: No adverse reaction; Pain is decreased ap3 Medication: 06:44 VIS not applicable for this client. pc2 Outcome: 09:32 Discharge ordered by . rn 09:41 Discharged to home ambulatory, ap3 09:41 Condition: good 09:41 Discharge instructions given to patient, Instructed on discharge instructions, follow up and referral plans. medication usage, Demonstrated understanding of instructions, follow-up care, medications, Prescriptions given X 2, 09:41 Patient left the ED. ap3 Signatures: Dispatcher [employer] EDMS Rajesh Gallego MD MD rn Blanchard, Shelby, RN RN ss Prokisch, Amanda, RN RN ap3 Lillian Orourke, MANSOOR MAX db Zac Roland MD MD rt Mi Swann, RN RN pc2 Corrections: (The following items were deleted from the chart) 08:42 08:15 BP 101 / 70; Pulse 90bpm; Resp 18bpm; Pulse Ox 95%; db db
--- NOTE | 2024-07-15 09:32 | EDPHYS ---
Physician Documentation [facility] Name: Justino Barr Age: 38 yrs Sex: Male : 1985 Arrival Date: 07/15/2024 Time: 06:36 Bed 6 Private MD: ED Physician Rajesh Gallego HPI: 07/15 06:44 This 38 yrs old Male presents to ER via EMS with complaints of Abdominal Pain. rt 06:44 Patient presents to the ED with 2 days of left arm pain. He has had multiple episodes rt of pancreatitis with biliary stent several months ago. States that he is concerned for pancreatitis. Patient went to dialysis today but they would not start him on dialysis. Last dialyzed on Sunday. Reports nausea without vomiting. Denies other acute complaints, symptoms are moderate in severity, no other aggravating elevating factors.. Historical: - Allergies: 06:43 No Known Allergies; ss - PMHx: 06:43 HD T Sat; Hypertensive disorder; ss - PSHx: 06:43 pancreatic stent; ss - Immunization history:: Client reports having NOT received the Covid vaccine. . - Infectious Disease History:: Denies. - Social history:: Smoking status: Patient reports the use of cigarette tobacco products, smokes one pack cigarettes per day. Patient uses street drugs, marijuana. - Family history:: not pertinent. ROS: 06:44 Constitutional: Negative for fever, chills, and weight loss, Cardiovascular: Negative rt for chest pain, palpitations, and edema, Respiratory: Negative for shortness of breath, cough, wheezing, and pleuritic chest pain, MS/Extremity: Negative for injury and deformity, Skin: Negative for injury, rash, and discoloration, 06:44 Abdomen/GI: Positive for abdominal pain, nausea, Exam: 06:44 Constitutional: This is a well developed, well nourished patient who is awake, alert, rt and in no acute distress. Head/Face: Normocephalic, atraumatic. Chest/axilla: Normal chest wall appearance and motion. Nontender with no deformity. No lesions are appreciated. Cardiovascular: Regular rate and rhythm with a normal S1 and S2. No gallops, murmurs, or rubs. Normal PMI, no JVD. No pulse deficits. Respiratory: Lungs have equal breath sounds bilaterally, clear to auscultation and percussion. No rales, rhonchi or wheezes noted. No increased work of breathing, no retractions or nasal flaring. Skin: Warm, dry with normal turgor. Normal color with no rashes, no lesions, and no evidence of cellulitis. MS/ Extremity: Pulses equal, no cyanosis. Neurovascular intact. Full, normal range of motion. Neuro: Awake and alert, GCS 15, oriented to person, place, time, and situation. Cranial nerves II-XII grossly intact. Motor strength 5/5 in all extremities. Sensory grossly intact. Cerebellar exam normal. Normal gait. 06:44 Abdomen/GI: Tenderness to the upper quadrants with mild guarding, no rebound, no distention, Vital Signs: 06:40 BP 168 / 107; Pulse 86; Resp 18; Temp 98.2(O); Pulse Ox 94% ; Weight 92.5 kg; Height 5 ss ft. 11 in. ; Pain 7/10; 06:52 BP 152 / 100; Pulse 90; Resp 17; Pulse Ox 100% on R/A; pc2 08:15 BP 101 / 70; Pulse 90; Resp 18; Pulse Ox 95% ; Pain 8/10; db 09:15 BP 104 / 78; Pulse 60; Resp 16; Pulse Ox 96% ; db 06:40 Body Mass Index 28.44 (92.50 kg, 180.34 cm) ss 06:40 Pain Scale: Adult ss 08:15 Pain Scale: Adult db MDM: 06:40 Patient medically screened. rt 09:31 Differential Diagnosis Nonspecific abdominal pain, ascites, pancreatitis, stent rn failure. Data reviewed: vital signs, nurses notes, lab test result(s), radiologic studies, CT scan, and as a result, I will discharge patient. Counseling: I had a detailed discussion with the patient and/or guardian regarding the historical points, exam findings, and any diagnostic results supporting the discharge/admit diagnosis, lab results, radiology results, the need for outpatient follow up, to return to the emergency department if symptoms worsen or persist or if there are any questions or concerns that arise at home. Special discussion: Based on the patient's Hx, exam, and Dx evaluation, there is no indication for emergent surgery or inpatient Tx. It is understood by the patient/guardian that if the Sx's persist or worsen they need to return immediately for re-evaluation. I discussed with the patient/guardian in detail that at this point there is no indication for admission to the hospital. It is understood, however, that if the symptoms persist or worsen the patient needs to return immediately for re-evaluation. ED course: Mild pancreatitis a possibility, CT imaging negative for acute complication, pain controlled with normal vital signs. Will DC home with return precautions, pain medication, nausea medication. 07/15 06:44 Order name: CBC with Diff; Complete Time: 07:12 rt 07/15 06:44 Order name: CMP; Complete Time: 07:20 rt 07/15 06:44 Order name: Lipase; Complete Time: 07:20 rt 07/15 06:44 Order name: CT Abd/Pelvis - Without Contrast; Complete Time: 07:46 rt 07/15 06:44 Order name: IV Saline Lock; Complete Time: 06:45 rt 07/15 06:44 Order name: Labs collected and sent; Complete Time: 06:46 rt Administered Medications: 06:58 Drug: morphine IVP or IV 4 mg IVP once over 4 mins Route: IVP; Infused Over: 4 mins; pc2 Site: right antecubital; 07:25 Follow up: Response: No adverse reaction db 08:34 Drug: morphine IVP or IV 4 mg IVP once over 4 mins Route: IVP; Infused Over: 4 mins; db Site: right antecubital; 09:41 Follow up: Response: No adverse reaction; Pain is decreased ap3 Disposition Summary: 07/15/24 09:32 Discharge Ordered Notes: Location: Home rn Problem: new rn Symptoms: have improved rn Condition: Stable rn Diagnosis - Other chronic pancreatitis rn Followup: rn - With: Private Physician - When: As needed - Reason: Recheck today's complaints, Re-evaluation by your physician Discharge Instructions: - Discharge Summary Sheet rn - Chronic Pancreatitis rn Forms: - Medication Reconciliation Form rn - 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 - Prescription Opioid Use rn - Patient Portal Instructions rn - Leadership Thank You Letter rn Prescriptions: - ondansetron 4 mg Oral Tablet,disintegrating - take 1 tablet ORAL route every 8 hours As needed; 12 tablet; Refills: 0, rn Product Selection Permitted - Tramadol 50 mg Oral Tablet - take 1 tablet ORAL route every 8 hours as needed; 12 tablet; Refills: 0, rn Product Selection Permitted Signatures: Dispatcher [employer] EDMS Rajesh Gallego MD MD rn Blanchard, Shelby, RN RN ss Lillian Orourke RN RN db Zac Roland MD MD rt Mi Swann, RN RN pc2 Patti Monge RN ap3 Corrections: (The following items were deleted from the chart) 06:44 06:44 CBC+H.LAB.BRZ ordered. EDMS EDMS 06:44 06:44 COMPREHENSIVE METABOLIC PANEL+C.LAB.BRZ ordered. EDMS EDMS 06:44 06:44 LIPASE+C.LAB.BRZ ordered. EDMS EDMS 06:44 06:44 Abdomen Pelvis Wo Con+CT.RAD.BRZ ordered. EDMS EDMS
[2024-07-15 09:48] VITALS: TEMP 98.2
[2024-07-15 09:51] VITALS: BP 104/78; O2SAT 96
== END 2024-07-15 09:41 | disposition home or self-care (01) ==
LOC: ER 06:36
DX: K86.1 Other chronic pancreatitis (principal); Z99.2 Dependence on renal dialysis; Z96.89 Presence of other specified functional implants; F17.210 Nicotine dependence, cigarettes, uncomplicated
CPT/HCPCS: 36415; 74176; 80053; 83690; 85025

== ENCOUNTER 2024-07-22 07:00 | Emergency (ER) | payer OTHER ==
[2024-07-22] MEDS ORDERED: FAMOTIDINE 20 MG/2 ML VIAL IV ONE (07:24)
[2024-07-22 07:31] LABS: Absolute Basophils 0.1 K/uL (0-0.5); Absolute Eosinophils 0.3 K/uL (0-0.5); Absolute Monocytes 0.4 K/uL (0.1-1.3); Absolute Neutrophil 4.7 K/uL (1.8-8.0); Basophils % 1.2 % (0-1.3); Eosinophils % 3.8 % (0-4.4); Hemoglobin 12.9 g/dL (13.6-17.9); Lymphocytes % 26.5 % (15.3-44.8); MCH 31.9 pg (27.0-35.0); MCV 96.7 fL (80-100); MPV 7.6 fL (7.6-11.3); Monocytes % 5.5 % (3.3-12.3); Platelets 149 thou/uL (152-406); RBC Red Blood Cell Count 4.04 M/uL (4.33-5.43); Red Cell Distribution Width 15.4 % (12.1-15.2)
[2024-07-22 07:51] LABS: ALT/SGPT 19 U/L (16-61); Albumin/Globulin Ratio 1.1 (1.1-1.8); Alkaline Phosphatase 103 U/L (45-117); Anion Gap 9.9 mEq/L (5.0-15.0); BUN Blood Urea Nitrogen 36 mg/dL (7-18); Bicarbonate 27 mEq/L (21-32); Bilirubin Total 0.4 mg/dL (0.2-1.0); Globulin 3.5 g/dL (2.3-3.5); Glomerular Filtration Rate 6 ml/min (=/>90); Glucose Level 180 mg/dL (74-106); Lipase 245 U/L (13-75); Potassium 4.9 mEq/L (3.5-5.1); Protein, Total 7.5 g/dL (6.4-8.2); Sodium Level 137 mEq/L (136-145)
[2024-07-22 07:52] LABS: AST/SGOT < 10 U/L (15-37)
--- NOTE | 2024-07-22 08:22 | EDPHYS ---
Physician Documentation [facility] Name: Justino Barr Age: 38 yrs Sex: Male : 1985 Arrival Date: 07/22/2024 Time: 07:00 Bed 16 Private MD: ED Physician Dago Nelson HPI: 07/22 07:35 This 38 yrs old Male presents to ER via Ambulatory with complaints of Abdominal Pain. ms3 07:35 38-year-old male with past medical history of end-stage renal disease, hypertension ms3 presents to the emergency department for left upper quadrant abdominal pain that has been going on for greater than a week. Patient states he was seen in the emergency department last week and the pain continues. He describes the pain is an 8/10. He denies any alleviating or inciting factors. He endorses nausea and denies vomiting.. Historical: - Allergies: 07:30 No Known Allergies; dd2 - Home Meds: 07:30 clonidine HCl 0.3 mg Oral tablet [Active]; Coreg 25 mg Oral tablet [Active]; dd2 hydralazine 50 mg Oral tab 1 tab three times a day [Active]; losartan 100 mg Oral tablet [Active]; Norvasc 10 mg Oral tablet [Active]; zolpidem 5 mg Oral tablet [Active]; - PMHx: 07:30 HD T TH Sat; Hypertensive disorder; dd2 - PSHx: 07:30 pancreatic stent; dd2 - Immunization history:: Adult Immunizations up to date. - Infectious Disease History:: Denies. - Social history:: Smoking status: Patient/guardian denies using tobacco, but has a distant history of tobacco abuse. ROS: 07:35 Constitutional: Negative for fever, and chills. Neck: Negative for injury, pain, and ms3 swelling, Cardiovascular: Negative for chest pain, and palpitations. Respiratory: Negative for shortness of breath, cough, wheezing, and pleuritic chest pain, 07:35 Skin: Negative for injury, rash, and discoloration, Neuro: Negative for headache, weakness, numbness, tingling. 07:35 Abdomen/GI: Positive for abdominal pain, nausea, Negative for vomiting, diarrhea, Exam: 07:35 Constitutional: This is a well developed, well nourished patient who is awake, alert, ms3 and in no acute distress. Cardiovascular: Regular rate and rhythm with a normal S1 and S2. No gallops, murmurs, or rubs. Normal PMI, no JVD. No pulse deficits. Respiratory: Lungs have equal breath sounds bilaterally, clear to auscultation and percussion. No rales, rhonchi or wheezes noted. No increased work of breathing, no retractions or nasal flaring. Skin: Warm, dry with normal turgor. Normal color with no rashes, no lesions, and no evidence of cellulitis. MS/ Extremity: Pulses equal, no cyanosis. Neurovascular intact. Full, normal range of motion. 07:35 Abdomen/GI: Inspection: abdomen appears normal, Bowel sounds: normal, Palpation: mild abdominal tenderness, in the left upper quadrant, Vital Signs: 07:27 BP 166 / 96; Pulse 72; Resp 16; Temp 98.1; Pulse Ox 100% ; Weight 92.5 kg; dd2 08:10 BP 162 / 91; Pulse 71; Resp 15; Pulse Ox 97% ; dd2 MDM: 07:12 Patient medically screened. ms3 07:35 Differential diagnosis: gastritis, gastroesophageal reflux disease, non-specific abd ms3 pain. 12:20 Data reviewed: vital signs, nurses notes, lab test result(s), and as a result, I will ms3 discharge patient. I considered the following discharge prescriptions or medication management in the emergency department Medications were administered in the Emergency Department. See MAR. Counseling: I had a detailed discussion with the patient and/or guardian regarding the historical points, exam findings, and any diagnostic results supporting the discharge/admit diagnosis, lab results, the need for outpatient follow up, to return to the emergency department if symptoms worsen or persist or if there are any questions or concerns that arise at home. Special discussion: I discussed with the patient/guardian in detail that at this point there is no indication for admission to the hospital. It is understood, however, that if the symptoms persist or worsen the patient needs to return immediately for re-evaluation. ED course: Patient with CT abdomen pelvis last week with similar symptoms and lipase approximately the same as today. Patient with likely chronic pancreatitis. Patient states he has stent and his pancreas that is followed at [facility] in the [facility]. Discussed with patient necessity to follow-up with [facility]. He understands and agrees with plan. Patient to follow-up in the next few days. All questions were answered. Return precautions discussed include worsening symptoms, or any other concerns. On reevaluation patient symptoms improved, patient is alert and oriented x 4, no apparent distress, nontoxic-appearing, ambulatory emerged primary, speaking full sentences. 07/22 07:13 Order name: CBC with Diff; Complete Time: 08:04 ms3 07/22 07:13 Order name: CMP; Complete Time: 08:04 ms3 07/22 07:13 Order name: Lipase; Complete Time: 08:04 ms3 07/22 07:13 Order name: IV Saline Lock; Complete Time: 07:24 ms3 07/22 07:13 Order name: Labs collected and sent; Complete Time: 07:25 ms3 Administered Medications: 07:30 Drug: Famotidine IVP 20 mg IVP once; dilute with 10 mL 0.9% NaCl; give over 2 minutes dd2 Route: IVP; Site: right antecubital; 07:45 Follow up: Response: No adverse reaction dd2 Disposition Summary: 07/22/24 08:21 Discharge Ordered Notes: Location: Home ms3 Condition: Stable ms3 Diagnosis - Abdominal pain, unspecified ms3 - Elevated lipase ms3 Followup: ms3 - With: Private Physician - When: 2 - 3 days - Reason: Recheck today's complaints Discharge Instructions: - Discharge Summary Sheet ms3 - Abdominal Pain, Adult ms3 - Chronic Pancreatitis ms3 Forms: - Medication Reconciliation Form ms3 - Antibiotic Education ms3 - Prescription Opioid Use ms3 - Patient Portal Instructions ms3 - Leadership Thank You Letter ms3 Prescriptions: - Pepcid 20 mg Oral Tablet - take 1 tablet ORAL route every 12 hours for 10 days; 20 tablet; Refills: 0, ms3 Product Selection Permitted Signatures: Dispatcher [employer] Dago Garcia DO DO ms3 SABI MEDEROS RN RN dd2
--- NOTE | 2024-07-22 08:22 | ER ---
Nurse's Notes [facility] Name: Justino Barr Age: 38 yrs Sex: Male : 1985 Arrival Date: 07/22/2024 Time: 07:00 Bed 16 Private MD: Diagnosis: Abdominal pain, unspecified;Elevated lipase Presentation: 07/22 07:27 Chief complaint: Patient states: Pt states abdominal pain x1 week with nausea. dd2 Coronavirus screen: At this time, the client does not indicate any symptoms associated with coronavirus-19. Ebola Screen: No symptoms or risks identified at this time. Initial Sepsis Screen: Does the patient meet any 2 criteria? No. Patient's initial sepsis screen is negative. Does the patient have a suspected source of infection? No. Patient's initial sepsis screen is negative. Risk Assessment: Do you want to hurt yourself or someone else? Patient reports no desire to harm self or others. Onset of symptoms is unknown. 07:27 Method Of Arrival: Ambulatory dd2 07:27 Acuity: VAHID 3 dd2 Triage Assessment: 07:30 General: Appears uncomfortable, Behavior is calm, cooperative. Pain: Complains of pain dd2 in left upper quadrant Pain currently is 10 out of 10 on a pain scale. EENT: No deficits noted. Neuro: No deficits noted. Cardiovascular: No deficits noted. Respiratory: No deficits noted. GI: Abdomen is non-distended, Bowel sounds present X 4 quads. Abd is soft and non tender Reports upper abdominal pain, nausea. : Reports Dailysis T,TH,SAT. Derm: No deficits noted. Musculoskeletal: No deficits noted. Historical: - Allergies: 07:30 No Known Allergies; dd2 - Home Meds: 07:30 clonidine HCl 0.3 mg Oral tablet [Active]; Coreg 25 mg Oral tablet [Active]; dd2 hydralazine 50 mg Oral tab 1 tab three times a day [Active]; losartan 100 mg Oral tablet [Active]; Norvasc 10 mg Oral tablet [Active]; zolpidem 5 mg Oral tablet [Active]; - PMHx: 07:30 HD T TH Sat; Hypertensive disorder; dd2 - PSHx: 07:30 pancreatic stent; dd2 - Immunization history:: Adult Immunizations up to date. - Infectious Disease History:: Denies. - Social history:: Smoking status: Patient/guardian denies using tobacco, but has a distant history of tobacco abuse. Screenin:[address] [facility] ED Fall Risk Assessment (Adult) History of falling in the last 3 months, dd2 including since admission No falls in past 3 months (0 pts) Confusion or Disorientation No (0 pts) Intoxicated or Sedated No (0 pts) Impaired Gait No (0 pts) Mobility Assist Device Used No (0 pt) Altered Elimination No (0 pt) Score/Fall Risk Level 0 - 2 = Low Risk Oriented to surroundings, Maintained a safe environment, Hourly rounding (assess needs \T\ fall precautionary measures) done. Abuse screen: Denies threats or abuse. Nutritional screening: No deficits noted. Tuberculosis screening: No symptoms or risk factors identified. Assessment: 07:35 Reassessment: SEE TRIAGE NOTE FOR FULL ASSESSMENT. dd2 Vital Signs: 07:27 BP 166 / 96; Pulse 72; Resp 16; Temp 98.1; Pulse Ox 100% ; Weight 92.5 kg; dd2 08:10 BP 162 / 91; Pulse 71; Resp 15; Pulse Ox 97% ; dd2 ED Course: 07:06 Patient arrived in ED. im 07:11 SABI MEDEROS, RN is Primary Nurse. dd2 07:12 Dago Nelson DO is Attending Physician. ms3 07:25 CBC with Diff Sent. dd2 07:25 CMP Sent. dd2 07:25 Lipase Sent. dd2 07:30 Triage completed. dd2 07:30 Arm band placed on left wrist. Patient placed in an exam room, on a stretcher, on pulse dd2 oximetry. 07:35 No provider procedures requiring assistance completed. Initial lab(s) drawn, by me, dd2 sent to lab. Inserted saline lock: 20 gauge in right antecubital area, using aseptic technique. Blood collected. Flushed with 10 mL NS. 07:35 Patient has correct armband on for positive identification. Bed in low position. Call dd2 light in reach. Side rails up X 1. Provided Education on: CALL LIGHT, MEDICATIONS, LABS. Door closed. Warm blanket given. 08:32 IV discontinued, intact, bleeding controlled, No redness/swelling at site. Pressure dd2 dressing applied. Administered Medications: 07:30 Drug: Famotidine IVP 20 mg IVP once; dilute with 10 mL 0.9% NaCl; give over 2 minutes dd2 Route: IVP; Site: right antecubital; 07:45 Follow up: Response: No adverse reaction dd2 Medication: 07:35 VIS not applicable for this client. dd2 Outcome: 08:21 Discharge ordered by . ms3 08:32 Discharged to home ambulatory, dd2 08:32 Condition: stable 08:32 Discharge instructions given to patient, Instructed on discharge instructions, follow up and referral plans. medication usage, Demonstrated understanding of instructions, follow-up care, medications, Prescriptions given X 1, 08:33 Patient left the ED. dd2 Signatures: Dago Nelson DO DO ms3 Danyelle Montaño DIANA, RN RN dd2
[2024-07-22 08:47] VITALS: TEMP 98.1
[2024-07-22 08:48] VITALS: BP 162/91; O2SAT 97
== END 2024-07-22 08:33 | disposition home or self-care (01) ==
LOC: ER 07:00
DX: R10.12 Left upper quadrant pain (principal); R74.8 Abnormal levels of other serum enzymes; I12.0 Hypertensive chronic kidney disease with stage 5 chronic kidney disease or end stage renal disease; N18.6 End stage renal disease; Z99.2 Dependence on renal dialysis
CPT/HCPCS: 36415; 80053; 83690; 85025; 96374; 99284

== ENCOUNTER 2024-07-24 11:37 | Emergency (ER) | payer OTHER ==
--- NOTE | 2024-07-24 12:13 | EDPHYS ---
Physician Documentation [facility] Name: Justino Barr Age: 38 yrs Sex: Male : 1985 Arrival Date: 07/24/2024 Time: 11:37 Bed IW1 Private MD: ED Physician Rajesh Gallego HPI: 07/24 12:10 This 38 yrs old Male presents to ER via Ambulatory with complaints of Sore Throat. rn 12:10 The patient presents with sore throat. The patient describes throat pain as raw, rn scratchy. Onset: The symptoms/episode began/occurred this morning. Severity of symptoms: At their worst the symptoms were mild, in the emergency department the symptoms are unchanged. Modifying factors: The symptoms are alleviated by nothing, the symptoms are aggravated by swallowing. The patient has not experienced similar symptoms in the past. Patient reports sore throat that began this morning, feels like [id number] and raw, no history of allergic reaction. No new medication. No fever or chills. Started during dialysis. No rash or itching otherwise.. Historical: - Allergies: 12:05 No Known Allergies; tm6 - PMHx: 12:05 HD T Sat; Hypertensive disorder; chronic kidney disease (Hypertensive disorder); tm6 - PSHx: 12:05 pancreatic stent; tm6 - Immunization history:: Adult Immunizations up to date. - Infectious Disease History:: Denies. - Family history:: not pertinent. - Hospitalizations: : No recent hospitalization is reported. - Social history:: Smoking status: unknown. ROS: 12:10 Constitutional: Negative for fever, chills, and weight loss, ENT: Positive for sore rn throat Neck: Negative for injury, pain, and swelling, Cardiovascular: Negative for chest pain, palpitations, and edema, Respiratory: Negative for shortness of breath, cough, wheezing, and pleuritic chest pain, Exam: 12:10 Constitutional: Disheveled, no acute distress ENT: Oropharynx with no redness, rn swelling, or masses, exudates, or evidence of obstruction, uvula midline. Mucous membranes moist. Neck: Trachea midline, no masses palpated, and no cervical lymphadenopathy. Supple, full range of motion without nuchal rigidity, or vertebral point tenderness. No Meningismus. Respiratory: No increased work of breathing, no retractions or nasal flaring. Vital Signs: 12:03 BP 97 / 72; Pulse 92; Resp 19; Temp 98.6(O); Pulse Ox 98% ; Weight 72.9 kg; Height 5 tm6 ft. 11 in. ; Pain 5/10; 12:03 Body Mass Index 22.42 (72.90 kg, 180.34 cm) tm6 12:03 Pain Scale: Adult tm6 MDM: 11:42 Patient medically screened. rn 12:10 Differential diagnosis: laryngitis, pharyngitis, tonsillitis, upper respiratory rn infection, viral syndrome. Data reviewed: vital signs, nurses notes, and as a result, I will discharge patient. Counseling: I had a detailed discussion with the patient and/or guardian regarding the historical points, exam findings, and any diagnostic results supporting the discharge/admit diagnosis, the need for outpatient follow up, to return to the emergency department if symptoms worsen or persist or if there are any questions or concerns that arise at home. Special discussion: I discussed with the patient/guardian in detail that at this point there is no indication for admission to the hospital. It is understood, however, that if the symptoms persist or worsen the patient needs to return immediately for re-evaluation. 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 ENT: Oropharynx with no redness, swelling, or masses, exudates, or evidence of obstruction, uvula midline. Mucous membranes moist. Neck: Trachea midline, no masses palpated, and no cervical lymphadenopathy. Supple, full range of motion without nuchal rigidity, or vertebral point tenderness. No Meningismus. Respiratory: No increased work of breathing, no retractions or nasal flaring. rn
--- NOTE | 2024-07-24 12:13 | ER ---
Nurse's Notes [facility] Name: Justino Barr Age: 38 yrs Sex: Male : 1985 Arrival Date: 07/24/2024 Time: 11:37 Bed IW1 Private MD: Diagnosis: Pain in throat Presentation: 07/24 12:04 Chief complaint: Patient states: stinging in my throat and feeling lightheaded and weak tm6 after dialysis this morning. Coronavirus screen:. Ebola Screen: Patient negative for fever greater than or equal to 101.5 degrees Fahrenheit, and additional compatible Ebola Virus Disease symptoms Patient denies exposure to infectious person. Patient denies travel to an Ebola-affected area in the 21 days before illness onset. No symptoms or risks identified at this time. Initial Sepsis Screen: Does the patient meet any 2 criteria? No. Patient's initial sepsis screen is negative. Does the patient have a suspected source of infection? No. Patient's initial sepsis screen is negative. Risk Assessment: Do you want to hurt yourself or someone else? Patient reports no desire to harm self or others. Onset of symptoms was July 24, 2024. 12:04 Method Of Arrival: Ambulatory tm6 12:04 Acuity: VAHID 3 tm6 Triage Assessment: 12:05 General: Appears uncomfortable, Behavior is calm, cooperative. Pain: Complains of pain tm6 in neck Pain does not radiate. Pain currently is 5 out of 10 on a pain scale. Quality of pain is described as sharp, Pain began 1 hour ago. EENT: Reports pain in throat. Neuro: Level of Consciousness is awake, alert, obeys commands, Oriented to person, place, time, situation. Neuro: Reports dizziness, since after dialysis. Cardiovascular: Reports lightheadedness, Patient's skin is warm and dry. Respiratory: Airway is patent Respiratory effort is even, unlabored, Respiratory pattern is regular, symmetrical. GI: No signs and/or symptoms were reported involving the gastrointestinal system. Abdomen is flat, non-distended. : No signs and/or symptoms were reported regarding the genitourinary system. Derm: No signs and/or symptoms reported regarding the dermatologic system. Musculoskeletal: No signs and/or symptoms reported regarding the musculoskeletal system. Historical: - Allergies: 12:05 No Known Allergies; tm6 - PMHx: 12:05 HD T TH Sat; Hypertensive disorder; chronic kidney disease (Hypertensive disorder); tm6 - PSHx: 12:05 pancreatic stent; tm6 - Immunization history:: Adult Immunizations up to date. - Infectious Disease History:: Denies. - Family history:: not pertinent. - Hospitalizations: : No recent hospitalization is reported. - Social history:: Smoking status: unknown. Screenin:17 [facility] ED Fall Risk Assessment (Adult) History of falling in the last 3 months, ll1 including since admission No falls in past 3 months (0 pts) Confusion or Disorientation No (0 pts) Intoxicated or Sedated No (0 pts) Impaired Gait No (0 pts) Mobility Assist Device Used No (0 pt) Altered Elimination No (0 pt) Score/Fall Risk Level 0 - 2 = Low Risk Maintained a safe environment, Hourly rounding (assess needs \T\ fall precautionary measures) done. Abuse screen: Denies threats or abuse. Nutritional screening: No deficits noted. Tuberculosis screening: No symptoms or risk factors identified. Assessment: 12:16 Reassessment: No changes from previously documented assessment. Patient and/or family ll1 updated on plan of care and expected duration. Pain level reassessed. Patient is alert, oriented x 3, equal unlabored respirations, skin warm/dry/pink. 12:17 Respiratory: Airway is patent ll1 12:18 EENT: Throat is reddened. ll1 Vital Signs: 12:03 BP 97 / 72; Pulse 92; Resp 19; Temp 98.6(O); Pulse Ox 98% ; Weight 72.9 kg; Height 5 tm6 ft. 11 in. ; Pain 5/10; 12:03 Body Mass Index 22.42 (72.90 kg, 180.34 cm) tm6 12:03 Pain Scale: Adult tm6 ED Course: 11:39 Patient arrived in ED. mr 11:42 Rajesh Gallego MD is Attending Physician. rn 12:05 Triage completed. tm6 12:05 Arm band placed on right wrist. tm6 12:17 Patient has correct armband on for positive identification. Provided Education on: ll1 finish all prescribed antibiotics. 12:17 No provider procedures requiring assistance completed. Patient did not have IV access ll1 during this emergency room visit. Administered Medications: No medications were administered Medication: 12:18 VIS not applicable for this client. ll1 Outcome: 12:12 Discharge ordered by . rn 12:17 Discharged to home ambulatory, ll1 12:17 Condition: stable 12:17 Discharge instructions given to patient, Instructed on discharge instructions, follow up and referral plans. medication usage, Demonstrated understanding of instructions, follow-up care, medications, Prescriptions given X 1, 12:18 Patient left the ED. ll1 Signatures: Marilynn Calderon, Reg Reg mr aRjesh Gallego MD MD rn Lewis, Lynsay, RN RN [address] RN RN tm6
[2024-07-24 12:25] VITALS: BP 97/72; TEMP 98.6; O2SAT 98
== END 2024-07-24 12:18 | disposition home or self-care (01) ==
LOC: ER 11:37 → SUPCPDRO 11:37 → ER 12:18
DX: R07.0 Pain in throat (principal)
CPT/HCPCS: 99283

== ENCOUNTER 2024-09-06 07:38 | Emergency (ER) | payer OTHER ==
[2024-09-06 08:11] LABS: Absolute Basophils 0.1 K/uL (0-0.5); Absolute Eosinophils 0.3 K/uL (0-0.5); Absolute Lymphocytes (CBC) 1.8 K/uL (0.7-4.9); Absolute Monocytes 0.4 K/uL (0.1-1.3); Absolute Neutrophil 4.4 K/uL (1.8-8.0); Eosinophils % 4.4 % (0-4.4); Hematocrit 37.4 % (39.6-49.0); Hemoglobin 12.3 g/dL (13.6-17.9); MPV 7.3 fL (7.6-11.3); Neutrophils % 62.6 % (41.7-73.7); Platelets 143 thou/uL (152-406); RBC Red Blood Cell Count 3.86 M/uL (4.33-5.43); Red Cell Distribution Width 14.8 % (12.1-15.2)
[2024-09-06 08:25] LABS: Anion Gap 10.5 mEq/L (5.0-15.0); Potassium 4.5 mEq/L (3.5-5.1)
--- NOTE | 2024-09-06 08:37 | ER ---
Nurse's Notes [facility] Name: Justino Barr Age: 38 yrs Sex: Male : 1985 Arrival Date: 09/06/2024 Time: 07:38 Bed 14 Private MD: Diagnosis: Encounter for examination of blood pressure without abnormal findings;Hypotension, unspecified Presentation: 09/06 07:47 Chief complaint: EMS states: BP low at dialysis this morning, pt admits to "smoking ph dabs" prior to going, also took home BP meds, systolic BP 99 for EMS, BP 138/99 upon arrival to ED, no dialysis preformed, last dialyzed on . Coronavirus screen: Vaccine status: Patient reports being unvaccinated. Ebola Screen: No symptoms or risks identified at this time. Initial Sepsis Screen: Does the patient meet any 2 criteria? No. Patient's initial sepsis screen is negative. Does the patient have a suspected source of infection? No. Patient's initial sepsis screen is negative. Risk Assessment: Do you want to hurt yourself or someone else? Patient reports no desire to harm self or others. Onset of symptoms was September 06, 2024. 07:47 Method Of Arrival: EMS: [facility] 07:47 Acuity: VAHID 3 ph Triage Assessment: 07:54 General: Appears in no apparent distress. Behavior is calm, cooperative. Pain: Denies ph pain. Neuro: Level of Consciousness is awake, alert, obeys commands, Oriented to person, place, time, situation. Cardiovascular: Capillary refill < 3 seconds in bilateral fingers Patient's skin is warm and dry. Cardiovascular: Dialysis shunt: in the left bicep, with palpable thrill, with auscultated bruit, with no erythema, with no edema, no bleeding noted. Respiratory: Airway is patent Respiratory effort is even, unlabored. GI: No signs and/or symptoms were reported involving the gastrointestinal system. Derm: Skin is pink, warm \\T\\ dry. Historical: - Allergies: 07:49 No Known Allergies; ph - Home Meds: 07:49 clonidine HCl 0.1 mg oral tablet 1 tab q4h PRN [Active]; Coreg 25 mg Oral tablet 1 tab ph 2 times per day [Active]; hydralazine 50 mg Oral tab 1 tab three times a day [Active]; losartan 100 mg Oral tablet 1 tab daily [Active]; - PMHx: 07:49 chronic kidney disease (Hypertensive disord); HD T TH Sat; Hypertensive disorder; ph - PSHx: 07:49 pancreatic stent; ph - Immunization history:: Adult Immunizations unknown. - Infectious Disease History:: Denies. - Social history:: Smoking status: Patient reports the use of cigarette tobacco products, smokes one-half pack cigarettes per day, Patient uses street drugs, marijuana. Screenin:54 [facility] ED Fall Risk Assessment (Adult) History of falling in the last 3 months, ph including since admission No falls in past 3 months (0 pts) Confusion or Disorientation No (0 pts) Intoxicated or Sedated No (0 pts) Impaired Gait No (0 pts) Mobility Assist Device Used No (0 pt) Altered Elimination No (0 pt) Score/Fall Risk Level 0 - 2 = Low Risk Oriented to surroundings, Maintained a safe environment, Hourly rounding (assess needs \\T\\ fall precautionary measures) done. Abuse screen: Denies threats or abuse. Denies injuries from another. Nutritional screening: No deficits noted. Tuberculosis screening: No symptoms or risk factors identified. Assessment: 08:06 General: SEE TRIAGE ASSESSMENT. ph 08:53 Reassessment: Patient appears in no apparent distress at this time. Patient and/or ph family updated on plan of care and expected duration. Pain level reassessed. Patient is alert, oriented x 3, equal unlabored respirations, skin warm/dry/pink. Vital Signs: 07:47 BP 138 / 99; Pulse 73; Resp 18; Temp 97.2; Pulse Ox 100% on R/A; Weight 74.84 kg; ph Height 5 ft. 11 in. ; 08:53 BP 147 / 92; Pulse 71; Resp 18; Temp 98; Pulse Ox 99% on R/A; ph 07:47 Body Mass Index 23.01 (74.84 kg, 180.34 cm) ph ED Course: 07:46 Patient arrived in ED. ph 07:49 Alireza Lan MD is Attending Physician. ec2 07:49 Triage completed. ph 07:53 Arm band placed on Patient placed in an exam room, on a stretcher, on cardiac exercise specialist, ph on pulse oximetry. 07:54 Patient has correct armband on for positive identification. Call light in reach. Side ph rails up X 1. systems operator on. Pulse ox on. NIBP on. 08:05 Peyton Brock, RN is Primary Nurse. ph 08:06 Initial lab(s) drawn, by me, sent to lab. Inserted saline lock: 22 gauge in right ph antecubital area, using aseptic technique. Blood collected. Flushed with 10 mL NS. 08:54 No provider procedures requiring assistance completed. IV discontinued, intact, ph bleeding controlled, No redness/swelling at site. Pressure dressing applied. Administered Medications: No medications were administered Medication: 07:54 VIS not applicable for this client. ph Outcome: 08:36 Discharge ordered by . ec2 08:54 Discharged to home ambulatory, ph 08:54 Condition: good 08:54 Discharge instructions given to patient, Instructed on discharge instructions, follow up and referral plans. Demonstrated understanding of instructions, follow-up care, 08:54 Patient left the ED. ph Signatures: Peyton Brock RN RN Alireza Lan MD MD ec2
--- NOTE | 2024-09-06 08:37 | EDPHYS ---
Physician Documentation [facility] Name: Justino Barr Age: 38 yrs Sex: Male : 1985 Arrival Date: 09/06/2024 Time: 07:38 Bed 14 Private MD: ED Physician Alireza Lan HPI: 09/06 07:53 This 38 yrs old Male presents to ER via EMS with complaints of Blood Pressure ec2 Problem. 07:53 Patient arrives today for evaluation of low blood pressure. Patient reports that he was ec2 going to his dialysis, undergoing dialysis, Sunday, , Sunday and subsequently had blood pressure readings that were low and subsequently came to the ED to be evaluated. Patient reports that he smoked marijuana just prior to going to dialysis. Patient reports otherwise no symptoms. Reports he is back at baseline. EMS reports some normal blood pressure readings for them.. Historical: - Allergies: 07:49 No Known Allergies; ph - Home Meds: 07:49 clonidine HCl 0.1 mg oral tablet 1 tab q4h PRN [Active]; Coreg 25 mg Oral tablet 1 tab ph 2 times per day [Active]; hydralazine 50 mg Oral tab 1 tab three times a day [Active]; losartan 100 mg Oral tablet 1 tab daily [Active]; - PMHx: 07:49 chronic kidney disease (Hypertensive disord); HD T Sun; Hypertensive disorder; ph - PSHx: 07:49 pancreatic stent; ph - Immunization history:: Adult Immunizations unknown. - Infectious Disease History:: Denies. - Social history:: Smoking status: Patient reports the use of cigarette tobacco products, smokes one-half pack cigarettes per day, Patient uses street drugs, marijuana. ROS: 07:53 Constitutional: as per hpi ec2 Exam: 07:53 Constitutional: GEN: NAD Head: atraumatic Eyes: EOMI Ears: External ears are ec2 normal. CV: regular rate LUNGS: no respiratory distress ABD: non-distended SKIN: no evidence of rashes MSK: no evidence of trauma Vital Signs: 07:47 BP 138 / 99; Pulse 73; Resp 18; Temp 97.2; Pulse Ox 100% on R/A; Weight 74.84 kg; ph Height 5 ft. 11 in. ; 08:53 BP 147 / 92; Pulse 71; Resp 18; Temp 98; Pulse Ox 99% on R/A; ph 07:47 Body Mass Index 23.01 (74.84 kg, 180.34 cm) ph MDM: 07:53 Data reviewed: vital signs. ED course: Patient arrives today for evaluation of low ec2 blood pressure. Examination remarkable for well-appearing nontoxic dividual's otherwise in no acute distress with a ration examination. Will obtain CBC and metabolic profile. Evaluate for hyperkalemia, electrolyte abnormality, CBC abnormalities. . 08:36 ED course: Metabolic profile shows expected renal dysfunction, normal potassium. CBC is ec2 nonactionable. Will discharge home and follow-up with dialysis clinic. Return precautions given . Patient otherwise with reassuring vital signs, no hypoxia, no gross volume overload requiring emergent dialysis at this time. 08:36 Patient medically screened. ec2 09/06 07:51 Order name: CBC with Diff; Complete Time: 08:36 ec2 09/06 07:51 Order name: BMP; Complete Time: 08:36 ec2 Administered Medications: No medications were administered Disposition Summary: 09/06/24 08:36 Discharge Ordered Notes: Location: Home ec2 Condition: Stable ec2 Diagnosis - Encounter for examination of blood pressure without abnormal findings ec2 - Hypotension, unspecified ec2 Followup: ec2 - With: Private Physician - When: - Reason: Re-evaluation by your physician Discharge Instructions: - Discharge Summary Sheet ec2 - Hemodialysis, Care After, [id number] ec2 Forms: - Medication Reconciliation Form ec2 - Antibiotic Education ec2 - Prescription Opioid Use ec2 - Patient Portal Instructions ec2 - Leadership Thank You Letter ec2 Signatures: Dispatcher [employer] Peyton Cartwright RN RN ph Alireza Lan MD MD ec2
[2024-09-06 10:58] VITALS: BP 138/99; TEMP 97.2; O2SAT 100
== END 2024-09-06 08:54 | disposition home or self-care (01) ==
LOC: ER 07:38
DX: I95.9 Hypotension, unspecified (principal); I12.0 Hypertensive chronic kidney disease with stage 5 chronic kidney disease or end stage renal disease; N18.6 End stage renal disease; Z99.2 Dependence on renal dialysis; F17.210 Nicotine dependence, cigarettes, uncomplicated
CPT/HCPCS: 36415; 80048; 85025; 99284

== ENCOUNTER 2025-06-28 14:36 | Inpatient (IN) | payer OTHER ==
[2025-06-28 16:19] LABS: Absolute Lymphocytes (CBC) 1.4 K/uL (0.7-4.9); Hematocrit 39.9 % (39.6-49.0); Hemoglobin 13.2 g/dL (13.6-17.9); MCH 30.9 pg (27.0-35.0); MCHC 33.2 g/dL (32.0-36.0); MCV 93.1 fL (80-100); MPV 7.2 fL (7.6-11.3); Nucleated RBC Absolute Count 0.0 (0-0); Nucleated Red Blood Cells % 0.3 % (0-0); RBC Red Blood Cell Count 4.28 M/uL (4.33-5.43); White Blood Count 8.90 thou/uL (4.3-10.9)
[2025-06-28 16:27] LABS: PT Prothrombin Time 11.3 SECONDS (10-13.0); Protime INR 1.0
[2025-06-28] MEDS ORDERED: HYDRALAZINE HCL 20 MG/ML VIAL ONE ×3 (16:44→19:58)
--- NOTE | 2025-06-28 16:44 | RAD REPORT ---
EXAMINATION: ONE VIEW CHEST XR CLINICAL INDICATION: Male, 39 years old.,missed dialysis TECHNIQUE: Frontal chest projection is submitted. Examination is limited by patient positioning and t echnique. COMPARISON: 08/09/2024. FINDINGS: The lungs are well inflated and clear. No pneumothorax or sizable effusion. The heart is normal in s ize. Mediastinal contours are unremarkable. IMPRESSION: No acute intrathoracic abnormalities.
[2025-06-28] MEDS ORDERED: HYDROCODONE/APAP 7.5/325 MG TAB ONE (16:45)
[2025-06-28 16:48] LABS: ALT/SGPT 15 U/L (16-61); Albumin 4.0 g/dL (3.4-5.0); Albumin/Globulin Ratio 1.1 (1.1-1.8); Alkaline Phosphatase 110 U/L (45-117); Anion Gap 13.5 mEq/L (5.0-15.0); BUN Blood Urea Nitrogen 35 mg/dL (7-18); Globulin 3.6 g/dL (2.3-3.5); Glucose Level 106 mg/dL (74-106); Magnesium 2.7 mg/dL (1.6-2.4); NT PRO-BNP 4911 pg/mL (<125); Potassium 4.5 mEq/L (3.5-5.1); Troponin High Sensitivity 12.5 pg/mL (<58.9)
[2025-06-28 16:49] LABS: AST/SGOT < 10 U/L (15-37); Bilirubin Indirect, Calculated 0.4 mg/dL (0.2-0.8)
--- NOTE | 2025-06-28 17:44 | RAD REPORT ---
EXAM: CT Head Brain Wo Cont HISTORY: DIZZINESS COMPARISON: None TECHNIQUE: Multiple contiguous axial images were obtained for a CT of the brain without contrast. Sag ittal and coronal reformats were performed. One or more of the following dose reduction techniques were used: Automated exposure control, adjus tment of the mA and kV according to patient size, and iterative reconstruction. Unless otherwise specified, incidental findings do not require dedicated imaging follow-up. FINDINGS: No evidence of hydrocephalus, intracranial hemorrhage, or extra-axial fluid collection. Focus of near CSF density along the basal right temporal lobe, suggesting encephalomalacia, likely se quelae of remote ischemia. Patchy moderate periventricular and deep white matter nonspecific hypodensities, suggestive of chronic microvascular ischemic changes present. The calvarium is intact. The visualized paranasal sinuses and mastoid air cells are essentially clear . Patchy opacification of the nasopharynx. IMPRESSION: No evidence of acute intracranial abnormality. Chronic findings as above.
[2025-06-28] MEDS ORDERED: TRANEXAMIC ACID 1,000 MG/10 ML VIAL IV ONE (18:05)
[2025-06-28] MEDS ORDERED: NA CHLORIDE 0.9% 100 ML ONE (18:05)
[2025-06-28] MEDS ORDERED: HYDRALAZINE HCL 25 MG TABLET ONE (18:34)
[2025-06-28] MEDS ORDERED: METOCLOPRAMIDE 10 MG/2mL INJ ONE (18:40)
[2025-06-28] MEDS ORDERED: DIPHENHYDRAMINE 50 MG/ML VIAL ONE (18:40)
[2025-06-28] MEDS ORDERED: LORazepam 2 MG/ML VIAL ONE (18:52)
[2025-06-28] MEDS ORDERED: MORPHINE 4 MG/ML SYR ONE (19:17)
[2025-06-28] MEDS ORDERED: LABETALOL HCL 100 MG TAB ONE (19:58)
[2025-06-28] MEDS ORDERED: ONDANSETRON 4 MG/2 ML VIAL ONE (20:29)
--- NOTE | 2025-06-28 20:48 | ER ---
Nurse's Notes [facility] Name: Justino Barr Age: 39 yrs Sex: Male : 1985 Arrival Date: 06/28/2025 Time: 14:36 Bed 23 Private MD: Diagnosis: Epistaxis;Hypertensive urgency;End stage renal disease Presentation: 06/28 15:04 Chief complaint: Patient states: Nose bleed since yesterday. Out of BP medications x "a ss few days.". Coronavirus screen: Client denies travel out of the [place] in the last 14 days. Ebola Screen: Patient denies exposure to infectious person. Patient denies travel to an Ebola-affected area in the 21 days before illness onset. Initial Sepsis Screen: Does the patient meet any 2 criteria? No. Patient's initial sepsis screen is negative. Does the patient have a suspected source of infection? No. Patient's initial sepsis screen is negative. Risk Assessment: Do you want to hurt yourself or someone else? Patient reports no desire to harm self or others. Onset of symptoms was June 27, 2025. 15:04 Method Of Arrival: Wheelchair ss 15:04 Acuity: VAHID 2 ss Historical: - Allergies: 15:09 No Known Allergies; ss - Home Meds: 15:09 clonidine HCl 0.1 mg Oral tablet 1 tab Q4H prn [Active]; Coreg 25 mg Oral tablet 1 tab ss 2 times per day [Active]; hydralazine 50 mg Oral tab 1 tab three times a day [Active]; losartan 100 mg Oral tablet 1 tab daily [Active]; Norvasc 10 mg Oral tablet [Active]; - PMHx: 15:09 chronic kidney disease (Hypertensive disord); HD T TH Sat; Hypertensive disorder; ss - PSHx: 15:09 pancreatic stent; ss Screenin:48 [facility] ED Fall Risk Assessment (Adult) History of falling in the last 3 months, jb4 including since admission No falls in past 3 months (0 pts) Confusion or Disorientation No (0 pts) Intoxicated or Sedated No (0 pts) Impaired Gait No (0 pts) Mobility Assist Device Used No (0 pt) Altered Elimination No (0 pt) Score/Fall Risk Level 0 - 2 = Low Risk. Abuse screen: Denies threats or abuse. Nutritional screening: No deficits noted. Tuberculosis screening: No symptoms or risk factors identified. Assessment: 15:10 General: Appears in no apparent distress. uncomfortable, Behavior is calm, cooperative, jb4 appropriate for age, Pt placed in an upright seated position . Pain: Denies pain. Neuro: Level of Consciousness is awake, alert, obeys commands, Oriented to person, place, time, situation. Cardiovascular: Patient's skin is warm and dry. Respiratory: Airway is patent Respiratory effort is even, unlabored, Respiratory pattern is regular, symmetrical. EENT: Nares with bleeding noted. Derm: Skin is intact, Skin is pink, warm \\T\\ dry. Musculoskeletal: Circulation, motion, and sensation intact. Range of motion: intact in all extremities. 16:23 Reassessment: Patient appears in no apparent distress at this time. Patient and/or jb4 family updated on plan of care and expected duration. Pain level reassessed. Patient is alert, oriented x 3, equal unlabored respirations, skin warm/dry/pink. 16:40 Reassessment: Rhino rocket placed by KATHRIN Armendariz. jb4 18:12 Reassessment: Verified order for Tranexamic acid administration with ER provider and ER jb4 physician Dr. Gallego. Both agree medication is safe for pt to take. Pt remains in upright seated position. 18:30 Reassessment: Patient appears in no apparent distress at this time. No changes from jb4 previously documented assessment. Patient and/or family updated on plan of care and expected duration. Pain level reassessed. 19:21 Reassessment: Patient appears in no apparent distress at this time. Patient and/or jb4 family updated on plan of care and expected duration. Pain level reassessed. Patient is alert, oriented x 3, equal unlabored respirations, skin warm/dry/pink. KATHRIN Ashby placed rhino rocket in left nare. reports more bleeding. 20:28 Reassessment: Provider at bedside examining pt's throat. Provider instructed pt to jb4 swish his mouth, pt now gagging and starting to vomit. Pt dislodged right nare rhino rocket. Received verbal order for 8mg of zofran. Pt remains in upright seated position. 20:36 Reassessment: ER provider inserted new rhino rocket to right nare. jb4 21:02 Reassessment: Pt resting in bed with eyes closed, respirations are even and unlabored jb4 with no s/s of pain or distress noted. 22:00 Reassessment: Patient appears in no apparent distress at this time. Patient and/or jb4 family updated on plan of care and expected duration. Pain level reassessed. Patient is alert, oriented x 3, equal unlabored respirations, skin warm/dry/pink. 23:00 Reassessment: Patient appears in no apparent distress at this time. Patient and/or jb4 family updated on plan of care and expected duration. Pain level reassessed. Patient is alert, oriented x 3, equal unlabored respirations, skin warm/dry/pink. 06/29 00:00 Reassessment: Patient appears in no apparent distress at this time. Patient and/or jb4 family updated on plan of care and expected duration. Pain level reassessed. Patient is alert, oriented x 3, equal unlabored respirations, skin warm/dry/pink. Vital Signs: 06/28 15:04 BP 203 / 126; Pulse 81; Resp 16; Temp 97.7(TE); Pulse Ox 97% on R/A; Height 5 ft. 11 ss in. ; Pain 0/10; 16:23 BP 209 / 129; Pulse 77; Resp 16; Pulse Ox 98% on R/A; jb4 17:41 BP 181 / 128; Pulse 78; Resp 16; Pulse Ox 100% on R/A; jb4 18:30 BP 218 / 128; Pulse 99; Resp 19; Pulse Ox 100% on R/A; jb4 19:21 BP 205 / 115; Pulse 115; Resp 16; Pulse Ox 99% on R/A; jb4 20:15 BP 187 / 107; Pulse 106; Resp 16; Pulse Ox 98% on R/A; jb4 21:02 BP 171 / 108; Pulse 98; Resp 16; Pulse Ox 95% on R/A; jb4 21:54 BP 173 / 99; Pulse 94; Resp 16; Pulse Ox 96% on R/A; jb4 23:30 BP 168 / 111; Pulse 99; Resp 16; Pulse Ox 97% on R/A; jb4 06/29 00:30 BP 196 / 124; Pulse 102; Resp 16; Pulse Ox 94% on R/A; jb4 06/28 15:04 Pain Scale: Adult ED Course: 06/28 14:43 Patient arrived in ED. al6 14:52 Keo Armendariz PA is PHCP. cp 14:52 Rajesh Gallego MD is Attending Physician. cp 15:09 Triage completed. ss 15:09 Arm band placed on right wrist. ss 15:12 Kyrie Oconnor, RN is Primary Nurse. jb4 15:35 XRAY Chest (1 view) In Process Unspecified. EDMS 16:03 CT Head Brain wo Cont In Process Unspecified. EDMS 16:10 Inserted saline lock: 20 gauge in right antecubital area, using aseptic technique. jb4 Blood collected. 16:10 Initial lab(s) drawn, by me, sent to lab. jb4 18:54 Keo John MD is Attending Physician. cp 20:46 Manuel Beavers, MANSOOR is Hospitalizing Provider. cp 23:30 Patient has correct armband on for positive identification. Bed in low position. Call jb4 light in reach. Side rails up X 1. Provided Education on: need for admit.. 23:30 No provider procedures requiring assistance completed. Patient admitted, IV remains in jb4 place. Administered Medications: 15:15 CANCELLED (Physician Discretion): clonidine0.2 mg PO once cp 15:29 Drug: cloNIDine PO 0.1 mg PO once Route: PO; jb4 16:15 Follow up: Response: No adverse reaction; Marked relief of symptoms; Blood pressure is jb4 unchanged 16:47 Drug: hydrALAZINE IVP 10 mg IVP once Route: IVP; Site: right antecubital; jb4 17:15 Follow up: Response: No adverse reaction; Marked relief of symptoms jb4 16:48 Drug: Hydrocodone-Acetaminophen PO (7.5 mg-325 mg) 1 tabs PO once; RASS on ADMIN: jb4 Combtv4, Very Agttd3, Agttd2, Rstlss1, AlertClm0, Drwsy-1, Lt Sdtn-2, Mod Sdtn-3, Dp Sdtn-4, UnArsble-5 Route: PO; 17:55 Follow up: Response: No adverse reaction; Marked relief of symptoms jb4 17:42 CANCELLED (Physician Discretion): [id number] mg PO once cp 17:54 Drug: hydrALAZINE IVP 10 mg IVP once Route: IVP; Site: right antecubital; jb4 19:08 Follow up: Response: No adverse reaction jb4 18:12 Drug: tranexamic acid 1000 mg IV at calculated rate once; administer at a rate not to jb4 exceed 100 mg per min Route: IV; Rate: calculated rate; Site: right antecubital; 18:35 Drug: HydrALAZINE PO 50 mg PO once Route: PO; jb4 19:08 Follow up: Response: No adverse reaction jb4 18:44 Drug: metoCLOPramide IVP 10 mg IVP once; over 1 to 2 minutes Route: IVP; Site: right jb4 antecubital; 19:08 Follow up: Response: No adverse reaction; Marked relief of symptoms jb4 18:44 Drug: diphenhydrAMINE IVP 25 mg IVP once Route: IVP; Site: right antecubital; jb4 19:08 Follow up: Response: No adverse reaction; Marked relief of symptoms jb4 18:55 Drug: Ativan IVP 1 mg IVP once Route: IVP; Site: right antecubital; 21:02 Follow up: Response: No adverse reaction; Marked relief of symptoms jb4 19:19 Drug: morphine IVP or IV 4 mg IVP once over 4 mins Route: IVP; Infused Over: 4 mins; jb4 Site: right antecubital; 21:01 Follow up: Response: No adverse reaction; Marked relief of symptoms; Pain is decreased jb4 20:08 Drug: Labetalol PO 100 mg PO once Route: PO; jb4 21:01 Follow up: Response: No adverse reaction; Marked relief of symptoms; Blood pressure is jb4 lowered 20:08 Drug: hydrALAZINE IVP 20 mg IVP once; For SBP > 140 mmHg. Hold if less than 120 mmHg. jb4 Route: IVP; Site: right antecubital; 21:01 Follow up: Response: No adverse reaction; Marked relief of symptoms; Blood pressure is jb4 lowered Medication: 23:30 VIS not applicable for this client. jb4 Outcome: 20:47 Decision to Hospitalize by Provider. cp 23:30 Admitted to ICU accompanied by nurse, via stretcher, room ICU 2, with chart, Report jb4 called to MANSOOR Kamara 23:30 Condition: stable 23:30 Discharge instructions given to patient, family, Instructed on the need for admit, Demonstrated understanding of instructions, 06/29 01:09 Patient left the ED. [email or web address] Signatures: Dispatcher [employer] EDMS Juliet Bal, RN RN Keo Bass PA PA cp Bryson, James, RN RN Ruth Michaud Corrections: (The following items were deleted from the chart) 06/28 21:52 15:10 General: Appears in no apparent distress. uncomfortable, Behavior is calm, jb4 cooperative, appropriate for age, trey : 18:12 Reassessment: Verified order for Tranexamic acid administration with ER provider trey and ER physician Dr. Gallego. Both agree medication is safe for pt to take. trey : 20:28 Reassessment: Provider at bedside examining pt's throat. Provider instructed pt jb4 to swish his mouth, pt now gagging and starting to vomit. Pt dislodged right nare rhino rocket. Received verbal order for 8mg of zofran. [email or web address]
--- NOTE | 2025-06-28 20:48 | EDPHYS ---
Physician Documentation [facility] Name: Justino Barr Age: 39 yrs Sex: Male : 1985 Arrival Date: 06/28/2025 Time: 14:36 Bed 23 Private MD: ED Physician Keo John HPI: 06/28 15:20 This 39 yrs old Male presents to ER via Wheelchair with complaints of Nose Bleed, cp Dizziness. 15:20 The patient presents with a nose bleed, occurred spontaneously, that is intermittent cp bright red. Onset: The symptoms/episode began/occurred yesterday. Patient reports running out of blood pressure medications several days ago and missing dialysis yesterday. 15:20 Associated signs and symptoms: Loss of consciousness: the patient experienced no loss cp of consciousness, Pertinent negatives: chest pain, fever, lightheadedness, syncope. 15:20 Severity of symptoms: in the emergency department the symptoms are unchanged despite cp home interventions. Historical: - Allergies: 15:09 No Known Allergies; ss - Home Meds: 15:09 clonidine HCl 0.1 mg Oral tablet 1 tab Q4H prn [Active]; Coreg 25 mg Oral tablet 1 tab ss 2 times per day [Active]; hydralazine 50 mg Oral tab 1 tab three times a day [Active]; losartan 100 mg Oral tablet 1 tab daily [Active]; Norvasc 10 mg Oral tablet [Active]; - PMHx: 15:09 chronic kidney disease (Hypertensive disord); HD T TH Sat; Hypertensive disorder; ss - PSHx: 15:09 pancreatic stent; ss ROS: 15:25 Constitutional: Negative for body aches, chills, fever, poor PO intake, cp 15:25 Eyes: Negative for injury, pain, redness, and discharge, cp 15:25 ENT: Positive for nose bleed, Negative for drainage from ear(s), ear pain, sore throat, difficulty swallowing, difficulty handling secretions, 15:25 Cardiovascular: Negative for chest pain, 15:25 Respiratory: Negative for cough, shortness of breath, wheezing, 15:25 Abdomen/GI: Positive for nausea, Negative for abdominal pain, diarrhea, constipation, 15:25 Neuro: Negative for altered mental status, headache, syncope, near syncope, weakness, 15:25 All other systems are negative, Exam: 15:30 Constitutional: The patient appears in no acute distress, alert, awake, non-toxic, well cp developed, well nourished, uncomfortable, 15:30 Head/Face: Normocephalic, atraumatic. cp 15:30 Eyes: Periorbital structures: appear normal, Pupils: equal, round, and reactive to light and accomodation, Extraocular movements: intact throughout, Conjunctiva: normal, no exudate, no injection, Lids and lashes: appear normal, bilaterally, 15:30 ENT: External ear(s): are unremarkable, Nose: bleeding, is seen from the right nare, and is moderate, no septal hematoma is appreciated, Mouth: Lips: moist, Oral mucosa: moist, Posterior pharynx: Airway: no evidence of obstruction, patent, blood noted in posterior pharynx, 15:30 Neck: ROM/movement: is normal, is supple, without pain, no range of motions limitations, 15:30 Chest/axilla: Inspection: normal, 15:30 Cardiovascular: Rate: tachycardic, Rhythm: regular, 15:30 Respiratory: the patient does not display signs of respiratory distress, Respirations: normal, no use of accessory muscles, no retractions, labored breathing, is not present, Breath sounds: decreased breath sounds, are not appreciated, stridor, is not appreciated, wheezing: is not appreciated, 15:30 Abdomen/GI: Inspection: abdomen appears normal, Palpation: abdomen is soft and non-tender, in all quadrants, 15:30 Neuro: Orientation: to person, place \T\ time. Mentation: is normal, Motor: moves all fours, strength is normal, Sensation: no obvious gross deficits, 16:25 ECG was reviewed by the Attending Physician. cp Vital Signs: 15:04 BP 203 / 126; Pulse 81; Resp 16; Temp 97.7(TE); Pulse Ox 97% on R/A; Height 5 ft. 11 ss in. ; Pain 0/10; 16:23 BP 209 / 129; Pulse 77; Resp 16; Pulse Ox 98% on R/A; jb4 17:41 BP 181 / 128; Pulse 78; Resp 16; Pulse Ox 100% on R/A; jb4 18:30 BP 218 / 128; Pulse 99; Resp 19; Pulse Ox 100% on R/A; jb4 19:21 BP 205 / 115; Pulse 115; Resp 16; Pulse Ox 99% on R/A; jb4 20:15 BP 187 / 107; Pulse 106; Resp 16; Pulse Ox 98% on R/A; jb4 21:02 BP 171 / 108; Pulse 98; Resp 16; Pulse Ox 95% on R/A; jb4 21:54 BP 173 / 99; Pulse 94; Resp 16; Pulse Ox 96% on R/A; jb4 23:30 BP 168 / 111; Pulse 99; Resp 16; Pulse Ox 97% on R/A; jb4 08 00:30 BP 196 / 124; Pulse 102; Resp 16; Pulse Ox 94% on R/A; jb4 06/28 15:04 Pain Scale: Adult ss Procedures: 06/28 21:00 Epistaxis treatment: A moderate amount of bleeding noted from right nare. Treated using rhino rocket, right and left nasal passages. Bleeding markedly improved. MDM: 15:05 Medical Screening Exam initiated 16:00 Differential diagnosis: trauma, sinusitis, epistaxis r/t trauma, spontaneous epistaxis, cp anemia. 19:06 Management of patient was discussed with the following: Hat Brusher Machine: DR Dong, ENT, recommends placement of rhino rocket in left nasal passage. 20:55 Management of patient was discussed with the following: Hospitalist: MR Beavers will admit after discussion. 21:00 Data reviewed: vital signs, nurses notes, lab test result(s), EKG, radiologic studies, CT scan, plain films, I have discussed the patient's presentation/case with the attending Emergency Department Physician; and as a result, I will admit patient. 21:00 I considered the following discharge prescriptions or medication management in the emergency department Medications were administered in the Emergency Department. See MAR. Independent interpretation of the following test(s) in the Emergency Department EKG: See my EKG interpretation above. Care significantly affected by the following chronic conditions: Hypertension, Chronic Kidney Disease. Counseling: I had a detailed discussion with the patient and/or guardian regarding the historical points, exam findings, and any diagnostic results supporting the discharge/admit diagnosis, the presence of at least one elevated blood pressure reading (>120/80) during this emergency department visit, lab results, radiology results, the need for further work-up and treatment in the hospital. Response to treatment: improved. 06/28 15:15 Order name: Basic Metabolic Panel; Complete Time: 17:02 cp 08/03 17:02 Interpretation: Normal except: BUN 35; CRE 8.23; GFR 8. cp 08/ 15:15 Order name: CBC with Diff; Complete Time: 16:32 cp 08/03 16:32 Interpretation: Normal except: RBC 4.28; HGB 13.2; MPV 7.2; PRESLEY% 75.5. cp 08/ 15:15 Order name: LFT's; Complete Time: 17:02 cp 08/03 17:39 Interpretation: Normal except: AST < 10; ALT 15; GLOB 3.6. cp 08/ 15:15 Order name: Magnesium; Complete Time: 17:02 cp / 15:15 Order name: NT PRO-BNP; Complete Time: 17:02 cp / 15:15 Order name: PT-INR; Complete Time: 16:32 cp / 15:15 Order name: Troponin HS; Complete Time: 17:02 cp 06/28 22:06 Order name: CBC with Automated Diff EDMS / 22:06 Order name: CBC with Automated Diff EDMS 06/28 22:06 Order name: CBC with Automated Diff EDMS 06/28 22:06 Order name: CBC with Automated Diff EDMS / 22:06 Order name: Comprehensive Metabolic Panel EDMS 06/28 22:06 Order name: Comprehensive Metabolic Panel EDMS 06/28 22:06 Order name: Comprehensive Metabolic Panel EDMS 06/28 22:06 Order name: Comprehensive Metabolic Panel EDMS 06/28 15:15 Order name: XRAY Chest (1 view); Complete Time: 17:02 cp /03 15:17 Order name: CT Head Brain wo Cont; Complete Time: 17:49 cp / 15:15 Order name: Cardiac monitoring; Complete Time: 16:59 cp /03 15:15 Order name: EKG - Nurse/Tech; Complete Time: 16:24 cp / 15:15 Order name: IV Saline Lock; Complete Time: 16:24 cp / 15:15 Order name: Labs collected and sent; Complete Time: 16:24 cp 06/28 15:15 Order name: O2 Per Protocol; Complete Time: 15:22 cp / 15:15 Order name: O2 Sat Monitoring; Complete Time: 15:22 cp EC:25 Rate is 77 beats/min. Rhythm is regular. [place] interval is normal. QRS interval is normal. cp QT interval is normal. T waves are Inverted in lead aVR. Interpreted by me. Reviewed by me. Administered Medications: 15:15 CANCELLED (Physician Discretion): clonidine0.2 mg PO once cp 15:29 Drug: cloNIDine PO 0.1 mg PO once Route: PO; jb4 16:15 Follow up: Response: No adverse reaction; Marked relief of symptoms; Blood pressure is jb4 unchanged 16:47 Drug: hydrALAZINE IVP 10 mg IVP once Route: IVP; Site: right antecubital; jb4 17:15 Follow up: Response: No adverse reaction; Marked relief of symptoms jb4 16:48 Drug: Hydrocodone-Acetaminophen PO (7.5 mg-325 mg) 1 tabs PO once; RASS on ADMIN: jb4 Combtv4, Very Agttd3, Agttd2, Rstlss1, AlertClm0, Drwsy-1, Lt Sdtn-2, Mod Sdtn-3, Dp Sdtn-4, UnArsble-5 Route: PO; 17:55 Follow up: Response: No adverse reaction; Marked relief of symptoms jb4 17:42 CANCELLED (Physician Discretion): [id number] mg PO once cp 17:54 Drug: hydrALAZINE IVP 10 mg IVP once Route: IVP; Site: right antecubital; jb4 19:08 Follow up: Response: No adverse reaction jb4 18:12 Drug: tranexamic acid 1000 mg IV at calculated rate once; administer at a rate not to jb4 exceed 100 mg per min Route: IV; Rate: calculated rate; Site: right antecubital; 18:35 Drug: HydrALAZINE PO 50 mg PO once Route: PO; jb4 19:08 Follow up: Response: No adverse reaction jb4 18:44 Drug: metoCLOPramide IVP 10 mg IVP once; over 1 to 2 minutes Route: IVP; Site: right jb4 antecubital; 19:08 Follow up: Response: No adverse reaction; Marked relief of symptoms jb4 18:44 Drug: diphenhydrAMINE IVP 25 mg IVP once Route: IVP; Site: right antecubital; jb4 19:08 Follow up: Response: No adverse reaction; Marked relief of symptoms jb4 18:55 Drug: Ativan IVP 1 mg IVP once Route: IVP; Site: right antecubital; ss 21:02 Follow up: Response: No adverse reaction; Marked relief of symptoms jb4 19:19 Drug: morphine IVP or IV 4 mg IVP once over 4 mins Route: IVP; Infused Over: 4 mins; jb4 Site: right antecubital; 21:01 Follow up: Response: No adverse reaction; Marked relief of symptoms; Pain is decreased jb4 20:08 Drug: Labetalol PO 100 mg PO once Route: PO; jb4 21:01 Follow up: Response: No adverse reaction; Marked relief of symptoms; Blood pressure is jb4 lowered 20:08 Drug: hydrALAZINE IVP 20 mg IVP once; For SBP > 140 mmHg. Hold if less than 120 mmHg. jb4 Route: IVP; Site: right antecubital; 21:01 Follow up: Response: No adverse reaction; Marked relief of symptoms; Blood pressure is jb4 lowered Disposition Summary: 06/28/25 20:47 Hospitalization Ordered Notes: Hospitalization Status: Inpatient Admission cp Provider: Manuel Beavers cp Condition: Stable cp Problem: new cp Symptoms: have improved cp Bed/Room Type: Standard cp Location: Intensive Care Unit(06/28/25 22:09) rv1 Room Assignment: 2-(06/29/25 00:07) Diagnosis - Epistaxis cp - Hypertensive urgency cp - End stage renal disease cp Forms: - Medication Reconciliation Form cp - SBAR form cp - Leadership Thank You Letter cp Addendum: 07/02/2025 15:52 Co-signature as Attending Physician, Keo John MD I agree with the assessment and c guillen plan of care. Signatures: Dispatcher [employer] Keo Barros MD MD cha Blanchard, Shelby RN RN Keo Bass PA PA cp Garcia, Cindy, MANSOOR MAX Kyrie Oconnor RN RN jb4 Rhonda Pierson rv1 Corrections: (The following items were deleted from the chart) 06/28 15:15 15:15 cloNIDine PO 0.2 mg PO once ordered. cp cp 15:16 15:15 BASIC METABOLIC PANEL+C.LAB.BRZ ordered. EDMS EDMS 15:16 15:15 CBC+H.LAB.BRZ ordered. EDMS EDMS 15:16 15:15 HEPATIC FUNCTION+C.LAB.BRZ ordered. EDMS EDMS 15:16 15:15 MAGNESIUM+C.LAB.BRZ ordered. EDMS EDMS 15:16 15:15 PROBNP+C.LAB.BRZ ordered. EDMS EDMS 15:16 15:15 PROTIME (+INR)+COAG.LAB.BRZ ordered. EDMS EDMS 15:16 15:15 Troponin High Sensitivity+C.LAB.BRZ ordered. EDMS EDMS 15:16 15:16 Chest Single View+RAD.RAD.BRZ ordered. EDMS EDMS 17:42 17:40 HydrALAZINE PO 50 mg PO once ordered. cp cp 22:08 20:47 cp rv1 22:09 20:47 Telemetry/MedSurg (Inpatient) cp rv1 22:09 22:08 411 rv1 rv1 06/29 00:07 03 22:09 rv1 cg 06/30 00:54 06/29 22:00 Epistaxis treatment: A moderate amount of bleeding noted from right nare. cp Treated using rhino rocket, right and left nasal passages. Bleeding markedly improved. cp
[2025-06-28] MEDS ORDERED: ACETAMINOPHEN 325 MG TABLET PO PRN (22:01)
[2025-06-28] MEDS ORDERED: ONDANSETRON 4 MG/2 ML VIAL IV PRN (22:01)
--- NOTE | 2025-06-28 22:01 | P.HP ---
Certification for Inpatient Patient admitted to: Inpatient With expected LOS: >2 Midnights Patient will require the following post-hospital care: None Practitioner: I am a practitioner with admitting privileges, knowledge of patient current condition, hospital course, and medical plan of care. Services: Services provided to patient in accordance with Admission requirements found in Title 42 Section 412.3 of the Code of Federal Regulations <Manuel Beavers - Last Filed: 06/29/25 04:59> Patient History Date of Service: 06/28/25 Reason for admission: Epistaxis, hypertensive urgency. 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 States patient ran out of his blood pressure medications. and for the past 3 to 4 days he has not taken any BP medications. Patient denies with associated chest pain, headaches, nausea or vomiting, tinnitus. Patient missed his dialysis on Sunday because he was not feeling good. No presenting signs or symptoms of volume overload or respiratory distress at this time. While in ER patient blood pressure was severely elevated, received multiple blood pressure medications. According to report received from ER practitioner, states he consulted and spoke to ENT Dr. Dong, and was informed that if patient start having excessive bleeding after Rhino rocket have been inserted, to let her know and she will come in for emergency surgery. Patient had Rhino Rocket inserted both nostrils in ER. Course in ER: CT head impression: No evidence of acute intracranial abnormality. Chest x-ray impression: No acute intrathoracic abnormalities. Patient received Benadryl 50 mg IV, multiple dose of hydralazine, labetalol 100 mg p.o., Ativan 2 mg IV, Reglan 10 mg, morphine 4 mg IV x 1, Zofran 8 mg, tranexamic acid 1000 mg IV. - Past Medical/Surgical History Diabetic: No -: HTN -: Drug abuse use disorder. -: Hypertension. -: ESRD on dialysis Sunday, , and Sunday. -: Hypercholesterolemia. -: Pancreatic stent. Psychosocial/ Personal History: Patient lives at home with his brother. - Family History Father -: Cancer Notes: brother states there are heart problems and kidney problems in their family Brother -: Stroke, Kidney disease - Social History Smoking Status: Current every day smoker Patient receptive to therapy: No Alcohol use: No CD- Drugs: Yes Caffeine use: No Place of Residence: Home <Manuel Beavers - Last Filed: 06/29/25 04:59> Date of Service: 06/28/25 <Chris Campbell - Last Filed: 06/29/25 09:43> Allergies No Known Allergies Allergy (Verified 04/03/22 21:58) Home Medications: Amlodipine [Norvasc] 5 mg PO DAILY 04/17/23 Bumetanide 2 mg PO DAILY 04/17/23 Carvedilol [Coreg] 25 mg PO DAILY 04/17/23 Hydralazine HCl 10 mg PO BID 04/17/23 Losartan Potassium 100 mg PO DAILY 04/17/23 Terazosin HCl 2 mg PO DAILY 04/17/23 hydrOXYzine HCL [Atarax] 50 mg PO BID 04/17/23 Famotidine 20 mg PO BID 06/29/25 Metoclopramide HCl 5 mg PO DAILY 06/29/25 Review of Systems 10-point ROS is otherwise unremarkable ENT: Other (Epistaxis) <Manuel Beavers - Last Filed: 06/29/25 04:59> Physical Examination - Physical Exam General: Alert, Oriented x3 HEENT: Atraumatic, Normocephalic, PERRLA, Mucous membr. moist/pink, Sclerae nonicteric Neck: Supple, 2+ carotid pulse no bruit, No LAD, Without JVD or thyroid abn ormality Respiratory: Clear to auscultation bilaterally, Normal air movement Cardiovascular: No edema, Normal pulses, Regular rate/rhythm, Normal S1 S2, No gallops, No rubs, No murmurs Capillary refill: <2 Seconds Gastrointestinal: Normal bowel sounds, Soft and benign, Non-distended, W/out hepatomegaly, No ascites, No tenderness, No masses Musculoskeletal: No clubbing, No swelling, No contractures, No erythema, No tenderness, No warmth Integumentary: No rashes, No breakdown, No significant lesion, No tenderness/swelling, No erythema, No warmth, No cyanosis Neurological: Normal gait, Normal speech, Normal strength at 5/5 x4 extr, Normal tone, Sensation intact, Cranial nerves 3-12 intact, Normal reflexes 2+, Normal affect Lymphatics: No axilla or inguinal lymphadenopathy Urinary: Dialysis catheter - Studies Laboratory Data (last 24 hrs) 06/28/25 06/28/25 06/28/25 16:10 16:10 16:10 WBC 8.90 Hgb 13.2 L Hct 39.9 Plt Count 171 PT 11.3 INR 1.00 Sodium 137 Potassium 4.5 BUN 35 H Creatinine 8.23 H Glucose 106 Magnesium 2.7 H Total Bilirubin 0.6 AST < 10 L ALT 15 L Alkaline Phosphatase 110 <Manuel Beavers - Last Filed: 06/29/25 04:59> - Studies Laboratory Data (last 24 hrs) 06/28/25 06/28/25 06/28/25 16:10 16:10 16:10 WBC 8.90 Hgb 13.2 L Hct 39.9 Plt Count 171 PT 11.3 INR 1.00 Sodium 137 Potassium 4.5 BUN 35 H Creatinine 8.23 H Glucose 106 Magnesium 2.7 H Total Bilirubin 0.6 AST < 10 L ALT 15 L Alkaline Phosphatase 110 <Chris Campbell - Last Filed: 06/29/25 09:43> Male Exam - Male Exam Inguinal exam: No hernias <Manuel Beavers - Last Filed: 06/29/25 04:59> Assessment and Plan - Plan Patient is a 39-year-old male reports to ER complaining of epistaxis both nostrils, patient blood pressure is elevated, has gone for several days without taking any of his BP medications because he ran out of it. Patient is ESRD, receives dialysis Sunday, , Sunday, and he missed his Sunday dialysis. Patient admitted to ICU with diagnosis of hypertensive urgency, and epistaxis. (1)Hypertensive urgency. Despite the fact that patient received multiple blood pressure medications in the ER, patient blood pressure still elevated in the 190s-200s, and diastolic 115 after admission. -Order and start patient on nicardipine drip. -Patient home p.o. medications to be resumed when blood pressure is stabilized and back to his p.o. meds. -Admit to ICU. (2)Epistaxis. Patient had Rhino Rocket inserted in the ER which has stopped bleeding at this time. -Follow CBC in AM to check for H&H. Patient H&H stable at this time on admission. -Consult ENT . (3)Chronic hypercholesterolemia -Continue home medication atorvastatin 40 mg p.o. at bedtime. (4)ESRD. Patient dialysis Sunday, , and Sunday. Patient missed his dialysis on Sunday. -Consult Dr. Yuan. (5)Explained the entire treatment plan to the patient, solicit questions answered and voiced understanding. Discharge Plan: Home Plan to discharge in: 72 Hours - Advance Directives Does patient have a Living Will: No Does patient have a Durable POA for Healthcare: No - Code Status/Comfort Care Code Status Assessed: Yes Code Status: Full Code Critical Care: Yes Time Spent Managing Pts Care (In Minutes): 55 <Manuel Beavers - Last Filed: 06/29/25 04:59> Date of Service: 06/28/25 Patient was seen and examined. Events of the last 24 hours have been noted. Spoke with with AUBREY regarding patient's clinical picture after evaluating and examining the patient independently. I performed a substantial part of the MDM during this patient's care today. I personally made or approved the documented management plan and acknowledge its risk of complications. I agree with the findings and documentation provided in the AUBREY's notes. Agree with current plan of care. Continue with current treatment plan. <Chris Campbell - Last Filed: 06/29/25 09:43>
[2025-06-29] MEDS: Nicardipine/NS 25 MG/250 ML KIT IV SCH (02:10)
[2025-06-29 05:25] LABS: Absolute Lymphocytes (CBC) 0.9 K/uL (0.7-4.9); Hematocrit 40.5 % (39.6-49.0); Hemoglobin 13.4 g/dL (13.6-17.9); MCH 30.6 pg (27.0-35.0); MCHC 33.1 g/dL (32.0-36.0); MCV 92.4 fL (80-100); MPV 7.4 fL (7.6-11.3); Nucleated RBC Absolute Count 0.0 (0-0); Nucleated Red Blood Cells % 0.0 % (0-0); RBC Red Blood Cell Count 4.39 M/uL (4.33-5.43); White Blood Count 12.20 thou/uL (4.3-10.9)
[2025-06-29 05:55] LABS: ALT/SGPT 16 U/L (16-61); Albumin 3.7 g/dL (3.4-5.0); Albumin/Globulin Ratio 1.1 (1.1-1.8); Alkaline Phosphatase 100 U/L (45-117); Anion Gap 13.2 mEq/L (5.0-15.0); BUN Blood Urea Nitrogen 47 mg/dL (7-18); Globulin 3.5 g/dL (2.3-3.5); Glucose Level 130 mg/dL (74-106); Potassium 4.2 mEq/L (3.5-5.1)
[2025-06-29 05:59] LABS: AST/SGOT < 10 U/L (15-37)
[2025-06-29] MEDS: LOSARTAN POTASSIUM 50 MG TABLET PO SCH (08:03)
[2025-06-29] MEDS: AMLODIPINE 5 MG TAB PO SCH (08:03)
[2025-06-29] MEDS: BUMETANIDE 1 MG TABLET PO SCH (08:03)
[2025-06-29] MEDS: HYDRALAZINE HCL 10 MG TABLET PO SCH (08:03)
[2025-06-29] MEDS: hydrOXYzine HCL 25 MG TAB PO SCH (08:04)
[2025-06-29] MEDS: TRAMADOL HCL 50 MG TAB PO ONE (08:55)
[2025-06-29] MEDS: TERAZOSIN HCL 1 MG CAP PO SCH (08:55)
[2025-06-29] MEDS: METOCLOPRAMIDE 5 MG TAB PO SCH (08:56)
[2025-06-29] MEDS ORDERED: FAMOTIDINE 20 MG TAB PO SCH (09:00)
--- NOTE | 2025-06-29 09:43 | P.PN ---
Date of Service: 06/29/25 Subjective Patient clinically stable. Plan for hemodialysis later today. Will monitor anticoagulant. Patient with large amount of bleeding. ENT consulted. Physical Examination -Vitals Reviewed - Physical Exam General: Alert, Oriented x3 Respiratory: Clear to auscultation bilaterally, Normal air movement Cardiovascular: No edema, Normal pulses, Regular rate/rhythm, Normal S1 S2, No gallops, No rubs, No murmurs Gastrointestinal: Normal bowel sounds, Soft and benign, Non-distended, W/out hepatomegaly, No ascites, No tenderness, No masses Musculoskeletal: No clubbing, No swelling, No contractures, No erythema, No tenderness, No warmth Integumentary: No rashes, No breakdown, No significant lesion, No tenderness/swelling, No erythema, No warmth, No cyanosis Neurological: No focal deficits Assessment and Plan -Assessment/Plan Patient is a 39-year-old male reports to ER complaining of epistaxis both nostrils, patient blood pressure is elevated, has gone for several days without taking any of his BP medications because he ran out of it. Patient is ESRD, receives dialysis Sunday, , Sunday, and he missed his Sunday dialysis. Patient admitted to ICU with diagnosis of hypertensive urgency, and epistaxis. (1) Hypertensive emergency -Continue with strict blood pressure control. Currently on Cardene drip; will wean down and keep MAP 25% less than what is been initially. -Order and start patient on nicardipine drip. -Patient home p.o. medications to be resumed when blood pressure is stabilized and back to his p.o. meds. -Admit to ICU. (2) Epistaxis. Patient had Rhino Rocket inserted in the ER which has stopped bleeding at this time. -Follow CBC in AM to check for H&H. Patient H&H stable at this time on admission. -Consult ENT . (3) hyperlipidemia -Continue home medication atorvastatin 40 mg p.o. at bedtime. (4) ESRD. Patient dialysis Sunday, , and Sunday. Patient missed his dialysis on Sunday. -Consult Dr. Yuan. (5) Explained the entire treatment plan to the patient, solicit questions answered and voiced understanding. Discharge Plan: Home Plan to discharge in: 72 Hours - Advance Directives Does patient have a Living Will: No Does patient have a Durable POA for Healthcare: No - Code Status/Comfort Care Code Status Assessed: Yes Code Status: Full Code Critical Care: Yes Time Spent Managing Pts Care (In Minutes): 35
[2025-06-29 10:44] VITALS: O2SAT 96
--- NOTE | 2025-06-29 13:51 | P.CNS ---
Date of Consult: 06/29/25 Chief complaint: Epistaxis History of present illness: Patient is a 39-year-old who presented to the emergency room with acute right sided epistaxis. He was treated with IV TXA and nasal packing including a Rhino Rocket by the ER with initial control of bleeding. However, he had an episode of emesis which resulted in displacement o f the nasal packing with subsequent rebleeding. Following repeat packing the bleeding was improved. In addition he was noted to have significantly elevated blood pressure after running out of his blood pressure medications at home earlier this week. I was in phone and text conversation with the emergency room staff multiple times regarding the patient's condition between the hours of 5 PM and 9 PM on June 28. It was reported that the bleeding was controlled and thus no emergency surgery was deemed necessary. I spoke with Nanette, the patient's nurse at approximately 8 AM in regards to diet recommendations/instruction and clarification regarding possible surgical plan. He was not having any active bleeding at that time and he was pending consultation with the burr mill operator since the patient has end-stage renal disease and normal he gets dialysis on Sunday and Sunday. It is reported that he may have missed his Sunday dialysis appointment. I attempted to examine the patient in person at approximately 5:30 PM on June 29 but the patient was getting dialysis and was not available for examination. His nurse reported that she had not noted any active bleeding since admission to the ICU last night. I will continue to follow in order to reevaluate the patient. Assessment: Epistaxis in the setting of elevated blood pressure and end-stage renal disease requiring hemodialysis Recommendations: Generally if patients respond to nasal packing we recommend leaving the packing in place for 48 to 72 hours. Given the patient's complicating factors of blood pressure and dialysis with likely administration of heparin during dialysis which is now being administered, we will plan to reassess the patient tomorrow to consider whether or not removal of packing at bedside versus OR is most appropriate.
[2025-06-29] MEDS: FAMOTIDINE 20 MG TAB PO SCH (21:23)
[2025-06-30 06:00] LABS: Absolute Lymphocytes (CBC) 1.7 K/uL (0.7-4.9); Hematocrit 38.7 % (39.6-49.0); Hemoglobin 13.0 g/dL (13.6-17.9); MCH 31.0 pg (27.0-35.0); MCHC 33.7 g/dL (32.0-36.0); MCV 92.0 fL (80-100); MPV 7.9 fL (7.6-11.3); Nucleated RBC Absolute Count 0.0 (0-0); Nucleated Red Blood Cells % 0.0 % (0-0); RBC Red Blood Cell Count 4.21 M/uL (4.33-5.43); White Blood Count 12.10 thou/uL (4.3-10.9)
[2025-06-30 06:29] LABS: Albumin 3.8 g/dL (3.4-5.0); Albumin/Globulin Ratio 1.2 (1.1-1.8); Alkaline Phosphatase 89 U/L (45-117); Anion Gap 12.0 mEq/L (5.0-15.0); BUN Blood Urea Nitrogen 32 mg/dL (7-18); Globulin 3.2 g/dL (2.3-3.5); Glucose Level 114 mg/dL (74-106); Potassium 4.0 mEq/L (3.5-5.1)
[2025-06-30 06:40] LABS: ALT/SGPT < 14 U/L (16-61); AST/SGOT < 10 U/L (15-37)
[2025-06-30] MEDS: AMLODIPINE 5 MG TAB PO ONE (13:48)
[2025-06-30] MEDS: HYDRALAZINE HCL 25 MG TABLET PO SCH (13:48)
[2025-06-30] MEDS: NICOTINE 21 MG/PAT TD SCH (14:43)
--- NOTE | 2025-06-30 15:46 | CON ---
Date of Consultation: 06/30/2025 Reason For Consultation: Elevated BUN and creatinine, end-stage renal disease, hypertension. History Of Present Illness: This is a pleasant 39-year-old gentleman, well known to me from the dial ysis with significant past medical history of end-stage renal disease, on dialysis TTS at [facility], hypertension, hyperlipidemia, active drug use, the patient came to the hospital with epistaxis. The patient had nasal . Bleeding has stopped. The patient seen by ENT. The patient was placed on Cardene drip because of the elevation in the blood pressure. Blood pressur e got controlled after we resumed blood pressure medication. Currently, blood pressure on the 130 to 140. The patient is known for poor compliant with medications, poor compliant with fluid restriction. Past Medical History: Includes; 1. Hypertension. 2. End-stage renal disease, on hemodialysis TTS. Family History: Positive for hypertension. Allergies: NO KNOWN DRUG ALLERGIES. Past Surgical History: Includes; 1. Pancreatic stent. 2. TDC. Social History: Active smoker. Active drug user. Active alcohol. Home Medications: Include amlodipine 5 mg daily, bumetanide 2 mg daily, carvedilol 25 mg twice a day , hydralazine 10 b.i.d., losartan 100, terazosin 2 mg, Pepcid, and metoclopramide. Review of Systems: Head and Neck: Had nasal bleed. GI: No nausea. No vomiting. : No polyuria. No dysuria. No hematuria. RESIDENTIAL SALES REP: Not applicable. Respiratory: No shortness of breath. Cardiovascular: No chest pain. Endocrine: No polydipsia. Skin: No rash. Physical Examination: General: When I saw the patient, the patient lying in bed, comfortable, not in any distress. Vital Signs: Blood pressure 138/89, pulse of 90. Chest: Clear to auscultation. Heart: S1, S2. Systolic murmur. Abdomen: Soft, nontender. Extremity: No edema. Neurologic: Alert. No focality. Laboratory Data: Chest x-ray, no congestion. WBC 12.1, hemoglobin 13. Sodium 140, potassium 4, bic arb 26, BUN 32, creatinine 6.7, calcium 9.7, platelet 159. Current Medications: Include hydroxyzine, amlodipine 5 mg daily, carvedilol 25 b.i.d., hydralazine 1 0 b.i.d., losartan 100, nicardipine drip has been stopped, terazosin, Tylenol, Bumex 2 mg, Pepcid, an d metoclopramide. Assessment And Plan: 1. End-stage renal disease. Normal volume. No hyperkalemia. No acidosis. The patient had dialysis yesterday. The patient usually dialyzes TTS. We will continue on dialysis Sunday, Sunday, and for the time being for this week. Then if he stays in the hospital, we will switch the patient schedule to be TTS back to his schedule. 2. Hypertension, not controlled, currently in a better control. I am going to go ahead and increase hydralazine to 25 mg t.i.d., increase amlodipine 10 mg daily, and we will follow up the patient. 3. Anemia of chronic kidney disease. I do not see the need for any CHLOE. 4. Secondary hyperparathyroidism. We will follow up phosphorus level. 5. Epistaxis. We will follow up with ENT. Unfortunately, could not give DDAVP given the blood press ure and given that the patient still has urine output. Thank you, Dr. Campbell for allowing us to participate in the care of your patient. Time spent examining the patient [id number], reviewing data, lab and radiology, placing order, disc ussing the case with the patient and family by bedside, discussing the case with the meat team lead incl uding ICU, nursing and hospitalist more than 75 minutes. ABRIL Voice ID: [id number] Report ID: [id number]
[2025-07-01] MEDS: TRAMADOL HCL 50 MG TAB PO ONE (00:48)
[2025-07-01 02:47] VITALS: BMI 23.3
[2025-07-01] MEDS: AMLODIPINE 10 MG TAB PO SCH (08:40)
[2025-07-01] MEDS: TRAMADOL HCL 50 MG TAB PO PRN (09:50)
--- NOTE | 2025-07-01 10:46 | P.PN ---
Date of Service: 07/01/25 39-year-old gentleman, well known to me from the dialysis with significant past medical history of end-stage renal disease, on dialysis TTS at [facility], hypertension, hyperlipidemia, active drug use, the patient came to the hospital with epistaxis. The patient had nasal . Bleeding has stopped. The patient seen by ENT. The patient was placed on Cardene drip because of the elevation in the blood pressure. Blood pressure got controlled after we resumed blood pressure medication. Currently, blood pressure on the 130 to 140. Acetaminophen (Acetaminophen 325 Mg Tablet) 650 mg PO Q4HP PRN PRN Reason: Pain scale 2-4 (Mild) Amlodipine Besylate (Amlodipine 10 Mg Tab) 10 mg PO DAILY [facility] Last Admin: 07/01/25 08:40 Dose: 10 mg Bumetanide (Bumetanide 1 Mg Tablet) 2 mg PO DAILY [facility] Last Admin: 07/01/25 08:42 Dose: 2 mg Carvedilol (Carvedilol 25 Mg Tab) 25 mg PO DAILY [facility] Last Admin: 07/01/25 08:41 Dose: 25 mg Famotidine (Famotidine 20 Mg Tab) 20 mg PO BEDTIME [facility]; Protocol Last Admin: 06/30/25 20:33 Dose: 20 mg Hydralazine HCl (Hydralazine Hcl 25 Mg Tablet) 25 mg PO TID [facility] Last Admin: 07/01/25 08:42 Dose: 25 mg Hydroxyzine HCl (Hydroxyzine Hcl 25 Mg Tab) 50 mg PO BID [facility] Last Admin: 07/01/25 08:39 Dose: 50 mg Losartan Potassium (Losartan Potassium 50 Mg Tablet) 100 mg PO DAILY [facility] Last Admin: 07/01/25 08:41 Dose: 100 mg Metoclopramide HCl (Metoclopramide 5 Mg Tab) 5 mg PO DAILY [facility] Last Admin: 07/01/25 08:39 Dose: 5 mg Nicotine (Nicotine 21 Mg/Pat) 21 mg TD DAILY [facility] Last Admin: 07/01/25 08:38 Dose: 21 mg Ondansetron HCl (Ondansetron 4 Mg/2 Ml Vial) 4 mg IV Q6HP PRN PRN Reason: NAUSEA / VOMITING Terazosin HCl (Terazosin Hcl 1 Mg Cap) 2 mg PO DAILY [facility] Last Admin: 07/01/25 08:39 Dose: 2 mg Tramadol HCl (Tramadol Hcl 50 Mg Tab) 50 mg PO Q6H PRN PRN Reason: Pain scale 5-7 (Moderate) Last Admin: 07/01/25 09:50 Dose: 50 mg Physical exam Temp Pulse Resp BP Pulse Ox 98.5 F 59 16 159/106 H 99 07/01/25 08:00 07/01/25 08:42 07/01/25 09:50 07/01/25 08:42 07/01/25 09:50 General: When I saw the patient, the patient lying in bed, comfortable, not in any distress. Chest: Clear to auscultation. Heart: S1, S2. Systolic murmur. Abdomen: Soft, nontender. Extremity: No edema. Neurologic: Alert. No focality Laboratory Last Values WBC 8.90 thou/uL (4.3-10.9) 06/28/25 16:10 RBC 4.28 M/uL (4.33-5.43) L 06/28/25 16:10 Hgb 13.2 g/dL (13.6-17.9) L 06/28/25 16:10 Hct 39.9 % (39.6-49.0) 06/28/25 16:10 MCV 93.1 fL (80-100) 06/28/25 16:10 MCH 30.9 pg (27.0-35.0) 06/28/25 16:10 MCHC 33.2 g/dL (32.0-36.0) 06/28/25 16:10 RDW 14.6 % (12.1-15.2) 06/28/25 16:10 Plt Count 171 thou/uL (152-406) 06/28/25 16:10 MPV 7.2 fL (7.6-11.3) L 06/28/25 16:10 Neutrophils % 75.5 % (41.7-73.7) H 06/28/25 16:10 Lymphocytes % 15.7 % (15.3-44.8) 06/28/25 16:10 Monocytes % 5.3 % (3.3-12.3) 06/28/25 16:10 Eosinophils % 2.6 % (0-4.4) 06/28/25 16:10 Basophils % 0.9 % (0-1.3) 06/28/25 16:10 Absolute Neutrophils 6.7 K/uL (1.8-8.0) 06/28/25 16:10 Absolute Lymphocytes 1.4 K/uL (0.7-4.9) 06/28/25 16:10 Absolute Monocytes 0.5 K/uL (0.1-1.3) 06/28/25 16:10 Absolute Eosinophils 0.2 K/uL (0-0.5) 06/28/25 16:10 Absolute Basophils 0.1 K/uL (0-0.5) 06/28/25 16:10 PT 11.3 SECONDS (10-13.0) 06/28/25 16:10 INR 1.00 06/28/25 16:10 Sodium 137 mEq/L (136-145) 06/28/25 16:10 Potassium 4.5 mEq/L (3.5-5.1) 06/28/25 16:10 Chloride 105 mEq/L (98-107) 06/28/25 16:10 Carbon Dioxide 23 mEq/L (21-32) 06/28/25 16:10 Anion Gap 13.5 mEq/L (5.0-15.0) 06/28/25 16:10 BUN 35 mg/dL (7-18) H 06/28/25 16:10 Creatinine 8.23 mg/dL (0.70-1.30) H 06/28/25 16:10 Est GFR (CKD-EPI) 8 ml/min (=/>90) L 06/28/25 16:10 Glucose 106 mg/dL (74-106) 06/28/25 16:10 Calcium 9.2 mg/dL (8.5-10.1) 06/28/25 16:10 Magnesium 2.7 mg/dL (1.6-2.4) H 06/28/25 16:10 Total Bilirubin 0.6 mg/dL (0.2-1.0) 06/28/25 16:10 Direct Bilirubin < 0.2 mg/dL (0-0.2) 06/28/25 16:10 Indirect Bilirubin 0.4 mg/dL (0.2-0.8) 06/28/25 16:10 AST < 10 U/L (15-37) L 06/28/25 16:10 ALT 15 U/L (16-61) L 06/28/25 16:10 Alkaline Phosphatase 110 U/L (45-117) 06/28/25 16:10 Troponin I High Sens 12.5 pg/mL (<58.9) 06/28/25 16:10 NT-Pro-B Natriuret Pep 4911 pg/mL (<125) H 06/28/25 16:10 Serum Total Protein 7.6 g/dL (6.4-8.2) 06/28/25 16:10 Albumin 4.0 g/dL (3.4-5.0) 06/28/25 16:10 Globulin 3.6 g/dL (2.3-3.5) H 06/28/25 16:10 Albumin/Globulin Ratio 1.1 (1.1-1.8) 06/28/25 16:10 Acetaminophen (Acetaminophen 325 Mg Tablet) 650 mg PO Q4HP PRN PRN Reason: Pain scale 2-4 (Mild) Amlodipine Besylate (Amlodipine 10 Mg Tab) 10 mg PO DAILY [facility] Last Admin: 07/01/25 08:40 Dose: 10 mg Bumetanide (Bumetanide 1 Mg Tablet) 2 mg PO DAILY [facility] Last Admin: 07/01/25 08:42 Dose: 2 mg Carvedilol (Carvedilol 25 Mg Tab) 25 mg PO DAILY [facility] Last Admin: 07/01/25 08:41 Dose: 25 mg Famotidine (Famotidine 20 Mg Tab) 20 mg PO BEDTIME [facility]; Protocol Last Admin: 06/30/25 20:33 Dose: 20 mg Hydralazine HCl (Hydralazine Hcl 25 Mg Tablet) 25 mg PO TID [facility] Last Admin: 07/01/25 08:42 Dose: 25 mg Hydroxyzine HCl (Hydroxyzine Hcl 25 Mg Tab) 50 mg PO BID [facility] Last Admin: 07/01/25 08:39 Dose: 50 mg Losartan Potassium (Losartan Potassium 50 Mg Tablet) 100 mg PO DAILY [facility] Last Admin: 07/01/25 08:41 Dose: 100 mg Metoclopramide HCl (Metoclopramide 5 Mg Tab) 5 mg PO DAILY [facility] Last Admin: 07/01/25 08:39 Dose: 5 mg Nicotine (Nicotine 21 Mg/Pat) 21 mg TD DAILY [facility] Last Admin: 07/01/25 08:38 Dose: 21 mg Ondansetron HCl (Ondansetron 4 Mg/2 Ml Vial) 4 mg IV Q6HP PRN PRN Reason: NAUSEA / VOMITING Terazosin HCl (Terazosin Hcl 1 Mg Cap) 2 mg PO DAILY [facility] Last Admin: 07/01/25 08:39 Dose: 2 mg Tramadol HCl (Tramadol Hcl 50 Mg Tab) 50 mg PO Q6H PRN PRN Reason: Pain scale 5-7 (Moderate) Last Admin: 07/01/25 09:50 Dose: 50 mg Assessment and plan 1. End-stage renal disease. Normal volume. No hyperkalemia. No acidosis. The patient had dialysis Sunday the patient usually dialyzes TTS. We will continue on dialysis Sunday, Sunday, and Sunday for the time being for this week. Then if he stays in the hospital, we will switch the patient schedule to be TTS back to his schedule. 2. Hypertension, not controlled, currently in a better control. I am going to go ahead and increase hydralazine to 25 mg t.i.d., increase amlodipine 10 mg daily, and we will follow up the patient. 3. Anemia of chronic kidney disease. I do not see the need for any CHLOE. 4. Secondary hyperparathyroidism. We will follow up phosphorus level. 5. Epistaxis. We will follow up with ENT. Unfortunately, could not give DDAVP given the blood pressure and given that the patient still has urine output. Thank you, Dr. Campbell for allowing us to participate in the care of your patient. Time spent examining the patient [id number] reviewing data lab and the [facility] placing order discussing the case with the patient discussing the case with the [employer] production team member including hospitalist and nursing staff more than 55-minute
[2025-07-01] MEDS: KETOROLAC 30 MG/ML INJ IV ONE (17:32)
[2025-07-01] MEDS: FENTANYL CITR 100 MCG/2 ML IV ONE (18:07)
[2025-07-01 19:34] VITALS: BP 137/89; TEMP 98.4
[2025-07-01] MEDS ORDERED: SOD CHLORIDE 0.65% NASAL SPRAY NAS SCH (21:00)
== END 2025-07-01 20:18 | disposition home or self-care (01) | DRG 150 ==
LOC: ER 14:36 → ERHOLD 21:54 → 3RD-ICU 06-29 00:40 → 2ND 06-30 21:26
PROVIDERS: ADMIT Hospitalist; ATTEND Hospitalist
PROC: 2Y41X5Z Packing of Nasal Region using Packing Material (ICD-10-PCS; 2025-06-28)
PROC: 5A1D70Z Performance of Urinary Filtration, Intermittent, Less than 6 Hours Per Day (ICD-10-PCS; principal; 2025-06-29)
DX: R04.0 Epistaxis (principal); N18.6 End stage renal disease; I12.0 Hypertensive chronic kidney disease with stage 5 chronic kidney disease or end stage renal disease; N25.81 Secondary hyperparathyroidism of renal origin; D63.1 Anemia in chronic kidney disease; I16.0 Hypertensive urgency; E78.00 Pure hypercholesterolemia, unspecified; T46.5X6A Underdosing of other antihypertensive drugs, initial encounter; Z99.2 Dependence on renal dialysis; Z79.02 Long term (current) use of antithrombotics/antiplatelets; Z79.899 Other long term (current) drug therapy; Z91.158 Patient's noncompliance with renal dialysis for other reason; Z91.148 Patient's other noncompliance with medication regimen for other reason
CPT/HCPCS: 30901; 36415; 70450; 71045; 80048; 80053; 80076; 83735; 83880; 84484; 85025; 85610; 90935; 93005; 96374; 96375; 99285; J0360; J1200; J2405; J2765; J3010